=== PATIENT | female | born 1950 | race Caucasian/White ===

== ENCOUNTER → 2017-02-25 | Outpatient (CLI) | payer MEDICARE, OTHER ==
--- NOTE | 2017-02-28 20:22 | Diagnostic Imaging Report ---
EXAMINATION: Right breast screening mammogram with tomography evaluation. The current study was also evaluated with a Computer Aided Detection (CAD) system. INDICATION: Screening. No current symptoms. The patient has had left mastectomy. FINDINGS: The right breast is composed of scattered fibroglandular densities. There are punctate benign-appearing calcifications. Allowing for technique and positional differences, no suspicious change is seen. IMPRESSION: No significant change. ACR BI-RADS Category 2: Benign findings. Result letter will be mailed to the patient. Note: At least 10% of breast cancer is not imaged by mammography. Dictated by: Dictated on workstation # [id number]
== END ==
LOC: RAD 14:28
PROVIDERS: ATTEND Internal Medicine
DX: Z12.31 Encounter for screening mammogram for malignant neoplasm of breast (principal)

== ENCOUNTER → 2018-03-17 | Outpatient (CLI) | payer MEDICARE, OTHER ==
--- NOTE | 2018-03-20 21:14 | Diagnostic Imaging Report ---
EXAM: Right screening mammogram with 3-D tomosynthesis and CAD. COMPARISON: This study was compared to the prior exams of 02/25/2017, 02/11/2016 and 01/22/2015. At this time, there are no complaints. FINDINGS: There are scattered fibroglandular densities in the right breast which could obscure a lesion. Overall, there does not appear to have been any significant change. There is no primary or secondary sign of malignancy noted. IMPRESSION: There is no evidence of malignancy. ACR BI-RADS Category 1: Negative. Result letter will be mailed to the patient. Note: At least 10% of breast cancer is not imaged by mammography. Dictated by: Dictated on workstation # [id number]
== END ==
LOC: RAD 15:03
PROVIDERS: ATTEND Internal Medicine
DX: Z12.31 Encounter for screening mammogram for malignant neoplasm of breast (principal)

== ENCOUNTER → 2019-03-30 | Outpatient (CLI) | payer MEDICARE, OTHER ==
--- NOTE | 2019-04-02 09:38 | Diagnostic Imaging Report ---
INDICATION: Routine screening. Comparison is made with prior mammogram 03/17/2018 and 02/25/2017. 2-D and 3-D unilateral right screening mammography was performed with CAD. Scattered fibroglandular densities are identified bilaterally. The parenchymal pattern is stable. No mass or malignant-appearing microcalcifications are seen. Right axilla is unremarkable. IMPRESSION: BI-RADS Category 1. No mammographic features suspicious for malignancy are identified. Dictated by: Dictated on workstation # [id number]
== END ==
LOC: RAD 14:35
PROVIDERS: ATTEND Internal Medicine
DX: Z12.31 Encounter for screening mammogram for malignant neoplasm of breast (principal)

== ENCOUNTER → 2019-07-05 | Outpatient (CLI) | payer MEDICARE, OTHER ==
--- NOTE | 2019-07-05 10:59 | Diagnostic Imaging Report ---
PROCEDURE: CT abdomen and pelvis without contrast. TECHNIQUE: Multiple contiguous axial images were obtained through the abdomen and pelvis without the use of intravenous contrast. Auto Exposure Controls were utilized during the CT exam to meet ALARA standards for radiation dose reduction. 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 No comparison study. The solitary left kidney is normal in size, cortical thickness and volume. Its parenchymal density unremarkable and there is no identifiable intrarenal left-sided stone. There is pelvic phlebolith os present but no appreciable radiodense stone along the identifiable course of the nondistended left ureter. No perinephric or left periureteric edema. The bilateral adrenals are present and appeared unremarkable. The liver, gallbladder, spleen and pancreas unremarkable. The aorta is nonaneurysmal. There is no bowel, biliary or urinary tract obstruction. No ascites, abscess, hematoma or fluid collection. The unopacified urinary bladder showed no obvious wall thickening or appreciable intraluminal debris. No abdominal wall defect or hernia. No focal inflammatory process. IMPRESSION: Solitary unobstructed left kidney without visualized stone or pathological finding. Aside from a right nephrectomy, the study is otherwise normal. Dictated by: Dictated on workstation # [id number]
== END ==
LOC: RAD 09:51
PROVIDERS: ATTEND Urology
DX: Z87.440 Personal history of urinary (tract) infections (principal); Z87.442 Personal history of urinary calculi; Z90.5 Acquired absence of kidney
CPT/HCPCS: 74176

== ENCOUNTER → 2020-04-02 | Outpatient (CLI) | payer MEDICARE, OTHER ==
--- NOTE | 2020-04-02 13:54 | Diagnostic Imaging Report ---
INDICATION: Routine screening. COMPARISON: 03/30/2019 and 03/17/2018. TECHNIQUE: 2D and 3D unilateral right screening mammography was performed with CAD. FINDINGS: Scattered fibroglandular densities in the right breast are noted. The parenchymal pattern is stable. No mass or malignant appearing microcalcifications are seen. The axilla is unremarkable. IMPRESSION: No mammographic features suspicious for malignancy are identified. ACR BI-RADS Category 1: Negative. Result letter will be mailed to the patient. Note: At least 10% of breast cancer is not imaged by mammography. Dictated by: Dictated on workstation # [id number]
== END ==
LOC: RAD 09:47
PROVIDERS: ATTEND Internal Medicine
DX: Z12.31 Encounter for screening mammogram for malignant neoplasm of breast (principal)
CPT/HCPCS: 77063

== ENCOUNTER → 2020-05-15 | Outpatient (CLI) | payer MEDICARE, OTHER ==
--- NOTE | 2020-05-15 08:43 | Diagnostic Imaging Report ---
INDICATION: Abdominal pain Abdominal sonography performed in the routine fashion. The liver showed echogenicity with no focal lesions. Portal vein is patent with hepatopetal flow. Gallbladder is unremarkable with no stones or wall thickening. Common duct measured 4.6 mm. The pancreas is not well seen due to overlying gas. Spleen was not enlarged and no focal lesions. Visualized portions of the aorta and IVC are normal. Patient has had prior right nephrectomy. The left kidney was normal measured 12.1 x 4.9 x 6.1 cm. There is no ascites. IMPRESSION: Unremarkable abdominal sonography. Gallbladder appears normal. Patient has had previous right nephrectomy. There is no acute finding. Dictated by: Dictated on workstation # [id number]
== END ==
LOC: RAD 07:00
PROVIDERS: ATTEND Internal Medicine
DX: K82.9 Disease of gallbladder, unspecified (principal); R10.9 Unspecified abdominal pain; Z90.5 Acquired absence of kidney
CPT/HCPCS: 76700

== ENCOUNTER → 2020-06-02 | Outpatient (CLI) | payer MEDICARE, OTHER ==
[~2020-06-02] MED LIST: CATHETER FLUSH 10 ML SYR IV PRN
--- NOTE | 2020-06-02 13:18 | Diagnostic Imaging Report ---
INDICATION: Gallbladder disease. TECHNIQUE: The patient was administered 5.5 mCi of technetium 99m Choletec intravenously and imaging over the abdomen was performed. At 45 minutes, the patient ingested 8 ounces of Ensure and a gallbladder ejection fraction was calculated. FINDINGS: There is homogeneous uptake of activity by the liver with prompt excretion of activity into the common duct and gallbladder. Normal passage of activity into the small bowel is noted. There also is a moderate amount of gastric uptake, consistent with bile reflux into the stomach. The gallbladder ejection fraction is normal at 37%. IMPRESSION: 1. Patent cystic duct and common bile duct. 2. Gastric bile reflux. 3. Normal gallbladder ejection fraction. Dictated by: Dictated on workstation # [id number]
== END ==
LOC: CARD 09:26
PROVIDERS: ATTEND Internal Medicine
DX: K82.9 Disease of gallbladder, unspecified (principal); K21.9 Gastro-esophageal reflux disease without esophagitis
CPT/HCPCS: 78227; A9537

== ENCOUNTER → 2021-04-06 | Outpatient (CLI) | payer MEDICARE, OTHER ==
--- NOTE | 2021-04-06 12:23 | Diagnostic Imaging Report ---
INDICATION: Routine screening. COMPARISON: 04/02/2020 and 03/30/2019. TECHNIQUE: Unilateral right 2D and 3D screening mammography was performed with CAD. FINDINGS: Scattered fibroglandular densities are identified bilaterally. The parenchymal pattern is stable. No dominant mass or malignant-appearing microcalcifications are seen. The right axilla is unremarkable. IMPRESSION: No mammographic features suspicious for malignancy are identified. ACR BI-RADS Category 1: Negative. Result letter will be mailed to the patient. Note: At least 10% of breast cancer is not imaged by mammography. Dictated by: Dictated on workstation # [id number]
== END ==
LOC: RAD 09:30
PROVIDERS: ATTEND Internal Medicine
DX: Z12.31 Encounter for screening mammogram for malignant neoplasm of breast (principal)
CPT/HCPCS: 77063

== ENCOUNTER 2021-11-04 07:01 | Outpatient (CLI) | payer MEDICARE, OTHER ==
[~2021-11-04] VITALS: Ht 157.5 cm; Wt 68.8 kg
[2021-11-04] MEDS ORDERED: CRAN500T4 PO (08:59)
[2021-11-04] MEDS ORDERED: NAPR220T66 PO (08:59)
[2021-11-04] MEDS ORDERED: AMIT100T2 PO (08:59)
[2021-11-04] MEDS ORDERED: CHOL500049 PO (08:59)
[2021-11-04] MEDS ORDERED: ASCO-129 PO (08:59)
[2021-11-04] MEDS ORDERED: OXYB10TA29 PO (08:59)
[2021-11-04] MEDS ORDERED: PANT40TA52 PO (08:59)
[2021-11-04] MEDS ORDERED: MULT-974 PO (08:59)
[2021-11-04] MEDS ORDERED: DILT240C87 PO (08:59)
[2021-11-04] MEDS ORDERED: CALC-823 PO (08:59)
[2021-11-04] MEDS ORDERED: FERR-84 PO (08:59)
[2021-11-04] MEDS ORDERED: SUCR1TAB PO (08:59)
[2021-11-04] MEDS ORDERED: MELA1TAB20 PO (08:59)
[2021-11-04] MEDS ORDERED: HYDR25TA4 PO (08:59)
[2021-11-04] MEDS ORDERED: TURM500T PO (08:59)
[2021-11-04] MEDS ORDERED: LEVO75TA6 PO (08:59)
[2021-11-04] MEDS ORDERED: SIMV20TA26 PO (08:59)
[2021-11-04] MEDS ORDERED: MAGN400T39 PO (08:59)
== END 2021-11-04 09:01 ==
LOC: PREOP 07:01
PROVIDERS: ATTEND Surgery
DX: Z01.818 Encounter for other preprocedural examination (principal)

== ENCOUNTER 2021-11-11 09:11 | Day surgery (SDC) | payer MEDICARE, OTHER ==
[~2021-11-11] VITALS: Ht 157 cm; Wt 69.0 kg
[~2021-11-11 09:11] MED LIST changes: +AMIT100T2 PO; +ASCO-129 PO; +CALC-823 PO; -CATHETER FLUSH 10 ML SYR IV PRN; +CHOL500049 PO; +CRAN500T4 PO; +DILT240C87 PO; +FERR-84 PO; +HYDR25TA4 PO; +LEVO75TA6 PO; +MAGN400T39 PO; +MELA1TAB20 PO; +MULT-974 PO; +NAPR220T66 PO; +OXYB10TA29 PO; +PANT40TA52 PO; +SIMV20TA26 PO; +SUCR1TAB PO; +TURM500T PO
[2021-11-11] MEDS ORDERED: LACTATED RINGERS 1,000 ML IV STA (09:16)
[2021-11-11] MEDS ORDERED: LACTATED RINGERS 1,000 ML IV ONE (09:21)
[2021-11-11] MEDS ORDERED: LIDOCAINE JELLY 2% 6 ML SYRINGE MM PRN (09:30)
[2021-11-11 09:35] VITALS: BP 148/88
[2021-11-11] MEDS ORDERED: PROPOFOL INJECTION 50 ML IV ONE (10:26)
--- NOTE | 2021-11-11 10:37 | Progress Note-Pre Operative ---
Pre-Operative Progress Note Date of Available H&P: Nov 11, 2021 Date H&P Reviewed: Nov 11, 2021 Time H&P Reviewed: 10:00 History & Physical: No changes noted Pre-Operative Diagnosis: screening o JEFFERSON ESPINOSA MD Nov 11, 2021 10:37
--- NOTE | 2021-11-11 10:39 | Discharge Inst-Surgical ---
D/C Lap Instructions-JESÚS Follow Up Activity as tolerated High Fiber Diet 25g or more per day Avoid Alcohol, Caffeine, Spicy [place] and Acid foods. Drink 64 fluid oz or more of fluids per day. Symptoms to Report: Fever over 101 degree F, Nausea/Vomiting If any problems/questions: Contact your physician or go to Emergency Room JEFFERSON ESPINOSA MD Nov 11, 2021 10:39
[2021-11-11] MEDS ORDERED: ONDANSETRON 4 MG (ZOFRAN) ORAL DISSOLVE TAB PO PRN (10:45)
[2021-11-11] MEDS ORDERED: ONDANSETRON 4 MG/2 ML (SDV) Z0FRAN IVP PRN (10:45)
[2021-11-11 11:25] VITALS: BP 92/52
--- NOTE | 2021-11-11 11:25 | Anesthesia-General Post-Op ---
MAC Patient Condition Mental Status/LOC: Same as Preop Cardiovascular: Satisfactory Nausea/Vomiting: Absent Respiratory: Satisfactory Pain: Controlled Complications: Absent Post Op Complications Complications None Follow Up Care/Instructions Patient Instructions None needed. Anesthesiology Discharge Order Discharge Order Patient is doing well, no complaints, stable vital signs, no apparent adverse anesthesia problems. No complications reported per nursing. ANA HOU CRNA Nov 11, 2021 11:25
[2021-11-11 11:30] VITALS: BP 96/54
--- NOTE | 2021-11-11 11:30 | Progress Note-Post Operative ---
Post-Operative Progess Note Surgeon (s)/Medical Records Coder (s) Surgeon JEFFERSON ESPINOSA MD Medical Records Coder: none Pre-Operative Diagnosis screening colo Post-Operative Diagnosis mild chronic stage 1 ext and int hemorrhoids. Procedure & Operative Findings Date of Procedure 11/11/21 Procedure Performed/Findings colonoscopy Anesthesia Type mac Estimated Blood Loss Estimated blood loss (mL): minimal Specimens/Packing Specimens Removed none JEFFERSON ESPINOSA MD Nov 11, 2021 11:30
[2021-11-11 11:50] VITALS: BP 113/53
--- NOTE | 2021-11-11 18:43 | OPERATIVE REPORT ---
DATE OF SERVICE: 11/11/2021 ATTENDING PRIMARY CARE PHYSICIAN: Dr. Kennedy. PREOPERATIVE DIAGNOSIS: Screening colonoscopy. POSTOPERATIVE DIAGNOSIS: Mild chronic stage I external and internal hemorrhoids. PROCEDURE: Colonoscopy. SURGEON: Jefferson Hdz MD. ANESTHESIA: Monitored anesthesia care. ESTIMATED BLOOD LOSS: Minimal. FINDINGS: Mild chronic stage I external and internal hemorrhoids. DISPOSITION: The patient tolerated the procedure well. INDICATIONS: The patient is a 71-year-old female referred over to us for screening colonoscopy. She does not report any issues with diarrhea nor constipation as well as no red blood per rectum nor any dark tarry stools. She also does not report any family history of colon cancer. DESCRIPTION OF PROCEDURE: The patient was brought to the endoscopy suite, laid in the left lateral decubitus position. After adequate IV pain and sedative medications and monitored anesthesia care, a digital rectal examination was performed. Mild chronic stage I external and internal hemorrhoids were identified, which were not actively edematous nor inflamed and no bleeding. Normal sphincter tone was felt and there were no palpable masses. The endoscope was then intubated into the anus and rectum gently insufflated. The endoscope was then advanced through the valves of [place] of the rectum with no polyps or any neoplasms identified. We then proceeded through the sigmoid colon where no diverticulosis identified. The endoscope was then advanced through the descending, transverse and ascending colon to the cecum, which were normal. There were no polyps or any neoplasms identified throughout the colon or rectum. The endoscope was then slowly withdrawn while taking a second look and suctioning of residual air with no additional findings. The patient tolerated the procedure well. We will recommend continued conservative medical management with a high fiber diet with fiber supplementation, which should equal or exceed 25 grams daily to promote soft consistency stools on a daily basis. If this is the case and she is asymptomatic, she does not need another colonoscopy for another 10 years. Job ID: [id number] DocumentID: [id number] Dictated Date: 11/11/2021 11:26:54 Heat Pump Installer Date: 11/11/2021 18:42:32 Dictated By: JEFFERSON HDZ MD [facility]
== END 2021-11-11 11:59 | disposition home or self-care (01) ==
LOC: ENDO 09:11
PROVIDERS: ATTEND Surgery
DX: Z12.11 Encounter for screening for malignant neoplasm of colon (principal); K64.0 First degree hemorrhoids; Z87.891 Personal history of nicotine dependence

== ENCOUNTER → 2022-04-06 | Outpatient (CLI) | payer MEDICARE, OTHER ==
--- NOTE | 2022-04-06 09:06 | Diagnostic Imaging Report ---
INDICATION: Postmenopausal state COMPARISON: None available FINDINGS: AP Spine L1-L4: [BMD (g/cm2): 1.101] [T-Score: -0.8] [Z-Score: 1.0] [BMD Previous: na] [BMD % Change: na] LT Hip Neck: [BMD (g/cm2): 0.805] [T-Score: -1.7] [Z-Score: 0.2] LT Hip Total: [BMD (g/cm2):0.896] [T-Score:-0.9] [Z-Score: 0.8] [BMD Previous: na] [BMD % Change: na] RT Hip Neck: [BMD (g/cm2):0.839] [T-Score:-1.4] [Z-Score:0.5] RT Hip Total: [BMD (g/cm2):0.839] [T-score:-0.9] [Z-Score:0.8] [BMD Previous:na] [BMD % Change:na] *Indicates significant change from prior examination based on 95% confidence level. World Health Organization criteria for BMD interpretation classify patients as Normal (T-score at or above -1.0), Osteopenic (T-score between -1.0 and -2.5) or Osteoporotic (T-score at or below -2.5). LIMITATIONS AND MODIFICATION: None. FRACTURE RISK (FRAX SCORE): The ten year probability of (%): Major Osteoporotic Fracture: [18.2] Hip Fracture: [4.2] IMPRESSION: 1. Osteopenia (Low bone mass). 2. Baseline examination. 3. See below National Osteoporosis Foundation guidelines on when to potentially initiate pharmacologic therapy. Based on the National Osteoporosis Foundation Guidelines, pharmacologic treatment should be initiated in any of the following, unless clinical conditions suggest otherwise: * Any patient with prior fragility fracture of the hip or vertebrae. A spine fracture indicates 5X risk for subsequent spine fracture and 2X risk for subsequent hip fracture. * Osteoporosis (T-score <-2.5). * Postmenopausal women and men age 50 and older with low bone mass/osteopenia (T-score between -1.0 and -2.5) by DXA and 10-year major osteoporotic fracture greater than 20% or a 10-year probability of hip fracture greater than 3%. These fracture risks are supplied above in the FRAX score, if applicable. * Clinician judgement and/or patient preferences may indicate treatment for people with 10-year fracture probabilities above or below these levels. Dictated by: Dictated on workstation # [id number]
--- NOTE | 2022-04-06 14:27 | Diagnostic Imaging Report ---
Indication: Routine screening. Comparison is made with prior mammogram 04/06/2021 and 04/02/2020. 2-D and 3-D unilateral right screening mammography was performed with CAD. CAD is utilized. The current study was also evaluated with a Computer Aided Detection (CAD) system. Scattered fibroglandular densities in the right breast are noted. The parenchymal pattern is stable. No mass or malignant-appearing microcalcifications are seen. Right axilla is unremarkable. IMPRESSION: BI-RADS Category 1 No mammographic features suspicious for malignancy are identified. ACR BI-RADS Category 1: Negative. Result letter will be mailed to the patient. Note: At least 10% of breast cancer is not imaged by mammography. Dictated by: Dictated on workstation # [id number]
== END ==
LOC: RAD 08:30
PROVIDERS: ATTEND Internal Medicine
DX: Z12.31 Encounter for screening mammogram for malignant neoplasm of breast (principal); M85.89 Other specified disorders of bone density and structure, multiple sites
CPT/HCPCS: 77063; 77080

== ENCOUNTER 2022-06-07 08:11 | Inpatient (IN) | payer MEDICARE, OTHER ==
[~2022-06-07] VITALS: Ht 157.5 cm; Wt 78.9 kg
[2022-06-07] VITALS (21 sets, daily range): BP systolic 84–113; BP diastolic 46–93
--- NOTE | 2022-06-07 09:20 | ED Respiratory ---
General Chief Complaint: Cough/Cold/Flu Symptoms Stated Complaint: COUGH | CHEST CONGESTION | FEVER Nursing Triage Note: PT AMB TO RM 5 PT CO OF COLD COUGH AND BODY ACHES SINCE LAST WEEK, TESTED SELF FOR COVID AND WAS NEG AT HOME. HAS OCC HAS LOW GRADE TEMP. Source: patient Exam Limitations: no limitations History of Present Illness Date Seen by Provider: Jun 07, 2022 Time Seen by Provider: 09:08 Initial Comments Patient is a 71-year-old female who presents to the emergency department today with a chief complaint of congestion, cough, body aches onset last week on Tuesday 1 week ago. Patient states her symptoms have waxed and waned over the last week to the point last night she was having difficulty taking a deep breath due to the pain in her right upper abdomen/right chest. She does endorse fever over the last 2 to 3 days. Cough is nonproductive. She has had a mild sore throat. Decreased appetite, decreased overall drinking. She has a former smoking history, quit 20 years ago. She is a breast cancer survivor greater than 10 years. She has had previous nephrectomy for kidney stones. She is on medications for hypertension and thyroid. She states her normal blood pressure is in the 130s. Notably she is 95 over 60s here in the emergency department with a heart rate of 111. She does not require the use of inhalers ever. She has had COVID in February 2022. Vaccinated with 1 booster. 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 She did get a flu shot this year. Couple of days of diarrhea, no dysuria urgency or frequency. No swelling in her legs, no recent travel or prolonged immobility. All other review of systems reviewed and negative except as stated. Timing/Duration: week, getting worse Severity: moderate Prior Episodes/Possible Cause: occasional episodes Associated Symptoms: chest pain/soreness, cough, fever/chills, nasal congestion, shortness of breath Allergies and Home Medications Allergies Coded Allergies: No Known Drug Allergies (Unverified , 06/07/22) Patient Home Medication List Home Medication List Reviewed: Yes Amitriptyline HCl (Amitriptyline HCl) 100 Mg Tablet, 100 MG PO HS, (Reported) Entered as Reported by: JM ELIZONDO on 11/04/21 0859 Last Action: Reviewed Calcium Carbonate (Calcium) 500 Mg Calcium (1250 Mg) Tablet, 1,000 MG PO DAILY, (Reported) Entered as Reported by: JM ELIZONDO on 11/04/21858 Last Action: Reviewed Cranberry Extract (Cranberry) 500 Mg Tablet, 1,000 MG PO HS, (Reported) Entered as Reported by: JM ELIZONDO on 11/04/21858 Last Action: Reviewed Cranberry Fruit (Cranberry) 500 Mg Tab.chew, 500 MG PO DAILY, (Reported) Entered as Reported by: LU VOGT on 06/08/221258 Last Action: Reviewed Diltiazem HCl (Diltiazem 24Hr ER) 240 Mg Cap.er.24h, 240 MG PO DAILY, (Reported) Entered as Reported by: LU VOGT on 06/08/221258 Last Action: Reviewed Ferrous Sulfate (Iron) 325 Mg (65 Mg Iron) Tablet, 325 MG PO DAILY, (Reported) Entered as Reported by: JM ELIZONDO on 11/04/21858 Last Action: Reviewed Fish Oil/Dha/Epa (Fish Oil 1,200 mg Fish Oil) 1,200 Mg-144 Mg-216 Mg Capsule, 1 EACH PO HS, (Reported) Entered as Reported by: LU VOGT on 06/08/22 130 Last Action: Reviewed Hydrochlorothiazide (Hydrochlorothiazide) 25 Mg Tablet, 25 MG PO DAILY, (Reporte d) Entered as Reported by: JM ELIZONDO on 11/04/21858 Last Action: Reviewed Levothyroxine Sodium (Levothyroxine Sodium) 75 Mcg Tablet, 75 MCG PO DAILY, (Reported) Entered as Reported by: JM ELIZONDO on 11/04/21858 Last Action: Reviewed Loratadine (Loratadine) 10 Mg Tablet, 10 MG PO DAILY, (Reported) Entered as Reported by: LU VOGT on 06/08/221258 Last Action: Reviewed Magnesium Oxide (Magnesium Oxide) 250 Mg Tablet, 500 MG PO BID, (Reported) Entered as Reported by: LU VOGT on 06/08/221258 Last Action: Reviewed Melatonin (Melatonin) 10 Mg Tablet, 10 MG PO HS PRN for SLEEP, (Reported) Entered as Reported by: LU VOGT on 06/08/221258 Last Action: Reviewed Multivitamin (Multi-Vitamin Daily) 1 Each Tablet, 1 EACH PO DAILY, (Reported) Entered as Reported by: JM ELIZONDO on 11/04/21858 Last Action: Reviewed Naproxen Sodium (Aleve) 220 Mg Tablet, 440 MG PO DAILY, (Reported) Entered as Reported by: JM ELIZONDO on 11/04/21858 Last Action: Reviewed Oxybutynin Chloride (Oxybutynin Chloride ER) 10 Mg Tab.er.24, 10 MG PO DAILY, (Reported) Entered as Reported by: JM ELIZONDO on 11/04/21858 Last Action: Reviewed Pantoprazole Sodium (Pantoprazole Sodium) 40 Mg Tablet.dr, 40 MG PO DAILY, (Reported) Entered as Reported by: JM ELIZONDO on 11/04/21858 Last Action: Reviewed Simvastatin (Simvastatin) 20 Mg Tablet, 20 MG PO HS, (Reported) Entered as Reported by: JM ELIZONDO on 11/04/21858 Last Action: Reviewed Turmeric Root Extract (Turmeric) 500 Mg Tablet, 500 MG PO DAILY, (Reported) Entered as Reported by: JM ELIZONDO on 11/04/21858 Last Action: Reviewed Ubidecarenone (Coq-10) 100 Mg Capsule, 100 MG PO DAILY, (Reported) Entered as Reported by: LU VOGT on 06/08/22 125 Last Action: Reviewed Discontinued Medications Ascorbic Acid (Vitamin C) 500 Mg Tablet.er, 1,000 MG PO DAILY, (Reported) Discontinued Reason: No Longer Taking Entered as Reported by: JM ELIZONDO on 11/04/21858 Last Action: Discontinued Cholecalciferol (Vitamin D3) (Vitamin D3) 1,250 Mcg (51697 Unit) Capsule, 1,250 MCG PO DAILY, (Reported) Discontinued Reason: No Longer Taking Entered as Reported by: JM ELIZONDO on 11/04/21858 Last Action: Discontinued Diltiazem HCl (Diltiazem ER) 240 Mg Capsule.er, 240 MG PO DAILY, (Reported) Discontinued Reason: Duplicate Order Entered as Reported by: JM ELIZONDO on 11/04/21858 Last Action: Discontinued Magnesium Oxide (Magnesium) 400 Mg Magnesium Tablet, 400 MG PO DAILY, (Reported) Discontinued Reason: Prescription changed Entered as Reported by: JM ELIZONDO on 11/04/21858 Melatonin/Pyridoxine HCl (B6) (Melatonin 10 mg Tablet) 10 Mg-10 Mg Tab.mphase, 1 EACH PO HS, (Reported) Discontinued Reason: No Longer Taking Entered as Reported by: JM ELIZONDO on 11/04/21858 Last Action: Discontinued Sucralfate (Sucralfate) 1 Gram Tablet, 1 GM PO QID, (Reported) Discontinued Reason: No Longer Taking Entered as Reported by: JM ELIZONDO on 11/04/21858 Last Action: Discontinued Review of Systems Review of Systems Constitutional: see HPI, fever, malaise EENTM: nose congestion Respiratory: cough, phlegm, other (pleuritic pain) Cardiovascular: no symptoms reported Genitourinary: no symptoms reported Musculoskeletal: no symptoms reported Skin: no symptoms reported All Other Systems Reviewed Negative Unless Noted: Yes Past Rgamutc-Ibzkaj-Sbnuta Hx Patient Social History Tobacco Use?: No Substance use?: No Alcohol Use?: No Pt feels they are or have been: No Immunizations Up To Date Influenza Vaccine Up-to-Date: Yes; Up-to-Date First/Initial COVID19 Vaccinat: 2020 Second COVID19 Vaccination Brandon: 2020 Third COVID19 Vaccination Date: 2020 Seasonal Allergies Seasonal Allergies: No Past Medical History Surgery/Hospitalization HX: HTN,HYST, R KIDNEY REMOVED FOR STONES. FOOT SURG, BREAST CA L MASTECTOMY, EYE SURG Surgeries: Yes (CATARACT BILAT, NEUROMA, R MASTECTOMY) Nephrectomy Respiratory: No Cardiac: Yes High Cholesterol, Hypertension Neurological: No Genitourinary: No Gastrointestinal: No Musculoskeletal: No Endocrine: Yes Hypothyroidsim HEENT: No Cancer: Yes Breast Did You Recieve Any Treatments: Yes Psychosocial: No Integumentary: No Blood Disorders: No Physical Exam Vital Signs - First Documented Capillary Refill : Less Than 3 Seconds Height: '" Weight: lbs. oz. kg; 27.00 BMI Method: General Appearance: no apparent distress, thin Eyes: Bilateral Eye Normal Inspection, Bilateral Eye PERRL, Bilateral Eye EOMI HEENT: PERRL/EOMI, other (very dry oral mucosa) Neck: full range of motion, supple Respiratory: chest non-tender, no respiratory distress, no accessory muscle use, decreased breath sounds (right base), crackles (throughout) Cardiovascular: regular rate, rhythm, tachycardia (111) Gastrointestinal: normal bowel sounds, non tender, soft Extremities: normal range of motion, non-tender, normal inspection, no pedal edema, no calf tenderness, normal capillary refill Neurologic/Psychiatric: no motor/sensory deficits, alert, normal mood/affect, oriented x 3 Skin: normal color, warm/dry Focused Exam Lactate Level 06/07/22 09:20: Lactic Acid Level 2.17*H Time of Focused Exam: 10:00 Respiratory: No Accessory Muscle Use, No Respiratory Distress, Crackles, Decreased Breath Sounds Cardiovascular: Regular Rate, Rhythm, Normal Peripheral Pulses, Tachycardia (110) Capillary Refill: Less Than 3 Seconds Peripheral Pulses: 2+ Radial Pulses (R), 2+ Radial Pulses (L) Skin: normal color, warm/dry Lactic Acid Level Laboratory Tests Test 06/07/22 09:20 Lactic Acid Level 2.17 MMOL/L (0.50-2.00) *H Within 3hrs of presentation: Admin fluids, Admin ABX, Blood cultures prior to ABX's, Focus exam, Lactate level Progress/Results/Core Measures Suspected Sepsis Recent Fever Within 48 Hours: Yes Infection Criteria Present: Suspected New Infection New/Unexplained Altered Menta: No Within 3hrs of presentation: Admin fluids, Admin ABX, Blood cultures prior to ABX's, Focus exam, Lactate level SIRS Temperature: Pulse: 111 Respiratory Rate: 18 Blood Pressure / Mean: 06/07/22 09:20: Lactic Acid Level 2.17*H Laboratory Tests 06/07/22 08:40: INR Comment 1.0 Results/Orders Lab Results Laboratory Tests Test 06/07/22 08:40 06/07/22 08:55 06/07/22 09:20 Range/Units White Blood Count 4.9 4.3-11.0 10^3/uL Red Blood Count 4.29 3.80-5.11 10^6/uL Hemoglobin 13.1 11.5-16.0 g/dL Hematocrit 39 35-52 % Mean Corpuscular Volume 92 80-99 fL Mean Corpuscular Hemoglobin 31 25-34 pg Mean Corpuscular Hemoglobin Concent 33 32-36 g/dL Red Cell Distribution Width 13.4 10.0-14.5 % Platelet Count 209 130-400 10^3/uL Mean Platelet Volume 10.3 9.0-12.2 fL Immature Granulocyte % (Auto) 0 % Neutrophils (%) (Auto) 84 H 42-75 % Lymphocytes (%) (Auto) 12 12-44 % Monocytes (%) (Auto) 3 0-12 % Eosinophils (%) (Auto) 1 0-10 % Basophils (%) (Auto) 1 0-10 % Neutrophils # (Auto) 4.1 1.8-7.8 10^3/uL Lymphocytes # (Auto) 0.6 L 1.0-4.0 10^3/uL Monocytes # (Auto) 0.2 0.0-1.0 10^3/uL Eosinophils # (Auto) 0.0 0.0-0.3 10^3/uL Basophils # (Auto) 0.0 0.0-0.1 10^3/uL Immature Granulocyte # (Auto) 0.0 0.0-0.1 10^3/uL Neutrophils % (Manual) 29 % Lymphocytes % (Manual) 7 % Monocytes % (Manual) 2 % Metamyelocytes % 5 % Myelocytes % 3 % Band Neutrophils 54 % Prothrombin Time 13.9 12.2-14.7 SEC INR Comment 1.0 0.8-1.4 Activated Partial Thromboplast Time 36 H 24-35 SEC Sodium Level 137 135-145 MMOL/L Potassium Level 3.7 3.6-5.0 MMOL/L Chloride Level 103 98-107 MMOL/L Carbon Dioxide Level 20 L 21-32 MMOL/L Anion Gap 14 5-14 MMOL/L Blood Urea Nitrogen 35 H 7-18 MG/DL Creatinine 1.89 H 0.60-1.30 MG/DL Estimat Glomerular Filtration Rate 28 BUN/Creatinine Ratio 19 Glucose Level 92 70-105 MG/DL Calcium Level 8.8 8.5-10.1 MG/DL Corrected Calcium 9.4 8.5-10.1 MG/DL Total Bilirubin 0.4 0.1-1.0 MG/DL Aspartate Amino Transf (AST/SGOT) 45 H 5-34 U/L Alanine Aminotransferase (ALT/SGPT) 38 0-55 U/L Alkaline Phosphatase 102 40-136 U/L Total Protein 5.9 L 6.4-8.2 GM/DL Albumin 3.2 3.2-4.5 GM/DL Smear Scan YES Influenza Type A (RT-PCR) Not Detected Not Detecte Influenza Type B (RT-PCR) Not Detected Not Detecte SARS-CoV-2 RNA (RT-PCR) Not Detected Not Detecte Lactic Acid Level 2.17 *H 0.50-2.00 MMOL/L Micro Results Microbiology 06/07/22 Blood Culture - Final, Complete Streptococcus pyogenes Grp A 06/07/22 Blood Culture - Preliminary, Resulted No growth My Orders Orders - STU MOORE MD Cbc With Automated Diff (06/07/22 09:17) Comprehensive Metabolic Panel (06/07/22 09:17) Blood Culture (06/07/22 09:17) Sputum Culture (06/07/22 09:17) Urinalysis (06/07/22 09:17) Urine Culture (06/07/22 09:17) Protime With Inr (06/07/22 09:17) Partial Thromboplastin Time (06/07/22 09:17) Chest 1 View, Ap/Pa Only (06/07/22 09:17) Ed Iv/Invasive Line Start (06/07/22 09:17) Ed Iv/Invasive Line Start (06/07/22 09:17) Vital Signs Adult Sepsis Patie Q15M (06/07/22 09:17) O2 (06/07/22 09:17) Lactic Acid Analyzer (06/07/22 09:17) Ns Iv 1000 Ml (Sodium Chloride 0.9%) (06/07/22 09:30) Cefepime Injection (Maxipime Injection) (06/07/22 09:30) Covid 19 Inhouse Test (06/07/22 09:20) Influenza A And B By Pcr (06/07/22 09:20) Isolation Central Supply Req (06/07/22 09:20) Manual Differential (06/07/22 08:40) Ed Admission (Communication) (06/07/22 10:07) Medications Given in ED Vital Signs/I&O 06/07/22 06/07/22 08:22 08:22 Temp 36.6 Pulse 111 Resp 18 B/P (MAP) Pulse Ox 91 91 O2 Delivery Nasal Cannula Nasal Cannula O2 Flow Rate 2.00 2.00 Capillary Refill : Less Than 3 Seconds Progress Note : Time: 10:01 Progress Note Patient seen and evaluated by me, 71-year-old with right-sided pleuritic chest pain, fever cough. Evaluation today includes physical exam, sepsis protocol which include CBC, Chem-12, lactic acid, blood cultures, coag profile, urinalysis, single view chest x-ray. COVID/flu swab was also obtained. Physical exam pertinent for tachycardia with a heart rate of 111, "soft" blood pressure with systolic of 95. Room air sats 91%. She clinically has very dry mucous membranes. She has diminished breath sounds in the right base with crackles throughout both lungs. Abdomen is soft, nontender, nondistended. No lower extremity edema, calf tenderness. Skin turgor is good, cap refill is brisk at 2 seconds. Differential diagnosis based on history and physical exam, pneumonia, sepsis, pneumothorax. Labs reviewed, patient has a normal white blood cell count with slight left shift. Chemistry shows mildly elevated BUN and creatinine. Lactic acid is 2.17. Single view chest x-ray shows consolidation in the right base. COVID and flu are negative. Patient is treated in the emergency department with IV fluids, normal saline and cefepime 1 g. She clinically meets sepsis criteria with right lower lobe pneumonia as source. Discussed with Dr. Cotter, the patient's primary care physician who accepts the patient for inpatient admission. We will put her on cardiac stepdown unit. Diagnostic Imaging Diagonstic Imaging: Xray Plain Films/CT/US/NM/MRI: chest Comments [facility]. [place], [place] NAME: REJI CHOW [facility] REC#: [id number] PT STATUS: REG ER : 1950 PHYSICIAN: STU MOORE MD ADMIT DATE: 06/07/22/ER Draft Date of Exam:06/07/22 CHEST 1 VIEW, AP/PA ONLY INDICATION: Cough and fever. Portable chest 9:20 AM There is consolidation at the right lung base. Left lung is clear. There may be small right pleural effusion. IMPRESSION: Right basilar consolidation with possible effusion. Findings are suspicious for pneumonia. Dictated on workstation # [id number] Dict: 06/07/2232 Trans: 06/07/2234 [id number] Interpreted by: NEGRITO FERNANDEZ MD Electronically signed by: Departure Communication (Admissions) Time/Spoke to Admitting Phy: :[address] Cotter ([facility]); IP to cardiac step down unit Impression Primary Impression: Sepsis Qualified Codes: A41.9 - Sepsis, unspecified organism Additional Impression: Pneumonia Qualified Codes: J18.9 - Pneumonia, unspecified organism Disposition: 09 ADMITTED INPATIENT Condition: Stable Admissions Decision to Admit Reason: Admit from ER (General) Decision to Admit/Date: Jun 07, 2022 Time/Decision to Admit Time: 09:45 Departure-Patient Inst. Referrals: RIAZ COTTER DO (PCP/Family) Primary Care Physician STU MOORE MD Jun 07, 2022 09:20
[2022-06-07 09:29] LABS: BASOPHILS % (AUTO) 1 % (0-10); EOSINOPHILS % (AUTO) 1 % (0-10); HEMATOCRIT 39 % (35-52); HEMOGLOBIN 13.1 g/dL (11.5-16.0); LYMPHOCYTES # (AUTO) 0.6 10^3/uL (1.0-4.0); LYMPHOCYTES % (AUTO) 12 % (12-44); MEAN CORPUSCULAR HEMOGLOBIN 31 pg (25-34); MEAN CORPUSCULAR HGB CONC 33 g/dL (32-36); MEAN CORPUSCULAR VOLUME 92 fL (80-99); MEAN PLATELET VOLUME 10.3 fL (9.0-12.2); MONOCYTES # (AUTO) 0.2 10^3/uL (0.0-1.0); MONOCYTES % (AUTO) 3 % (0-12); NEUTROPHILS # (AUTO) 4.1 10^3/uL (1.8-7.8); NEUTROPHILS % (AUTO) 84 % (42-75); PLATELET COUNT 209 10^3/uL (130-400); WHITE BLOOD COUNT 4.9 10^3/uL (4.3-11.0)
[2022-06-07] MEDS ORDERED: CEFEPIME INJECTION 1,000 MG in NS (IVPB) 50 ML IV ONE (09:30)
[2022-06-07] MEDS ORDERED: NS IV 1000 ML 1,000 ML IV SCH ×4 (09:30→18:45)
[2022-06-07 09:32] LABS: ALBUMIN 3.2 GM/DL (3.2-4.5); POTASSIUM 3.7 MMOL/L (3.6-5.0); SMEAR SCAN COMMENT YES
[2022-06-07 09:33] LABS: CALCIUM 8.8 MG/DL (8.5-10.1)
[2022-06-07 09:34] LABS: TOTAL PROTEIN 5.9 GM/DL (6.4-8.2)
--- NOTE | 2022-06-07 09:34 | Diagnostic Imaging Report ---
INDICATION: Cough and fever. Portable chest 9:20 AM There is consolidation at the right lung base. Left lung is clear. There may be small right pleural effusion. IMPRESSION: Right basilar consolidation with possible effusion. Findings are suspicious for pneumonia. Dictated by: Dictated on workstation # [id number]
[2022-06-07 09:36] LABS: BILIRUBIN,TOTAL 0.4 MG/DL (0.1-1.0)
[2022-06-07 09:38] LABS: CREATININE SERUM 1.89 MG/DL (0.60-1.30)
[2022-06-07 09:50] LABS: PROTHROMBIN TIME PATIENT 13.9 SEC (12.2-14.7)
[2022-06-07 10:16] LABS: BAND NEUTROPHILS 54 %; LYMPHOCYTES % (MANUAL) 7 %; METAMYELOCYTES % 5 %; MONOCYTES % (MANUAL) 2 %; MYELOCYTES % 3 %; NEUTROPHILS % (MANUAL) 29 %
[2022-06-07] MEDS ORDERED: LACTULOSE SYRUP 10GM/15ML (ENULOSE) 30ML UDC PO PRN (10:45)
[2022-06-07] MEDS ORDERED: BISACODYL 10 MG SUPP (DULCOLAX) PR PRN (10:45)
[2022-06-07] MEDS ORDERED: diphenhydrAMINE 25 MG TAB (BENADRYL) PO PRN (10:45)
[2022-06-07] MEDS ORDERED: ONDANSETRON 4 MG/2 ML (SDV) Z0FRAN IV PRN (10:45)
[2022-06-07] MEDS ORDERED: ANTACID SUSP 30 ML UDC (MYLANTA) PO PRN (10:45)
[2022-06-07] MEDS ORDERED: MELATONIN 3 MG TABLET PO PRN (10:45)
[2022-06-07] MEDS ORDERED: ONDANSETRON 4 MG (ZOFRAN) ORAL DISSOLVE TAB PO PRN (10:45)
[2022-06-07] MEDS ORDERED: polyethylene glycoL POWDER 17 GM (MIRALAX) PACK PO PRN (10:45)
[2022-06-07] MEDS ORDERED: ACETAMINOPHEN 325 MG TABLET PO PRN (10:45)
[2022-06-07] MEDS ORDERED: CALCIUM CARBONATE 500 MG (TUMS) TAB.CHEW PO PRN (10:45)
[2022-06-07] MEDS ORDERED: HYDROmorphone 2 MG/ML VIAL (DILAUDID) IV PRN (10:45)
[2022-06-07] MEDS ORDERED: diphenhydrAMINE 50 MG/ML INJ (BENADRYL) IVP PRN (10:45)
[2022-06-07] MEDS ORDERED: MILK OF MAGNESIA 400 MG/5 ML 30 ML UDC PO PRN (10:45)
[2022-06-07] MEDS ORDERED: NS IV 500 ML 500 ML IV PRN (11:00)
[2022-06-07] MEDS ORDERED: NS (IVPB) 250 ML IV PRN (11:00)
--- NOTE | 2022-06-07 11:06 | History & Physical ---
BROOKLYN BROWN 06/07/22 1105: History of Present Illness History of Present Illness Reason for visit/HPI Belen Patricio is a 71F with past medical hx of HTN, hypothyroidism, GERD, breast cancer, and recurrent kidney stones requiring R nephrectomy. She presented to the ER on 06/07 with cough, right sided chest pain, and shortness of breath. In the ER she was found to have an elevated lactic acid, tachycardia, low sats and consolidation in the RLL on CXR concerning for pneumonia. She was seen at bedside and reports 10/10 pain on the right side of her anterior chest that is worse with inspiration. She feels short of breath, but improved after O2 by nasal cannula. She reports symptoms began on 06/01 with a cough. She felt like she was improving until over the weekend when she began experiencing worsening chest pain and shortness of breath with her cough. This pain is unrelenting and does not radiate. Pt describes pain as sharp. O2 sats in the low 90s as I talk to her and she remains tachycardic. Date of Admission Jun 07, 2022 at 10:08 Date Seen by a Provider: Jun 07, 2022 Time Seen by a Provider: 11:06 I consulted on this patient on 06/07/22 10:58 Attending Physician Chapis Cotter DO Admitting Physician Admitting Physician: Chapis Cotter DO Attending Physician: Chapis Cotter DO Consult Allergies and Home Medications Allergies Coded Allergies: No Known Drug Allergies (Unverified , 06/07/22) Patient Home Medication List Home Medication List Reviewed: Yes Amitriptyline HCl (Amitriptyline HCl) 100 Mg Tablet, 100 MG PO DAILY, (Reported) Entered as Reported by: JM ELIZONDO on 11/04/21 0859 Ascorbic Acid (Vitamin C) 500 Mg Tablet.er, 1,000 MG PO DAILY, (Reported) Entered as Reported by: JM ELIZONDO on 11/04/21 0859 Calcium Carbonate (Calcium) 500 Mg Calcium (1250 Mg) Tablet, 500 MG PO DAILY, (Reported) Entered as Reported by: JM ELIZONDO on 11/04/21858 Cholecalciferol (Vitamin D3) (Vitamin D3) 1,250 Mcg (96183 Unit) Capsule, 1,250 MCG PO DAILY, (Reported) Entered as Reported by: JM ELIZONDO on 11/04/21858 Cranberry Extract (Cranberry) 500 Mg Tablet, 500 MG PO DAILY, (Reported) Entered as Reported by: JM ELIZONDO on 11/04/21858 Diltiazem HCl (Diltiazem ER) 240 Mg Capsule.er, 240 MG PO DAILY, (Reported) Entered as Reported by: JM ELIZONDO on 11/04/21858 Ferrous Sulfate (Iron) 325 Mg (65 Mg Iron) Tablet, 325 MG PO DAILY, (Reported) Entered as Reported by: JM ELIZONDO on 11/04/21858 Hydrochlorothiazide (Hydrochlorothiazide) 25 Mg Tablet, 25 MG PO DAILY, (Reported) Entered as Reported by: JM ELIZONDO on 11/04/21858 Levothyroxine Sodium (Levothyroxine Sodium) 75 Mcg Tablet, 75 MCG PO DAILY, (Reported) Entered as Reported by: JM ELIZONDO on 11/04/21858 Magnesium Oxide (Magnesium) 400 Mg Magnesium Tablet, 400 MG PO DAILY, (Reported) Entered as Reported by: JM ELIZONDO on 11/04/21858 Melatonin/Pyridoxine HCl (B6) (Melatonin 10 mg Tablet) 10 Mg-10 Mg Tab.mphase, 1 EACH PO HS, (Reported) Entered as Reported by: JM ELIZONDO on 11/04/21858 Multivitamin (Multi-Vitamin Daily) 1 Each Tablet, 1 EACH PO DAILY, (Reported) Entered as Reported by: JM ELIZONDO on 11/04/21858 Naproxen Sodium (Aleve) 220 Mg Tablet, 220 MG PO PRN, (Reported) Entered as Reported by: JM ELIZONDO on 11/04/21858 Oxybutynin Chloride (Oxybutynin Chloride ER) 10 Mg Tab.er.24, 10 MG PO DAILY, (Reported) Entered as Reported by: JM ELIZONDO on 11/04/21858 Pantoprazole Sodium (Pantoprazole Sodium) 40 Mg Tablet.dr, 40 MG PO DAILY, (Reported) Entered as Reported by: JM ELIZONDO on 11/04/21858 Simvastatin (Simvastatin) 20 Mg Tablet, 20 MG PO DAILY, (Reported) Entered as Reported by: JM ELIZONDO 11/04/21858 Sucralfate (Sucralfate) 1 Gram Tablet, 1 GM PO QID, (Reported) Entered as Reported by: JM ELIZONDO on 11/04/21858 Turmeric Root Extract (Turmeric) 500 Mg Tablet, 500 MG PO DAILY, (Reported) Entered as Reported by: JM ELIZONDO on 11/04/21 0859 Past Baerbdb-Wtmbaa-Hxubsi Hx Patient Social History Tobacco Use?: No Smoking Status: Former Smoker (smoked on and off for 30 years. Quit in 1999) Substance use?: No Alcohol Use?: Yes (reports occasional alcohol use every few months) Alcohol Frequency: Once in a while Pt feels they are or have been: No Immunizations Up To Date First/Initial COVID19 Vaccinat: 2020 Second COVID19 Vaccination Brandon: 2020 Seasonal Allergies Seasonal Allergies: No Current Status Advance Directives: No Communicates: Verbally Primary Language: British Preferred Spoken Language: British Is interpretation needed?: No Implanted or Applied Medical D: Other Past Medical History Surgeries: Hysterectomy, Nephrectomy, Orthopedic High Cholesterol, Hypertension Gastroesophageal Reflux Hypothyroidsim Breast Did You Recieve Any Treatments: Yes Blood Disorders: No Family Medical History Cancer (cervical cancer in mother) Review of Systems Constitutional: No chills, No fever; weakness EENTM: No hearing loss, No vision loss, No nose congestion Respiratory: cough, short of breath Cardiovascular: chest pain; No palpitations, No syncope Gastrointestinal: No abdominal pain, No nausea, No vomiting Genitourinary: No dysuria, No hematuria Skin: change in color (cyanosis mild around lips, pale) Physical Exam Vital Signs Vital Signs - First Documented 06/07/22 06/07/22 10:15 11:00 B/P (MAP) 101/53 FiO2 28 Capillary Refill : Less Than 3 Seconds Height, Weight, BMI Height: '" Weight: lbs. oz. kg; 27.00 BMI Method: General Appearance: Mild Distress HEENT: PERRL/EOMI, Other (dry oral mucosa) Neck: Supple Respiratory: No Accessory Muscle Use, Crackles (RLL) Cardiovascular: No Murmur, Normal Peripheral Pulses, Tachycardia Gastrointestinal: No Distended, No Tenderness Rectal: Deferred Extremity: Non Tender, No Pedal Edema Neurologic/Psychiatric: Alert, Oriented x3, Normal Mood/Affect Skin: Cyanosis (perioral), Pallor Assessment/Plan Assessment and Plan Severe Sepsis RLL Pneumonia CXR w consolidation in RLL. SIRS criteria met with lactic acid, tachycardia, RR, and source of infection Cefepime and doxycycline ABG results 7.43 pH, 34CO2, 79 O2 MAT protocol Monitor vital signs and CBC CMP Repeat CXR tomorrow Lactic acidosis 2.17->3.55->1.56 Continue fluids and treating infection Elevated creatinine 1.89 Hx of R nephrectomy Continue IV fluids UTI UA positive for nitrites and leukocyte esterase cx pending fluids and abx HTN Hypothyroidism Home meds held Will restart when appropriate GI prophylaxis - PPI DVT prophylaxis - heparin Admission Diagnosis Pneumonia Sepsis Admission Status: Inpatient Order (span 2 midnights) Reason for Inpatient Admission: Sepsis Community aquired pneumonia CHAPIS COTTER DO 06/08/22 0444: Allergies and Home Medications Allergies Coded Allergies: No Known Drug Allergies (Unverified , 06/07/22) Patient Home Medication List Home Medication List Reviewed: Yes Amitriptyline HCl (Amitriptyline HCl) 100 Mg Tablet, 100 MG PO DAILY, (Reported) Entered as Reported by: JM ELIZONDO on 11/04/21 08 Ascorbic Acid (Vitamin C) 500 Mg Tablet.er, 1,000 MG PO DAILY, (Reported) Entered as Reported by: JM ELIZONDO on 11/04/21 08 Calcium Carbonate (Calcium) 500 Mg Calcium (1250 Mg) Tablet, 500 MG PO DAILY, (Reported) Entered as Reported by: MJ ELIZONDO on 11/04/21 08 Cholecalciferol (Vitamin D3) (Vitamin D3) 1,250 Mcg (94593 Unit) Capsule, 1,250 MCG PO DAILY, (Reported) Entered as Reported by: JM ELIZONDO on 11/04/21 08 Cranberry Extract (Cranberry) 500 Mg Tablet, 500 MG PO DAILY, (Reported) Entered as Reported by: JM ELIZONDO on 11/04/21 08 Diltiazem HCl (Diltiazem ER) 240 Mg Capsule.er, 240 MG PO DAILY, (Reported) Entered as Reported by: JM ELIZONDO on 11/04/21 0859 Ferrous Sulfate (Iron) 325 Mg (65 Mg Iron) Tablet, 325 MG PO DAILY, (Reported) Entered as Reported by: JM ELIZONDO on 7858 Hydrochlorothiazide (Hydrochlorothiazide) 25 Mg Tablet, 25 MG PO DAILY, (Reported) Entered as Reported by: JM ELIZONDO on 11/04/21858 Levothyroxine Sodium (Levothyroxine Sodium) 75 Mcg Tablet, 75 MCG PO DAILY, (Reported) Entered as Reported by: JM ELIZONDO on 11/04/21858 Magnesium Oxide (Magnesium) 400 Mg Magnesium Tablet, 400 MG PO DAILY, (Reported) Entered as Reported by: JM ELIZONDO on 11/04/21858 Melatonin/Pyridoxine HCl (B6) (Melatonin 10 mg Tablet) 10 Mg-10 Mg Tab.mphase, 1 EACH PO HS, (Reported) Entered as Reported by: JM ELIZONDO on 11/04/21858 Multivitamin (Multi-Vitamin Daily) 1 Each Tablet, 1 EACH PO DAILY, (Reported) Entered as Reported by: JM ELIZONDO on 11/04/21858 Naproxen Sodium (Aleve) 220 Mg Tablet, 220 MG PO PRN, (Reported) Entered as Reported by: JM ELIZONDO on 11/04/21858 Oxybutynin Chloride (Oxybutynin Chloride ER) 10 Mg Tab.er.24, 10 MG PO DAILY, (Reported) Entered as Reported by: JM ELIZONDO on 11/04/21858 Pantoprazole Sodium (Pantoprazole Sodium) 40 Mg Tablet.dr, 40 MG PO DAILY, (Reported) Entered as Reported by: JM ELIZONDO on 11/04/21858 Simvastatin (Simvastatin) 20 Mg Tablet, 20 MG PO DAILY, (Reported) Entered as Reported by: JM ELIZONDO on 11/04/21858 Sucralfate (Sucralfate) 1 Gram Tablet, 1 GM PO QID, (Reported) Entered as Reported by: JM ELIZONDO 11/04/21858 Turmeric Root Extract (Turmeric) 500 Mg Tablet, 500 MG PO DAILY, (Reported) Entered as Reported by: JM ELIZONDO on 11/04/21858 Past Ntyjddo-Kodjma-Voblwn Hx Patient Social History Marrital Status: Employed/Student: employed Smoking Status: Former Smoker (smoked on and off for 30 years. Quit in 1999) Alcohol Use?: Yes (reports occasional alcohol use every few months) Alcohol Frequency: Once in a while Past Medical History Surgeries: Hysterectomy, Nephrectomy, Orthopedic Gastroesophageal Reflux Breast Did You Recieve Any Treatments: Yes What Type of Treatment Did You: Surgical Intervention Review of Systems Constitutional: see HPI, dizziness, fever, malaise, weakness Respiratory: cough Physical Exam General Appearance: Mild Distress, Other (guzman ashen) Respiratory: Accessory Muscle Use, Crackles (RLL), Rales, Wheezing Cardiovascular: Tachycardia Assessment/Plan Assessment and Plan Assessment: Severe sepsis s/p protocol IVF Acute hypoxic respiratory failure high risk for intubation FRAN Solo kidney Severe PNA Breast cancer hx Admission Diagnosis Admission Status: Inpatient Order (span 2 midnights) Reason for Inpatient Admission: sepsis Supervisory-Addendum Brief Verification & Attestation Participated in pt care: history, MDM, physical Personally performed: exam, history, MDM, supervision of care Care discussed with: Medical Student Procedures: n/a Results interpretation: Verified all documentation Verification and Attestation of Medical Student E/M Service A medical student performed and documented this service in my presence. I reviewed and verified all information documented by the medical student and made modifications to such information, when appropriate. I personally performed the physical exam and medical decision making. Chapis Cotter Jun 08, 2022,04:41 BROOK[place]N BROWN Jun 07, 2022 11:05 CHAPIS COTTER DO Jun 08, 2022 04:44
[2022-06-07] MEDS ORDERED: RT-ALBUTEROL SULF 2.5 MG/3 ML PRE-MIX VIAL INH PRN (11:15)
[2022-06-07] MEDS ORDERED: RT-IPRATROPIUM (ATROVENT) 0.5MG/2.5ML AMP IH PRN (11:15)
[2022-06-07] MEDS: DOXYCYCLINE INJECTION 100 MG in NS (IVPB) 100 ML IV SCH ×2 (11:36→22:54)
[2022-06-07 11:38] LABS: ABG OXYGEN SATURATION 94 % (94-100); ABG PCO2 34 MMHG (35-45); ABG PH 7.43 (7.37-7.43); ABG PO2 79 MMHG (79-93); ABG TCO2 22.7 MMOL/L (21.0-31.0); ALLENS TEST YES-POS; INSPIRED O2 RA; PATIENT TEMP 37.4; VENTILATOR NO
[2022-06-07 11:59] LABS: BILIRUBIN,URINE NEGATIVE (NEGATIVE); CLARITY,URINE SL CLOUDY; COLOR,URINE ORANGE; GLUCOSE, URINE (UA) NEGATIVE (NEGATIVE); KETONES,URINE NEGATIVE (NEGATIVE); LEUKOCYTE ESTERASE ,URINE TRACE (NEGATIVE); NITRITE,URINE POSITIVE (NEGATIVE); PROTEIN,URINE 2+ (NEGATIVE)
[2022-06-07 12:28] LABS: BACTERIA,URINE MODERATE /HPF
[2022-06-07 12:29] LABS: URINE OTHER FEW TRANS EPI CELLS /HPF
[2022-06-07] MEDS ORDERED: CATHETER FLUSH 10 ML SYR IVP PRN (13:30)
[2022-06-07] MEDS: NS IV 1000 ML 1,000 ML IV SCH ×2 (14:46→19:05)
[2022-06-07] MEDS: RT-ALBUTEROL SULF 2.5 MG/3 ML PRE-MIX VIAL INH SCH ×3 (15:16→21:31)
[2022-06-07] MEDS: RT-IPRATROPIUM (ATROVENT) 0.5MG/2.5ML AMP IH SCH ×3 (15:16→21:31)
--- NOTE | 2022-06-07 15:51 | Tele-ICU Consult ---
History of Present Illness History of Present Illness Date Seen by Provider: Jun 07, 2022 Time Seen by Provider: 15:48 Date of Admission 06/07/22 History of Present Illness (Tele-ICU Physician , consultation) Available chart/ vitals / labs / Images reviewed H&P is from ER notes Patient's information available about PMH, allergy reviewed in EMR. ROS as per chart and RN report Video assessment done using teleICU camera, rest of exam as per RN Discussed with RN. She is a 71-year-old female with past medical history of hypertension, hypothyroidism, breast cancer status post right nephrectomy due to recurrent renal calculi presented to the emergency room with a complaint of fall cough chest congestion right-sided chest pain and shortness of breath. Apparently she had a COVID pneumonia in February 2022. 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 She admits that she had fever in the last few days.. In the emergency room she is found to have a lactic acidosis increased work of breathing and a chest x-ray showed a right mid and lower lobe pneumonia. Her b lood pressure is also slightly low hence she required fluid boluses and admitted to the intensive care unit where I have evaluated with via video visit. Reviewed with BUSINESS CONTROL MANAGER. Impression 1. Right-sided pneumonia 2. Severe sepsis with septic shock 3. Chronic kidney disease 4. History of breast cancer 5. S/p right nephrectomy. Recommendations 1. Agree with fluid resuscitation 2. Oxygenation with nasal cannula 3. Broad-spectrum antibiotics per primary care to cover typical and atypical or ganisms 4. We will give Levophed if necessary 5. We will get blood cultures and sputum cultures 6. DVT prophylaxis. Coordination of care with primary care physician and bedside consultants Critical care time spent today on this patient approximately 33 minutes. Allergies and Home Medications Allergies Coded Allergies: No Known Drug Allergies (Unverified , 06/07/22) Home Medications Amitriptyline HCl 100 Mg Tablet, 100 MG PO DAILY, (Reported) Ascorbic Acid 500 Mg Tablet.er, 1,000 MG PO DAILY, (Reported) Calcium Carbonate 500 Mg Calcium (1250 Mg) Tablet, 500 MG PO DAILY, (Reported) Cholecalciferol (Vitamin D3) 1,250 Mcg (58153 Unit) Capsule, 1,250 MCG PO DAILY, (Reported) Cranberry Extract 500 Mg Tablet, 500 MG PO DAILY, (Reported) Diltiazem HCl 240 Mg Capsule.er, 240 MG PO DAILY, (Reported) Ferrous Sulfate 325 Mg (65 Mg Iron) Tablet, 325 MG PO DAILY, (Reported) Hydrochlorothiazide 25 Mg Tablet, 25 MG PO DAILY, (Reported) Levothyroxine Sodium 75 Mcg Tablet, 75 MCG PO DAILY, (Reported) Magnesium Oxide 400 Mg Magnesium Tablet, 400 MG PO DAILY, (Reported) Melatonin/Pyridoxine HCl (B6) 10 Mg-10 Mg Tab.mphase, 1 EACH PO HS, (Reported) Multivitamin 1 Each Tablet, 1 EACH PO DAILY, (Reported) Naproxen Sodium 220 Mg Tablet, 220 MG PO PRN, (Reported) Oxybutynin Chloride 10 Mg Tab.er.24, 10 MG PO DAILY, (Reported) Pantoprazole Sodium 40 Mg Tablet.dr, 40 MG PO DAILY, (Reported) Simvastatin 20 Mg Tablet, 20 MG PO DAILY, (Reported) Sucralfate 1 Gram Tablet, 1 GM PO QID, (Reported) Turmeric Root Extract 500 Mg Tablet, 500 MG PO DAILY, (Reported) Past Medical/Social/Family Hx Patient Social History Tobacco Use?: No Smoking Status: Former Smoker (smoked on and off for 30 years. Quit in 1999) Smokeless Tobacco Frequency: Never a User Use of E-Cig and/or Vaping dev: No Substance use?: No Alcohol Use?: Yes (reports occasional alcohol use every few months) Alcohol Frequency: Once in a while Pt stated abuse/neglect: No Immunizations Up To Date Influenza Vaccine Up-to-Date: Yes; Up-to-Date First/Initial COVID19 Vaccinat: 2020 Second COVID19 Vaccination Brandon: 2020 Current Status status: No status: No Advance Directives: No Communicates: Verbally Primary Language: Jordanian Preferred Spoken Language: Jordanian Is interpretation needed?: No Implanted or Applied Medical D: None Review of Systems Constitutional: see HPI, fever Focused Exam Lactate Level 06/07/22 09:20: Lactic Acid Level 2.17*H 06/07/22 11:20: Lactic Acid Level 3.55*H 06/07/22 14:38: Lactic Acid Level 1.56 Height, Weight, BMI Height: '" Weight: lbs. oz. kg; 28.25 BMI Method: Time of Focused Exam: 10:00 Lactic Acid Level Laboratory Tests Test 2/27/23 14:38 Lactic Acid Level 1.56 MMOL/L (0.50-2.00) Exam Exam Patient acknowledged, consented, and participated in this virtual visit which was conducted using real time audio/video Vital Signs Date Time Temp Pulse Resp B/P (MAP) Pulse Ox O2 Delivery O2 Flow Rate FiO2 06/07/22 15:31 Nasal Cannula 6.00 06/07/22 15:18 90 Nasal Cannula 5.00 06/07/22 15:00 115 23 104/67 (79) 91 Nasal Cannula 2.00 06/07/22 14:40 Nasal Cannula 2.00 06/07/22 14:00 114 23 98/80 (86) 90 Nasal Cannula 2.00 06/07/22 13:00 113 28 87/62 (70) 92 Nasal Cannula 2.00 06/07/22 12:09 113 06/07/22 12:00 113 27 107/60 (76) 94 Nasal Cannula 2.00 06/07/22 11:45 113 26 103/58 (73) 93 Nasal Cannula 2.00 06/07/22 11:30 112 28 112/46 (68) 94 Nasal Cannula 2.00 06/07/22 11:15 112 30 106/50 (68) 91 Nasal Cannula 2.00 06/07/22 11:00 90 Nasal Cannula 2.00 06/07/22 11:00 37.4 112 93 28 06/07/22 11:00 112 30 97/48 (64) 91 Nasal Cannula 2.00 06/07/22 10:45 112 36 102/63 (76) 92 Nasal Cannula 2.00 06/07/22 10:37 111 06/07/22 10:31 37.4 112 28 104/59 (74) 93 Nasal Cannula 2.00 06/07/22 10:15 36.0 112 24 101/53 91 Nasal Cannula 2.00 06/07/22 08:22 91 Nasal Cannula 2.00 06/07/22 08:22 36.6 111 18 91 Nasal Cannula 2.00 Height & Weight Height: '" Weight: lbs. oz. kg; 28.25 BMI Method: General Appearance: Mild Distress HEENT: PERRL/EOMI, Other (dry oral mucosa) Neck: Supple Respiratory: No Accessory Muscle Use, Crackles (RLL) Cardiovascular: No Murmur, Normal Peripheral Pulses, Tachycardia Capillary Refill: Less Than 3 Seconds Peripheral Pulses: 2+ Radial Pulses (R), 2+ Radial Pulses (L) Gastrointestinal: normal bowel sounds, non tender, soft Extremity: Non Tender, No Pedal Edema Neurologic/Psychiatric: Alert, Oriented x3, Normal Mood/Affect Skin: Cyanosis (perioral), Pallor Other comments PE PER RN Results Lab Laboratory Tests 06/07/22 08:40 Assessment/Plan Assessment/Plan ABOVE Critical Care: Critically Ill Patient Time spent with patient (mins): 33 POPPY DISLA MD Jun 07, 2022 15:51
[2022-06-07] MEDS: BENZONATATE 100 MG (TESSALON) CAPSULE PO PRN (17:18)
[2022-06-07] MEDS: DOCUSATE SODIUM 100 MG (COLACE) CAP PO SCH (20:41)
[2022-06-07] MEDS: SENNOSIDES 8.6 MG (SENOKOT) TAB PO SCH (20:41)
[2022-06-07] MEDS: CEFEPIME INJECTION 1,000 MG in NS (IVPB) 50 ML IV SCH (20:49)
[2022-06-07] MEDS: AMITRIPTYLINE 25 MG (ELAVIL) TAB PO SCH (20:49)
[2022-06-08] VITALS (32 sets, daily range): BP systolic 95–139; BP diastolic 60–93
[2022-06-08] MEDS: BENZONATATE 100 MG (TESSALON) CAPSULE PO PRN
[2022-06-08] MEDS: NS IV 1000 ML 1,000 ML IV SCH (02:02)
[2022-06-08] MEDS: RT-IPRATROPIUM (ATROVENT) 0.5MG/2.5ML AMP IH SCH ×6 (02:29→21:22)
[2022-06-08] MEDS: RT-ALBUTEROL SULF 2.5 MG/3 ML PRE-MIX VIAL INH SCH ×6 (02:29→21:22)
[2022-06-08 03:54] LABS: BASOPHILS % (AUTO) 0 % (0-10); EOSINOPHILS % (AUTO) 0 % (0-10); HEMATOCRIT 35 % (35-52); HEMOGLOBIN 11.3 g/dL (11.5-16.0); LYMPHOCYTES # (AUTO) 0.3 10^3/uL (1.0-4.0); LYMPHOCYTES % (AUTO) 3 % (12-44); MEAN CORPUSCULAR HEMOGLOBIN 30 pg (25-34); MEAN CORPUSCULAR HGB CONC 33 g/dL (32-36); MEAN CORPUSCULAR VOLUME 93 fL (80-99); MEAN PLATELET VOLUME 9.8 fL (9.0-12.2); MONOCYTES # (AUTO) 0.1 10^3/uL (0.0-1.0); MONOCYTES % (AUTO) 2 % (0-12); NEUTROPHILS % (AUTO) 94 % (42-75); PLATELET COUNT 199 10^3/uL (130-400); WHITE BLOOD COUNT 9.6 10^3/uL (4.3-11.0)
[2022-06-08 04:16] LABS: ALBUMIN 2.5 GM/DL (3.2-4.5); BILIRUBIN,TOTAL 0.4 MG/DL (0.1-1.0); CALCIUM 7.5 MG/DL (8.5-10.1); CREATININE SERUM 1.52 MG/DL (0.60-1.30); POTASSIUM 3.4 MMOL/L (3.6-5.0); TOTAL PROTEIN 4.9 GM/DL (6.4-8.2)
[2022-06-08] MEDS: POTASSIUM CL 10MEQ/50ML IVPB 50 ML IV SCH (04:31)
[2022-06-08] MEDS: KCL 20 MEQ TAB (K-DUR) PO SCH (04:35)
[2022-06-08] MEDS: MAGNESIUM 1 GM/100 ML IVPB 100 ML IV SCH ×2 (05:01→06:08)
--- NOTE | 2022-06-08 06:47 | Diagnostic Imaging Report ---
Indication: Respiratory failure Portable chest 4:07 AM Right upper extremity PICC line tip projects over the SVC. There is consolidation at the right lung base with a subpulmonic effusion. There is some left medial basilar atelectasis. IMPRESSION: Right basilar consolidation with an effusion appears unchanged from previous day. There is some developing left medial basilar atelectasis and/or infiltrate. Dictated by: Dictated on workstation # [id number]
[2022-06-08 07:54] LABS: ABG BASE EXCESS -9.7 MMOL/L (-2.5-2.5); ABG OXYGEN SATURATION 91 % (94-100); ABG PCO2 34 MMHG (35-45); ABG PO2 72 MMHG (79-93); ABG TCO2 16.5 MMOL/L (21.0-31.0)
[2022-06-08] MEDS: CEFEPIME INJECTION 1,000 MG in NS (IVPB) 50 ML IV SCH ×2 (07:55→16:10)
[2022-06-08 07:56] LABS: INSPIRED O2 100; PATIENT TEMP 37.8; VENTILATOR NO
[2022-06-08 07:58] LABS: ABG PH 7.29 (7.37-7.43)
[2022-06-08] MEDS ORDERED: FUROSEMIDE 40 MG/4 ML INJ (LASIX) IVP NR (08:00)
[2022-06-08] MEDS: SENNOSIDES 8.6 MG (SENOKOT) TAB PO SCH ×2 (08:37→21:00)
[2022-06-08] MEDS: DOCUSATE SODIUM 100 MG (COLACE) CAP PO SCH ×2 (08:37→21:00)
--- NOTE | 2022-06-08 10:25 | Progress Note ---
BROOKLYN BROWN 06/08/22 1025: Subjective Date Seen by a Provider: Jun 08, 2022 Time Seen by a Provider: 09:00 Subjective/Events-last exam Mrs hCow is seen at bedside this morning. Bipap recently placed and patient is tolerating this well. She reports improvement in her right sided chest pain. She looks pale on exam similar to yesterday. Minimal pedal edema and edema of the hands noted bilaterally. She was placed on vapotherm last night and transitioned to bipap this morning at 0800. No new concerns other than her breathing issues. On rounds with Dr Cotter patient's is present and updated with his questions answered. Review of Systems General: No Chills, No Night Sweats HEENT: No Head Aches, No Visual Changes Pulmonary: Dyspnea, Cough Cardiovascular: Chest Pain (improved r sided chest pain); No: Palpitations, Lt Headedness Gastrointestinal: No: Nausea, Vomiting, Abdominal Pain Genitourinary: No Dysuria, No Hematuria Neurological: Weakness; No: Confusion Focused Exam Lactate Level 06/07/22 09:20: Lactic Acid Level 2.17*H 06/07/22 11:20: Lactic Acid Level 3.55*H 06/07/22 14:38: Lactic Acid Level 1.56 Time of Focused Exam: 10:00 Objective Exam Last Set of Vital Signs Vital Signs Date Time Temp Pulse Resp B/P (MAP) Pulse Ox O2 Delivery O2 Flow Rate FiO2 06/08/22 10:00 108 16 100/63 (75) 97 NIV Bilevel 80.00 06/08/22 07:44 37.8 06/08/22 07:30 100 Capillary Refill : Less Than 3 Seconds I&O Intake and Output 06/08/22 00:00 Intake Total 4900 ml Output Total 250 ml Balance 4650 ml Intake Oral 750 ml IV Total 4150 ml Output Urine Total 250 ml Daily Weight Change No General: Alert, Oriented X3, Cooperative, Mild Distress HEENT: Atraumatic, EOMI Neck: Supple Lungs: Other (crackles bilaterally, similar to yesterday's exam. Potentially slightly worse on R side) Heart: Normal S1, Normal S2, Other (tachycardia) Abdomen: Soft, No Tenderness Extremities: Other (edema of hands and feet bilaterally) Skin: Other (pallor) Neuro: Normal Speech Psych/Mental Status: Mental Status NL, Mood NL Results Lab Laboratory Tests 06/07/22 11:20: Lactic Acid Level 3.55*H 06/07/22 11:30: Blood Gas Puncture Site RR, Blood Gas Patient Temperature 37.4, Arterial Blood pH 7.43, Arterial Blood Partial Pressure CO2 34L, Arterial Blood Partial Pressure O2 79, Arterial Blood HCO3 22L, Arterial Blood Total CO2 22.7, Arterial Blood Oxygen Saturation 94, Arterial Blood Base Excess -2.0, Jose L Test YES-POS, Blood Gas Ventilator Setting NO, Blood Gas Inspired Oxygen RA 06/07/22 11:50: Urine Color ORANGE, Urine Clarity SL CLOUDY, Urine pH 6.0, Urine Specific Tuckerman 1.020, Urine Protein 2+H, Urine Glucose (UA) NEGATIVE, Urine Ketones NEGATIVE, Urine Nitrite POSITIVEH, Urine Bilirubin NEGATIVE, Urine Urobilinogen 2.0, Urine Leukocyte Esterase TRACEH, Urine RBC (Auto) NEGATIVE, Urine RBC NONE, Urine WBC 5-10H, Urine Crystals NONE, Urine Bacteria MODERATEH, Urine Casts PRESENT, Urine Granular Casts 5-10H, Urine White Blood Cell Casts 2-5H, Urine Mucus NEGATIVE, Urine Other FEW TRANS EPI CELLS, Urine Culture Indicated CULTURE PENDING 06/07/22 14:38: Lactic Acid Level 1.56 06/08/22 03:45: White Blood Count 9.6, Red Blood Count 3.75L, Hemoglobin 11.3L, Hematocrit 35, Mean Corpuscular Volume 93, Mean Corpuscular Hemoglobin 30, Mean Corpuscular Hemoglobin Concent 33, Red Cell Distribution Width 13.8, Platelet Count 199, Mean Platelet Volume 9.8, Immature Granulocyte % (Auto) 1, Neutrophils (%) (Auto) 94H, Lymphocytes (%) (Auto) 3L, Monocytes (%) (Auto) 2, Eosinophils (%) (Auto) 0, Basophils (%) (Auto) 0, Neutrophils # (Auto) 9.0H, Lymphocytes # (Auto) 0.3L, Monocytes # (Auto) 0.1, Eosinophils # (Auto) 0.0, Basophils # (Auto) 0.0, Immature Granulocyte # (Auto) 0.1, Sodium Level 133L, Potassium Level 3.4L, Chloride Level 106, Carbon Dioxide Level 15L, Anion Gap 12, Blood Urea Nitrogen 37H, Creatinine 1.52H, Estimat Glomerular Filtration Rate 36, BUN/Creatinine Ratio 24, Glucose Level 103, Calcium Level 7.5L, Corrected Calcium 8.7, Magnesium Level 1.8, Total Bilirubin 0.4, Aspartate Amino Transf (AST/SGOT) 31, Alanine Aminotransferase (ALT/SGPT) 30, Alkaline Phosphatase 82, Total Protein 4.9L, Albumin 2.5L 06/08/22 07:45: Blood Gas Puncture Site L RADIAL, Blood Gas Patient Temperature 37.8, Arterial Blood pH 7.29*L, Arterial Blood Partial Pressure CO2 34L, Arterial Blood Partial Pressure O2 72L, Arterial Blood HCO3 16*L, Arterial Blood Total CO2 16.5L, Arter ial Blood Oxygen Saturation 91L, Arterial Blood Base Excess -9.7L, Jose L Test NA, Blood Gas Ventilator Setting NO, Blood Gas Inspired Oxygen 100 Microbiology 06/07/22 Blood Culture - Preliminary, Resulted Strep, Beta Hemolytic Group A Radiology [facility] [place], [place] NAME: REJI CHOW [facility] REC#: [id number] PT STATUS: ADM IN : 1950 PHYSICIAN: CHAPIS COTTER DO ADMIT DATE: 06/07/22/ICU Signed Date of Exam:06/08/22 CHEST 1 VIEW, AP/PA ONLY Indication: Respiratory failure Portable chest 4:07 AM Right upper extremity PICC line tip projects over the SVC. There is consolidation at the right lung base with a subpulmonic effusion. There is some left medial basilar atelectasis. IMPRESSION: Right basilar consolidation with an effusion appears unchanged from previous day. There is some developing left medial basilar atelectasis and/or infiltrate. Dictated by: Dictated on workstation # [id number] Dict: 06/08/22 0645 Trans: 06/08/22 0656 [facility] [id number] Interpreted by: NEGRITO FERNANDEZ MD Electronically signed by: NEGRITO FERNANDEZ MD 06/08/22 0656 Assessment/Plan Assessment/Plan Assess & Plan/Chief Complaint Severe Sepsis RLL Pneumonia CXR w consolidation in RLL. Slightly worsened CXR today with evidence of infiltrate in L hilar area SIRS criteria met with lactic acid, tachycardia, RR, and source of infection Continue cefepime and doxycycline Blood cx grew beta hemolytic strep ABG results 7.43 pH, 34CO2, 79 O2 on 06/07-> repeat ABG 06/08 showed pH 7.29, CO2 34, O2 74 MAT protocol Monitor vital signs and CBC CMP Bipap dependent, progressing respiratory distress secondary to PNA and sepsis Continue nebulized treatments 40 of Lasix IV given to help w edema Lactic acidosis 2.17->3.55->1.56 Continue fluids and treating infection Elevated creatinine 1.89 improved to 1.52 Hx of R nephrectomy Continue IV fluids UTI UA positive for nitrites and leukocyte esterase cx pending fluids and abx HTN Hypothyroidism Home meds held Will restart when appropriate GI prophylaxis - PPI DVT prophylaxis - heparin Clinical Quality Measures Admission Status Admission Dx Severe Sepsis RLL Pneumonia CXR w consolidation in RLL. SIRS criteria met with lactic acid, tachycardia, RR, and source of infection Cefepime and doxycycline ABG results 7.43 pH, 34CO2, 79 O2 MAT protocol Monitor vital signs and CBC CMP Repeat CXR tomorrow Lactic acidosis 2.17->3.55->1.56 Continue fluids and treating infection Elevated creatinine 1.89 Hx of R nephrectomy Continue IV fluids UTI UA positive for nitrites and leukocyte esterase cx pending fluids and abx HTN Hypothyroidism Home meds held Will restart when appropriate GI prophylaxis - PPI DVT prophylaxis - heparin CHAPIS COTTER DO 06/09/22 0435: Assessment/Plan Assessment/Plan Assess & Plan/Chief Complaint Remains critical BiPAP High risk for intubation Supervisory-Addendum Brief Verification & Attestation Participated in pt care: history, MDM, physical Personally performed: exam, history, MDM, supervision of care Care discussed with: Medical Student Procedures: n/a Results interpretation: Verified all documentation Verification and Attestation of Medical Student E/M Service A medical student performed and documented this service in my presence. I reviewed and verified all information documented by the medical student and made modifications to such information, when appropriate. I personally performed the physical exam and medical decision making. Chapis Cotter Jun 09, 2022,04:34 [place] BROWN Jun 08, 2022 10:25 CHAPIS COTTER DO Jun 09, 2022 04:35
[2022-06-08] MEDS: DOXYCYCLINE INJECTION 100 MG in NS (IVPB) 100 ML IV SCH ×2 (11:02→22:55)
[2022-06-08] MEDS: PANTOPRAZOLE 40 MG (PROTONIX) TAB PO SCH (11:02)
--- NOTE | 2022-06-08 12:23 | Tele-ICU Consult ---
History of Present Illness History of Present Illness Date Seen by Provider: Jun 08, 2022 Time Seen by Provider: 12:23 Date of Admission (Tele-ICU Physician , consultation as per request of PCP Service provided via interactive audio and video telecommunications E-CARE system to a patient admitted to ICU bed in [facility]. Available chart/ vitals / labs / Images reviewed H&P is from ER notes Patient's information available about PMH, Shx, Fhx allergy reviewed inEMR. ROS as per chart and RN report Now in ICU, hemodynamically stable Video assessment done using teleICU camera, rest of exam as per RN Discussed with RN. Hospital course: (06/07) 71yF admitted from the ED for RLL PNA 06/08- BIPAP 12/8 80% , (ftom VT 25 l 100% - stop IVF , lasix 40x1 A/P Acute resp failure with hypoxia - PNA , effuiosn , possible VO - placed on BIP{AP 12/8 80% r `17 tv 500 MV 8 ( VT 25 l 100% - stop IVF , lasix 40x1 PNA - RLL - doxy , cefepime STREP, BETA HEMOLYTIC GROUP A on blood cx 06/06 FRAN/ ? CKD - received hydration , will stop IVF now Right effussion - monitor Anemia - delutional ? Lines : PICC 06/07 right , (Central Line Necessity Reviewed) Dominguez: + OG: Nutrition: npo today - on bipap Analgesia: Anxiety/ delirium VTE Prophylaxis: hep sq Stress Ulcer Prophylaxis: Plans in collaboration with bedside consultants and IM MDs. Discussed with RN to reach out if any questions or concerns A total of 35 minutes of critical care time was devoted to this patient today, required to treat and/or prevent further deterioration of critical care c ondition ( as above ) . I am remotely monitoring this patient from another state. I am unable to do the bedside exam, and history/physical and pertinent information is taken from other notes in the computer and bedside staff. . Allergies and Home Medications Allergies Coded Allergies: No Known Drug Allergies (Unverified , 06/07/22) Home Medications Amitriptyline HCl 100 Mg Tablet, 100 MG PO DAILY, (Reported) Ascorbic Acid 500 Mg Tablet.er, 1,000 MG PO DAILY, (Reported) Calcium Carbonate 500 Mg Calcium (1250 Mg) Tablet, 500 MG PO DAILY, (Reported) Cholecalciferol (Vitamin D3) 1,250 Mcg (38149 Unit) Capsule, 1,250 MCG PO DAILY, (Reported) Cranberry Extract 500 Mg Tablet, 500 MG PO DAILY, (Reported) Diltiazem HCl 240 Mg Capsule.er, 240 MG PO DAILY, (Reported) Ferrous Sulfate 325 Mg (65 Mg Iron) Tablet, 325 MG PO DAILY, (Reported) Hydrochlorothiazide 25 Mg Tablet, 25 MG PO DAILY, (Reported) Levothyroxine Sodium 75 Mcg Tablet, 75 MCG PO DAILY, (Reported) Magnesium Oxide 400 Mg Magnesium Tablet, 400 MG PO DAILY, (Reported) Melatonin/Pyridoxine HCl (B6) 10 Mg-10 Mg Tab.mphase, 1 EACH PO HS, (Reported) Multivitamin 1 Each Tablet, 1 EACH PO DAILY, (Reported) Naproxen Sodium 220 Mg Tablet, 220 MG PO PRN, (Reported) Oxybutynin Chloride 10 Mg Tab.er.24, 10 MG PO DAILY, (Reported) Pantoprazole Sodium 40 Mg Tablet.dr, 40 MG PO DAILY, (Reported) Simvastatin 20 Mg Tablet, 20 MG PO DAILY, (Reported) Sucralfate 1 Gram Tablet, 1 GM PO QID, (Reported) Turmeric Root Extract 500 Mg Tablet, 500 MG PO DAILY, (Reported) Past Medical/Social/Family Hx Patient Social History Marrital Status: Employed/Student: employed Tobacco Use?: No Smoking Status: Former Smoker (smoked on and off for 30 years. Quit in 1999) Smokeless Tobacco Frequency: Never a User Use of E-Cig and/or Vaping dev: No Substance use?: No Alcohol Use?: Yes (reports occasional alcohol use every few months) Alcohol Frequency: Once in a while Pt stated abuse/neglect: No Immunizations Up To Date Influenza Vaccine Up-to-Date: Yes; Up-to-Date First/Initial COVID19 Vaccinat: 2020 Second COVID19 Vaccination Brandon: 2020 Current Status status: No status: No Advance Directives: No Communicates: Verbally Primary Language: Djiboutian Preferred Spoken Language: Djiboutian Is interpretation needed?: No Implanted or Applied Medical D: None Review of Systems Constitutional: see HPI Focused Exam Lactate Level 06/07/22 09:20: Lactic Acid Level 2.17*H 06/07/22 11:20: Lactic Acid Level 3.55*H 06/07/22 14:38: Lactic Acid Level 1.56 Height, Weight, BMI Height: '" Weight: lbs. oz. kg; 28.25 BMI Method: Time of Focused Exam: 10:00 Exam Exam Patient acknowledged, consented, and participated in this virtual visit which was conducted using real time audio/video Vital Signs Date Time Temp Pulse Resp B/P (MAP) Pulse Ox O2 Delivery O2 Flow Rate FiO2 06/08/22 11:00 112 103/66 (78) 96 NIV Bilevel 80.00 06/08/22 10:42 111 24 95 80.00 06/08/22 10:00 108 16 100/63 (75) 97 NIV Bilevel 80.00 06/08/22 09:00 114 16 114/65 (81) 93 NIV Bilevel 80.00 06/08/22 08:14 NIV Bilevel 80.00 06/08/22 08:13 116 22 93 06/08/22 08:00 120 36 127/76 (93) 94 Vapotherm 25.00 100.00 06/08/22 07:44 37.8 06/08/22 07:30 93 Vapotherm 25.00 100 06/08/22 07:17 116 06/08/22 07:00 112 44 125/80 (95) 92 Vapotherm 25.00 100.00 06/08/22 06:54 94 Vapotherm 25.00 100 06/08/22 06:00 112 23 103/63 (75) 95 Vapotherm 25.00 100.00 06/08/22 05:00 115 31 110/69 (80) 97 Vapotherm 25.00 100.00 06/08/22 04:00 92 Vapotherm 20.00 100 06/08/22 04:00 112 17 102/60 (72) 95 Vapotherm 25.00 100.00 06/08/22 03:30 37.2 06/08/22 03:00 114 21 111/62 (80) 95 Vapotherm 25.00 100.00 06/08/22 02:30 93 Vapotherm 25.00 100 06/08/22 02:00 112 120/69 (79) 93 Vapotherm 25.00 100.00 06/08/22 01:32 116 06/08/22 01:00 112 105/66 (80) 93 Vapotherm 25.00 100.00 06/08/22 00:00 116 29 110/74 (84) 92 Vapotherm 25.00 100.00 06/08/22 00:00 37.2 06/07/22 23:59 92 Vapotherm 20.00 100 06/07/22 23:00 115 22 109/68 (82) 90 Vapotherm 25.00 100.00 06/07/22 22:00 118 26 110/72 (84) 90 Vapotherm 25.00 100.00 06/07/22 21:31 89 Vapotherm 20.00 100 06/07/22 21:00 116 24 111/81 (88) 92 Vapotherm 25.00 100.00 06/07/22 20:00 92 Vapotherm 20.00 100 06/07/22 20:00 114 24 102/68 (79) 91 Vapotherm 25.00 100.00 06/07/22 19:45 113 25 102/67 (82) 93 Vapotherm 25.00 100.00 06/07/22 19:30 114 25 100/69 (80) 93 Vapotherm 25.00 100.00 06/07/22 19:13 114 20 106/71 (90) 91 Vapotherm 25.00 100.00 06/07/22 19:12 36.5 06/07/22 19:00 117 06/07/22 19:00 117 35 84/72 (75) 93 Vapotherm 25.00 100.00 06/07/22 18:36 93 Vapotherm 20.00 100 06/07/22 18:00 112 24 113/93 (100) 92 Vapotherm 20.00 100.00 06/07/22 17:19 93 Vapotherm 20.00 100.00 06/07/22 17:05 Vapotherm 30.00 100.00 06/07/22 17:00 112 15 103/55 (71) 87 High Flow N/C 10.00 06/07/22 16:47 High Flow N/C 10.00 06/07/22 16:15 94 Nasal Cannula 10.00 06/07/22 16:00 112 109/67 (81) 90 Nasal Cannula 6.00 06/07/22 15:31 Nasal Cannula 6.00 06/07/22 15:18 90 Nasal Cannula 5.00 06/07/22 15:00 115 23 104/67 (79) 91 Nasal Cannula 2.00 06/07/22 14:40 Nasal Cannula 2.00 06/07/22 14:00 114 23 98/80 (86) 90 Nasal Cannula 2.00 06/07/22 13:00 113 28 87/62 (70) 92 Nasal Cannula 2.00 I & O 06/08/22 07:00 Intake Total 6400 ml Output Total 500 ml Balance 5900 ml Height & Weight Height: '" Weight: lbs. oz. kg; 28.25 BMI Method: General Appearance: Mild Distress, Other (guzman ashen) HEENT: PERRL/EOMI, Other (dry oral mucosa) Neck: Supple Respiratory: Accessory Muscle Use, Crackles (RLL), Rales, Wheezing Cardiovascular: Tachycardia Capillary Refill: Less Than 3 Seconds Peripheral Pulses: 2+ Radial Pulses (R), 2+ Radial Pulses (L) Gastrointestinal: normal bowel sounds, non tender, soft Extremity: Non Tender, No Pedal Edema Neurologic/Psychiatric: Alert, Oriented x3, Normal Mood/Affect Skin: Cyanosis (perioral), Pallor Results Lab Laboratory Tests 06/07/22 08:40 06/08/22 03:45 Assessment/Plan Assessment/Plan 1 RAMESH PALMER MD Jun 08, 2022 12:23
[2022-06-08] MEDS ORDERED: UBID100C17 PO (12:59)
[2022-06-08] MEDS ORDERED: CRAN500T PO (12:59)
[2022-06-08] MEDS ORDERED: MAGN250T35 PO (12:59)
[2022-06-08] MEDS ORDERED: DILT240C91 PO (12:59)
[2022-06-08] MEDS ORDERED: MELA10TA2 PO (12:59)
[2022-06-08] MEDS ORDERED: LORA10TA7 PO (12:59)
[2022-06-08] MEDS ORDERED: FISH1CAP15 PO (13:02)
[2022-06-08] MEDS: AMITRIPTYLINE 25 MG (ELAVIL) TAB PO SCH (21:10)
[2022-06-09] VITALS (33 sets, daily range): BP systolic 114–152; BP diastolic 63–93
[2022-06-09] MEDS: CEFEPIME INJECTION 1,000 MG in NS (IVPB) 50 ML IV SCH ×4 (00:30→23:44)
[2022-06-09] MEDS: RT-IPRATROPIUM (ATROVENT) 0.5MG/2.5ML AMP IH SCH ×6 (02:39→21:59)
[2022-06-09] MEDS: RT-ALBUTEROL SULF 2.5 MG/3 ML PRE-MIX VIAL INH SCH ×6 (02:39→21:59)
[2022-06-09 04:24] LABS: BASOPHILS % (AUTO) 0 % (0-10); EOSINOPHILS # (AUTO) 0.2 10^3/uL (0.0-0.3); EOSINOPHILS % (AUTO) 1 % (0-10); HEMATOCRIT 33 % (35-52); HEMOGLOBIN 10.9 g/dL (11.5-16.0); LYMPHOCYTES # (AUTO) 0.5 10^3/uL (1.0-4.0); LYMPHOCYTES % (AUTO) 4 % (12-44); MEAN CORPUSCULAR HEMOGLOBIN 30 pg (25-34); MEAN CORPUSCULAR HGB CONC 33 g/dL (32-36); MEAN CORPUSCULAR VOLUME 90 fL (80-99); MONOCYTES # (AUTO) 0.3 10^3/uL (0.0-1.0); MONOCYTES % (AUTO) 2 % (0-12); NEUTROPHILS % (AUTO) 89 % (42-75); PLATELET COUNT 179 10^3/uL (130-400); WHITE BLOOD COUNT 14.6 10^3/uL (4.3-11.0)
[2022-06-09 04:52] LABS: ALBUMIN 2.4 GM/DL (3.2-4.5); BILIRUBIN,TOTAL 0.5 MG/DL (0.1-1.0); CALCIUM 8.4 MG/DL (8.5-10.1); CREATININE SERUM 1.56 MG/DL (0.60-1.30); POTASSIUM 3.9 MMOL/L (3.6-5.0)
[2022-06-09 05:10] LABS: BAND NEUTROPHILS 28 %; LYMPHOCYTES % (MANUAL) 1 %; METAMYELOCYTES % 1 %; MONOCYTES % (MANUAL) 2 %; NEUTROPHILS % (MANUAL) 68 %; RBC MORPH NORMAL; TOXIC GRANULATION/VACUOLAZATIO 2+
[2022-06-09] MEDS: POTASSIUM CL 10MEQ/50ML IVPB 50 ML IV SCH (06:00)
[2022-06-09] MEDS: KCL 20 MEQ TAB (K-DUR) PO SCH (06:00)
[2022-06-09 06:16] LABS: ABG OXYGEN SATURATION 96 % (94-100); ABG PCO2 35 MMHG (35-45); ABG PH 7.35 (7.37-7.43); ABG PO2 95 MMHG (79-93); ABG TCO2 19.8 MMOL/L (21.0-31.0)
[2022-06-09 06:19] LABS: INSPIRED O2 80%; PATIENT TEMP 36.6; VENTILATOR NO
[2022-06-09] MEDS ORDERED: KCL 20 MEQ TAB (K-DUR) PO ONE (06:30)
--- NOTE | 2022-06-09 08:22 | Diagnostic Imaging Report ---
EXAMINATION: Chest 1 view HISTORY: Pneumonia COMPARISON: 06/08/2022 FINDINGS: Right upper extremity peripherally inserted central venous catheter tip terminates in the superior vena cava. There is moderate right base airspace opacity which is slightly improved from prior exam with a moderate effusion. No pneumothorax. Left lung is clear. Heart size is normal. IMPRESSION: 1. Slightly improved moderate right base airspace opacity and effusion. Dictated by: Dictated on workstation # [id number]
[2022-06-09] MEDS: PANTOPRAZOLE 40 MG (PROTONIX) TAB PO SCH (08:48)
[2022-06-09] MEDS: DOCUSATE SODIUM 100 MG (COLACE) CAP PO SCH ×2 (08:49→21:00)
[2022-06-09] MEDS: SENNOSIDES 8.6 MG (SENOKOT) TAB PO SCH ×2 (08:50→21:00)
--- NOTE | 2022-06-09 11:07 | Diagnostic Imaging Report ---
EXAMINATION: CT chest without contrast. TECHNIQUE: Multiple contiguous axial images were obtained through the chest without the use of intravenous contrast. All CT scans use one or more of the following dose optimizing techniques: automated exposure control, MA and/or KvP adjustment based on patient size and exam type or iterative reconstruction. HISTORY: Sepsis and pneumonia. COMPARISON: None available. FINDINGS: There is right middle, right lower and left lower lobe consolidation. There are areas of mucus plugging in the right lower lobe. There is a [id number] right pleural effusion. There is fluid loculated within the fissures on the right. No pneumothorax. There is no axillary or supraclavicular lymphadenopathy. There is no mediastinal lymphadenopathy. 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 Heart size is normal. There are no coronary artery calcifications. No pericardial effusion. Aorta is normal in caliber. Limited views of the upper abdomen are unremarkable. There are no suspicious osseous lesions. IMPRESSION: 1. Right middle, right lower and left lower lobe consolidation with areas of mucus plugging in keeping with pneumonia. 2. Fqvqmzka-[id number] right pleural effusions with pleural fluid loculated in the fissures. Dictated by: Dictated on workstation # [id number]
--- NOTE | 2022-06-09 11:12 | Tele-ICU Progress Note ---
Subjective Date Seen by a Provider: Jun 09, 2022 Time Seen by a Provider: 11:11 Subjective/Events-last exam (Tele-ICU Physician , Progress Note ) Service provided via interactive audio and video telecommunications E-CARE system to a patient admitted to ICU bed in [facility]. Patient is seen today due to persistent need of ICU care Available chart/ vitals / labs / Images reviewed Video assessment done using teleICU camera, rest of exam as per RN Discussed with RN Events overnight : Afebrile hemodynamically stable Respiratory - bipap I/O = Drips: Pressors- no Hospital course: (06/07) 71yF admitted from the ED for RLL PNA 06/08-VT 25 l 100% --> BIPAP 03/18 80% , (ftom VT 25 l 100% - stop IVF , lasix 40x1 06/09- BIPAP 03/18 rr 18 TV 500 , 70 % A/P Acute resp failure with hypoxia - PNA , effuiosn , possible VO - on BIPAP 03/18 rr 18 TV 500 , 70 % - OFF IVF , lasix 40x1 - i/o neg 600 ml- sligtly better cxr and Fio2 PNA - RLL ( with effusion ) - doxy , cefepime STREP, BETA HEMOLYTIC GROUP A on blood cx 06/06 FRAN/ ? CKD - received hydration , - stable with Ctr 1.56 Right effussion - will try CT vs decubs or US - ? need thora to imprive resp datus and r/o em pyema Anemia - delutional ? Sinus tachycardia - resume home cardizem 1/2 dose on 06/09 Lines : PICC 06/07 right , (Central Line Necessity Reviewed) Dominguez: + OG: Nutrition: minimal today - on bipap Analgesia: Anxiety/ delirium VTE Prophylaxis: hep sq Stress Ulcer Prophylaxis: ppi Plans in collaboration with bedside consultants and IM MDs. Discussed with RN to reach out if any questions or concerns A total of 31 minutes of critical care time was devoted to this patient today, required to treat and/or prevent further deterioration of critical care condition ( as above ) . I am remotely monitoring this patient from another state. I am unable to do the bedside exam, and history/physical and pertinent information is taken from other notes in the computer and bedside staff. . Sepsis Event Evaluation Height, Weight, BMI Height: '" Weight: lbs. oz. kg; 30.35 BMI Method: Focused Exam Lactate Level 06/07/22 09:20: Lactic Acid Level 2.17*H 06/07/22 11:20: Lactic Acid Level 3.55*H 06/07/22 14:38: Lactic Acid Level 1.56 Time of Focused Exam: 10:00 Exam Exam Patient acknowledged, consented, and participated in this virtual visit which w as conducted using real time audio/video Vital Signs Date Time Temp Pulse Resp B/P (MAP) Pulse Ox O2 Delivery O2 Flow Rate FiO2 06/09/22 10:17 111 15 98 70.00 06/09/22 09:00 111 25 128/84 (99) 95 NIV Bilevel 70.00 06/09/22 08:51 96 NIV Bilevel 70.00 06/09/22 08:00 96 NIV Bilevel 70 06/09/22 08:00 110 32 120/71 (87) 97 NIV Bilevel 80.00 06/09/22 07:41 36.7 06/09/22 07:04 111 06/09/22 07:00 111 21 124/66 (85) 95 NIV Bilevel 80.00 06/09/22 06:42 115 25 95 70.00 06/09/22 06:00 112 19 124/79 (89) 94 NIV Bilevel 80.00 06/09/22 05:00 124 34 123/71 (91) 96 NIV Bilevel 80.00 06/09/22 04:00 115 28 123/73 (90) NIV Bilevel 80.00 06/09/22 04:00 98 NIV Bilevel 80 06/09/22 03:30 112 29 118/64 (83) 97 NIV Bilevel 80.00 06/09/22 03:00 114 27 125/65 (83) 97 NIV Bilevel 80.00 06/09/22 02:39 112 20 97 70.00 06/09/22 02:30 114 27 131/79 (96) 97 NIV Bilevel 80.00 06/09/22 02:00 112 17 123/67 (83) 97 NIV Bilevel 80.00 06/09/22 01:30 113 116/70 (89) 97 NIV Bilevel 80.00 06/09/22 01:18 114 06/09/22 01:00 129 118/66 (85) 97 NIV Bilevel 80.00 06/09/22 00:30 113 142/70 (94) 90 NIV Bilevel 80.00 06/09/22 00:00 112 21 114/64 (81) 98 NIV Bilevel 80.00 06/08/22 23:59 99 NIV Bilevel 80 06/08/22 23:30 168 14 112/65 (83) 100 NIV Bilevel 80.00 06/08/22 23:00 135 16 116/68 (84) 100 NIV Bilevel 80.00 06/08/22 22:30 121 139/83 (116) 97 NIV Bilevel 80.00 06/08/22 22:00 121 18 119/75 (92) 97 NIV Bilevel 80.00 06/08/22 21:30 120 27 120/93 (104) 98 Vapotherm 25.00 100.00 06/08/22 21:22 120 25 97 80.00 06/08/22 21:00 156 131/76 (91) 92 Vapotherm 25.00 100.00 06/08/22 20:30 76 123/75 (97) 91 Vapotherm 25.00 100.00 06/08/22 20:00 121 125/77 (93) 93 Vapotherm 25.00 100.00 06/08/22 20:00 93 Vapotherm 25.00 100 06/08/22 19:30 121 131/78 (94) 90 Vapotherm 25.00 100.00 06/08/22 19:00 120 132/78 (91) 95 Vapotherm 25.00 100.00 06/08/22 19:00 120 06/08/22 18:28 95 Vapotherm 25.00 100 06/08/22 18:00 120 121/81 (94) 92 Vapotherm 25.00 100.00 06/08/22 17:40 92 Vapotherm 25.00 100.00 06/08/22 17:00 115 26 114/81 (92) 90 NIV Bilevel 80.00 06/08/22 16:11 36.3 06/08/22 16:00 117 32 122/82 (95) 90 NIV Bilevel 80.00 06/08/22 16:00 96 NIV Bilevel 80 06/08/22 15:00 113 104/75 (85) 97 NIV Bilevel 80.00 06/08/22 14:46 112 16 97 80.00 06/08/22 14:00 111 102/87 (92) 91 NIV Bilevel 80.00 06/08/22 13:00 112 95/65 (75) 96 NIV Bilevel 80.00 06/08/22 12:48 112 06/08/22 12:30 96 NIV Bilevel 80 06/08/22 12:00 113 108/70 (83) 96 NIV Bilevel 80.00 I & O 06/09/22 07:00 Intake Total 830 ml Output Total 1925 ml Balance -1095 ml Height & Weight Height: '" Weight: lbs. oz. kg; 30.35 BMI Method: General Appearance: Mild Distress, Other (guzman ashen) HEENT: PERRL/EOMI, Other (dry oral mucosa) Neck: Supple Respiratory: Accessory Muscle Use, Crackles (RLL), Rales, Wheezing Cardiovascular: Tachycardia Capillary Refill: Less Than 3 Seconds Peripheral Pulses: 2+ Radial Pulses (R), 2+ Radial Pulses (L) Gastrointestinal: normal bowel sounds, non tender, soft Extremity: Non Tender, No Pedal Edema Neurologic/Psychiatric: Alert, Oriented x3, Normal Mood/Affect Skin: Cyanosis (perioral), Pallor Results Lab Laboratory Tests 06/08/22 03:45 06/09/22 03:55 Assessment/Plan Assessment/Plan 1 RAMESH PALMER MD Jun 09, 2022 11:11
--- NOTE | 2022-06-09 11:13 | Progress Note ---
"AKILAH AMANDA 06/09/22 1113: Subjective Date Seen by a Provider: Jun 09, 2022 Time Seen by a Provider: 08:40 Subjective/Events-last exam Patient being seen in f/u for acute hypoxic respiratory failure, sepsis, PNA. Patient on BiPAP. States she feels fatigued, but overall better than yesterday. Patient is frustrated because it is hard to talk with the BiPAP on, but cannot breathe well without it on. No other complaints today. is in the room with her. Denies Chest pain, abdominal pain, hematuria, constipation, hematochezia, melena. Review of Systems General: No Chills, No Night Sweats; Fatigue HEENT: No Head Aches, No Visual Changes Pulmonary: No Pleuritic Chest Pain; Other (SOB w/o BiPAP) Cardiovascular: No: Chest Pain, Palpitations Gastrointestinal: No: Nausea, Vomiting, Abdominal Pain Genitourinary: No Dysuria, No Hematuria Neurological: Weakness; No: Numbness Focused Exam Lactate Level 06/07/22 09:20: Lactic Acid Level 2.17*H 06/07/22 11:20: Lactic Acid Level 3.55*H 06/07/22 14:38: Lactic Acid Level 1.56 Time of Focused Exam: 10:00 Objective Exam Last Set of Vital Signs Vital Signs Date Time Temp Pulse Resp B/P (MAP) Pulse Ox O2 Delivery O2 Flow Rate FiO2 06/09/22 10:17 111 15 98 70.00 06/09/22 09:00 128/84 (99) NIV Bilevel 06/09/22 08:00 70 06/09/22 07:41 36.7 Capillary Refill : Less Than 3 Seconds I&O Intake and Output 06/09/22 00:00 Intake Total 2150 ml Output Total 1575 ml Balance 575 ml Intake Oral 700 ml IV Total 1450 ml Output Urine Total 1575 ml General: Alert, Oriented X3, Cooperative HEENT: Atraumatic, EOMI Lungs: Other (BiPAP (12/, 12, 70%), diminished air sounds in lower lobes, worse in the R when compared to left. Inspiratory rhonchi. ) Heart: Other (Sinus Tachycardia. No murmurs, gallops, rubs ) Abdomen: Soft, No Tenderness Extremities: No Clubbing, No Cyanosis, No Edema Neuro: Normal Speech, Normal Tone Psych/Mental Status: Mental Status NL, Mood NL Results Lab Laboratory Tests 06/09/22 03:55: White Blood Count 14.6H, Red Blood Count 3.66L, Hemoglobin 10.9L, Hematocrit 33L , Mean Corpuscular Volume 90, Mean Corpuscular Hemoglobin 30, Mean Corpuscular Hemoglobin Concent 33, Red Cell Distribution Width 14.0, Platelet Count 179, Mean Platelet Volume 10.0, Immature Granulocyte % (Auto) 4, Neutrophils (%) (Auto) 89H, Lymphocytes (%) (Auto) 4L, Monocytes (%) (Auto) 2, Eosinophils (%) (Auto) 1, Basophils (%) (Auto) 0, Neutrophils # (Auto) 13.0H, Lymphocytes # (Auto) 0.5L, Monocytes # (Auto) 0.3, Eosinophils # (Auto) 0.2, Basophils # (Auto) 0.0, Immature Granulocyte # (Auto) 0.6H, Neutrophils % (Manual) 68, Lymphocytes % (Manual) 1, Monocytes % (Manual) 2, Metamyelocytes % 1, Band Neutrophils 28, Toxic Granulation 2+, Blood Morphology Comment NORMAL, Sodium Level 132L, Potassium Level 3.9, Chloride Level 106, Carbon Dioxide Level 16L, Anion Gap 10, Blood Urea Nitrogen 41H, Creatinine 1.56H, Estimat Glomerular Filtration Rate 35, BUN/Creatinine Ratio 26, Glucose Level 87, Calcium Level 8.4L, Corrected Calcium 9.7, Magnesium Level 2.3, Total Bilirubin 0.5, Aspartate Amino Transf (AST/SGOT) 24, Alanine Aminotransferase (ALT/SGPT) 25, Alkaline Phosphatase 109, Total Protein 5.0L, Albumin 2.4L 06/09/22 06:05: Blood Gas Puncture Site R RADIAL, Blood Gas Patient Temperature 36.6, Arterial Blood pH 7.35L, Arterial Blood Partial Pressure CO2 35, Arterial Blood Partial Pressure O2 95H, Arterial Blood HCO3 19L, Arterial Blood Total CO2 19.8L, Arterial Blood Oxygen Saturation 96, Arterial Blood Base Excess -6.0L, Jose L Test , Blood Gas Ventilator Setting NO, Blood Gas Inspired Oxygen 80% Microbiology 06/07/22 Urine Culture - Final, Complete NO GROWTH 06/07/22 Blood Culture - Preliminary, Resulted Streptococcus pyogenes Grp A Assessment/Plan Assessment/Plan Assess & Plan/Chief Complaint Acute Hypoxic Respiratory Failure Sepsis RLL Pneumonia Sinus Tachycardia - CXR w consolidation in RLL. Slight improvement today compared to yesterday. - Lactic acid 2.17 on admission. 3.55 at worse. 1.56 at last check. - New leukocytosis today at 14.6. (4.6 -> 9.6 -> 14.6) Continue to monitor. - ABG today shows mild improvement compared to yesterday (7.35|35|95|HCO3-19) - On BiPAP, settings 12/8, 12, 70%. Oxygen has come down slightly. Patient tolerated HFNC for ~90 minutes yesterday during dinner before requiring BiPAP again. - Continue Cefepime and Doxycycline while awaiting sensitivities - Continue to monitor fluid status PRN - monitor Cr level. - Patient given one dose of Lasix 40 yesterday. Elevated creatinine vs FRAN -Cr 1.89 on admission, likely due to hypoperfusion from sepsis status. Has since been stable in the 1.5x range for the past two days. -Avoid hypotension, avoid hypoperfusion, Avoid nephrotoxic agents. - Continue to monitor. UTI -UA positive for nitrites and leukocyte esterase -cx pending - Patient on Cefepime and Doxycycline currently HTN Hypothyroidism Home meds held Will restart when appropriate GI prophylaxis - PPI DVT prophylaxis - heparin CHAPIS COTTER DO 06/10/22 0438: Assessment/Plan Assessment/Plan Assess & Plan/Chief Complaint Pleural effusion management from Dr Stephens Supervisory-Addendum Brief Verification & Attestation Participated in pt care: history, MDM, physical Personally performed: exam, history, MDM, supervision of care Care discussed with: Medical Student Procedures: n/a Results interpretation: Verified all documentation Verification and Attestation of Medical Student E/M Service A medical student performed and documented this service in my presence. I reviewed and verified all information documented by the medical student and made modifications to such information, when appropriate. I personally performed the physical exam and medical decision making. Chapis Cotter Jun 10, 2022,04:37 AKILAH AMANDA Jun 09, 2022 11:13 CHAPIS COTTER DO Jun 10, 2022 04:38"
[2022-06-09] MEDS: DOXYCYCLINE INJECTION 100 MG in NS (IVPB) 100 ML IV SCH ×2 (12:24→23:44)
[2022-06-09] MEDS ORDERED: dilTIAZem120 MG (CARDIZEM CD) CAP PO NR (12:30)
--- NOTE | 2022-06-09 14:39 | Consultation - Surgery ---
BROOKLYN BROWN 06/09/22 1439: History of Present Illness History of Present Illness Patient Consulted On(danielle/time) 06/09/22 14:34 Date Seen by Provider: Jun 09, 2022 Time Seen by Provider: 14:30 History of Present Illness Reji Chow is a 71F with past medical hx of HTN, hypothyroidism, GERD, breast cancer, and recurrent kidney stones requiring R nephrectomy. She presented to the ER on 06/07 with cough, right sided chest pain, and shortness of breath. In the ER she was found to have an elevated lactic acid, tachycardia, low O2 sats, and consolidation in the RLL on CXR concerning for pneumonia. She has been treated for CAP with cefepime and doxycycline. She is on biPAP satting in the mid 90s. She appears to be very tired. She speaks very quietly and has moderately labored breathing present while interviewing. She reports 2/10 R sided chest pain that has improved during her admission. She denies any fever/chills. She reports her breathing has improved over her stay despite her labored appearance. Draining clear yellow urine via catheter. Today (06/09) chest and abdomen CT revealed R middle and lower lobe consolidation along with consolidation of the L lower lobe. Ct also revealed a thamucwd-ml-hiiox right pleural effusion with fluid loculated within the fissures on the right. We were consulted in order to determine if patient would benefit from draining of this fluid via thoracentesis. Allergies and Home Medications Allergies Coded Allergies: No Known Drug Allergies (Unverified , 06/07/22) Patient Home Medication List Home Medication List Reviewed: Yes Amitriptyline HCl (Amitriptyline HCl) 100 Mg Tablet, 100 MG PO HS, (Reported) Entered as Reported by: JM ELIZONDO on 11/04/21858 Last Action: Reviewed Calcium Carbonate (Calcium) 500 Mg Calcium (1250 Mg) Tablet, 1,000 MG PO DAILY, (Reported) Entered as Reported by: JM ELIZONDO on 11/04/21858 Last Action: Reviewed Cranberry Extract (Cranberry) 500 Mg Tablet, 1,000 MG PO HS, (Reported) Entered as Reported by: JM ELIZONDO on 11/04/21858 Last Action: Reviewed Cranberry Fruit (Cranberry) 500 Mg Tab.chew, 500 MG PO DAILY, (Reported) Entered as Reported by: LU VOGT on 06/08/221258 Last Action: Reviewed Diltiazem HCl (Diltiazem 24Hr ER) 240 Mg Cap.er.24h, 240 MG PO DAILY, (Reported) Entered as Reported by: LU VOGT on 06/08/221258 Last Action: Reviewed Ferrous Sulfate (Iron) 325 Mg (65 Mg Iron) Tablet, 325 MG PO DAILY, (Reported) Entered as Reported by: JM ELIZONDO on 11/04/21858 Last Action: Reviewed Fish Oil/Dha/Epa (Fish Oil 1,200 mg Fish Oil) 1,200 Mg-144 Mg-216 Mg Capsule, 1 EACH PO HS, (Reported) Entered as Reported by: LU VOGT on 06/08/221301 Last Action: Reviewed Hydrochlorothiazide (Hydrochlorothiazide) 25 Mg Tablet, 25 MG PO DAILY, (Reported) Entered as Reported by: JM ELIZONDO on 11/04/21858 Last Action: Reviewed Levothyroxine Sodium (Levothyroxine Sodium) 75 Mcg Tablet, 75 MCG PO DAILY, (Reported) Entered as Reported by: JM ELIZONDO on 11/04/21858 Last Action: Reviewed Loratadine (Loratadine) 10 Mg Tablet, 10 MG PO DAILY, (Reported) Entered as Reported by: LU VOGT on 06/08/221258 Last Action: Reviewed Magnesium Oxide (Magnesium Oxide) 250 Mg Tablet, 500 MG PO BID, (Reported) Entered as Reported by: LU VOGT on 06/08/221258 Last Action: Reviewed Melatonin (Melatonin) 10 Mg Tablet, 10 MG PO HS PRN for SLEEP, (Reported) Entered as Reported by: LU VOGT on 06/08/221258 Last Action: Reviewed Multivitamin (Multi-Vitamin Daily) 1 Each Tablet, 1 EACH PO DAILY, (Reported) Entered as Reported by: JM ELIZONDO on 11/04/21858 Last Action: Reviewed Naproxen Sodium (Aleve) 220 Mg Tablet, 440 MG PO DAILY, (Reported) Entered as Reported by: JM ELIZONDO on 11/04/21858 Last Action: Reviewed Oxybutynin Chloride (Oxybutynin Chloride ER) 10 Mg Tab.er.24, 10 MG PO DAILY, (Reported) Entered as Reported by: JM ELIZONDO on 11/04/21858 Last Action: Reviewed Pantoprazole Sodium (Pantoprazole Sodium) 40 Mg Tablet.dr, 40 MG PO DAILY, (Reported) Entered as Reported by: JM ELIZONDO on 11/04/21858 Last Action: Reviewed Simvastatin (Simvastatin) 20 Mg Tablet, 20 MG PO HS, (Reported) Entered as Reported by: JM ELIZONDO on 11/04/21858 Last Action: Reviewed Turmeric Root Extract (Turmeric) 500 Mg Tablet, 500 MG PO DAILY, (Reported) Entered as Reported by: JM ELIZONDO on 11/04/21858 Last Action: Reviewed Ubidecarenone (Coq-10) 100 Mg Capsule, 100 MG PO DAILY, (Reported) Entered as Reported by: LU VOGT on 06/08/221258 Last Action: Reviewed Discontinued Medications Ascorbic Acid (Vitamin C) 500 Mg Tablet.er, 1,000 MG PO DAILY, (Reported) Discontinued Reason: No Longer Taking Entered as Reported by: JM ELIZONDO on 11/04/21858 Last Action: Discontinued Cholecalciferol (Vitamin D3) (Vitamin D3) 1,250 Mcg (59503 Unit) Capsule, 1,250 MCG PO DAILY, (Reported) Discontinued Reason: No Longer Taking Entered as Reported by: JM ELIZONDO on 11/04/21858 Last Action: Discontinued Diltiazem HCl (Diltiazem ER) 240 Mg Capsule.er, 240 MG PO DAILY, (Reported) Discontinued Reason: Duplicate Order Entered as Reported by: JM ELIZONDO on 11/04/21858 Last Action: Discontinued Magnesium Oxide (Magnesium) 400 Mg Magnesium Tablet, 400 MG PO DAILY, (Reported) Discontinued Reason: Prescription changed Entered as Reported by: JM ELIZONDO on 11/04/21858 Melatonin/Pyridoxine HCl (B6) (Melatonin 10 mg Tablet) 10 Mg-10 Mg Tab.mphase, 1 EACH PO HS, (Reported) Discontinued Reason: No Longer Taking Entered as Reported by: JM ELIZONDO on 11/04/21858 Last Action: Discontinued Sucralfate (Sucralfate) 1 Gram Tablet, 1 GM PO QID, (Reported) Discontinued Reason: No Longer Taking Entered as Reported by: JM ELIZONDO on 11/04/21 0859 Last Action: Discontinued Past Mzxcuur-Jpsdbw-Rovqcx Hx Patient Social History Smoking Status: Former Smoker (smoked on and off for 30 years. Quit in 1999) 2nd Hand Smoke Exposure: No Recent Hopitalizations: No Alcohol Use?: Yes (reports occasional alcohol use every few months) Have you traveled recently?: No Immunizations Up To Date Date of Influenza Vaccine: Feb 04, 2022 Seasonal Allergies Seasonal Allergies: No Surgeries History of Surgeries: Yes (CATARACT BILAT, NEUROMA, R MASTECTOMY) Surgeries: Hysterectomy, Nephrectomy, Orthopedic Respiratory History of Respiratory Disorde: No Cardiovascular History of Cardiac Disorders: Yes Cardiac Disorders: High Cholesterol, Hypertension Neurological History of Neurological Disord: No Genitourinary History of Genitourinary Disor: No Gastrointestinal History of Gastrointestinal Di: No Gastrointestinal Disorders: Gastroesophageal Reflux Musculoskeletal History of Musculoskeletal Dis: No Endocrine History of Endocrine Disorders: Yes Endocrine Disorders: Hypothyroidsim HEENT History of HEENT Disorders: No Cancer History of Cancer: Yes Cancer: Breast Psychosocial History of Psychiatric Problem: No Integumentary History of Skin or Integumenta: No Blood Transfusions History of Blood Disorders: No Family Medical History Significant Family History: Cancer (cervical cancer in mother) Review of Systems-General Constitutional: No chills, No diaphoresis, No fever EENTM: throat pain (due to cough and dryness); No nose congestion Respiratory: cough, short of breath Cardiovascular: chest pain (R sided); No palpitations, No syncope Gastrointestinal: No abdominal pain, No nausea, No vomiting Genitourinary: No dysuria, No hematuria; other (catheter in place and functioning) Musculoskeletal: No back pain, No neck pain Skin: No dryness, No lesions; other (pallor) Psychiatric/Neurological: Denies Headache; Weakness Physical Exam-General Problems Physical Exam Vital Signs Vital Signs - First Documented 06/07/22 06/07/22 10:15 11:00 B/P (MAP) 101/53 FiO2 28 Capillary Refill : Less Than 3 Seconds General Appearance: WD/WN, mild distress (due to shortness of breath), other (biPAP in place) HEENT: PERRL/EOMI; No scleral icterus (R), No scleral icterus (L); pale conjunctivae (R), pale conjunctivae (L) Neck: non-tender, supple Respiratory: no accessory muscle use, crackles, wheezing Cardiovascular: no murmur, tachycardia Gastrointestinal: non tender, soft Rectal: deferred Extremities: no pedal edema, no calf tenderness Neurologic/Psychiatric: alert, oriented x 3 Skin: No diaphoresis, No jaundice; pallor Lymphatic: no adenopathy Data Review Labs Laboratory Tests 06/09/22 03:55: White Blood Count 14.6H, Red Blood Count 3.66L, Hemoglobin 10.9L, Hematocrit 33L , Mean Corpuscular Volume 90, Mean Corpuscular Hemoglobin 30, Mean Corpuscular Hemoglobin Concent 33, Red Cell Distribution Width 14.0, Platelet Count 179, Mean Platelet Volume 10.0, Immature Granulocyte % (Auto) 4, Neutrophils (%) (Auto) 89H, Lymphocytes (%) (Auto) 4L, Monocytes (%) (Auto) 2, Eosinophils (%) (Auto) 1, Basophils (%) (Auto) 0, Neutrophils # (Auto) 13.0H, Lymphocytes # (Auto) 0.5L, Monocytes # (Auto) 0.3, Eosinophils # (Auto) 0.2, Basophils # (Auto) 0.0, Immature Granulocyte # (Auto) 0.6H, Neutrophils % (Manual) 68, Lymphocytes % (Manual) 1, Monocytes % (Manual) 2, Metamyelocytes % 1, Band Neutrophils 28, Toxic Granulation 2+, Blood Morphology Comment NORMAL, Sodium Level 132L, Potassium Level 3.9, Chloride Level 106, Carbon Dioxide Level 16L, Anion Gap 10, Blood Urea Nitrogen 41H, Creatinine 1.56H, Estimat Glomerular Filtration Rate 35, BUN/Creatinine Ratio 26, Glucose Level 87, Calcium Level 8.4L, Corrected Calcium 9.7, Magnesium Level 2.3, Total Bilirubin 0.5, Aspartate Amino Transf (AST/SGOT) 24, Alanine Aminotransferase (ALT/SGPT) 25, Alkaline Phosphatase 109, Total Protein 5.0L, Albumin 2.4L 06/09/22 06:05: Blood Gas Puncture Site R RADIAL, Blood Gas Patient Temperature 36.6, Arterial Blood pH 7.35L, Arterial Blood Partial Pressure CO2 35, Arterial Blood Partial Pressure O2 95H, Arterial Blood HCO3 19L, Arterial Blood Total CO2 19.8L, Arterial Blood Oxygen Saturation 96, Arterial Blood Base Excess -6.0L, Jose L Test , Blood Gas Ventilator Setting NO, Blood Gas Inspired Oxygen 80% Microbiology 06/07/22 MRSA Screen - Final, Complete MRSA not isolated 06/07/22 Urine Culture - Final, Complete NO GROWTH 06/07/22 Blood Culture - Final, Complete Streptococcus pyogenes Grp A Radiology [facility] [place], [place] NAME: REJI CHOW [facility] REC#: [id number] PT STATUS: ADM IN : 1950 PHYSICIAN: RAMESH PALMER MD ADMIT DATE: 06/07/22/ICU Draft Date of Exam:06/09/22 CT CHEST WO EXAMINATION: CT chest without contrast. TECHNIQUE: Multiple contiguous axial images were obtained through the chest without the use of intravenous contrast. All CT scans use one or more of the following dose optimizing techniques: automated exposure control, MA and/or KvP adjustment based on patient size and exam type or iterative reconstruction. HISTORY: Sepsis and pneumonia. COMPARISON: None available. FINDINGS: There is right middle, right lower and left lower lobe consolidation. There are areas of mucus plugging in the right lower lobe. There is a jcajrybq-by-dgqgs right pleural effusion. There is fluid loculated within the fissures on the right. No pneumothorax. There is no axillary or supraclavicular lymphadenopathy. There is no mediastinal lymphadenopathy. 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 Heart size is normal. There are no coronary artery calcifications. No pericardial effusion. Aorta is normal in caliber. Limited views of the upper abdomen are unremarkable. There are no suspicious osseous lesions. IMPRESSION: 1. Right middle, right lower and left lower lobe consolidation with areas of mucus plugging in keeping with pneumonia. 2. Xplnaunh-jr-dkqoz right pleural effusions with pleural fluid loculated in the fissures. Dictated on workstation # [id number] Dict: 06/09/22 1055 Trans: 06/09/22 1106 [id number] Interpreted by: HARDY DUTTON MD Electronically signed by: Assessment/Plan Assessment/Plan Assessment/Plan AoC respiratory failure- bipap dependent Sepsis- strep pyogenes identified on blood cx Bilateral PNA R pleural effusion Imaging revealed R pleural effusion w loculations. Possible thoracentesis pending imaging review by Dr Garcia. Continue abx and nebulized treatments- managed by medical team Monitor vitals closely Last dose of heparin given around noon on 06/09 Clinical Quality Measures Admission Status Admission Dx Severe Sepsis RLL Pneumonia CXR w consolidation in RLL. SIRS criteria met with lactic acid, tachycardia, RR, and source of infection Cefepime and doxycycline ABG results 7.43 pH, 34CO2, 79 O2 MAT protocol Monitor vital signs and CBC CMP Repeat CXR tomorrow Lactic acidosis 2.17->3.55->1.56 Continue fluids and treating infection Elevated creatinine 1.89 Hx of R nephrectomy Continue IV fluids UTI UA positive for nitrites and leukocyte esterase cx pending fluids and abx HTN Hypothyroidism Home meds held Will restart when appropriate GI prophylaxis - PPI DVT prophylaxis - heparin OSITO GARCIA DO 06/09/222035: History of Present Illness History of Present Illness History of Present Illness Consult requested by Dr. Kennedy for pleural effusion. Patient is 71 year old femlae who had cough, shortness of breath and right sided chest pain. Patient breathing still difficult and on bipap. Being treated for CAP. Patient had ct chest wich revealed R middle and lower lobe consolidation along with consolidation of the L lower lobe. Ct also revealed a gxiveabz-qr-rypex right pleural effusion with fluid loculated within the fissu res on the right. Allergies and Home Medications Allergies Coded Allergies: No Known Drug Allergies (Unverified , 06/07/22) Patient Home Medication List Home Medication List Reviewed: Yes Amitriptyline HCl (Amitriptyline HCl) 100 Mg Tablet, 100 MG PO HS, (Reported) Entered as Reported by: JM ELIZONDO on 11/04/21858 Last Action: Reviewed Calcium Carbonate (Calcium) 500 Mg Calcium (1250 Mg) Tablet, 1,000 MG PO DAILY, (Reported) Entered as Reported by: JM ELIZONDO on 11/04/21858 Last Action: Reviewed Cranberry Extract (Cranberry) 500 Mg Tablet, 1,000 MG PO HS, (Reported) Entered as Reported by: JM ELIZONDO on 11/04/21858 Last Action: Reviewed Cranberry Fruit (Cranberry) 500 Mg Tab.chew, 500 MG PO DAILY, (Reported) Entered as Reported by: LU VOGT on 06/08/22 1259 Last Action: Reviewed Diltiazem HCl (Diltiazem 24Hr ER) 240 Mg Cap.er.24h, 240 MG PO DAILY, (Reported) Entered as Reported by: LU VOGT on 06/08/221258 Last Action: Reviewed Ferrous Sulfate (Iron) 325 Mg (65 Mg Iron) Tablet, 325 MG PO DAILY, (Reported) Entered as Reported by: JM ELIZONDO on 11/04/21858 Last Action: Reviewed Fish Oil/Dha/Epa (Fish Oil 1,200 mg Fish Oil) 1,200 Mg-144 Mg-216 Mg Capsule, 1 EACH PO HS, (Reported) Entered as Reported by: LU VOGT on 06/08/22 130 Last Action: Reviewed Hydrochlorothiazide (Hydrochlorothiazide) 25 Mg Tablet, 25 MG PO DAILY, (Reported) Entered as Reported by: JM ELIZONDO on 11/04/21858 Last Action: Reviewed Levothyroxine Sodium (Levothyroxine Sodium) 75 Mcg Tablet, 75 MCG PO DAILY, (Reported) Entered as Reported by: JM ELIZONDO on 11/04/21858 Last Action: Reviewed Loratadine (Loratadine) 10 Mg Tablet, 10 MG PO DAILY, (Reported) Entered as Reported by: LU VOGT on 06/08/221258 Last Action: Reviewed Magnesium Oxide (Magnesium Oxide) 250 Mg Tablet, 500 MG PO BID, (Reported) Entered as Reported by: LU VOGT on 06/08/221258 Last Action: Reviewed Melatonin (Melatonin) 10 Mg Tablet, 10 MG PO HS PRN for SLEEP, (Reported) Entered as Reported by: LU VOGT on 06/08/221258 Last Action: Reviewed Multivitamin (Multi-Vitamin Daily) 1 Each Tablet, 1 EACH PO DAILY, (Reported) Entered as Reported by: JM ELIZONDO on 11/04/21858 Last Action: Reviewed Naproxen Sodium (Aleve) 220 Mg Tablet, 440 MG PO DAILY, (Reported) Entered as Reported by: JM ELIZONDO on 11/04/21858 Last Action: Reviewed Oxybutynin Chloride (Oxybutynin Chloride ER) 10 Mg Tab.er.24, 10 MG PO DAILY, (Reported) Entered as Reported by: JM ELIZONDO on 11/04/21858 Last Action: Reviewed Pantoprazole Sodium (Pantoprazole Sodium) 40 Mg Tablet.dr, 40 MG PO DAILY, (Reported) Entered as Reported by: JM ELIZONDO on 11/04/21858 Last Action: Reviewed Simvastatin (Simvastatin) 20 Mg Tablet, 20 MG PO HS, (Reported) Entered as Reported by: JM ELIZONDO on 11/04/21858 Last Action: Reviewed Turmeric Root Extract (Turmeric) 500 Mg Tablet, 500 MG PO DAILY, (Reported) Entered as Reported by: JM ELIZONDO on 11/04/21858 Last Action: Reviewed Ubidecarenone (Coq-10) 100 Mg Capsule, 100 MG PO DAILY, (Reported) Entered as Reported by: LU VOGT on 06/08/221258 Last Action: Reviewed Discontinued Medications Ascorbic Acid (Vitamin C) 500 Mg Tablet.er, 1,000 MG PO DAILY, (Reported) Discontinued Reason: No Longer Taking Entered as Reported by: JM ELIZONDO on 11/04/21858 Last Action: Discontinued Cholecalciferol (Vitamin D3) (Vitamin D3) 1,250 Mcg (09742 Unit) Capsule, 1,250 MCG PO DAILY, (Reported) Discontinued Reason: No Longer Taking Entered as Reported by: JM ELIZONDO on 11/04/21858 Last Action: Discontinued Diltiazem HCl (Diltiazem ER) 240 Mg Capsule.er, 240 MG PO DAILY, (Reported) Discontinued Reason: Duplicate Order Entered as Reported by: JM ELIZONDO on 11/04/21858 Last Action: Discontinued Magnesium Oxide (Magnesium) 400 Mg Magnesium Tablet, 400 MG PO DAILY, (Reported) Discontinued Reason: Prescription changed Entered as Reported by: JM ELIZONDO on 11/04/21858 Melatonin/Pyridoxine HCl (B6) (Melatonin 10 mg Tablet) 10 Mg-10 Mg Tab.mphase, 1 EACH PO HS, (Reported) Discontinued Reason: No Longer Taking Entered as Reported by: JM ELIZONDO on 11/04/21858 Last Action: Discontinued Sucralfate (Sucralfate) 1 Gram Tablet, 1 GM PO QID, (Reported) Discontinued Reason: No Longer Taking Entered as Reported by: JM ELIZONDO on 11/04/21858 Last Action: Discontinued Past Fscoomq-Uvjweu-Gptmlf Hx Patient Social History Smoking Status: Former Smoker Reviewed Nursing Assessment Reviewed/Agree w Nursing PMH: Yes Family Medical History Significant Family History: No Pertinent Family Hx Review of Systems-General Constitutional: No chills, No diaphoresis EENTM: throat pain (due to cough and dryness); No nose congestion Respiratory: cough, short of breath Cardiovascular: chest pain (R sided); No palpitations Gastrointestinal: No abdominal pain, No nausea, No vomiting Genitourinary: No dysuria, No hematuria Musculoskeletal: No back pain, No neck pain Skin: No dryness, No lesions Psychiatric/Neurological: Denies Headache; Weakness All Other Systems Reviewed Negative Unless Noted: Yes (Negative excepted noted.) Physical Exam-General Problems Physical Exam General Appearance: mild distress (on bipap), other (biPAP in place) HEENT: PERRL/EOMI, normal ENT inspection Neck: non-tender, supple Respiratory: chest non-tender, crackles, wheezing Cardiovascular: no JVD, tachycardia Gastrointestinal: non tender, soft Rectal: deferred Back: normal inspection, no CVA tenderness Extremities: no pedal edema, no calf tenderness Neurologic/Psychiatric: alert, oriented x 3 Skin: normal color, warm/dry Lymphatic: no adenopathy Assessment/Plan Assessment/Plan Assessment/Plan Acute on chronic respiratory failure- bipap dependent Sepsis- strep pyogenes identified on blood cx Bilateral PNA R pleural effusion Imaging revealed R pleural effusion w loculations. Reviewed ct scan and discussed with family Discussed risks and beneifts of right thoracentesis and wish to proceed. chest x ray following procedure. Continue abx and nebulized treatments- managed by medical team Procedure: right u/s guided thoracentesis. Right chest u/s was used to find best access to fluid. This was marked and then prepped and draped in sterile fashion. 3 mL of 1% lidocaine was used to anesthetize the area.and chest wall. 11 blade scalpel was used to make skin incision. Safety-centesis needle and catheter was then used to advance through the chest wall until straw colored fluid was drawn out and the catheter was then advanced and needle removed. 600mL of straw colored fluid withdrawn.Catheter was removed and sterile bandage applied. Chest x ray pending. Supervisory-Addendum Brief Verification & Attestation Participated in pt care: history, MDM, physical Personally performed: exam, history, MDM, supervision of care Care discussed with: Medical Student Procedures: n/a Results interpretation: Verified all documentation Verification and Attestation of Medical Student E/M Service A medical student performed and documented this service in my presence. I reviewed and verified all information documented by the medical student and made modifications to such information, when appropriate. I personally performed the physical exam and medical decision making. Osito Garcia, Jun 09, 2022,20:43 BROOKLYN BROWN Jun 09, 2022 14:39 OSITO GARCIA DO Jun 09, 2022 20:36
[2022-06-09] MEDS: BENZONATATE 100 MG (TESSALON) CAPSULE PO PRN (15:03)
[2022-06-09] MEDS: guaiFENesin/DM (ROBITUSSIN DM) 10 ML UDC PO PRN (15:48)
[2022-06-09] MEDS: guaiFENesin/CODEINE (ROBITUSSIN AC) 10ML UDC PO PRN (15:48)
--- NOTE | 2022-06-09 18:13 | Diagnostic Imaging Report ---
EXAMINATION: Chest radiograph, portable AP view. DATE: 06/09/2022 6:05 PM INDICATION: 71-year-old female, status post thoracentesis. Shortness of breath. COMPARISON: June 09, 2022 at 0408 hours. FINDINGS: There is a right-sided PICC line with tip overlying the lower SVC. Heart size and mediastinal contours are unchanged. There are wires and leads overlying the patient which do limit the exam. There is no identified pneumothorax. There is right mid and lower lung zone consolidation. There is opacification projecting over the left midlung although this could be artifactual or relate to material external to the patient. 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 IMPRESSION: 1. Nonspecific right middle lower lung zone consolidation which may relate to infiltrate, atelectasis, and/or effusion. 2. No identified pneumothorax. 3. Stable positioning of the left-sided PICC line. 4. Opacification projecting over the left midlung. This could relate to interval alveolar consolidation; however, this also may be artifactual. Dictated by: Dictated on workstation # [id number]
[2022-06-09 18:35] LABS: BODY FLUID RBC COUNT 0.003 10^6/uL; BODY FLUID WBC TOTAL COUNT 8.441 10^3/uL
[2022-06-09 18:41] LABS: BODY FLUID APPEARENCE SLT CLDY; BODY FLUID COLOR YELLOW
[2022-06-09 18:43] LABS: BODY FLUID SOURCE PLEURAL
[2022-06-09 18:44] LABS: GLUCOSE,BODY FLUID 22 MG/DL
[2022-06-09 18:45] LABS: TOTAL PROTEIN,BODY FLUID 2.5 G/DL
[2022-06-09] MEDS: AMITRIPTYLINE 25 MG (ELAVIL) TAB PO SCH (20:01)
[2022-06-10] VITALS (27 sets, daily range): BP systolic 105–140; BP diastolic 55–86
[2022-06-10] MEDS: RT-ALBUTEROL SULF 2.5 MG/3 ML PRE-MIX VIAL INH SCH ×5 (02:23→21:32)
[2022-06-10] MEDS: RT-IPRATROPIUM (ATROVENT) 0.5MG/2.5ML AMP IH SCH ×5 (02:23→21:32)
[2022-06-10 04:45] LABS: ABG BASE EXCESS -5.7 MMOL/L (-2.5-2.5); ABG OXYGEN SATURATION 94 % (94-100); ABG PCO2 33 MMHG (35-45); ABG PH 7.37 (7.37-7.43); ABG PO2 71 MMHG (79-93); ABG TCO2 19.9 MMOL/L (21.0-31.0); ALLENS TEST YES-POS; INSPIRED O2 40%; VENTILATOR NO
[2022-06-10] MEDS: MAGNESIUM 1 GM/100 ML IVPB 100 ML IV SCH (06:08)
[2022-06-10] MEDS: POTASSIUM CL 10MEQ/50ML IVPB 50 ML IV SCH (06:08)
[2022-06-10] MEDS: KCL 20 MEQ TAB (K-DUR) PO SCH (06:09)
--- NOTE | 2022-06-10 06:42 | Diagnostic Imaging Report ---
INDICATION: 71-year-old female with pneumonia follow-up. Patient is the intensive care unit. COMPARISONS: 06/09/2022. FINDINGS: Single view chest once again shows a right lower lobe consolidation with a large right effusion. Right middle lobe infiltrates may also be present. Left lung appears reasonably well aerated. Right-sided PICC line tip is projected over the mid SVC. Soft tissues and bony thorax are unchanged. IMPRESSION: 1. Large right lower lobe consolidation and right middle lobe consolidation with underlying large right pleural effusion similar to the previous study. 2. Central venous congestion shows slight improvement. There is also slight improvement in aeration left lung however this may be due to differences in technique. 3. Stable right sided PICC line. Dictated by: Dictated on workstation # [id number]
--- NOTE | 2022-06-10 06:57 | Progress Note - Surgery ---
BROOKLYN BROWN 06/10/22 0657: Subjective Date Seen by a Provider: Jun 10, 2022 Time Seen by a Provider: 06:15 Subjective/Events-last exam Belen Patricio is seen at bedside this morning. She is resting comfortably with biPAP in place. RN reports she was confused at times early this morning with multiple attempts to take off her bipap mask. She asked me why she was here and did not think her knew she was here despite his daily visits. When I reoriented her to her situation she understood and seemed to answer my questions from then on appropriately. She reports improvement in her breathing. She feels able to take deeper breaths than she could yesterday evening prior to tho racentesis. She denies fevers or chills overnight. Reports no R sided chest pain today. Draining yellow clear urine via catheter. No BM overnight, last one reported to be 06/06. Review of Systems General: No Chills, No Night Sweats HEENT: No Head Aches; Sore Throat (from cough and dryness) Pulmonary: Dyspnea (improved), Cough Cardiovascular: No: Chest Pain, Lt Headedness Gastrointestinal: No: Nausea, Vomiting, Abdominal Pain Genitourinary: No Dysuria, No Hematuria Musculoskeletal: No: neck pain, back pain (no pain at site of thoracentesis) Neurological: Weakness, Confusion (improved on reorientation, uncertain etiology) Focused Exam Lactate Level 06/07/22 09:20: Lactic Acid Level 2.17*H 06/07/22 11:20: Lactic Acid Level 3.55*H 06/07/22 14:38: Lactic Acid Level 1.56 Time of Focused Exam: 10:00 Objective Exam Vital Signs Date Time Temp Pulse Resp B/P (MAP) Pulse Ox O2 Delivery O2 Flow Rate FiO2 06/10/22 06:40 98 24 99 40.00 06/10/22 06:00 96 29 138/67 (90) 99 NIV Bilevel 40.00 06/10/22 05:00 100 22 124/86 (99) 98 NIV Bilevel 40.00 06/10/22 04:00 97 NIV Bilevel 40 06/10/22 04:00 36.4 06/10/22 04:00 103 22 136/85 (102) 97 NIV Bilevel 40.00 06/10/22 03:00 105 22 131/66 (87) 100 NIV Bilevel 40.00 06/10/22 02:26 NIV Bilevel 40.00 06/10/22 02:21 103 30 99 40.00 06/10/22 02:00 105 22 137/82 (100) 100 NIV Bilevel 50.00 06/10/22 01:00 98 22 119/63 (81) 99 NIV Bilevel 50.00 06/10/22 01:00 100 06/10/22 00:00 101 22 120/63 (82) 99 NIV Bilevel 50.00 06/09/22 23:59 97 NIV Bilevel 50 06/09/22 23:00 100 23 119/63 (81) 100 NIV Bilevel 50.00 06/09/22 22:02 NIV Bilevel 50.00 06/09/22 22:00 101 19 121/70 (87) 100 NIV Bilevel 60.00 06/09/22 22:00 100 26 99 50.00 06/09/22 21:00 101 22 127/86 (100) 100 NIV Bilevel 60.00 06/09/22 20:00 36.6 06/09/22 20:00 97 NIV Bilevel 70 06/09/22 20:00 102 23 124/69 (87) 96 NIV Bilevel 60.00 06/09/22 19:00 103 06/09/22 19:00 102 23 124/72 (89) 99 NIV Bilevel 60.00 06/09/22 18:52 100 NIV Bilevel 60.00 06/09/22 18:29 105 20 60.00 06/09/22 18:00 112 30 152/83 (106) 100 NIV Bilevel 70.00 06/09/22 17:00 104 15 124/68 (86) 99 NIV Bilevel 70.00 06/09/22 16:15 98 NIV Bilevel 70 06/09/22 16:00 111 21 130/77 (94) 98 NIV Bilevel 70.00 06/09/22 15:46 36.9 06/09/22 15:00 116 18 120/93 (102) 96 NIV Bilevel 70.00 06/09/22 14:12 NIV Bilevel 70.00 06/09/22 14:06 112 28 99 70.00 06/09/22 14:00 113 35 135/86 (102) 98 Vapotherm 25.00 80.00 06/09/22 13:53 100 Vapotherm 25.00 80.00 06/09/22 13:22 100 Vapotherm 25.00 90.00 06/09/22 13:08 112 06/09/22 13:00 112 23 137/84 (101) 99 Vapotherm 25.00 100.00 06/09/22 12:38 Vapotherm 25.00 100.00 06/09/22 12:00 112 18 121/85 (97) 98 NIV Bilevel 70.00 06/09/22 12:00 36.9 06/09/22 12:00 98 NIV Bilevel 70 06/09/22 11:00 113 18 117/91 (100) 99 NIV Bilevel 70.00 06/09/22 10:17 111 15 98 70.00 06/09/22 10:00 110 18 132/76 (94) 99 NIV Bilevel 70.00 06/09/22 09:00 111 25 128/84 (99) 95 NIV Bilevel 70.00 06/09/22 08:51 96 NIV Bilevel 70.00 06/09/22 08:00 96 NIV Bilevel 70 06/09/22 08:00 110 32 120/71 (87) 97 NIV Bilevel 80.00 06/09/22 07:41 36.7 06/09/22 07:04 111 06/09/22 07:00 111 21 124/66 (85) 95 NIV Bilevel 80.00 I & O 06/10/22 07:00 Intake Total 1250 ml Output Total 2650 ml Balance -1400 ml Capillary Refill : Less Than 3 Seconds General Appearance: Mild Distress, Other (guzman) HEENT: PERRL/EOMI, Pale Conjunctivae (L), Pale Conjunctivae (R), Other (dry oral mucosa) Neck: Supple Respiratory: Accessory Muscle Use, Crackles (RLL, improved from auscultation 06/09), Wheezing Cardiovascular: Normal Peripheral Pulses, Tachycardia Peripheral Pulses: 2+ Radial Pulses (R), 2+ Radial Pulses (L) Gastrointestinal: non tender, soft Extremity: Non Tender, No Pedal Edema Neurologic/Psychiatric: Alert, Oriented x3, Normal Mood/Affect, Other (confusion at start of interview) Skin: Cyanosis (perioral), Pallor Lymphatic: No Adenopathy Results Lab Laboratory Tests 06/09/22 17:45: Body Fluid pH 7.08 06/09/22 18:15: Body Fluid Source PLEURAL, Body Fluid Color YELLOW, Body Fluid Appearance SLT CLDY, Body Fluid WBC 8.441, Body Fluid RBC 0.003, Body Fl Polynuclear WBCs (%)(Auto) 84.1, Body Fluid Mononuclear Cells % Auto 15.9, Body Fluid Slide Review Yes, Body Fluid Glucose 22, Body Fluid Total Protein 2.5 06/10/22 04:30: Blood Gas Puncture Site LR, Blood Gas Patient Temperature 36.0, Arterial Blood pH 7.37, Arterial Blood Partial Pressure CO2 33L, Arterial Blood Partial Pressure O2 71L, Arterial Blood HCO3 19L, Arterial Blood Total CO2 19.9L, Arterial Blood Oxygen Saturation 94, Arterial Blood Base Excess -5.7L, Jose L Test YES-POS, Blood Gas Ventilator Setting NO, Blood Gas Inspired Oxygen 40% Microbiology 06/07/22 MRSA Screen - Final, Complete MRSA not isolated 06/07/22 Urine Culture - Final, Complete NO GROWTH 06/07/22 Blood Culture - Final, Complete Streptococcus pyogenes Grp A Assessment/Plan Assessment/Plan Assessment/Plan AoC respiratory failure requiring biPAP Community acquired pneumonia Sepsis R Pleural effusion Sinus tachycardia Confusion Thoracentesis performed by Dr Garcia on 06/09 draining 650mL of fluid from R chest cavity Pleural fluid resulted in WBC 8.441, RBC 0.003, glucose 22, protein 2.5 Likely exudative process Pleural fluid cx pending Continue IV abx and nebulized treatments Remains biPAP dependent although has been able to wean down fiO2 to 40% after requiring 70% most of 06/09 Monitor vitals and WBC. Last elevated at 14.6. Continue serial imaging of the chest to monitor for improvement of effusion, Last CXR done 06/10 appears improved from imaging after thoracentesis. Awaiting read from radiology. Clinical Quality Measures Admission Status Admission Dx Severe Sepsis RLL Pneumonia CXR w consolidation in RLL. SIRS criteria met with lactic acid, tachycardia, RR, and source of infection Cefepime and doxycycline ABG results 7.43 pH, 34CO2, 79 O2 MAT protocol Monitor vital signs and CBC CMP Repeat CXR tomorrow Lactic acidosis 2.17->3.55->1.56 Continue fluids and treating infection Elevated creatinine 1.89 Hx of R nephrectomy Continue IV fluids UTI UA positive for nitrites and leukocyte esterase cx pending fluids and abx HTN Hypothyroidism Home meds held Will restart when appropriate GI prophylaxis - PPI DVT prophylaxis - heparin OSITO GARCIA DO 06/10/22 1616: Subjective Subjective/Events-last exam Breathing a little easier today. Still with shortness of breath. Still on bipap. No new complaints. Chest x ray still with right consolidation. Denies n/v fever sweats chills or chest pain. No family at bedside. Objective Exam General Appearance: Other (on bipap, laying in bed) HEENT: PERRL/EOMI, Other (dry oral mucosa) Neck: Non Tender, Supple Respiratory: Chest Non Tender, Crackles (RLL, improved from auscultation 06/09), Wheezing Cardiovascular: Regular Rate, Rhythm, No JVD Gastrointestinal: non tender, soft Extremity: Normal Inspection, Non Tender Neurologic/Psychiatric: Alert, Normal Mood/Affect Skin: Warm/Dry, Pallor Lymphatic: No Adenopathy Assessment/Plan Assessment/Plan Assessment/Plan Acute on chronic respiratory failure requiring biPAP Community acquired pneumonia Sepsis R Pleural effusion Sinus tachycardia Confusion Thoracentesis performed by Dr Garcia on 06/09 Pleural fluid resulted in WBC 8.441, RBC 0.003, glucose 22, protein 2.5 Likely exudative process Pleural fluid cx pending Continue IV abx and nebulized treatments Remains biPAP dependent although has been able to wean down fiO2 to 40% after requiring 70% most of 06/09 Monitor vitals and WBC. Last elevated at 14.6. Continue serial imaging of the chest to monitor for improvement of effusion, Last CXR done 06/10 appears improved from imaging after thoracentesis. Will order u/s chest to evaluate for pleural effusion tomorrow. Supervisory-Addendum Brief Verification & Attestation Participated in pt care: history, MDM, physical Personally performed: exam, history, MDM, supervision of care Care discussed with: Medical Student Procedures: n/a Results interpretation: Verified all documentation Verification and Attestation of Medical Student E/M Service A medical student performed and documented this service in my presence. I re viewed and verified all information documented by the medical student and made modifications to such information, when appropriate. I personally performed the physical exam and medical decision making. Osito Garcia, Jun 10, 2022,16:16 BROOKLYN BROWN Jun 10, 2022 06:57 OSITO GARCIA DO Jun 10, 2022 16:16
[2022-06-10 07:37] LABS: BASOPHILS # (AUTO) 0.1 10^3/uL (0.0-0.1); BASOPHILS % (AUTO) 1 % (0-10); EOSINOPHILS # (AUTO) 0.3 10^3/uL (0.0-0.3); EOSINOPHILS % (AUTO) 2 % (0-10); HEMATOCRIT 34 % (35-52); HEMOGLOBIN 11.2 g/dL (11.5-16.0); LYMPHOCYTES # (AUTO) 1.3 10^3/uL (1.0-4.0); LYMPHOCYTES % (AUTO) 8 % (12-44); MEAN CORPUSCULAR HEMOGLOBIN 30 pg (25-34); MEAN CORPUSCULAR HGB CONC 33 g/dL (32-36); MEAN CORPUSCULAR VOLUME 91 fL (80-99); MEAN PLATELET VOLUME 9.9 fL (9.0-12.2); MONOCYTES % (AUTO) 6 % (0-12); NEUTROPHILS # (AUTO) 13.4 10^3/uL (1.8-7.8); NEUTROPHILS % (AUTO) 79 % (42-75); PLATELET COUNT 135 10^3/uL (130-400); WHITE BLOOD COUNT 16.8 10^3/uL (4.3-11.0)
[2022-06-10 07:52] LABS: ALBUMIN 2.5 GM/DL (3.2-4.5)
[2022-06-10 07:53] LABS: POTASSIUM 4.1 MMOL/L (3.6-5.0)
[2022-06-10 07:54] LABS: CALCIUM 8.8 MG/DL (8.5-10.1)
[2022-06-10 07:55] LABS: TOTAL PROTEIN 5.1 GM/DL (6.4-8.2)
[2022-06-10 07:57] LABS: BILIRUBIN,TOTAL 0.5 MG/DL (0.1-1.0)
[2022-06-10 07:59] LABS: CREATININE SERUM 1.15 MG/DL (0.60-1.30)
[2022-06-10] MEDS: CEFEPIME INJECTION 1,000 MG in NS (IVPB) 50 ML IV SCH ×3 (08:05→23:00)
[2022-06-10] MEDS: dilTIAZem120 MG (CARDIZEM CD) CAP PO SCH (08:06)
[2022-06-10] MEDS: PANTOPRAZOLE 40 MG (PROTONIX) TAB PO SCH (08:06)
[2022-06-10] MEDS: DOCUSATE SODIUM 100 MG (COLACE) CAP PO SCH ×2 (09:00→20:43)
[2022-06-10] MEDS: SENNOSIDES 8.6 MG (SENOKOT) TAB PO SCH ×2 (09:00→20:43)
--- NOTE | 2022-06-10 11:14 | Tele-ICU Progress Note ---
Subjective Date Seen by a Provider: Jun 10, 2022 Time Seen by a Provider: 11:13 Subjective/Events-last exam (Tele-ICU Physician , Progress Note ) Service provided via interactive audio and video telecommunications E-CARE system to a patient admitted to ICU bed in [facility]. Patient is seen today due to persistent need of ICU care Available chart/ vitals / labs / Images reviewed Video assessment done using teleICU camera, rest of exam as per RN Discussed with RN Events overnight : Afebrile hemodynamically stable Respiratory - bipap I/O = Drips: Pressors- no Hospital course: (06/07) 71yF admitted from the ED for RLL PNA 06/08-VT 25 l 100% --> BIPAP 03/18 80% , (ftom VT 25 l 100% - stop IVF , lasix 40x1 06/09- BIPAP 03/18 rr 18 TV 500 , 70 % , THORA 600 ml RIGHT 06/10- bipap overnigh 30% , day VT 25L 75% , better in general A/P Acute resp failure with hypoxia - PNA , effuiosn , possible VO - VT 25L 75%, better respiratory after thora , and in general - IS , O2 to wean PNA - RLL ( with complicated parapneumonic effusion ) - doxy , cefepime STREP, [employer] A on blood cx 06/06 FRAN/ ? CKD - received hydration , - stable with Ctr 1.56 Complicated parapneumonic effusion, RIGHT -CTCh 06/09- effusion and very dence infiltrate on right - s/p Thora 06/09 on right - 650 ml - EXUDATE , ph 7/90 with Gl 22 - complicated parapneumonic effusion / developing empyema - NEED CLOSE F/UP WITH US AND REPEATED THORA/CHEST TUBE , IF PATIENT IS NOT IMROVING ( cxr with dence infitrate , can not follow effusion by postable cxr ) Anemia - delutional ? Sinus tachycardia - resume home cardizem 1/2 dose on 06/09 Lines : PICC 06/07 right , (Central Line Necessity Reviewed) Dominguez: + OG: Nutrition: minimal today - on bipap Analgesia: Anxiety/ delirium VTE Prophylaxis: hep sq Stress Ulcer Prophylaxis: ppi Plans in collaboration with bedside consultants and IM MDs. Discussed with RN to reach out if any questions or concerns A total of 31 minutes of critical care time was devoted to this patient today, required to treat and/or prevent further deterioration of critical care condition ( as above ) . I am remotely monitoring this patient from another state. I am unable to do the bedside exam, and history/physical and pertinent information is taken from other notes in the computer and bedside staff. . Sepsis Event Evaluation Height, Weight, BMI Height: '" Weight: lbs. oz. kg; 30.35 BMI Method: Focused Exam Lactate Level 06/07/22 11:20: Lactic Acid Level 3.55*H 06/07/22 14:38: Lactic Acid Level 1.56 Time of Focused Exam: 10:00 Exam Exam Patient acknowledged, consented, and participated in this virtual visit which was conducted using real time audio/video Vital Signs Date Time Temp Pulse Resp B/P (MAP) Pulse Ox O2 Delivery O2 Flow Rate FiO2 06/10/22 10:10 100 Vapotherm 25.00 75 06/10/22 10:00 101 25 118/60 (79) 100 NIV Bilevel 30.00 06/10/22 09:00 101 18 140/83 (102) 100 NIV Bilevel 30.00 06/10/22 08:00 97 NIV Bilevel 40 06/10/22 08:00 36.5 06/10/22 08:00 100 24 132/73 (92) 98 NIV Bilevel 30.00 06/10/22 07:00 101 30 140/79 (99) 95 NIV Bilevel 30.00 06/10/22 07:00 103 06/10/22 06:57 NIV Bilevel 30.00 06/10/22 06:40 98 24 99 40.00 06/10/22 06:00 96 29 138/67 (90) 99 NIV Bilevel 40.00 06/10/22 05:00 100 22 124/86 (99) 98 NIV Bilevel 40.00 06/10/22 04:00 97 NIV Bilevel 40 06/10/22 04:00 36.4 06/10/22 04:00 103 22 136/85 (102) 97 NIV Bilevel 40.00 06/10/22 03:00 105 22 131/66 (87) 100 NIV Bilevel 40.00 06/10/22 02:26 NIV Bilevel 40.00 06/10/22 02:21 103 30 99 40.00 06/10/22 02:00 105 22 137/82 (100) 100 NIV Bilevel 50.00 06/10/22 01:00 98 22 119/63 (81) 99 NIV Bilevel 50.00 06/10/22 01:00 100 06/10/22 00:00 101 22 120/63 (82) 99 NIV Bilevel 50.00 06/09/22 23:59 97 NIV Bilevel 50 06/09/22 23:00 100 23 119/63 (81) 100 NIV Bilevel 50.00 06/09/22 22:02 NIV Bilevel 50.00 06/09/22 22:00 101 19 121/70 (87) 100 NIV Bilevel 60.00 06/09/22 22:00 100 26 99 50.00 06/09/22 21:00 101 22 127/86 (100) 100 NIV Bilevel 60.00 06/09/22 20:00 36.6 06/09/22 20:00 97 NIV Bilevel 70 06/09/22 20:00 102 23 124/69 (87) 96 NIV Bilevel 60.00 06/09/22 19:00 103 06/09/22 19:00 102 23 124/72 (89) 99 NIV Bilevel 60.00 06/09/22 18:52 100 NIV Bilevel 60.00 06/09/22 18:29 105 20 60.00 06/09/22 18:00 112 30 152/83 (106) 100 NIV Bilevel 70.00 06/09/22 17:00 104 15 124/68 (86) 99 NIV Bilevel 70.00 06/09/22 16:15 98 NIV Bilevel 70 06/09/22 16:00 111 21 130/77 (94) 98 NIV Bilevel 70.00 06/09/22 15:46 36.9 06/09/22 15:00 116 18 120/93 (102) 96 NIV Bilevel 70.00 06/09/22 14:12 NIV Bilevel 70.00 06/09/22 14:06 112 28 99 70.00 06/09/22 14:00 113 35 135/86 (102) 98 Vapotherm 25.00 80.00 06/09/22 13:53 100 Vapotherm 25.00 80.00 06/09/22 13:22 100 Vapotherm 25.00 90.00 06/09/22 13:08 112 06/09/22 13:00 112 23 137/84 (101) 99 Vapotherm 25.00 100.00 06/09/22 12:38 Vapotherm 25.00 100.00 06/09/22 12:00 112 18 121/85 (97) 98 NIV Bilevel 70.00 06/09/22 12:00 36.9 06/09/22 12:00 98 NIV Bilevel 70 I & O0 06/10/22 07:00 Intake Total 1250 ml Output Total 2650 ml Balance -1400 ml Height & Weight Height: '" Weight: lbs. oz. kg; 30.35 BMI Method: General Appearance: Mild Distress, Other (guzman) HEENT: PERRL/EOMI, Pale Conjunctivae (L), Pale Conjunctivae (R), Other (dry oral mucosa) Neck: Supple Respiratory: Accessory Muscle Use, Crackles (RLL, improved from auscultation 06/09), Wheezing Cardiovascular: Normal Peripheral Pulses, Tachycardia Capillary Refill: Less Than 3 Seconds Peripheral Pulses: 2+ Radial Pulses (R), 2+ Radial Pulses (L) Gastrointestinal: non tender, soft Extremity: Non Tender, No Pedal Edema Neurologic/Psychiatric: Alert, Oriented x3, Normal Mood/Affect, Other (confusion at start of interview) Skin: Cyanosis (perioral), Pallor Lymphatic: No Adenopathy Results Lab Laboratory Tests 06/09/22 03:55 06/10/22 07:31 Assessment/Plan Assessment/Plan 1 RAMESH PALMER MD Jun 10, 2022 11:14
[2022-06-10] MEDS: guaiFENesin/DM (ROBITUSSIN DM) 10 ML UDC PO PRN ×2 (12:10→20:28)
[2022-06-10] MEDS: guaiFENesin/CODEINE (ROBITUSSIN AC) 10ML UDC PO PRN ×2 (12:10→20:29)
[2022-06-10] MEDS: DOXYCYCLINE INJECTION 100 MG in NS (IVPB) 100 ML IV SCH ×2 (12:11→22:59)
--- NOTE | 2022-06-10 15:20 | Progress Note - Hospitalist ---
"AKILAH AMANDA 06/10/22 1520: Subjective HPI/CC On Admission Date Seen by Provider: Jun 10, 2022 Time Seen by Provider: 08:30 Subjective/Events-last exam Patient sitting upright in bed, currently on vapotherm. Patient states she feels better today than yesterday. Is able to tolerate being off of the BiPAP better and is less fatigued. Patient is with and daughter. Discussed with family about patients improvements and the need to just take her recovery one day at a time. Family is happy with her progress and hope she continues to make progress. Review of Systems General: No Chills, No Fatigue HEENT: No Head Aches, No Visual Changes Pulmonary: Cough (Occasional cough, worse when eating ); No Pleuritic Chest Jessica n Cardiovascular: No: Chest Pain, Palpitations Gastrointestinal: No: Nausea, Vomiting, Abdominal Pain Genitourinary: No Dysuria, No Frequency, No Hematuria Musculoskeletal: shoulder pain (R, when coughing) Neurological: No: Weakness, Numbness Focused Exam Time of Focused Exam: 10:00 Objective Exam Vital Signs Vital Signs Date Time Temp Pulse Resp B/P (MAP) Pulse Ox O2 Delivery O2 Flow Rate FiO2 06/10/22 14:38 Vapotherm 20.00 50.00 06/10/22 14:33 97 50 06/10/22 14:00 99 16 105/71 (82) 06/10/22 12:00 36.5 Capillary Refill : Less Than 3 Seconds General Appearance: WD/WN, Mild Distress HEENT: PERRL/EOMI (EOMI), Moist Mucous Membranes Neck: Full Range of Motion, Non Tender Respiratory: No Respiratory Distress, Crackles (RLL on inspiration ), Decreased Breath Sounds (Bibasiar, and burciaga right side) Cardiovascular: No Murmur, Normal Peripheral Pulses, Tachycardia (Sinus Tachycardia) Gastrointestinal: Non Tender, Soft Rectal: Deferred Extremity: Non Tender, No Calf Tenderness, No Pedal Edema Neurologic/Psychiatric: Alert, Oriented x3, Normal Mood/Affect Skin: Normal Color, Warm/Dry Results/Procedures Lab Laboratory Tests 06/10/22 07:31 Patient resulted labs reviewed. Assessment/Plan Assessment and Plan Assess & Plan/Chief Complaint Acute Hypoxic Respiratory Failure Sepsis RLL Pneumonia - Yesterday patient had a CT scan that showed Right-Sided pleural effusion along with RML, RLL, and LLL consolidation with mucus plugging. - Patient underwent thoracentesis yesterday of 600cc. Sent for cytology. Repeat CXR showed initial improvement. However, repeat today showed accumulation of effusion again. Will talk with Surgery team about repeat thoracentesis vs chest tube placement. - Patient will need close follow-up on this to prevent development of large empyema - Subjectively patient appears to be improved today. Will continue to monitor improvement and wean oxygen as safely tolerated. - Lactic acid 2.17 on admission. 3.55 at worse. 1.56 at last check. - Leukocytosis 16.8 today. (14.6 yesterday) Continue to monitor. - ABG stable in comparison to yesterday (7.37|33|71|19 HCO3-) - BiPAP settings 12/8, 12, 30%. Improvement from yesterday. Intermittent Vapotherm at 25LPM, 80%. - Albuterol and Ipratropium for breathing treatments. - Continue Cefepime and Doxycycline Sinus Tachycardia - 1/2 home dose Diltiazem for rate control started on 06/10. Will assess response and make appropriate changes as needed. Elevated creatinine vs FRAN -Creatinine back to baseline at this time, continue to monitor. HTN - Patients pressures have been labile. Currently holding home meds. Hypothyroidism -Will resume home levothyroxine HLD -Will resume home simvastatin Depression - Home amitriptyline restarted. GI prophylaxis - PPI DVT prophylaxis - heparin RIAZ COTTER DO 06/10/222051: YOUNGER,AKILAH Jun 10, 2022 15:20 RIAZ COTTER DO Jun 10, 2022 20:52"
[2022-06-10] MEDS: AMITRIPTYLINE 25 MG (ELAVIL) TAB PO SCH (20:28)
--- NOTE | 2022-06-10 20:52 | Progress Note ---
"Subjective Date Seen by a Provider: Jun 10, 2022 Time Seen by a Provider: 11:00 Subjective/Events-last exam HPI/CC On Admission Date Seen by Provider: Jun 10, 2022 Time Seen by Provider: 08:30 Subjective/Events-last exam Patient sitting upright in bed, currently on vapotherm. Patient states she feels better today than yesterday. Is able to tolerate being off of the BiPAP better and is less fatigued. Patient is with and daughter. Discussed with chadwick french about patients improvements and the need to just take her recovery one day at a time. Family is happy with her progress and hope she continues to make progress. Review of Systems General: No Chills, No Fatigue HEENT: No Head Aches, No Visual Changes Pulmonary: Cough (Occasional cough, worse when eating ); No Pleuritic Chest Pain Cardiovascular: No: Chest Pain, Palpitations Gastrointestinal: No: Nausea, Vomiting, Abdominal Pain Genitourinary: No Dysuria, No Frequency, No Hematuria Musculoskeletal: shoulder pain (R, when coughing) Neurological: No: Weakness, Numbness Focused Exam Time of Focused Exam: 10:00 Objective Exam Vital Signs Vital Signs Date Time Temp Pulse Resp B/P (MAP) Pulse Ox O2 Delivery O2 Flow Rate FiO2 06/10/22 14:38 Vapotherm 20.00 50.00 06/10/22 14:33 97 50 06/10/22 14:00 99 16 105/71 (82) 06/10/22 12:00 36.5 Capillary Refill : Less Than 3 Seconds General Appearance: WD/WN, Mild Distress HEENT: PERRL/EOMI (EOMI), Moist Mucous Membranes Neck: Full Range of Motion, Non Tender Respiratory: No Respiratory Distress, Crackles (RLL on inspiration ), Decreased Breath Sounds (Bibasiar, and burciaga right side) Cardiovascular: No Murmur, Normal Peripheral Pulses, Tachycardia (Sinus Tachycardia) Gastrointestinal: Non Tender, Soft Rectal: Deferred Extremity: Non Tender, No Calf Tenderness, No Pedal Edema Neurologic/Psychiatric: Alert, Oriented x3, Normal Mood/Affect Skin: Normal Color, Warm/Dry Results/Procedures Lab Laboratory Tests 06/10/22 07:31 Patient resulted labs reviewed. Assessment/Plan Assessment and Plan Assess & Plan/Chief Complaint Acute Hypoxic Respiratory Failure Sepsis RLL Pneumonia - Yesterday patient had a CT scan that showed Right-Sided pleural effusion along with RML, RLL, and LLL consolidation with mucus plugging. - Patient underwent thoracentesis yesterday of 600cc. Sent for cytology. Repeat CXR showed initial improvement. However, repeat today showed accumulation of effusion again. Will talk with Surgery team about repeat thoracentesis vs chest tube placement. - Patient will need close follow-up on this to prevent development of large empyema - Subjectively patient appears to be improved today. Will continue to monitor improvement and wean oxygen as safely tolerated. - Lactic acid 2.17 on admission. 3.55 at worse. 1.56 at last check. - Leukocytosis 16.8 today. (14.6 yesterday) Continue to monitor. - ABG stable in comparison to yesterday (7.37|33|71|19 HCO3-) - BiPAP settings 12/8, 12, 30%. Improvement from yesterday. Intermittent Vapotherm at 25LPM, 80%. - Albuterol and Ipratropium for breathing treatments. - Continue Cefepime and Doxycycline Sinus Tachycardia - 1/2 home dose Diltiazem for rate control started on 06/10. Will assess response and make appropriate changes as needed. Elevated creatinine vs FRAN -Creatinine back to baseline at this time, continue to monitor. HTN - Patients pressures have been labile. Currently holding home meds. Hypothyroidism -Will resume home levothyroxine HLD -Will resume home simvastatin Depression - Home amitriptyline restarted. GI prophylaxis - PPI DVT prophylaxis - heparin AKILAH AMANDA Jun 10, 2022 15:20 <Created by AKILAH AMANDA > Review of Systems General: Fatigue, Malaise Pulmonary: Dyspnea, Cough Focused Exam Time of Focused Exam: 10:00 Objective Exam Last Set of Vital Signs Vital Signs Date Time Temp Pulse Resp B/P (MAP) Pulse Ox O2 Delivery O2 Flow Rate FiO2 06/10/22 20:35 Vapotherm 20.00 40.00 06/10/22 20:00 95 40 06/10/22 19:00 110 06/10/22 18:00 19 124/72 (89) 06/10/22 12:00 36.5 Capillary Refill : Less Than 3 Seconds I&O Intake and Output 06/10/22 00:00 Intake Total 1180 ml Output Total 2475 ml Balance -1295 ml Intake Oral 1180 ml Output Urine Total 1825 ml Other 650 ml General: Alert, Oriented X3, Cooperative Lungs: Other (diminished) Heart: Regular Rate Psych/Mental Status: Mental Status NL Results Lab Laboratory Tests 06/10/22 04:30: Blood Gas Puncture Site LR, Blood Gas Patient Temperature 36.0, Arterial Blood pH 7.37, Arterial Blood Partial Pressure CO2 33L, Arterial Blood Partial Pressure O2 71L, Arterial Blood HCO3 19L, Arterial Blood Total CO2 19.9L, Arterial Blood Oxygen Saturation 94, Arterial Blood Base Excess -5.7L, Jose L Test YES-POS, Blood Gas Ventilator Setting NO, Blood Gas Inspired Oxygen 40% 06/10/22 07:31: White Blood Count 16.8H, Red Blood Count 3.70L, Hemoglobin 11.2L, Hematocrit 34L , Mean Corpuscular Volume 91, Mean Corpuscular Hemoglobin 30, Mean Corpuscular Hemoglobin Concent 33, Red Cell Distribution Width 14.6H, Platelet Count 135, Mean Platelet Volume 9.9, Immature Granulocyte % (Auto) 4, Neutrophils (%) ( Auto) 79H, Lymphocytes (%) (Auto) 8L, Monocytes (%) (Auto) 6, Eosinophils (%) (Auto) 2, Basophils (%) (Auto) 1, Neutrophils # (Auto) 13.4H, Lymphocytes # (Auto) 1.3, Monocytes # (Auto) 1.0, Eosinophils # (Auto) 0.3, Basophils # (Auto) 0.1, Immature Granulocyte # (Auto) 0.7H, Sodium Level 136, Potassium Level 4.1, Chloride Level 109H, Carbon Dioxide Level 16L, Anion Gap 11, Blood Urea Nitrogen 28H, Creatinine 1.15, Estimat Glomerular Filtration Rate 50, BUN/Creatinine Ratio 24, Glucose Level 72, Calcium Level 8.8, Corrected Calcium 10.0, Total Bilirubin 0.5, Aspartate Amino Transf (AST/SGOT) 17, Alanine Aminotransferase (ALT/SGPT) 22, Alkaline Phosphatase 112, Total Protein 5.1L, Albumin 2.5L Microbiology 06/09/22 Gram Stain, Resulted Pending 06/09/22 Anaerobic Culture, Resulted Pending 06/09/22 Body Fluid Culture - Preliminary, Resulted No growth 06/07/22 MRSA Screen - Final, Complete MRSA not isolated 06/07/22 Urine Culture - Final, Complete NO GROWTH 06/07/22 Blood Culture - Final, Complete Streptococcus pyogenes Grp A Assessment/Plan Assessment/Plan Assess & Plan/Chief Complaint Acute Hypoxic Respiratory Failure Sepsis severe type RLL Pneumonia - Yesterday patient had a CT scan that showed Right-Sided pleural effusion along with RML, RLL, and LLL consolidation with mucus plugging. - Patient underwent thoracentesis yesterday of 600cc. Sent for cytology. R epeat CXR showed initial improvement. However, repeat today showed accumulation of effusion again. Will talk with Surgery team about repeat thoracentesis vs chest tube placement. - Patient will need close follow-up on this to prevent development of large empyema - Subjectively patient appears to be improved today. Will continue to monitor improvement and wean oxygen as safely tolerated. - Lactic acid 2.17 on admission. 3.55 at worse. 1.56 at last check. - Leukocytosis 16.8 today. (14.6 yesterday) Continue to monitor. - ABG stable in comparison to yesterday (7.37|33|71|19 HCO3-) - BiPAP settings 12/8, 12, 30%. Improvement from yesterday. Intermittent Vapotherm at 25LPM, 80%. - Albuterol and Ipratropium for breathing treatments. - Continue Cefepime and Doxycycline Sinus Tachycardia - 1/2 home dose Diltiazem for rate control started on 06/10. Will assess response and make appropriate changes as needed. Elevated creatinine vs FRAN -Creatinine back to baseline at this time, continue to monitor. HTN - Patients pressures have been labile. Currently holding home meds. Hypothyroidism -Will resume home levothyroxine HLD -Will resume home simvastatin Depression - Home amitriptyline restarted. GI prophylaxis - PPI DVT prophylaxis - heparin Clinical Quality Measures Admission Status Admission Dx Assessment: Severe sepsis s/p protocol IVF Acute hypoxic respiratory failure high risk for intubation FRAN Solo kidney Severe PNA Breast cancer hx RIAZ COTTER DO Jun 10, 2022 20:52"
[2022-06-11] VITALS (24 sets, daily range): BP systolic 97–117; BP diastolic 59–86
[2022-06-11] MEDS: RT-IPRATROPIUM (ATROVENT) 0.5MG/2.5ML AMP IH SCH ×4 (02:29→20:14)
[2022-06-11] MEDS: RT-ALBUTEROL SULF 2.5 MG/3 ML PRE-MIX VIAL INH SCH ×4 (02:29→20:14)
[2022-06-11 05:00] LABS: BASOPHILS # (AUTO) 0.1 10^3/uL (0.0-0.1); BASOPHILS % (AUTO) 1 % (0-10); EOSINOPHILS # (AUTO) 0.4 10^3/uL (0.0-0.3); EOSINOPHILS % (AUTO) 2 % (0-10); HEMATOCRIT 31 % (35-52); HEMOGLOBIN 10.5 g/dL (11.5-16.0); LYMPHOCYTES # (AUTO) 1.5 10^3/uL (1.0-4.0); LYMPHOCYTES % (AUTO) 8 % (12-44); MEAN CORPUSCULAR HEMOGLOBIN 30 pg (25-34); MEAN CORPUSCULAR HGB CONC 34 g/dL (32-36); MEAN CORPUSCULAR VOLUME 88 fL (80-99); MEAN PLATELET VOLUME 9.8 fL (9.0-12.2); MONOCYTES # (AUTO) 1.8 10^3/uL (0.0-1.0); MONOCYTES % (AUTO) 10 % (0-12); NEUTROPHILS # (AUTO) 13.2 10^3/uL (1.8-7.8); NEUTROPHILS % (AUTO) 73 % (42-75); PLATELET COUNT 157 10^3/uL (130-400); WHITE BLOOD COUNT 18.2 10^3/uL (4.3-11.0)
[2022-06-11 05:27] LABS: ALBUMIN 2.1 GM/DL (3.2-4.5); BILIRUBIN,TOTAL 0.5 MG/DL (0.1-1.0); CALCIUM 8.8 MG/DL (8.5-10.1); CREATININE SERUM 0.94 MG/DL (0.60-1.30); POTASSIUM 3.7 MMOL/L (3.6-5.0); TOTAL PROTEIN 4.8 GM/DL (6.4-8.2)
--- NOTE | 2022-06-11 06:20 | Diagnostic Imaging Report ---
INDICATION: Dyspnea. Comparison is made with prior examination 06/10/2022 FINDINGS: There is cardiomegaly and some venous congestion. There is right base consolidation and right pleural fusion. There is no pneumothorax. Mediastinum is unremarkable. The right upper extremity PICC line has its tip in superior vena cava. IMPRESSION: Right basilar consolidation suspect for pneumonia with right pleural effusion. Cardiomegaly and some central pulmonary venous congestion. Dictated by: Dictated on workstation # [id number]
[2022-06-11] MEDS: MAGNESIUM 1 GM/100 ML IVPB 100 ML IV SCH ×6 (06:22→11:44)
[2022-06-11] MEDS: POTASSIUM CL 10MEQ/50ML IVPB 50 ML IV SCH (06:22)
[2022-06-11] MEDS: KCL 20 MEQ TAB (K-DUR) PO SCH (06:23)
[2022-06-11] MEDS ORDERED: MAGNESIUM 1 GM/100 ML IVPB 600 ML IV ONE (06:28)
--- NOTE | 2022-06-11 06:42 | Progress Note - Surgery ---
BROOKLYN BROWN 06/11/22 0642: Subjective Date Seen by a Provider: Jun 11, 2022 Time Seen by a Provider: 06:37 Subjective/Events-last exam Mrs Patricio is seen at bedside this morning resting comfortably. She has been on vapotherm overnight and has not required biPAP since the morning of 06/10. She reports breathing easier this morning. No confusion present this morning on my interview. Denies fever/chills overnight. R sided chest pain she ranks at 6/10 but says this is much better than yesterday. Draining clear urine via catheter. Reports she has still not had a BM since 06/06. Review of Systems General: No Chills, No Night Sweats HEENT: No Head Aches; Sore Throat (due to dry cough) Pulmonary: Dyspnea (improved), Cough Cardiovascular: Chest Pain (improved r sided pain); No: Palpitations, Lt Headedness Gastrointestinal: No: Nausea, Vomiting, Abdominal Pain Genitourinary: No Dysuria, No Hematuria Musculoskeletal: No: neck pain, back pain Neurological: Weakness; No: Confusion Focused Exam Time of Focused Exam: 10:00 Objective Exam Vital Signs Date Time Temp Pulse Resp B/P (MAP) Pulse Ox O2 Delivery O2 Flow Rate FiO2 06/11/22 06:00 105 18 109/66 (80) 96 Vapotherm 20.00 40.00 06/11/22 05:00 105 19 109/66 (80) 94 Vapotherm 20.00 40.00 06/11/22 04:00 93 Vapotherm 20.00 40 06/11/22 04:00 103 15 99/64 (76) 94 Vapotherm 20.00 40.00 06/11/22 03:36 36.4 06/11/22 03:00 104 17 109/65 (80) 91 Vapotherm 20.00 40.00 06/11/22 02:30 92 Vapotherm 20.00 40 06/11/22 02:00 105 24 109/62 (78) 93 Vapotherm 20.00 40.00 06/11/22 01:00 105 06/11/22 01:00 105 20 106/62 (77) 94 Vapotherm 20.00 40.00 06/11/22 00:00 106 20 107/61 (76) 93 Vapotherm 20.00 40.00 06/10/22 23:59 93 Vapotherm 20.00 40 06/10/22 23:57 36.6 06/10/22 23:00 107 17 105/62 (76) 95 Vapotherm 20.00 40.00 06/10/22 22:00 107 20 111/64 (80) 94 Vapotherm 20.00 40.00 06/10/22 21:32 93 Vapotherm 20.00 40 06/10/22 21:00 110 25 115/67 (83) 91 Vapotherm 20.00 40.00 06/10/22 20:35 Vapotherm 20.00 40.00 06/10/22 20:00 110 28 116/55 (75) 92 Vapotherm 20.00 50.00 06/10/22 20:00 95 Vapotherm 20.00 40 06/10/22 19:00 110 27 115/67 (83) 94 Vapotherm 20.00 50.00 06/10/22 19:00 110 06/10/22 18:47 96 Vapotherm 20.00 40 06/10/22 18:00 109 19 124/72 (89) 98 Vapotherm 20.00 50.00 06/10/22 17:00 107 18 112/68 (83) 97 Vapotherm 20.00 50.00 06/10/22 16:00 105 18 106/63 (77) 98 Vapotherm 20.00 50.00 06/10/22 16:00 97 Vapotherm 20.00 50 06/10/22 15:00 103 20 105/71 (82) 96 Vapotherm 20.00 50.00 06/10/22 14:38 Vapotherm 20.00 50.00 06/10/22 14:33 97 Vapotherm 25.00 50 06/10/22 14:00 99 16 105/71 (82) 94 Vapotherm 25.00 60.00 06/10/22 13:00 101 06/10/22 13:00 101 22 111/62 (78) 94 Vapotherm 25.00 60.00 06/10/22 12:42 98 100 75 06/10/22 12:00 36.5 06/10/22 12:00 104 12 111/62 (78) 98 Vapotherm 25.00 60.00 06/10/22 12:00 97 Vapotherm 25.00 60 06/10/22 11:00 103 16 107/69 (82) 100 Vapotherm 25.00 60.00 06/10/22 10:10 100 Vapotherm 25.00 75 06/10/22 10:00 101 25 118/60 (79) 100 Vapotherm 25.00 60.00 06/10/22 09:00 101 18 140/83 (102) 100 Vapotherm 25.00 75.00 06/10/22 08:00 97 NIV Bilevel 40 06/10/22 08:00 36.5 06/10/22 08:00 100 24 132/73 (92) 98 Vapotherm 25.00 80.00 06/10/22 07:00 101 30 140/79 (99) 95 NIV Bilevel 30.00 06/10/22 07:00 103 06/10/22 06:57 NIV Bilevel 30.00 06/10/22 06:40 98 24 99 40.00 I & O 06/11/22 07:00 Intake Total 1200 ml Output Total 1875 ml Balance -675 ml Capillary Refill : Less Than 3 Seconds General Appearance: No Apparent Distress, Other (vapotherm in place) HEENT: PERRL/EOMI, Other (dry oral mucosa) Neck: Non Tender, Supple Respiratory: No Accessory Muscle Use, No Respiratory Distress, Crackles (mildly improved), Decreased Breath Sounds (R sided) Cardiovascular: Normal Peripheral Pulses, Tachycardia (105-110 on exam) Peripheral Pulses: 2+ Radial Pulses (R), 2+ Radial Pulses (L) Gastrointestinal: non tender, soft Extremity: Normal Inspection, Non Tender, No Pedal Edema Neurologic/Psychiatric: Alert, Oriented x3, Normal Mood/Affect Skin: Warm/Dry, Pallor Lymphatic: No Adenopathy Results Lab Laboratory Tests 06/10/22 07:31: White Blood Count 16.8H, Red Blood Count 3.70L, Hemoglobin 11.2L, Hematocrit 34L , Mean Corpuscular Volume 91, Mean Corpuscular Hemoglobin 30, Mean Corpuscular Hemoglobin Concent 33, Red Cell Distribution Width 14.6H, Platelet Count 135, Mean Platelet Volume 9.9, Immature Granulocyte % (Auto) 4, Neutrophils (%) (Auto) 79H, Lymphocytes (%) (Auto) 8L, Monocytes (%) (Auto) 6, Eosinophils (%) (Auto) 2, Basophils (%) (Auto) 1, Neutrophils # (Auto) 13.4H, Lymphocytes # (Auto) 1.3, Monocytes # (Auto) 1.0, Eosinophils # (Auto) 0.3, Basophils # (Auto) 0.1, Immature Granulocyte # (Auto) 0.7H, Sodium Level 136, Potassium Level 4.1, Chloride Level 109H, Carbon Dioxide Level 16L, Anion Gap 11, Blood Urea Nitrogen 28H, Creatinine 1.15, Estimat Glomerular Filtration Rate 50, BUN/Creatinine Ratio 24, Glucose Level 72, Calcium Level 8.8, Corrected Calcium 10.0, Total Bilirubin 0.5, Aspartate Amino Transf (AST/SGOT) 17, Alanine Aminotransferase (ALT/SGPT) 22, Alkaline Phosphatase 112, Total Protein 5.1L, Albumin 2.5L 06/11/22 04:55: White Blood Count 18.2H, Red Blood Count 3.46L, Hemoglobin 10.5L, Hematocrit 31L , Mean Corpuscular Volume 88, Mean Corpuscular Hemoglobin 30, Mean Corpuscular Hemoglobin Concent 34, Red Cell Distribution Width 14.8H, Platelet Count 157, Mean Platelet Volume 9.8, Immature Granulocyte % (Auto) 7, Neutrophils (%) (Auto) 73, Lymphocytes (%) (Auto) 8L, Monocytes (%) (Auto) 10, Eosinophils (%) (Auto) 2, Basophils (%) (Auto) 1, Neutrophils # (Auto) 13.2H, Lymphocytes # (Auto) 1.5, Monocytes # (Auto) 1.8H, Eosinophils # (Auto) 0.4H, Basophils # (Auto) 0.1, Immature Granulocyte # (Auto) 1.2H, Sodium Level 137, Potassium Level 3.7, Chloride Level 109H, Carbon Dioxide Level 19L, Anion Gap 9, Blood Urea Nitrogen 18, Creatinine 0.94, Estimat Glomerular Filtration Rate 64, BUN/ Creatinine Ratio 19, Glucose Level 95, Calcium Level 8.8, Corrected Calcium 10.3H, Total Bilirubin 0.5, Aspartate Amino Transf (AST/SGOT) 19, Alanine Aminotransferase (ALT/SGPT) 20, Alkaline Phosphatase 118, Total Protein 4.8L, Albumin 2.1L, Magnesium Level 1.4L Microbiology 06/09/22 Gram Stain, Resulted Pending 06/09/22 Anaerobic Culture, Resulted Pending 06/09/22 Body Fluid Culture - Preliminary, Resulted No growth 06/07/22 MRSA Screen - Final, Complete MRSA not isolated 06/07/22 Urine Culture - Final, Complete NO GROWTH 06/07/22 Blood Culture - Final, Complete Streptococcus pyogenes Grp A Assessment/Plan Assessment/Plan Assessment/Plan AoC respiratory failure requiring biPAP Community acquired pneumonia Sepsis R Pleural effusion Sinus tachycardia Confusion- resolved Thoracentesis performed by Dr Stephens on 06/09 draining 600mL of fluid from R chest cavity Remains on Heparin 5000 units SQ Q8hr Pleural fluid resulted in WBC 8.441, RBC 0.003, glucose 22, protein 2.5 Likely exudative process, consider parapneumonic effusion, may represent empyema Pleural fluid cx resulted no growth Anaerobic cx and Gram stain pending Continue IV abx and nebulized treatments Confusion resolved, AxO x3 this morning Off biPAP now on vapotherm 20 L/min 40%FiO2, satting well in the upper 90s Monitor vitals and WBC. Last elevated at 18.2 Continue serial imaging of the chest, Last CXR done 03006/11. Pleural effusion remains in RLL and middle lobe. U/S of the chest this morning revealed right sided small to moderate pleural effusion. She is clinically improving. Repeat US if she becomes more symptomatic Clinical Quality Measures Admission Status Admission Dx Severe Sepsis RLL Pneumonia CXR w consolidation in RLL. SIRS criteria met with lactic acid, tachycardia, RR, and source of infection Cefepime and doxycycline ABG results 7.43 pH, 34CO2, 79 O2 MAT protocol Monitor vital signs and CBC CMP Repeat CXR tomorrow Lactic acidosis 2.17->3.55->1.56 Continue fluids and treating infection Elevated creatinine 1.89 Hx of R nephrectomy Continue IV fluids UTI UA positive for nitrites and leukocyte esterase cx pending fluids and abx HTN Hypothyroidism Home meds held Will restart when appropriate GI prophylaxis - PPI DVT prophylaxis - heparin OSITO STEPHENS DO 06/11/22 1621: Subjective Subjective/Events-last exam Slowly improving. Fatigued after therapies. Breathing easier today. On Vapotherm. WBC increased antibiotics changed. Chest U/s demonstrating small/moderated right pleural effusion, small left pleural effusion. Does not appear to be enough to drain at this time also considering overall improvement of symptoms. Objective Exam General Appearance: No Apparent Distress, Other (vapotherm in place) HEENT: PERRL/EOMI, Other (dry oral mucosa) Neck: Non Tender, Supple Respiratory: Chest Non Tender, No Accessory Muscle Use, No Respiratory Distress Cardiovascular: No JVD, Tachycardia Gastrointestinal: non tender, soft Extremity: Normal Inspection, Non Tender Neurologic/Psychiatric: Alert, Normal Mood/Affect Skin: Warm/Dry, Pallor Lymphatic: No Adenopathy Assessment/Plan Assessment/Plan Assessment/Plan Acute on Chronic respiratory failure now on Vapotherm Community acquired pneumonia Sepsis R Pleural effusion Sinus tachycardia Confusion- resolved Thoracentesis performed by Dr Stephens on 06/09 draining 600mL of fluid from R chest cavity Remains on Heparin 5000 units SQ Q8hr Pleural fluid resulted in WBC 8.441, RBC 0.003, glucose 22, protein 2.5 Likely exudative process, consider parapneumonic effusion, may represent empyema Pleural fluid cx resulted no growth Anaerobic cx and Gram stain pending Continue IV abx and nebulized treatments Confusion resolved, AxO x3 this morning Off biPAP now on vapotherm 20 L/min 40%FiO2, satting well in the upper 90s Monitor vitals and WBC. Last elevated at 18.2 Continue serial imaging of the chest, Last CXR done 0300 06/11. Pleural effusion remains in RLL and middle lobe. U/S of the chest this morning revealed right sided small to moderate pleural effusion. She is clinically improving. Repeat US if she becomes more symptomatic Supervisory-Addendum Brief Verification & Attestation Participated in pt care: history, MDM, physical Personally performed: exam, history, MDM, supervision of care Care discussed with: Medical Student Procedures: n/a Results interpretation: Verified all documentation Verification and Attestation of Medical Student E/M Service A medical student performed and documented this service in my presence. I r eviewed and verified all information documented by the medical student and made modifications to such information, when appropriate. I personally performed the physical exam and medical decision making. Osito Stephens, Jun 11, 2022,16:28 BROOKLYN BROWN Jun 11, 2022 06:42 OSITO STEPHENS DO Jun 11, 2022 16:21
[2022-06-11] MEDS: CEFEPIME INJECTION 1,000 MG in NS (IVPB) 50 ML IV SCH (08:21)
--- NOTE | 2022-06-11 08:24 | Diagnostic Imaging Report ---
INDICATION: Right-sided pleural effusion. Sonographic interrogation of the right and left posterior thorax was performed. There appears to be a small to moderate right-sided pleural effusion. A very small left-sided pleural effusion is noted. IMPRESSION: Bilateral pleural effusions, right greater. Dictated by: Dictated on workstation # [id number]
[2022-06-11] MEDS: PANTOPRAZOLE 40 MG (PROTONIX) TAB PO SCH (08:26)
[2022-06-11] MEDS: DOCUSATE SODIUM 100 MG (COLACE) CAP PO SCH ×2 (08:26→21:05)
[2022-06-11] MEDS: dilTIAZem120 MG (CARDIZEM CD) CAP PO SCH (08:26)
[2022-06-11] MEDS: SENNOSIDES 8.6 MG (SENOKOT) TAB PO SCH ×2 (08:26→21:05)
[2022-06-11] MEDS ORDERED: KCL 20 MEQ TAB (K-DUR) PO ONE (09:00)
--- NOTE | 2022-06-11 09:56 | Physical Therapy Evaluation ---
PT Evaluation-General Medical Diagnosis Admission Date Jun 07, 2022 at 10:08 Medical Diagnosis: Cough, right sided chest pain, shortness of breath Onset Date: Jun 07, 2022 Therapy Diagnosis Therapy Diagnosis: Gait deficit, strength deficit Precautions Precautions/Isolations: Fall Prevention, Standard Precautions Weight Bear Status Right Lower Extremity: Right Full Weight Bearing Left Lower Extremity: Left Full Weight Bearing Referral Physician: Dr. Chavarria Reason for Referral: Evaluation/Treatment Medical History Reviewed History: Yes Social History Home: Single Level Current Living Status: Spouse Entry Into Home: Stairs With Railing PT Steps Into Home: 3 Prior Prior Level of Function SCALE: Activities may be completed with or without assistive devices. 4-Dymqjziphx-lvwixao completes the activity by him/herself with no assistance from a helper. 5-Set-up or Clean-up Assistance-helper sets up or cleans up; patient completes activity. [place] assists only prior to or following the activity. 4-Supervision or Touching Assistance-helper provides verbal cues and/or touch ing/steadying and/or contact guard assistance as patient completes activity. Assistance may be provided throughout the activity or intermittently. 3-Partial/Moderate Assistance-helper does LESS THAN HALF the effort. [place] lifts, holds or supports trunk or limbs, but provides less than half the effort. 2-Substantial/Maximal Assistance-helper does MORE THAN HALF the effort. [place] lifts or holds trunk or limbs and provides more than half the effort. 8-Cowdkiwhh-squsva does ALL the effort. Patient does none of the effort to complete the activity. Or, the assistance of 2 or more helpers is required for the patient to complete the activity. If activity was not attempted, code reason: 7-Patient Refused. 9-Not Applicable-not attempted and the patient did not perform the activity before the current illness, exacerbation or injury. 10-Not Attempted due to Environmental Limitations-(lack of equipment, weather restraints, etc.). 88-Not Attempted due to Medical Conditions or Safety Concerns. Bed Mobility: 6 Transfers (B,C,W/C): 6 Gait: 6 Stairs: 6 Indoor Mobility (Ambulation): Independent Stairs: Independent Prior Devices Use: None PT Evaluation-Current Subjective Patient lying supine in bed, in the room upon PT arrival, both agreeable to treatment. Patient rates pain currently at 0/10. Objective Patient Orientation: Person, Place, Time, Situation Attachments: Oxygen, [place] Catheter, IV ROM/Strength ROM Lower Extremities ROM WFLs bilaterally all planes Strength Lower Extremities 3+/5 bilaterally all planes Sensory Vision: Functional Hearing: Functional Sensation Right Lower Extremit: Intact Sensation Left Lower Extremity: Intact Transfers Roll Left to Right (QC): 3 Sit to Lying (QC): 3 Lying to Sitting/Side of Bed(Q: 3 Sit to Stand (QC): 3 Chair/Obl-jg-Wnvxs Xfer(QC): 3 Gait Does the Patient Walk?: No and Walking Goal IS indicated Mode of Locomotion: Walk Anticipated Mode of Locomotion: Walk Distance: 3 Feet Gait Assistive Device: FWW Balance Sitting Static: Fair Sitting Dynamic: Fair Standing Static: Poor Standing Dynamic: Poor Assessment/Needs Patient requires min a for all observed bed mobility and transfers. Patient performs sit to stand and stand pivot transfers with mod A and verbal cues for safety, progression and balance. Patient in chair post treatment with all needs met, nursing notified, call light in hand, in the room. Patient will benefit from skilled PT intervention to improve the above listed deficits. Rehab Potential: Good PT [facility] Goals [facility] Goals PT [facility] Goals Time Frame: Jun 26, 2022 Roll Left & Right (QC): 6 Sit to Lying (QC): 6 Lying-Sitting on Side/Bed(QC): 6 Sit to Stand (QC): 6 Chair/Gyn-ce-Nzycv Xfer(QC): 6 Toilet Transfer (QC): 6 Does the Patient Walk: Yes Walk 10 feet (QC): 6 Walk 50ft with 2 Turns (QC): 6 Walk 150 ft (QC): 6 Walking 10ft on Uneven Surface: 6 1 Step (curb) (QC): 4 4 Steps (QC): 4 Does the Pt use WC or Scooter?: Yes PT Plan Problem List Problem List: Activity Tolerance, Functional Strength, Safety, Balance, Gait, Transfer, Bed Mobility, ROM Treatment/Plan Treatment Plan: Continue Plan of Care Treatment Plan: Bed Mobility, Education, Functional Activity Jail[place], Functional Strength, Group Therapy, Gait, Safety, Therapeutic Exercise, Transfers Treatment Duration: Jul 09, 2022 Frequency: 6 times per week Estimated Hrs Per Day: .25 hour per day Patient and/or Family Agrees t: Yes Safety Risks/Education Patient Education: Transfer Techniques Teaching Recipient: Patient, Family Teaching Methods: Demonstration, Discussion Response to Teaching: Reinforcement Needed Time Time In: 914 Time Out: 938 DATE: Jun 11, 2022 Total Billed Treatment Time: 24 Total Billed Treatment Visit, JARETH ANNA JOHN A PT Jun 11, 2022 09:56
--- NOTE | 2022-06-11 10:17 | Progress Note ---
AINL COX 06/11/22 1017: Subjective Date Seen by a Provider: Jun 11, 2022 Time Seen by a Provider: 08:50 Subjective/Events-last exam Pt seen at bedside. Sitting up eating breakfast. is present with her. She reports feeling better. She was having right sided chest pain at thoracentesis site earlier reported upto 6/10 pain but says now it is a 1/10. She feels like she is breathing better. Has remained on vapotherm with good oxygenation. She has not had a BM since 06/06. Making good urine. She is very hopeful to be able to leave the ICU soon. Focused Exam Time of Focused Exam: 10:00 Objective Exam Last Set of Vital Signs Vital Signs Date Time Temp Pulse Resp B/P (MAP) Pulse Ox O2 Delivery O2 Flow Rate FiO2 06/11/22 09:00 106 28 109/70 (83) 92 Vapotherm 20.00 40.00 06/11/22 08:00 40 06/11/22 08:00 36.5 Capillary Refill : Less Than 3 Seconds I&O Intake and Output 06/11/22 00:00 Intake Total 1250 ml Output Total 2275 ml Balance -1025 ml Intake Oral 1100 ml IV Total 150 ml Output Urine Total 2275 ml General: Alert, Oriented X3 HEENT: Atraumatic, PERRLA Lungs: Clear to Auscultation, Other (Diminished breath sounds on R but overall improved exam.) Heart: Regular Rate, Normal S1, Normal S2 Abdomen: Normal Bowel Sounds, Soft, No Tenderness Extremities: No Edema Neuro: Normal Speech Psych/Mental Status: Mental Status NL, Mood NL Results Lab Laboratory Tests 06/11/22 04:55: White Blood Count 18.2H, Red Blood Count 3.46L, Hemoglobin 10.5L, Hematocrit 31L , Mean Corpuscular Volume 88, Mean Corpuscular Hemoglobin 30, Mean Corpuscular Hemoglobin Concent 34, Red Cell Distribution Width 14.8H, Platelet Count 157, Mean Platelet Volume 9.8, Immature Granulocyte % (Auto) 7, Neutrophils (%) (Auto) 73, Lymphocytes (%) (Auto) 8L, Monocytes (%) (Auto) 10, Eosinophils (%) (Auto) 2, Basophils (%) (Auto) 1, Neutrophils # (Auto) 13.2H, Lymphocytes # (Auto) 1.5, Monocytes # (Auto) 1.8H, Eosinophils # (Auto) 0.4H, Basophils # (Auto) 0.1, Immature Granulocyte # (Auto) 1.2H, Sodium Level 137, Potassium Level 3.7, Chloride Level 109H, Carbon Dioxide Level 19L, Anion Gap 9, Blood Urea Nitrogen 18, Creatinine 0.94, Estimat Glomerular Filtration Rate 64, BUN/Creatinine Ratio 19, Glucose Level 95, Calcium Level 8.8, Corrected Calcium 10.3H, Magnesium Level 1.4L, Total Bilirubin 0.5, Aspartate Amino Transf (AST/SGOT) 19, Alanine Aminotransferase (ALT/SGPT) 20, Alkaline Phosphatase 118, Total Protein 4.8L, Albumin 2.1L Microbiology 06/09/22 Gram Stain - Final, Resulted 06/09/22 Anaerobic Culture, Resulted Pending 06/09/22 Body Fluid Culture - Preliminary, Resulted No growth 06/07/22 MRSA Screen - Final, Complete MRSA not isolated 06/07/22 Urine Culture - Final, Complete NO GROWTH 06/07/22 Blood Culture - Final, Complete Streptococcus pyogenes Grp A Patient: REJI CHOW Birthdate: 1950 FEMALE Financial #: [id number] Loc: ICU 11-09 Service: ICU Admit Date: 06/07/22 Status: ADM IN Physician: CHAPIS COTTER DO SPEC #: [id number] FERNY: 06/07/22 STATUS: NICOLE RE #: [id number] RECD: 06/07/[address]: STU MOORE MD Order Location: ER SOURCE: PERIPHERAL DESCRIPTION: LT AC Procedure Result Verified BLOOD CULTURE Final Verified 06/09/22- 1121Final Source: PERIPHERAL / LT AC Order Location: Emergency Room [facility] Organism 1 Streptococcus pyogenes Grp A Abundant Growth MUCOID COLONY TYPE SEE DON SUSCEPTIBILTY IN COMMENTS SUSCEPTBILITY REPORTED 06/09 @1130 RAPID ID PERFORMED AT [facility] 06/08 @ 0937 ID CONFIRMED BY [facility] 06/08 @ 4619 STREPTOCOCCUS PYOGENES (GROUP A) KB INTERP: Clindamycin susceptible Erythromycin susceptible Penicillin susceptible Vancomycin susceptible BETA STREP RESULT VOALTED TO DR. COTTER ON 06/08 @ 2800. Direct gram stains from positive blood culture bottles are prepared and reported by [facility]. Preliminary rapid ID testing is performed at [facility] when possible. Confirmatory ID testing and susceptibility testing if applicable, are performed at [facility], [address] [place] [id number] (unless otherwise specified) Printed: 06/09/22 1123 END OF REPORT Patient: REJI CHOW Laboratory Inquriy Report Radiology NATY: REJI CHOW MED REC#: [id number] PT STATUS: ADM IN : 1950 PHYSICIAN: CHAPIS COTTER DO ADMIT DATE: 06/07/22/ICU Signed Date of Exam:06/11/22 CHEST 1 VIEW, AP/PA ONLY INDICATION: Dyspnea. Comparison is made with prior examination 06/10/2022 FINDINGS: There is cardiomegaly and some venous congestion. There is right base consolidation and right pleural fusion. There is no pneumothorax. Mediastinum is unremarkable. The right upper extremity PICC line has its tip in superior vena cava. IMPRESSION: Right basilar consolidation suspect for pneumonia with right pleural effusion. Cardiomegaly and some central pulmonary venous congestion. Dictated by: Dictated on workstation # [id number] Dict: 06/11/22609 Trans: 06/11/22818 SA [id number] Interpreted by: ANA MITCHELL MD Electronically signed by: ANA MITCHELL MD 06/11/22818 NAME: REJI CHOW MED REC#: [id number] PT STATUS: ADM IN : 1950 PHYSICIAN: OSITO GARCIA DO ADMIT DATE: 06/07/22/ICU Draft Date of Exam:06/11/22 US CHEST [id number] INDICATION: Right-sided pleural effusion. Sonographic interrogation of the right and left posterior thorax was performed. There appears to be a small to moderate right-sided pleural effusion. A very small left-sided pleural effusion is noted. IMPRESSION: Bilateral pleural effusions, right greater. Dictated on workstation # [id number] Dict: 06/11/22811 Trans: 06/11/22822 CVB [id number] Interpreted by: LINNEA VALDES MD Electronically signed by: Assessment/Plan Assessment/Plan Assess & Plan/Chief Complaint Assessment: 71 y/o female on HD #4 for AHRF, severe sepsis 2/2 RLL pneumonia Acute Hypoxic Respiratory Failure Sepsis RLL Pneumonia Pleural effusion with loculations - Yesterday patient had a CT scan that showed Right-Sided pleural effusion along with RML, RLL, and LLL consolidation with mucus plugging. - Patient underwent thoracentesis 06/09 of 600cc. Sent for cytology --> negative gram stain and aerobic culture to date, anaerobic cx pending. -Repeat CXR showed initial improvement. However, repeats showing r eaccumulation. Surgery ordered U/S showing effusion; electing to continue monitoring and no chest tube or repeat drainage at this time. - Subjectively continues to improve. Oxygenation on ABG slightly decreased but sats ok. Lung exam overall improved. - Lactic acid 2.17 on admission. 3.55 at worse. 1.56 at last check (06/07). - Leukocytosis 16.8 --> 18.2 today - ABG stable overall 7.35/35/95/19 --> 7.37/33/71/19 (06/11) - Remains on vapotherm 20 LPM at 40% Fi02 down from 50% Fi02 yesterday - Albuterol and Ipratropium for breathing treatments. - GAS pansensitive, WBC increased overnight 16.8 --> 18.2 (06/11) will tailor antibiotic therapy to Ampicillin and Clindamycin for targeted GAS coverage. Sinus Tachycardia - 1/2 home dose Diltiazem for rate control started on 06/10. Will assess response and make appropriate changes as needed. Elevated creatinine vs FRAN -Creatinine back to baseline at this time, continue to monitor. -Urine output 1.25 ml/kg/hr HTN - Patients pressures have been labile. Currently holding home meds. Hypothyroidism -Will resume home levothyroxine HLD -Will resume home simvastatin Depression - Home amitriptyline restarted . GI prophylaxis - PPI DVT prophylaxis - SQ heparin now q12h. CHAPIS COTTER DO 06/12/22 0538: Supervisory-Addendum Brief Verification & Attestation Participated in pt care: history, MDM, physical Personally performed: exam, history, MDM, supervision of care Care discussed with: Medical Student Procedures: n/a Results interpretation: Verified all documentation Verification and Attestation of Medical Student E/M Service A medical student performed and documented this service in my presence. I reviewed and verified all information documented by the medical student and made modifications to such information, when appropriate. I personally performed the physical exam and medical decision making. Chapis Cotter, Jun 12, 2022,05:38 ANIL COX Jun 11, 2022 10:17 CHAPIS COTTER DO Jun 12, 2022 05:38
--- NOTE | 2022-06-11 10:47 | Tele-ICU Progress Note ---
Subjective Date Seen by a Provider: Jun 11, 2022 Time Seen by a Provider: 10:47 Subjective/Events-last exam (Tele-ICU Physician , Progress Note ) Service provided via interactive audio and video telecommunications E-CARE system to a patient admitted to ICU bed in [facility]. Patient is seen today due to persistent need of ICU care Available chart/ vitals / labs / Images reviewed Video assessment done using teleICU camera, rest of exam as per RN Discussed with RN Events overnight : Afebrile hemodynamically stable Respiratory - bipap I/O = neg Drips: Pressors- no Hospital course: (06/07) 71yF admitted from the ED for RLL PNA 06/08-VT 25 l 100% --> BIPAP 03/18 80% , (ftom VT 25 l 100% - stop IVF , lasix 40x1 06/09- BIPAP 03/18 rr 18 TV 500 , 70 % , THORA 600 ml RIGHT 06/10- bipap overnigh 30% , day VT 25L 75% , better in general 06/11- VT 20l 40 % , cxr is worse A/P Acute resp failure with hypoxia - PNA , effuiosn , possible VO - VT 20l 40 %, better respiratory after thora , and in general - IS , O2 to wean PNA - RLL ( with complicated parapneumonic effusion ) - doxy , cefepime , CXR worsening and incr WBC- change to UNASYN 06/11 - doxy STREP, BETA HEMOLYTIC GROUP A on blood cx 06/06 Complicated parapneumonic effusion, RIGHT -CTCh 06/09- effusion and very dence infiltrate on right - s/p Thora 06/09 on right - 650 ml - EXUDATE , ph 7/90 with Gl 22 - complicated parapneumonic effusion / developing empyema ( plural cx negative so fur - Cxr 06/11 worsening - US with effusions again - consider chest tube placement FRAN - received hydration , - resolved Anemia - delutional Sinus tachycardia - resume home cardizem 1/2 dose on 06/09 Lines : PICC 06/07 right , (Central Line Necessity Reviewed) Dominguez: + OG: Nutrition: ok Analgesia: Anxiety/ delirium VTE Prophylaxis: hep sq Stress Ulcer Prophylaxis: ppi Plans in collaboration with bedside consultants and IM MDs. Discussed with RN to reach out if any questions or concerns A total of 31 minutes of critical care time was devoted to this patient today, required to treat and/or prevent further deterioration of critical care condition ( as above ) . I am remotely monitoring this patient from another state. I am unable to do the bedside exam, and history/physical and pertinent information is taken from other notes in the computer and bedside staff. . Sepsis Event Evaluation Height, Weight, BMI Height: '" Weight: lbs. oz. kg; 30.35 BMI Method: Focused Exam Time of Focused Exam: 10:00 Exam Exam Patient acknowledged, consented, and participated in this virtual visit which was conducted using real time audio/video Vital Signs Date Time Temp Pulse Resp B/P (MAP) Pulse Ox O2 Delivery O2 Flow Rate FiO2 06/11/22 09:00 106 28 109/70 (83) 92 Vapotherm 20.00 40.00 06/11/22 08:00 105 25 117/75 (87) 95 Vapotherm 20.00 40.00 06/11/22 08:00 93 Vapotherm 20.00 40 06/11/22 08:00 36.5 06/11/22 07:19 94 Vapotherm 20.00 40 06/11/22 07:00 111 06/11/22 07:00 103 17 108/64 (80) 98 Vapotherm 20.00 40.00 06/11/22 06:00 105 18 109/66 (80) 96 Vapotherm 20.00 40.00 06/11/22 05:00 105 19 109/66 (80) 94 Vapotherm 20.00 40.00 06/11/22 04:00 93 Vapotherm 20.00 40 06/11/22 04:00 103 15 99/64 (76) 94 Vapotherm 20.00 40.00 06/11/22 03:36 36.4 06/11/22 03:00 104 17 109/65 (80) 91 Vapotherm 20.00 40.00 06/11/22 02:30 92 Vapotherm 20.00 40 06/11/22 02:00 105 24 109/62 (78) 93 Vapotherm 20.00 40.00 06/11/22 01:00 105 06/11/22 01:00 105 20 106/62 (77) 94 Vapotherm 20.00 40.00 06/11/22 00:00 106 20 107/61 (76) 93 Vapotherm 20.00 40.00 06/10/22 23:59 93 Vapotherm 20.00 40 06/10/22 23:57 36.6 06/10/22 23:00 107 17 105/62 (76) 95 Vapotherm 20.00 40.00 06/10/22 22:00 107 20 111/64 (80) 94 Vapotherm 20.00 40.00 06/10/22 21:32 93 Vapotherm 20.00 40 06/10/22 21:00 110 25 115/67 (83) 91 Vapotherm 20.00 40.00 06/10/22 20:35 Vapotherm 20.00 40.00 06/10/22 20:00 110 28 116/55 (75) 92 Vapotherm 20.00 50.00 06/10/22 20:00 95 Vapotherm 20.00 40 06/10/22 19:00 110 27 115/67 (83) 94 Vapotherm 20.00 50.00 06/10/22 19:00 110 06/10/22 18:47 96 Vapotherm 20.00 40 06/10/22 18:00 109 19 124/72 (89) 98 Vapotherm 20.00 50.00 06/10/22 17:00 107 18 112/68 (83) 97 Vapotherm 20.00 50.00 06/10/22 16:00 105 18 106/63 (77) 98 Vapotherm 20.00 50.00 06/10/22 16:00 97 Vapotherm 20.00 50 06/10/22 15:00 103 20 105/71 (82) 96 Vapotherm 20.00 50.00 06/10/22 14:38 Vapotherm 20.00 50.00 06/10/22 14:33 97 Vapotherm 25.00 50 06/10/22 14:00 99 16 105/71 (82) 94 Vapotherm 25.00 60.00 06/10/22 13:00 101 06/10/22 13:00 101 22 111/62 (78) 94 Vapotherm 25.00 60.00 06/10/22 12:42 98 100 75 06/10/22 12:00 36.5 06/10/22 12:00 104 12 111/62 (78) 98 Vapotherm 25.00 60.00 06/10/22 12:00 97 Vapotherm 25.00 60 06/10/22 11:00 103 16 107/69 (82) 100 Vapotherm 25.00 60.00 I & O 06/11/22 07:00 Intake Total 1200 ml Output Total 1875 ml Balance -675 ml Height & Weight Height: '" Weight: lbs. oz. kg; 30.35 BMI Method: General Appearance: No Apparent Distress, Other (vapotherm in place) HEENT: PERRL/EOMI, Other (dry oral mucosa) Neck: Non Tender, Supple Respiratory: No Accessory Muscle Use, No Respiratory Distress, Crackles (mildly improved), Decreased Breath Sounds (R sided) Cardiovascular: Normal Peripheral Pulses, Tachycardia (105-110 on exam) Capillary Refill: Less Than 3 Seconds Peripheral Pulses: 2+ Radial Pulses (R), 2+ Radial Pulses (L) Gastrointestinal: non tender, soft Extremity: Normal Inspection, Non Tender, No Pedal Edema Neurologic/Psychiatric: Alert, Oriented x3, Normal Mood/Affect Skin: Warm/Dry, Pallor Lymphatic: No Adenopathy Results Lab Laboratory Tests 06/10/22 07:31 06/11/22 04:55 Assessment/Plan Assessment/Plan 1 RAMESH PALMER MD Jun 11, 2022 10:47
[2022-06-11] MEDS ORDERED: AMPICILLIN/SULBACTAM INJECTION 1.5 GM in NS (IVPB) 100 ML IV SCH (11:00)
[2022-06-11] MEDS ORDERED: DOXYCYCLINE 100 MG (VIBRAMYCIN) TABLET PO SCH (11:00)
[2022-06-11] MEDS: LACTOBACILLUS ACIDOPHILUS (PROBIOTIC) CAPSULE PO SCH ×2 (13:14→18:28)
[2022-06-11] MEDS: SODIUM CHLORIDE IV SCH ×4 (13:14→18:28)
[2022-06-11] MEDS: ENOXAPARIN 40 MG/0.4 ML (LOVENOX) SYR SC SCH (13:14)
[2022-06-11] MEDS: AMPICILLIN IV SCH ×4 (13:14→18:28)
[2022-06-11] MEDS: CLINDAMYCIN 600 MG/50 ML IVPB 50 ML IV SCH ×2 (13:14→21:05)
--- NOTE | 2022-06-11 16:15 | Occupational Ther Daily Note ---
OT Current Status-Daily Note ADL-Treatment Therapy Code Descriptions/Definitions Functional [place] Measure: 0=Not Assessed/NA 4=Minimal Assistance 1=Total Assistance 5=Supervision or Setup 2=Maximal Assistance 6=Modified [place] 3=Moderate Assistance 7=Complete IndependenceSCALE: Activities may be completed with or without assistive devices. 8-Utdrnnencl-xjvxbbf completes the activity by him/herself with no assistance from a helper. 5-Set-up or Clean-up Assistance-helper sets up or cleans up; patient completes activity. [place] assists only prior to or following the activity. 4-Supervision or Touching Assistance-helper provides verbal cues and/or touching/steadying and/or contact guard assistance as patient completes activity. Assistance may be provided throughout the activity or intermittently. 3-Partial/Moderate Assistance-helper does LESS THAN HALF the effort. [place] lifts, holds or supports trunk or limbs, but provides less than half the effort. 2-Substantial/Maximal Assistance-helper does MORE THAN HALF the effort. [place] lifts or holds trunk or limbs and provides more than half the effort. 7-Qbzknkvrx-momkdw does ALL the effort. Patient does none of the effort to complete the activity. Or, the assistance of 2 or more helpers is required for the patient to complete the activity. If activity was not attempted, code reason: 7-Patient Refused. 9-Not Applicable-not attempted and the patient did not perform the activity before the current illness, exacerbation or injury. 10-Not Attempted due to Environmental Limitations-(lack of equipment, weather restraints, etc.). 88-Not Attempted due to Medical Conditions or Safety Concerns. OT Longterm Goals [employer] Goals 1=Demonstrate adherence to instructed precautions during ADL tasks. 2=Patient will verbalize/demonstrate understanding of assistive devices/modifications for ADL. 3=Patient will improve strength/tolerance for activity to enable patient to perform ADL's. OT Education/Plan Treatment Plan/Plan of Care Patient would benefit from OT for education, treatment and training to promote independence in ADL's, mobility, safety and/or upper extremity function for ADL's. Rehab Potential: FEDERICA Mullins OT Jun 11, 2022 16:15
--- NOTE | 2022-06-11 16:23 | Occupational Therapy Eval ---
OT Evaluation-General/PLF Medical Diagnosis Admission Date Jun 07, 2022 at 10:08 Medical Diagnosis: Cough, right sided chest pain, shortness of breath Onset Date: Jun 07, 2022 Therapy Diagnosis Therapy Diagnosis: weakness Precautions Precautions/Isolations: Fall Prevention, Standard Precautions Weight Bear Status Weight Bearing Restriction: Weight Bearing/Tolerated Referral Physician: Dr. Chavarria Referral Reason: Evaluation/Treatment Medical History Pertinent Medical History: DM, HTN Current History SOA Social History Home: Single Level Current Living Status: Spouse Entry Into Home: Stairs With Railing Steps Into Home: 3 ADL-Prior Level of Function SCALE: Activities may be completed with or without assistive devices. 9-Jxmrdehipw-zdzagys completes the activity by him/herself with no assistance from a helper. 5-Set-up or Clean-up Assistance-helper sets up or cleans up; patient completes activity. [place] assists only prior to or following the activity. 4-Supervision or Touching Assistance-helper provides verbal cues and/or touching/steadying and/or contact guard assistance as patient completes activity. Assistance may be provided throughout the activity or intermittently. 3-Partial/Moderate Assistance-helper does LESS THAN HALF the effort. [place] lifts, holds or supports trunk or limbs, but provides less than half the effort. 2-Substantial/Maximal Assistance-helper does MORE THAN HALF the effort. [place] lifts or holds trunk or limbs and provides more than half the effort. 4-Ryawanglt-kgesic does ALL the effort. Patient does none of the effort to complete the activity. Or, the assistance of 2 or more helpers is required for the patient to complete the activity. If activity was not attempted, code reason: 7-Patient Refused. 9-Not Applicable-not attempted and the patient did not perform the activity before the current illness, exacerbation or injury. 10-Not Attempted due to Environmental Limitations-(lack of equipment, weather restraints, etc.). 88-Not Attempted due to Medical Conditions or Safety Concerns. Self Care: Independent Functional Cognition: Independent Drive Self: Yes OT Current Status Subjective RECLINED IN BED W/ FAMILY PRESENT Mental Status/Objective Patient Orientation: Person, Place, Time, Situation Attachments: Domignuez Catheter, IV, Oxygen Current Glasses/Contacts: Yes Upper Extremity ROM BUE ROM WNL Upper Extremity Strength +3/5 grossly BUE ADL-Treatment Eating (QC): 5 Oral Hygiene (QC): 5 Shower/Bathe Self (QC): 7 Upper Body Dressing (QC): 4 Lower Body Dressing (QC): 3 On/Off Footwear (QC): 2 Toileting Hygiene (QC): 3 Other Treatments EOB SITTING W/ FUNCTIONAL DYNAMIC REACH Education OT Patient Education: Energy conservation, Modified ADL techniques, Progress toward Goal/Update tx plan, Purpose of tx/functional activities, Reviewed precau tions, Rehab process, Safety issues, Transfer techniques Teaching Recipient: Patient, Family Teaching Methods: Demonstration, Discussion Response to Teaching: Verbalize Understanding, Reinforcement Needed OT Skilled Nursing Goals Freight Brake Operator Goals Eating (QC): 6 Oral Hygiene (QC): 6 Toileting Hygiene (QC): 6 Shower/Bathe Self (QC): 6 Upper Body Dressing (QC): 6 Lower Body Dressing (QC): 6 On/Off Footwear (QC): 6 1=Demonstrate adherence to instructed precautions during ADL tasks. 2=Patient will verbalize/demonstrate understanding of assistive devices/modifications for ADL. 3=Patient will improve strength/tolerance for activity to enable patient to perform ADL's. OT Education/Plan Problem List/Assessment Assessment: Decreased Activ Tolerance, Decreased UE Strength, Impaired Coordination, Impaired Funct Balance, Impaired Self-Care Skills Discharge Recommendations Plan/Recommendations: Continue POC Therapy Discharge Recommendati: Post Acute OT Treatment Plan/Plan of Care Treatment,Training & Education: Yes Patient would benefit from OT for education, treatment and training to promote independence in ADL's, mobility, safety and/or upper extremity function for ADL's. Plan of Care: ADL Retraining, Functional Mobility, Group Exercise/Act as Ind, UE Funct Exercise/Act Treatment Duration: Jun 19, 2022 Frequency: 3 times per week (3-5 times per week) Estimated Hrs Per Day: .25 hour per day Rehab Potential: Good Returned to bed w/ spouse present, all needs met Time Start Time: 13:50 Stop Time: 14:20 DATE: Jun 11, 2022 Total Time Billed (hr/min): 30 Billed Treatment Time EVH 1, EX 1 30 MINUTES FEDERICA GREY OT Jun 11, 2022 16:23
[2022-06-11] MEDS: AMITRIPTYLINE 25 MG (ELAVIL) TAB PO SCH (21:05)
[2022-06-12] VITALS (16 sets, daily range): BP systolic 104–133; BP diastolic 60–89
[2022-06-12] MEDS: SODIUM CHLORIDE IV SCH ×8 (00:05→18:18)
[2022-06-12] MEDS: AMPICILLIN IV SCH ×8 (00:05→18:18)
[2022-06-12] MEDS: RT-ALBUTEROL SULF 2.5 MG/3 ML PRE-MIX VIAL INH SCH ×5 (02:07→21:36)
[2022-06-12] MEDS: RT-IPRATROPIUM (ATROVENT) 0.5MG/2.5ML AMP IH SCH ×4 (02:07→21:36)
[2022-06-12 03:00] LABS: BASOPHILS # (AUTO) 0.1 10^3/uL (0.0-0.1); BASOPHILS % (AUTO) 1 % (0-10); EOSINOPHILS # (AUTO) 0.2 10^3/uL (0.0-0.3); EOSINOPHILS % (AUTO) 1 % (0-10); HEMATOCRIT 30 % (35-52); HEMOGLOBIN 10.4 g/dL (11.5-16.0); LYMPHOCYTES # (AUTO) 1.7 10^3/uL (1.0-4.0); LYMPHOCYTES % (AUTO) 9 % (12-44); MEAN CORPUSCULAR HEMOGLOBIN 30 pg (25-34); MEAN CORPUSCULAR HGB CONC 34 g/dL (32-36); MEAN CORPUSCULAR VOLUME 87 fL (80-99); MEAN PLATELET VOLUME 9.6 fL (9.0-12.2); MONOCYTES % (AUTO) 11 % (0-12); NEUTROPHILS # (AUTO) 13.8 10^3/uL (1.8-7.8); NEUTROPHILS % (AUTO) 71 % (42-75); PLATELET COUNT 190 10^3/uL (130-400); WHITE BLOOD COUNT 19.4 10^3/uL (4.3-11.0)
[2022-06-12 03:12] LABS: ABG BASE EXCESS -1.2 MMOL/L (-2.5-2.5); ABG OXYGEN SATURATION 93 % (94-100); ABG PCO2 33 MMHG (35-45); ABG PH 7.45 (7.37-7.43); ABG PO2 65 MMHG (79-93); ABG TCO2 23.3 MMOL/L (21.0-31.0)
[2022-06-12 03:12] LABS: ALBUMIN 2.1 GM/DL (3.2-4.5); POTASSIUM 3.7 MMOL/L (3.6-5.0)
[2022-06-12 03:13] LABS: ALLENS TEST YES-POS; INSPIRED O2 40%; PATIENT TEMP 37.1; VENTILATOR NO
[2022-06-12 03:13] LABS: CALCIUM 8.3 MG/DL (8.5-10.1)
[2022-06-12 03:15] LABS: TOTAL PROTEIN 4.6 GM/DL (6.4-8.2)
[2022-06-12 03:17] LABS: BILIRUBIN,TOTAL 0.4 MG/DL (0.1-1.0)
[2022-06-12 03:18] LABS: CREATININE SERUM 0.78 MG/DL (0.60-1.30)
[2022-06-12 03:21] LABS: MAGNESIUM 1.7 MG/DL (1.6-2.4)
[2022-06-12] MEDS: POTASSIUM CL 10MEQ/50ML IVPB 50 ML IV SCH ×3 (03:24→04:27)
[2022-06-12] MEDS: MAGNESIUM 1 GM/100 ML IVPB 100 ML IV SCH ×5 (03:24→09:26)
[2022-06-12] MEDS: KCL 20 MEQ TAB (K-DUR) PO SCH (03:24)
[2022-06-12] MEDS: CLINDAMYCIN 600 MG/50 ML IVPB 50 ML IV SCH ×3 (06:09→22:09)
--- NOTE | 2022-06-12 07:27 | Diagnostic Imaging Report ---
EXAMINATION: Chest 1 view HISTORY: Short of breath COMPARISON: 06/11/2022 FINDINGS: Right upper extremity peripherally inserted central venous catheter tip terminates in the superior vena cava. There is a moderate right pleural effusion, similar to prior exam. Patchy airspace opacities are present in both lungs, right greater than left. IMPRESSION: 1. Moderate right pleural effusion and patchy airspace opacities favored to represent pneumonia. Dictated by: Dictated on workstation # [id number]
--- NOTE | 2022-06-12 07:37 | Progress Note ---
"Subjective Date Seen by a Provider: Jun 12, 2022 Time Seen by a Provider: 11:00 Focused Exam Time of Focused Exam: 10:00 Objective Exam Last Set of Vital Signs Vital Signs Date Time Temp Pulse Resp B/P (MAP) Pulse Ox O2 Delivery O2 Flow Rate FiO2 06/12/22 06:54 98 Vapotherm 20.00 40 06/12/22 06:00 102 22 114/74 (87) 06/12/22 03:03 37.1 Capillary Refill : Less Than 3 Seconds I&O Intake and Output 06/12/22 00:00 Intake Total 1406 ml Output Total 1425 ml Balance -19 ml Intake Oral 1356 ml IV Total 50 ml Output Urine Total 1425 ml Results Lab Laboratory Tests 06/11/22 11:50: Bedside Blood Gas pH (LAB) 7.399, Bedside Blood Gas pCO2 (LAB) 32.4L, Bedside Blood Gas pO2 (LAB) 66L, Bedside Blood Gas HCO3 (LAB) 20.0L, POC Blood Gas Total CO2 Calc 21L, Bedside Bl Gas O2 Saturation (Calc) 93L, Bedside Arterial Blood Base Excess -5L 06/12/22 02:53: White Blood Count 19.4H, Red Blood Count 3.47L, Hemoglobin 10.4L, Hematocrit 30L , Mean Corpuscular Volume 87, Mean Corpuscular Hemoglobin 30, Mean Corpuscular Hemoglobin Concent 34, Red Cell Distribution Width 14.8H, Platelet Count 190, Mean Platelet Volume 9.6, Immature Granulocyte % (Auto) 8, Neutrophils (%) (Auto) 71, Lymphocytes (%) (Auto) 9L, Monocytes (%) (Auto) 11, Eosinophils (%) (Auto) 1, Basophils (%) (Auto) 1, Neutrophils # (Auto) 13.8H, Lymphocytes # (Auto) 1.7, Monocytes # (Auto) 2.0H, Eosinophils # (Auto) 0.2, Basophils # (Auto) 0.1, Immature Granulocyte # (Auto) 1.6H, Sodium Level 137, Potassium Level 3.7, Chloride Level 107, Carbon Dioxide Level 20L, Anion Gap 10, Blood Urea Nitrogen 14, Creatinine 0.78, Estimat Glomerular Filtration Rate 80, BUN/Creatinine Ratio 18, Glucose Level 109H, Calcium Level 8.3L, Corrected Calcium 9.8, Magnesium Level 1.7, Total Bilirubin 0.4, Aspartate Amino Transf (AST/SGOT) 18, Alanine Aminotransferase (ALT/SGPT) 20, Alkaline Phosphatase 114, Total Protein 4.6L, Albumin 2.1L 06/12/22 03:05: Blood Gas Puncture Site L RAD, Blood Gas Patient Temperature 37.1, Arterial Blood pH 7.45H, Arterial Blood Partial Pressure CO2 33L, Arterial Blood Partial Pressure O2 65L, Arterial Blood HCO3 22L, Arterial Blood Total CO2 23.3, Arterial Blood Oxygen Saturation 93L, Arterial Blood Base Excess -1.2, Jose L Test YES-POS, Blood Gas Ventilator Setting NO, Blood Gas Inspired Oxygen 40% Microbiology 06/09/22 Gram Stain - Final, Resulted 06/09/22 Anaerobic Culture - Preliminary, Resulted No anaerobes isolated 06/09/22 Body Fluid Culture - Preliminary, Resulted No growth 06/07/22 MRSA Screen - Final, Complete MRSA not isolated 06/07/22 Urine Culture - Final, Complete NO GROWTH 06/07/22 Blood Culture - Final, Complete Streptococcus pyogenes Grp A Assessment/Plan Assessment/Plan Assess & Plan/Chief Complaint Acute Hypoxic Respiratory Failure Sepsis severe type RLL Pneumonia - Yesterday patient had a CT scan that showed Right-Sided pleural effusion along with RML, RLL, and LLL consolidation with mucus plugging. - Patient underwent thoracentesis yesterday of 600cc. Sent for cytology. Repeat CXR showed initial improvement. However, repeat today showed accumulation of effusion again. Will talk with Surgery team about repeat thoracentesis vs chest tube placement. - Patient will need close follow-up on this to prevent development of large empyema - Subjectively patient appears to be improved today. Will continue to monitor improvement and wean oxygen as safely tolerated. - Lactic acid 2.17 on admission. 3.55 at worse. 1.56 at last check. - Leukocytosis 16.8 today. (14.6 yesterday) Continue to monitor. - ABG stable in comparison to yesterday (7.37|33|71|19 HCO3-) - BiPAP settings 12/8, 12, 30%. Improvement from yesterday. Intermittent Vapotherm at 25LPM, 80%. - Albuterol and Ipratropium for breathing treatments. - Continue Cefepime and Doxycycline Sinus Tachycardia - 1/2 home dose Diltiazem for rate control started on 06/10. Will assess response and make appropriate changes as needed. Elevated creatinine vs FRAN -Creatinine back to baseline at this time, continue to monitor. HTN - Patients pressures have been labile. Currently holding home meds. Hypothyroidism -Will resume home levothyroxine HLD -Will resume home simvastatin Depression - Home amitriptyline restarted. GI prophylaxis - PPI DVT prophylaxis - heparin Clinical Quality Measures Admission Status Admission Dx Assessment: Severe sepsis s/p protocol IVF Acute hypoxic respiratory failure high risk for intubation FRAN Solo kidney Severe PNA Breast cancer hx RIAZ COTTER DO Jun 12, 2022 07:37"
--- NOTE | 2022-06-12 08:43 | Physical Therapy Evaluation ---
PT Evaluation-General Medical Diagnosis Admission Date Jun 07, 2022 at 10:08 Medical Diagnosis: Cough, right sided chest pain, shortness of breath Onset Date: Jun 07, 2022 Therapy Diagnosis Therapy Diagnosis: impaired mobility Precautions Precautions/Isolations: Standard Precautions Weight Bear Status Right Lower Extremity: Right Full Weight Bearing Left Lower Extremity: Left Full Weight Bearing Referral Physician: Dr. Chavarria Reason for Referral: Evaluation/Treatment Medical History Pertinent Medical History: GERD, HTN, Hypothroidism Additional Medical History breast cancer, (R) nephrectomy Current History Admit via ED 06/07 for dyspnea. Elevated lactic acid, tachycardia, low oxygen saturation. Reviewed History: Yes Social History Home: Single Level Current Living Status: Spouse Entry Into Home: Stairs With Railing PT Steps Into Home: 3 Prior Prior Level of Function SCALE: Activities may be completed with or without assistive devices. 7-Gixsilajlp-sxytavv completes the activity by him/herself with no assistance from a helper. 5-Set-up or Clean-up Assistance-helper sets up or cleans up; patient completes activity. [place] assists only prior to or following the activity. 4-Supervision or Touching Assistance-helper provides verbal cues and/or touching/steadying and/or contact guard assistance as patient completes activity. Assistance may be provided throughout the activity or intermittently. 3-Partial/Moderate Assistance-helper does LESS THAN HALF the effort. [place] lifts, holds or supports trunk or limbs, but provides less than half the effort. 2-Substantial/Maximal Assistance-helper does MORE THAN HALF the effort. [place] lifts or holds trunk or limbs and provides more than half the effort. 6-Twncgxhxq-wazuhn does ALL the effort. Patient does none of the effort to complete the activity. Or, the assistance of 2 or more helpers is required for the patient to complete the activity. If activity was not attempted, code reason: 7-Patient Refused. 9-Not Applicable-not attempted and the patient did not perform the activity before the current illness, exacerbation or injury. 10-Not Attempted due to Environmental Limitations-(lack of equipment, weather restraints, etc.). 88-Not Attempted due to Medical Conditions or Safety Concerns. Bed Mobility: 6 Transfers (B,C,W/C): 6 Gait: 6 Stairs: 6 Indoor Mobility (Ambulation): Independent Stairs: Independent Prior Devices Use: None PT Evaluation-Current Subjective Pt is agreeable to treatment and eager to get up to the chair. Initial oxygen saturation at 93% on forced air via NC. Pain Numeric Pain Scale: 0-No Pain Location: No Pain Reported Pt/Family Goals Return home Objective Patient Orientation: Person, Place, Time, Situation Attachments: Oxygen, Dominguez Catheter, IV ROM/Strength ROM Upper Extremities Impaired (B) box loader ROM and shoulder ROM. ROM Lower Extremities WFL Strength Upper Extremities Limited (B) box loader strength and UE strength is grossly 3/5. Strength Lower Extremities WFL Integumentary/Posture Bowel Incontinence: No Bladder Incontinence: Dominguez Cath Neuromuscular (Tone, Coordination, Reflexes) Intact Sensory Vision: Functional Hearing: Functional Sensation Right Upper Extremit: Intact Sensation Left Upper Extremity: Intact Sensation Up. Extremities Pt has limited ROM of (B) hands, but reports intact sensation. Pt does note occasional N/T. Sensation Right Lower Extremit: Intact Sensation Left Lower Extremity: Intact Transfers Roll Left to Right (QC): 6 Sit to Lying (QC): 6 Lying to Sitting/Side of Bed(Q: 3 Sit to Stand (QC): 3 Chair/Smo-cv-Awiss Xfer(QC): 3 Pt was able to scoot and roll to side lying without assist. Needed contact assist for supine to sit, and HOOP RIVETING MACHINE OPERATOR for sit to stand. Able to stand and transfer to the chair with CGA. Gait Does the Patient Walk?: Yes Mode of Locomotion: Walk Anticipated Mode of Locomotion: Walk Walk 10 feet (QC): 88 Gait Assistive Device: Handheld Assist Comments/Gait Description Safe and stable throughout turns and while ambulating. Wheelchair Training Does the Pt Use a Wheelchair?: No Balance Sitting Static: Normal Sitting Dynamic: Normal Standing Static: Good Standing Dynamic: Good Assessment/Needs Pt is primarily limited by attachments and dependence on oxygen. She desaturated to 79% during supine to sit. It returned to 93% in 30 seconds. Oxygen dropped to 81% during sit to stand and transfer, with a return to 94% in under 30 seconds. 94% while seated. Rehab Potential: Good PT Child Life Therapist Goals Jail Goals PT Jail Goals Time Frame: Jun 26, 2022 Roll Left & Right (QC): 6 Sit to Lying (QC): 6 Lying-Sitting on Side/Bed(QC): 6 Sit to Stand (QC): 6 Chair/Lul-yo-Lasxj Xfer(QC): 6 Toilet Transfer (QC): 6 Does the Patient Walk: Yes Walk 10 feet (QC): 6 Walk 50ft with 2 Turns (QC): 6 Walk 150 ft (QC): 6 Walking 10ft on Uneven Surface: 6 1 Step (curb) (QC): 4 4 Steps (QC): 4 Does the Pt use WC or Scooter?: Yes PT Plan Problem List Problem List: Activity Tolerance, Functional Strength, Balance, Gait, Transfer Treatment/Plan Treatment Plan: Continue Plan of Care Treatment Plan: Bed Mobility, Education, Functional Activity Jailyn, Functional Strength, Group Therapy, Gait, Safety, Therapeutic Exercise, Transfers Treatment Duration: Jul 09, 2022 Frequency: 6 times per week Estimated Hrs Per Day: .25 hour per day Patient and/or Family Agrees t: Yes Time Time In: 819 Time Out: 834 DATE: Jun 12, 2022 Total Billed Treatment Time: 15 Total Billed Treatment 1, evlowc 15 MANUELA KRISHNA PT Jun 12, 2022 08:43
--- NOTE | 2022-06-12 08:50 | Progress Note - Surgery ---
BROOK[place]N BROWN 06/12/22 0850: Subjective Date Seen by a Provider: Jun 12, 2022 Time Seen by a Provider: 08:44 Subjective/Events-last exam Mrs Patricio is seen at bedside resting comfortably. She reports easier breathing and no fever or chills overnight. She worked with therapy yesterday which made her tired but she rested well overnight. Still on vapotherm at same settings as yesterday morning. R sided chest pain is not present today according to patient. Still no BM. No new concerns. Review of Systems General: No Chills, No Night Sweats; Fatigue HEENT: No Head Aches; Sore Throat Pulmonary: Dyspnea (improving); No Cough Cardiovascular: No: Chest Pain, Palpitations Gastrointestinal: No: Nausea, Vomiting, Abdominal Pain Genitourinary: No Dysuria, No Hematuria Musculoskeletal: neck pain, arm pain (reports some soreness at elbows due to position of sleeping) Neurological: No: Change in speech, Confusion Focused Exam Time of Focused Exam: 10:00 Objective Exam Vital Signs Date Time Temp Pulse Resp B/P (MAP) Pulse Ox O2 Delivery O2 Flow Rate FiO2 06/12/22 08:13 96 Vapotherm 20.00 40 06/12/22 08:00 96 16 109/76 (83) 94 Vapotherm 20.00 40.00 06/12/22 08:00 92 Vapotherm 20.00 40 06/12/22 07:53 37.6 06/12/22 07:52 37.6 06/12/22 07:00 98 06/12/22 07:00 99 18 110/71 (84) 96 Vapotherm 20.00 40.00 06/12/22 06:54 98 Vapotherm 20.00 40 06/12/22 06:51 96 Vapotherm 25.00 40 06/12/22 06:00 102 22 114/74 (87) 93 Vapotherm 25.00 40.00 06/12/22 05:00 105 20 116/67 (83) 97 Vapotherm 25.00 40.00 06/12/22 04:00 109 24 110/60 (77) 94 Vapotherm 25.00 40.00 06/12/22 03:10 93 Vapotherm 25.00 40 06/12/22 03:03 37.1 Vapotherm 25.00 40.00 06/12/22 03:00 112 30 104/63 (77) 93 Vapotherm 25.00 40.00 06/12/22 02:08 90 Vapotherm 20.00 40 06/12/22 02:08 92 Vapotherm 25.00 40.00 06/12/22 02:00 109 21 109/68 (82) 94 Vapotherm 20.00 40.00 06/12/22 01:00 108 06/12/22 01:00 108 24 111/66 (81) 93 Vapotherm 20.00 40.00 06/12/22 00:00 93 Vapotherm 20.00 40 06/12/22 00:00 37.6 108 22 109/70 (83) 93 Vapotherm 20.00 40.00 06/11/22 23:00 106 21 105/65 (78) 92 Vapotherm 20.00 40.00 06/11/22 22:00 105 21 97/64 (75) 95 Vapotherm 20.00 40.00 06/11/22 21:00 105 20 98/60 (73) 93 Vapotherm 20.00 40.00 06/11/22 20:14 94 Vapotherm 20.00 40 06/11/22 20:00 107 27 107/59 (75) 93 Vapotherm 20.00 40.00 06/11/22 19:55 95 Vapotherm 20.00 40 06/11/22 19:00 107 06/11/22 19:00 36.7 107 33 111/72 (85) 95 Vapotherm 20.00 40.00 06/11/22 18:00 108 28 111/73 (83) 92 Vapotherm 20.00 40.00 06/11/22 17:00 106 23 106/78 (96) 93 Vapotherm 20.00 40.00 06/11/22 16:00 104 19 106/59 (72) 94 Vapotherm 20.00 40.00 06/11/22 16:00 93 Vapotherm 20.00 40 06/11/22 15:56 36.8 06/11/22 15:00 101 22 104/65 (74) 92 Vapotherm 20.00 40.00 06/11/22 14:41 92 Vapotherm 20.00 40 06/11/22 14:00 101 22 108/62 (75) 92 Vapotherm 20.00 40.00 06/11/22 13:00 101 22 103/61 (70) 93 Vapotherm 20.00 40.00 06/11/22 12:47 101 06/11/22 12:00 93 Vapotherm 20.00 40 06/11/22 12:00 101 20 107/64 (78) 97 Vapotherm 20.00 40.00 06/11/22 11:37 94 Vapotherm 20.00 40 06/11/22 11:00 101 24 102/86 (88) 93 Vapotherm 20.00 40.00 06/11/22 10:00 105 30 102/67 (90) 99 Vapotherm 20.00 40.00 06/11/22 09:00 106 28 109/70 (83) 92 Vapotherm 20.00 40.00 I & O 06/12/22 07:00 Intake Total 2035.6 ml Output Total 1650 ml Balance 385.6 ml Capillary Refill : Less Than 3 Seconds General Appearance: No Apparent Distress, Other (vapotherm in place) HEENT: PERRL/EOMI, Other (dry oral mucosa) Neck: Non Tender (soreness from sleeping), Supple Respiratory: Chest Non Tender, No Accessory Muscle Use, No Respiratory Distress, Other (coarse sounds on R side improved) Cardiovascular: No JVD, Normal Peripheral Pulses, Tachycardia Peripheral Pulses: 2+ Radial Pulses (R), 2+ Radial Pulses (L) Gastrointestinal: non tender, soft Extremity: Normal Inspection, Non Tender Neurologic/Psychiatric: Alert, Oriented x3, Normal Mood/Affect Skin: Warm/Dry, Pallor (color appears improved) Lymphatic: No Adenopathy Results Lab Laboratory Tests 06/11/22 11:50: Bedside Blood Gas pH (LAB) 7.399, Bedside Blood Gas pCO2 (LAB) 32.4L, Bedside Blood Gas pO2 (LAB) 66L, Bedside Blood Gas HCO3 (LAB) 20.0L, POC Blood Gas Total CO2 Calc 21L, Bedside Bl Gas O2 Saturation (Calc) 93L, Bedside Arterial Blood Base Excess -5L 06/12/22 02:53: White Blood Count 19.4H, Red Blood Count 3.47L, Hemoglobin 10.4L, Hematocrit 30L , Mean Corpuscular Volume 87, Mean Corpuscular Hemoglobin 30, Mean Corpuscular Hemoglobin Concent 34, Red Cell Distribution Width 14.8H, Platelet Count 190, Me an Platelet Volume 9.6, Immature Granulocyte % (Auto) 8, Neutrophils (%) (Auto) 71, Lymphocytes (%) (Auto) 9L, Monocytes (%) (Auto) 11, Eosinophils (%) (Auto) 1, Basophils (%) (Auto) 1, Neutrophils # (Auto) 13.8H, Lymphocytes # (Auto) 1.7, Monocytes # (Auto) 2.0H, Eosinophils # (Auto) 0.2, Basophils # (Auto) 0.1, Immature Granulocyte # (Auto) 1.6H, Sodium Level 137, Potassium Level 3.7, Chloride Level 107, Carbon Dioxide Level 20L, Anion Gap 10, Blood Urea Nitrogen 14, Creatinine 0.78, Estimat Glomerular Filtration Rate 80, BUN/Creatinine Ratio 18, Glucose Level 109H, Calcium Level 8.3L, Corrected Calcium 9.8, Magnesium Level 1.7, Total Bilirubin 0.4, Aspartate Amino Transf (AST/SGOT) 18, Alanine Aminotransferase (ALT/SGPT) 20, Alkaline Phosphatase 114, Total Protein 4.6L, Albumin 2.1L 06/12/22 03:05: Blood Gas Puncture Site L RAD, Blood Gas Patient Temperature 37.1, Arterial Blood pH 7.45H, Arterial Blood Partial Pressure CO2 33L, Arterial Blood Partial Pressure O2 65L, Arterial Blood HCO3 22L, Arterial Blood Total CO2 23.3, Arterial Blood Oxygen Saturation 93L, Arterial Blood Base Excess -1.2, Jose L Test YES-POS, Blood Gas Ventilator Setting NO, Blood Gas Inspired Oxygen 40% Microbiology 06/09/22 Gram Stain - Final, Resulted 06/09/22 Anaerobic Culture - Preliminary, Resulted No anaerobes isolated 06/09/22 Body Fluid Culture - Preliminary, Resulted No growth 06/07/22 MRSA Screen - Final, Complete MRSA not isolated 06/07/22 Urine Culture - Final, Complete NO GROWTH 06/07/22 Blood Culture - Final, Complete Streptococcus pyogenes Grp A Assessment/Plan Assessment/Plan Assessment/Plan Acute on Chronic respiratory failure on Vapotherm Community acquired pneumonia Sepsis R Pleural effusion Sinus tachycardia Confusion- resolved Thoracentesis performed by Dr Stephens on 06/09 draining 600mL of fluid from R chest cavity Switched to lovenox for DVT prophylaxis from heparin Pleural fluid resulted in WBC 8.441, RBC 0.003, glucose 22, protein 2.5 Likely exudative process, consider parapneumonic effusion, may represent empyema Pleural fluid cx resulted no growth Anaerobic cx and Gram stain no growth Continue IV abx and nebulized treatments, medicine team adjusted abx yesterday Confusion resolved, AxO x3 this morning Off biPAP now on vapotherm 20 L/min 40%FiO2, satting well in the upper 90s Monitor vitals and WBC. Last elevated at 19.4 Continue serial imaging of the chest, Last CXR done 06/12. Pleural effusion remains in RLL and middle lobe. U/S of the chest 06/11 revealed right sided small to moderate pleural effusion. She is clinically improving. Repeat US if she becomes more symptomatic. No repeat thoracentesis or chest tube at this time. Clinical Quality Measures Admission Status Admission Dx Severe Sepsis RLL Pneumonia CXR w consolidation in RLL. SIRS criteria met with lactic acid, tachycardia, RR, and source of infection Cefepime and doxycycline ABG results 7.43 pH, 34CO2, 79 O2 MAT protocol Monitor vital signs and CBC CMP Repeat CXR tomorrow Lactic acidosis 2.17->3.55->1.56 Continue fluids and treating infection Elevated creatinine 1.89 Hx of R nephrectomy Continue IV fluids UTI UA positive for nitrites and leukocyte esterase cx pending fluids and abx HTN Hypothyroidism Home meds held Will restart when appropriate GI prophylaxis - PPI DVT prophylaxis - heparin OSITO STEPHENS DO 06/12/22 1059: Subjective Subjective/Events-last exam Sitting in chair. Breathing easier. On vapotherm. No chest pain. Denies new complaints. Objective Exam General Appearance: No Apparent Distress HEENT: PERRL/EOMI, Normal ENT Inspection Neck: Non Tender, Supple Respiratory: Chest Non Tender, No Accessory Muscle Use, No Respiratory Distress, Other (coarse sounds on R side improved on vapotherm) Cardiovascular: No JVD, Tachycardia Gastrointestinal: non tender, soft Extremity: Normal Inspection, Non Tender Neurologic/Psychiatric: Alert, Oriented x3, Normal Mood/Affect Skin: Warm/Dry, Pallor (color appears improved) Lymphatic: No Adenopathy Assessment/Plan Assessment/Plan Assessment/Plan Acute on Chronic respiratory failure on Vapotherm Community acquired pneumonia Sepsis R Pleural effusion Sinus tachycardia Confusion- resolved Thoracentesis performed by Dr Stephens on 06/09 draining 600mL of fluid from R chest cavity Switched to lovenox for DVT prophylaxis from heparin Pleural fluid resulted in WBC 8.441, RBC 0.003, glucose 22, protein 2.5 Likely exudative process, consider parapneumonic effusion, may represent empyema Pleural fluid cx resulted no growth Anaerobic cx and Gram stain no growth Continue IV abx and nebulized treatments, medicine team adjusted abx yesterday Confusion resolved, AxO x3 this morning Off biPAP now on vapotherm 20 L/min 40%FiO2, satting well in the upper 90s Monitor vitals and WBC. Last elevated at 19.4 Continue serial imaging of the chest, Last CXR done 06/12. Pleural effusion remains in RLL and middle lobe. U/S of the chest 06/11 revealed right sided small to moderate pleural effusion. She is clinically improving. Repeat US if she becomes more symptomatic. No repeat thoracentesis or chest tube at this time. Supervisory-Addendum Brief Verification & Attestation Participated in pt care: history, MDM, physical Personally performed: exam, history, MDM, supervision of care Care discussed with: Medical Student Procedures: n/a Results interpretation: Verified all documentation Verification and Attestation of Medical Student E/M Service A medical student performed and documented this service in my presence. I reviewed and verified all information documented by the medical student and made modifications to such information, when appropriate. I personally performed the physical exam and medical decision making. Osito Stephens, Jun 12, 2022,10:59 [place] BROWN Jun 12, 2022 08:50 OSITO STEPHENS DO Jun 12, 2022 10:59
[2022-06-12] MEDS: DOCUSATE SODIUM 100 MG (COLACE) CAP PO SCH ×2 (09:26→20:35)
[2022-06-12] MEDS: dilTIAZem120 MG (CARDIZEM CD) CAP PO SCH (09:26)
[2022-06-12] MEDS: ENOXAPARIN 40 MG/0.4 ML (LOVENOX) SYR SC SCH (09:26)
[2022-06-12] MEDS: PANTOPRAZOLE 40 MG (PROTONIX) TAB PO SCH (09:26)
[2022-06-12] MEDS: SENNOSIDES 8.6 MG (SENOKOT) TAB PO SCH ×2 (09:26→20:35)
[2022-06-12] MEDS: LACTOBACILLUS ACIDOPHILUS (PROBIOTIC) CAPSULE PO SCH ×3 (09:26→18:18)
--- NOTE | 2022-06-12 10:49 | Tele-ICU Progress Note ---
Subjective Date Seen by a Provider: Jun 12, 2022 Subjective/Events-last exam This virtual visit was conducted using real time audio/video. Thank you for asking us to see this patient for respiratory insufficiency due to pna, pleural effusion and sepsis. Recent events: Improving, now out of bed. PE: VSS. O2 sat 96% on VT 20LPM/40%. HEENT: No obvious masses, adenopathy or JVD. Chest: clear to auscultation. Diminished R lower field CV: RRR S1 S2 No murmur or added sounds. Abd: Non-tender. Bowel sounds Y. : Unremarkable. Dominguez Y. MACHINE [employer]ER/psychiatric: Grossly intact. No obvious focal findings. Extremities: 1+ edema. Capillary refill < 3 seconds. Skin: unremarkable. Results: Elevated WCC 19.4, BG 109. Decreased Alb 2.1, Hb 10.4. AB.45/ 33/65 on 40%. CXR: B infilts., R > L. Chest US: B pl eff., R > L. Available chart/ vitals / labs / images reviewed. Video assessment done using teleICU camera, rest of exam as per RN. A/P: Respiratory insufficiency: Continue present management with VT, weaning as adriana. cont Duonebs. Monitor for increasing oxygenation needs and/or need for intubation. Critical Care: critically ill patient. Cont. abx, dilt., synth., statin, amitrip., Alexandr., PPI Discussed with RN . Asked RN to reach out to eICU if any questions or concerns later. Time spent with patient/coordination of care with other health professionals (mins): 20 Sepsis Event Evaluation Height, Weight, BMI Height: '" Weight: lbs. oz. kg; 31.64 BMI Method: Focused Exam Time of Focused Exam: 10:00 Exam Exam Patient acknowledged, consented, and participated in this virtual visit which was conducted using real time audio/video Vital Signs Date Time Temp Pulse Resp B/P (MAP) Pulse Ox O2 Delivery O2 Flow Rate FiO2 06/12/22 10:06 Vapotherm 20.00 30 06/12/22 10:05 96 Vapotherm 20.00 40 06/12/22 10:00 101 21 130/81 (101) 97 Vapotherm 20.00 40.00 06/12/22 09:00 102 29 133/89 (97) 99 Vapotherm 20.00 40.00 06/12/22 08:13 96 Vapotherm 20.00 40 06/12/22 08:00 96 16 109/76 (83) 94 Vapotherm 20.00 40.00 06/12/22 08:00 92 Vapotherm 20.00 40 06/12/22 07:53 37.6 06/12/22 07:52 37.6 06/12/22 07:00 98 06/12/22 07:00 99 18 110/71 (84) 96 Vapotherm 20.00 40.00 06/12/22 06:54 98 Vapotherm 20.00 40 06/12/22 06:51 96 Vapotherm 25.00 40 06/12/22 06:00 102 22 114/74 (87) 93 Vapotherm 25.00 40.00 06/12/22 05:00 105 20 116/67 (83) 97 Vapotherm 25.00 40.00 06/12/22 04:00 109 24 110/60 (77) 94 Vapotherm 25.00 40.00 06/12/22 03:10 93 Vapotherm 25.00 40 06/12/22 03:03 37.1 Vapotherm 25.00 40.00 06/12/22 03:00 112 30 104/63 (77) 93 Vapotherm 25.00 40.00 06/12/22 02:08 90 Vapotherm 20.00 40 06/12/22 02:08 92 Vapotherm 25.00 40.00 06/12/22 02:00 109 21 109/68 (82) 94 Vapotherm 20.00 40.00 06/12/22 01:00 108 06/12/22 01:00 108 24 111/66 (81) 93 Vapotherm 20.00 40.00 06/12/22 00:00 93 Vapotherm 20.00 40 06/12/22 00:00 37.6 108 22 109/70 (83) 93 Vapotherm 20.00 40.00 06/11/22 23:00 106 21 105/65 (78) 92 Vapotherm 20.00 40.00 06/11/22 22:00 105 21 97/64 (75) 95 Vapotherm 20.00 40.00 06/11/22 21:00 105 20 98/60 (73) 93 Vapotherm 20.00 40.00 06/11/22 20:14 94 Vapotherm 20.00 40 06/11/22 20:00 107 27 107/59 (75) 93 Vapotherm 20.00 40.00 06/11/22 19:55 95 Vapotherm 20.00 40 06/11/22 19:00 107 06/11/22 19:00 36.7 107 33 111/72 (85) 95 Vapotherm 20.00 40.00 06/11/22 18:00 108 28 111/73 (83) 92 Vapotherm 20.00 40.00 06/11/22 17:00 106 23 106/78 (96) 93 Vapotherm 20.00 40.00 06/11/22 16:00 104 19 106/59 (72) 94 Vapotherm 20.00 40.00 06/11/22 16:00 93 Vapotherm 20.00 40 06/11/22 15:56 36.8 06/11/22 15:00 101 22 104/65 (74) 92 Vapotherm 20.00 40.00 06/11/22 14:41 92 Vapotherm 20.00 40 06/11/22 14:00 101 22 108/62 (75) 92 Vapotherm 20.00 40.00 06/11/22 13:00 101 22 103/61 (70) 93 Vapotherm 20.00 40.00 06/11/22 12:47 101 06/11/22 12:00 93 Vapotherm 20.00 40 06/11/22 12:00 101 20 107/64 (78) 97 Vapotherm 20.00 40.00 06/11/22 11:37 94 Vapotherm 20.00 40 06/11/22 11:00 101 24 102/86 (88) 93 Vapotherm 20.00 40.00 I & O 06/12/22 07:00 Intake Total 2035.6 ml Output Total 1650 ml Balance 385.6 ml Height & Weight Height: '" Weight: lbs. oz. kg; 31.64 BMI Method: General Appearance: No Apparent Distress, Other (vapotherm in place) HEENT: PERRL/EOMI, Other (dry oral mucosa) Neck: Non Tender (soreness from sleeping), Supple Respiratory: Chest Non Tender, No Accessory Muscle Use, No Respiratory Distress, Other (coarse sounds on R side improved) Cardiovascular: No JVD, Normal Peripheral Pulses, Tachycardia Capillary Refill: Less Than 3 Seconds Peripheral Pulses: 2+ Radial Pulses (R), 2+ Radial Pulses (L) Gastrointestinal: non tender, soft Extremity: Normal Inspection, Non Tender Neurologic/Psychiatric: Alert, Oriented x3, Normal Mood/Affect Skin: Warm/Dry, Pallor (color appears improved) Lymphatic: No Adenopathy Results Lab Laboratory Tests 06/11/22 04:55 06/12/22 02:53 Assessment/Plan Assessment/Plan See free text. Critical Care: Critically Ill Patient MERLIN CLINE MD Jun 12, 2022 10:49
--- NOTE | 2022-06-12 11:40 | Discharge Summary ---
Diagnosis/Chief Complaint Date of Admission Jun 07, 2022 at 10:08 Date of Discharge Discharge Date: Jun 12, 2022 Reason Hospital Visit Discharge Summary Discharge Physical Examination Allergies: Coded Allergies: No Known Drug Allergies (Unverified , 06/07/22) Vitals & I&Os Vital Signs Date Time Temp Pulse Resp B/P (MAP) Pulse Ox O2 Delivery O2 Flow Rate FiO2 06/12/22 11:50 36.4 06/12/22 11:00 105 29 128/82 (94) 93 Vapotherm 20.00 40.00 06/12/22 10:06 30 Hospital Course Labs (last 24 hrs) Laboratory Tests 06/07/22 08:40: White Blood Count 4.9, Red Blood Count 4.29, Hemoglobin 13.1, Hematocrit 39, Mean Corpuscular Volume 92, Mean Corpuscular Hemoglobin 31, Mean Corpuscular Hemoglobin Concent 33, Red Cell Distribution Width 13.4, Platelet Count 209, Mean Platelet Volume 10.3, Immature Granulocyte % (Auto) 0, Neutrophils (%) (Auto) 84H, Lymphocytes (%) (Auto) 12, Monocytes (%) (Auto) 3, Eosinophils (%) (Auto) 1, Basophils (%) (Auto) 1, Neutrophils # (Auto) 4.1, Lymphocytes # (Auto) 0.6L, Monocytes # (Auto) 0.2, Eosinophils # (Auto) 0.0, Basophils # (Auto) 0.0, Immature Granulocyte # (Auto) 0.0, Neutrophils % (Manual) 29, Lymphocytes % (Manual) 7, Monocytes % (Manual) 2, Metamyelocytes % 5, Myelocytes % 3, Band Neutrophils 54, Prothrombin Time 13.9, INR Comment 1.0, Activated Partial Thromboplast Time 36H, Sodium Level 137, Potassium Level 3.7, Chloride Level 103, Carbon Dioxide Level 20L, Anion Gap 14, Blood Urea Nitrogen 35H, Creatinine 1.89H, Estimat Glomerular Filtration Rate 28, BUN/Creatinine Ratio 19, Glucose Level 92, Calcium Level 8.8, Corrected Calcium 9.4, Total Bilirubin 0.4, Aspartate Amino Transf (AST/SGOT) 45H, Alanine Aminotransferase (ALT/SGPT) 38, Alkaline Phosphatase 102, Total Protein 5.9L, Albumin 3.2, Smear Scan YES 06/07/22 08:55: Influenza Type A (RT-PCR) Not Detected, Influenza Type B (RT-PCR) Not Detected, SARS-CoV-2 RNA (RT-PCR) Not Detected 06/07/22 09:20: Lactic Acid Level 2.17*H 06/07/22 10:08: Lab Scanned Report Referred Lab Report 06/07/22 11:20: Lactic Acid Level 3.55*H 06/07/22 11:30: Blood Gas Puncture Site RR, Blood Gas Patient Temperature 37.4, Arterial Blood pH 7.43, Arterial Blood Partial Pressure CO2 34L, Arterial Blood Partial Pressure O2 79, Arterial Blood HCO3 22L, Arterial Blood Total CO2 22.7, Arterial Blood Oxygen Saturation 94, Arterial Blood Base Excess -2.0, Jose L Test YES-POS, Blood Gas Ventilator Setting NO, Blood Gas Inspired Oxygen RA 06/07/22 11:50: Urine Color ORANGE, Urine Clarity SL CLOUDY, Urine pH 6.0, Urine Specific [place] 1.020, Urine Protein 2+H, Urine Glucose (UA) NEGATIVE, Urine Ketones NEGATIVE, Urine Nitrite POSITIVEH, Urine Bilirubin NEGATIVE, Urine Urobilinogen 2.0, Urine Leukocyte Esterase TRACEH, Urine RBC (Auto) NEGATIVE, Urine RBC NONE, Urine WBC 5-10H, Urine Crystals NONE, Urine Bacteria MODERATEH, Urine Casts PRESENT, Urine Granular Casts 5-10H, Urine White Blood Cell Casts 2-5H, Urine Mucus NEGATIVE, Urine Other FEW TRANS EPI CELLS, Urine Culture Indicated CULTURE PENDING 06/07/22 14:38: Lactic Acid Level 1.56 06/08/22 03:45: White Blood Count 9.6, Red Blood Count 3.75L, Hemoglobin 11.3L, Hematocrit 35, Mean Corpuscular Volume 93, Mean Corpuscular Hemoglobin 30, Mean Corpuscular Hemoglobin Concent 33, Red Cell Distribution Width 13.8, Platelet Count 199, Mean Platelet Volume 9.8, Immature Granulocyte % (Auto) 1, Neutrophils (%) (Auto) 94H, Lymphocytes (%) (Auto) 3L, Monocytes (%) (Auto) 2, Eosinophils (%) (Auto) 0, Basophils (%) (Auto) 0, Neutrophils # (Auto) 9.0H, Lymphocytes # (Aut o) 0.3L, Monocytes # (Auto) 0.1, Eosinophils # (Auto) 0.0, Basophils # (Auto) 0.0, Immature Granulocyte # (Auto) 0.1, Sodium Level 133L, Potassium Level 3.4L, Chloride Level 106, Carbon Dioxide Level 15L, Anion Gap 12, Blood Urea Nitrogen 37H, Creatinine 1.52H, Estimat Glomerular Filtration Rate 36, BUN/Creatinine Ratio 24, Glucose Level 103, Calcium Level 7.5L, Corrected Calcium 8.7, Magnesium Level 1.8, Total Bilirubin 0.4, Aspartate Amino Transf (AST/SGOT) 31, Alanine Aminotransferase (ALT/SGPT) 30, Alkaline Phosphatase 82, Total Protein 4.9L, Albumin 2.5L 06/08/22 07:45: Blood Gas Puncture Site L RADIAL, Blood Gas Patient Temperature 37.8, Arterial Blood pH 7.29*L, Arterial Blood Partial Pressure CO2 34L, Arterial Blood Partial Pressure O2 72L, Arterial Blood HCO3 16*L, Arterial Blood Total CO2 16.5L, Arterial Blood Oxygen Saturation 91L, Arterial Blood Base Excess -9.7L, Jose L Test NA, Blood Gas Ventilator Setting NO, Blood Gas Inspired Oxygen 100 06/09/22 03:55: White Blood Count 14.6H, Red Blood Count 3.66L, Hemoglobin 10.9L, Hematocrit 33L , Mean Corpuscular Volume 90, Mean Corpuscular Hemoglobin 30, Mean Corpuscular Hemoglobin Concent 33, Red Cell Distribution Width 14.0, Platelet Count 179, Mean Platelet Volume 10.0, Immature Granulocyte % (Auto) 4, Neutrophils (%) (Auto) 89H, Lymphocytes (%) (Auto) 4L, Monocytes (%) (Auto) 2, Eosinophils (%) (Auto) 1, Basophils (%) (Auto) 0, Neutrophils # (Auto) 13.0H, Lymphocytes # (Auto) 0.5L, Monocytes # (Auto) 0.3, Eosinophils # (Auto) 0.2, Basophils # (Auto) 0.0, Immature Granulocyte # (Auto) 0.6H, Sodium Level 132L, Potassium Level 3.9, Chloride Level 106, Carbon Dioxide Level 16L, Anion Gap 10, Blood Urea Nitrogen 41H, Creatinine 1.56H, Estimat Glomerular Filtration Rate 35, BUN/Creatinine Ratio 26, Glucose Level 87, Calcium Level 8.4L, Corrected Calcium 9.7, Magnesium Level 2.3, Total Bilirubin 0.5, Aspartate Amino Transf (AST/SGOT) 24, Alanine Aminotransferase (ALT/SGPT) 25, Alkaline Phosphatase 109, Total Protein 5.0L, Albumin 2.4L, Neutrophils % (Manual) 68, Lymphocytes % (Manual) 1, Monocytes % (Manual) 2, Metamyelocytes % 1, Band Neutrophils 28, Toxic Granulation 2+, Blood Morphology Comment NORMAL 06/09/22 06:05: Blood Gas Puncture Site R RADIAL, Blood Gas Patient Temperature 36.6, Arterial Blood pH 7.35L, Arterial Blood Partial Pressure CO2 35, Arterial Blood Partial Pressure O2 95H, Arterial Blood HCO3 19L, Arterial Blood Total CO2 19.8L, Arterial Blood Oxygen Saturation 96, Arterial Blood Base Excess -6.0L, Jose L Test , Blood Gas Ventilator Setting NO, Blood Gas Inspired Oxygen 80% 06/09/22 17:45: Body Fluid pH 7.08 06/09/22 18:15: Body Fluid Source PLEURAL, Body Fluid Color YELLOW, Body Fluid Appearance SLT CLDY, Body Fluid WBC 8.441, Body Fluid RBC 0.003, Body Fl Polynuclear WBCs (%)(Auto) 84.1, Body Fluid Mononuclear Cells % Auto 15.9, Body Fluid Slide Review Yes, Body Fluid Glucose 22, Body Fluid Total Protein 2.5 06/10/22 04:30: Blood Gas Puncture Site LR, Blood Gas Patient Temperature 36.0, Arterial Blood pH 7.37, Arterial Blood Partial Pressure CO2 33L, Arterial Blood Partial Pressure O2 71L, Arterial Blood HCO3 19L, Arterial Blood Total CO2 19.9L, Arterial Blood Oxygen Saturation 94, Arterial Blood Base Excess -5.7L, Jose L Test YES-POS, Blood Gas Ventilator Setting NO, Blood Gas Inspired Oxygen 40% 06/10/22 07:31: White Blood Count 16.8H, Red Blood Count 3.70L, Hemoglobin 11.2L, Hematocrit 34L , Mean Corpuscular Volume 91, Mean Corpuscular Hemoglobin 30, Mean Corpuscular Hemoglobin Concent 33, Red Cell Distribution Width 14.6H, Platelet Count 135, Mean Platelet Volume 9.9, Immature Granulocyte % (Auto) 4, Neutrophils (%) (Auto) 79H, Lymphocytes (%) (Auto) 8L, Monocytes (%) (Auto) 6, Eosinophils (%) (Auto) 2, Basophils (%) (Auto) 1, Neutrophils # (Auto) 13.4H, Lymphocytes # (Auto) 1.3, Monocytes # (Auto) 1.0, Eosinophils # (Auto) 0.3, Basophils # (Auto) 0.1, Immature Granulocyte # (Auto) 0.7H, Sodium Level 136, Potassium Level 4.1, Chloride Level 109H, Carbon Dioxide Level 16L, Anion Gap 11, Blood Urea Nitrogen 28H, Creatinine 1.15, Estimat Glomerular Filtration Rate 50, BUN/Creatinine Ratio 24, Glucose Level 72, Calcium Level 8.8, Corrected Calcium 10.0, Total Bilirubin 0.5, Aspartate Amino Transf (AST/SGOT) 17, Alanine Aminotransferase (ALT/SGPT) 22, Alkaline Phosphatase 112, Total Protein 5.1L, Albumin 2.5L 06/11/22 04:55: White Blood Count 18.2H, Red Blood Count 3.46L, Hemoglobin 10.5L, Hematocrit 31L , Mean Corpuscular Volume 88, Mean Corpuscular Hemoglobin 30, Mean Corpuscular Hemoglobin Concent 34, Red Cell Distribution Width 14.8H, Platelet Count 157, Mean Platelet Volume 9.8, Immature Granulocyte % (Auto) 7, Neutrophils (%) (Auto) 73, Lymphocytes (%) (Auto) 8L, Monocytes (%) (Auto) 10, Eosinophils (%) (Auto) 2, Basophils (%) (Auto) 1, Neutrophils # (Auto) 13.2H, Lymphocytes # (Auto) 1.5, Monocytes # (Auto) 1.8H, Eosinophils # (Auto) 0.4H, Basophils # (Auto) 0.1, Immature Granulocyte # (Auto) 1.2H, Sodium Level 137, Potassium Level 3.7, Chloride Level 109H, Carbon Dioxide Level 19L, Anion Gap 9, Blood Urea Nitrogen 18, Creatinine 0.94, Estimat Glomerular Filtration Rate 64, BUN/Creatinine Ratio 19, Glucose Level 95, Calcium Level 8.8, Corrected Calcium 10.3H, Magnesium Level 1.4L, Total Bilirubin 0.5, Aspartate Amino Transf (AST/SGOT) 19, Alanine Aminotransferase (ALT/SGPT) 20, Alkaline Phosphatase 118, Total Protein 4.8L, Albumin 2.1L 06/11/22 11:50: Bedside Blood Gas pH (LAB) 7.399, Bedside Blood Gas pCO2 (LAB) 32.4L, Bedside Blood Gas pO2 (LAB) 66L, Bedside Blood Gas HCO3 (LAB) 20.0L, POC Blood Gas Total CO2 Calc 21L, Bedside Bl Gas O2 Saturation (Calc) 93L, Bedside Arterial Blood Base Excess -5L 06/12/22 02:53: White Blood Count 19.4H, Red Blood Count 3.47L, Hemoglobin 10.4L, Hematocrit 30L , Mean Corpuscular Volume 87, Mean Corpuscular Hemoglobin 30, Mean Corpuscular Hemoglobin Concent 34, Red Cell Distribution Width 14.8H, Platelet Count 190, Mean Platelet Volume 9.6, Immature Granulocyte % (Auto) 8, Neutrophils (%) (Auto) 71, Lymphocytes (%) (Auto) 9L, Monocytes (%) (Auto) 11, Eosinophils (%) (Auto) 1, Basophils (%) (Auto) 1, Neutrophils # (Auto) 13.8H, Lymphocytes # (Auto) 1.7, Monocytes # (Auto) 2.0H, Eosinophils # (Auto) 0.2, Basophils # (Auto) 0.1, Immature Granulocyte # (Auto) 1.6H, Sodium Level 137, Potassium Level 3.7, Chloride Level 107, Carbon Dioxide Level 20L, Anion Gap 10, Blood Urea Nitrogen 14, Creatinine 0.78, Estimat Glomerular Filtration Rate 80, BUN/Creatinine Ratio 18, Glucose Level 109H, Calcium Level 8.3L, Corrected Calcium 9.8, Magnesium Level 1.7, Total Bilirubin 0.4, Aspartate Amino Transf (AST/SGOT) 18, Alanine Aminotransferase (ALT/SGPT) 20, Alkaline Phosphatase 114, Total Protein 4.6L, Albumin 2.1L 06/12/22 03:05: Blood Gas Puncture Site L RAD, Blood Gas Patient Temperature 37.1, Arterial Blood pH 7.45H, Arterial Blood Partial Pressure CO2 33L, Arterial Blood Partial Pressure O2 65L, Arterial Blood HCO3 22L, Arterial Blood Total CO2 23.3, Arterial Blood Oxygen Saturation 93L, Arterial Blood Base Excess -1.2, Jose L Test YES-POS, Blood Gas Ventilator Setting NO, Blood Gas Inspired Oxygen 40% Microbiology 06/09/22 Gram Stain - Final, Resulted 06/09/22 Anaerobic Culture - Preliminary, Resulted No anaerobes isolated 06/09/22 Body Fluid Culture - Preliminary, Resulted No growth 06/07/22 MRSA Screen - Final, Complete MRSA not isolated 06/07/22 Urine Culture - Final, Complete NO GROWTH 06/07/22 Blood Culture - Final, Complete Streptococcus pyogenes Grp A Pending Labs Microbiology Date/Time Source Procedure Growth Status 06/09/22 18:15 Pleural Fluid Gram Stain - Final Resulted 06/09/22 18:15 Pleural Fluid Anaerobic Culture - Preliminary No anaerobes isolated Resulted 06/09/22 18:15 Pleural Fluid Body Fluid Culture - Preliminary No growth Resulted 06/07/22 13:25 Nasal MRSA Screen - Final MRSA not isolated Complete 06/07/22 11:50 Urine Dominguez Cath Urine Culture - Final NO GROWTH Complete 06/07/22 09:20 Peripheral Lt Ac Blood Culture - Final Streptococcus pyogenes Grp A Complete 06/07/22 08:40 Peripheral Lt Hand Blood Culture - Preliminary No growth Resulted Laboratory Tests 06/07/22 08:40: White Blood Count 4.9, Red Blood Count 4.29, Hemoglobin 13.1, Hematocrit 39, Mean Corpuscular Volume 92, Mean Corpuscular Hemoglobin 31, Mean Corpuscular Hemoglobin Concent 33, Red Cell Distribution Width 13.4, Platelet Count 209, Mean Platelet Volume 10.3, Immature Granulocyte % (Auto) 0, Neutrophils (%) (Auto) 84, Lymphocytes (%) (Auto) 12, Monocytes (%) (Auto) 3, Eosinophils (%) (Auto) 1, Basophils (%) (Auto) 1, Neutrophils # (Auto) 4.1, Lymphocytes # (Auto) 0.6, Monocytes # (Auto) 0.2, Eosinophils # (Auto) 0.0, Basophils # (Auto) 0.0, Immature Granulocyte # (Auto) 0.0, Neutrophils % (Manual) 29, Lymphocytes % (Manual) 7, Monocytes % (Manual) 2, Metamyelocytes % 5, Myelocytes % 3, Band Neutrophils 54, Prothrombin Time 13.9, INR Comment 1.0, Activated Partial Thromboplast Time 36, Sodium Level 137, Potassium Level 3.7, Chloride Level 103, Carbon Dioxide Level 20, Anion Gap 14, Blood Urea Nitrogen 35, Creatinine 1.89, Estimat Glomerular Filtration Rate 28, BUN/Creatinine Ratio 19, Glucose Level 92, Calcium Level 8.8, Corrected Calcium 9.4, Total Bilirubin 0.4, Aspartate Amino Transf (AST/SGOT) 45, Alanine Aminotransferase (ALT/SGPT) 38, Alkaline Phosphatase 102, Total Protein 5.9, Albumin 3.2, Smear Scan YES 06/07/22 08:55: Influenza Type A (RT-PCR) Not Detected, Influenza Type B (RT-PCR) Not Detected, SARS-CoV-2 RNA (RT-PCR) Not Detected 06/07/22 09:20: Lactic Acid Level 2.17 06/07/22 10:08: Lab Scanned Report Referred Lab Report 06/07/22 11:20: Lactic Acid Level 3.55 06/07/22 11:30: Blood Gas Puncture Site RR, Blood Gas Patient Temperature 37.4, Arterial Blood pH 7.43, Arterial Blood Partial Pressure CO2 34, Arterial Blood Partial Pressure O2 79, Arterial Blood HCO3 22, Arterial Blood Total CO2 22.7, Arterial Blood Oxygen Saturation 94, Arterial Blood Base Excess -2.0, Jose L Test YES-POS, Blood Gas Ventilator Setting NO, Blood Gas Inspired Oxygen RA 06/07/22 11:50: Urine Color ORANGE, Urine Clarity SL CLOUDY, Urine pH 6.0, Urine Specific [place] 1.020, Urine Protein 2+, Urine Glucose (UA) NEGATIVE, Urine Ketones NEGATIVE, Urine Nitrite POSITIVE, Urine Bilirubin NEGATIVE, Urine Urobilinogen 2.0, Urine Leukocyte Esterase TRACE, Urine RBC (Auto) NEGATIVE, Urine RBC NONE, Urine WBC 5-10, Urine Crystals NONE, Urine Bacteria MODERATE, Urine Casts PRESENT, Urine Granular Casts 5-10, Urine White Blood Cell Casts 2-5, Urine Mucus NEGATIVE, Urine Other FEW TRANS EPI CELLS, Urine Culture Indicated CULTURE PENDING 06/07/22 14:38: Lactic Acid Level 1.56 06/08/22 03:45: White Blood Count 9.6, Red Blood Count 3.75, Hemoglobin 11.3, Hematocrit 35, Mean Corpuscular Volume 93, Mean Corpuscular Hemoglobin 30, Mean Corpuscular Hemoglobin Concent 33, Red Cell Distribution Width 13.8, Platelet Count 199, Mean Platelet Volume 9.8, Immature Granulocyte % (Auto) 1, Neutrophils (%) (Auto) 94, Lymphocytes (%) (Auto) 3, Monocytes (%) (Auto) 2, Eosinophils (%) (Auto) 0, Basophils (%) (Auto) 0, Neutrophils # (Auto) 9.0, Lymphocytes # (Auto) 0.3, Monocytes # (Auto) 0.1, Eosinophils # (Auto) 0.0, Basophils # (Auto) 0.0, Immature Granulocyte # (Auto) 0.1, Sodium Level 133, Potassium Level 3.4, Chloride Level 106, Carbon Dioxide Level 15, Anion Gap 12, Blood Urea Nitrogen 37, Creatinine 1.52, Estimat Glomerular Filtration Rate 36, BUN/Creatinine Ratio 24, Glucose Level 103, Calcium Level 7.5, Corrected Calcium 8.7, Magnesium Level 1.8, Total Bilirubin 0.4, Aspartate Amino Transf (AST/SGOT) 31, Alanine Aminotra nsferase (ALT/SGPT) 30, Alkaline Phosphatase 82, Total Protein 4.9, Albumin 2.5 06/08/22 07:45: Blood Gas Puncture Site L RADIAL, Blood Gas Patient Temperature 37.8, Arterial Blood pH 7.29, Arterial Blood Partial Pressure CO2 34, Arterial Blood Partial Pressure O2 72, Arterial Blood HCO3 16, Arterial Blood Total CO2 16.5, Arterial Blood Oxygen Saturation 91, Arterial Blood Base Excess -9.7, Jose L Test NA, Blood Gas Ventilator Setting NO, Blood Gas Inspired Oxygen 100 06/09/22 03:55: White Blood Count 14.6, Red Blood Count 3.66, Hemoglobin 10.9, Hematocrit 33, Mean Corpuscular Volume 90, Mean Corpuscular Hemoglobin 30, Mean Corpuscular Hemoglobin Concent 33, Red Cell Distribution Width 14.0, Platelet Count 179, Mean Platelet Volume 10.0, Immature Granulocyte % (Auto) 4, Neutrophils (%) (Auto) 89, Lymphocytes (%) (Auto) 4, Monocytes (%) (Auto) 2, Eosinophils (%) (Auto) 1, Basophils (%) (Auto) 0, Neutrophils # (Auto) 13.0, Lymphocytes # (Auto) 0.5, Monocytes # (Auto) 0.3, Eosinophils # (Auto) 0.2, Basophils # (Auto) 0.0, Immature Granulocyte # (Auto) 0.6, Sodium Level 132, Potassium Level 3.9, Chloride Level 106, Carbon Dioxide Level 16, Anion Gap 10, Blood Urea Nitrogen 41, Creatinine 1.56, Estimat Glomerular Filtration Rate 35, BUN/Creatinine Ratio 26, Glucose Level 87, Calcium Level 8.4, Corrected Calcium 9.7, Magnesium Level 2.3, Total Bilirubin 0.5, Aspartate Amino Transf (AST/SGOT) 24, Alanine Aminotransferase (ALT/SGPT) 25, Alkaline Phosphatase 109, Total Protein 5.0, Albumin 2.4, Neutrophils % (Manual) 68, Lymphocytes % (Manual) 1, Monocytes % (Manual) 2, Metamyelocytes % 1, Band Neutrophils 28, Toxic Granulation 2+, Blood Morphology Comment NORMAL 06/09/22 06:05: Blood Gas Puncture Site R RADIAL, Blood Gas Patient Temperature 36.6, Arterial Blood pH 7.35, Arterial Blood Partial Pressure CO2 35, Arterial Blood Partial Pressure O2 95, Arterial Blood HCO3 19, Arterial Blood Total CO2 19.8, Arterial Blood Oxygen Saturation 96, Arterial Blood Base Excess -6.0, Jose L Test , Blood Gas Ventilator Setting NO, Blood Gas Inspired Oxygen 80% 06/09/22 17:45: Body Fluid pH 7.08 06/09/22 18:15: Body Fluid Source PLEURAL, Body Fluid Color YELLOW, Body Fluid Appearance SLT CLDY, Body Fluid WBC 8.441, Body Fluid RBC 0.003, Body Fl Polynuclear WBCs (%)(Auto) 84.1, Body Fluid Mononuclear Cells % Auto 15.9, Body Fluid Slide Review Yes, Body Fluid Glucose 22, Body Fluid Total Protein 2.5 06/10/22 04:30: Blood Gas Puncture Site LR, Blood Gas Patient Temperature 36.0, Arterial Blood pH 7.37, Arterial Blood Partial Pressure CO2 33, Arterial Blood Partial Pressure O2 71, Arterial Blood HCO3 19, Arterial Blood Total CO2 19.9, Arterial Blood Oxygen Saturation 94, Arterial Blood Base Excess -5.7, Jose L Test YES-POS, Blood Gas Ventilator Setting NO, Blood Gas Inspired Oxygen 40% 06/10/22 07:31: White Blood Count 16.8, Red Blood Count 3.70, Hemoglobin 11.2, Hematocrit 34, Mean Corpuscular Volume 91, Mean Corpuscular Hemoglobin 30, Mean Corpuscular Hemoglobin Concent 33, Red Cell Distribution Width 14.6, Platelet Count 135, Mean Platelet Volume 9.9, Immature Granulocyte % (Auto) 4, Neutrophils (%) (Auto) 79, Lymphocytes (%) (Auto) 8, Monocytes (%) (Auto) 6, Eosinophils (%) (Auto) 2, Basophils (%) (Auto) 1, Neutrophils # (Auto) 13.4, Lymphocytes # (Auto) 1.3, Monocytes # (Auto) 1.0, Eosinophils # (Auto) 0.3, Basophils # (Auto) 0.1, Immature Granulocyte # (Auto) 0.7, Sodium Level 136, Potassium Level 4.1, Chloride Level 109, Carbon Dioxide Level 16, Anion Gap 11, Blood Urea Nitrogen 28, Creatinine 1.15, Estimat Glomerular Filtration Rate 50, BUN/Creatinine Ratio 24, Glucose Level 72, Calcium Level 8.8, Corrected Calcium 10.0, Total Bilirubin 0.5, Aspartate Amino Transf (AST/SGOT) 17, Alanine Aminotransferase (ALT/SGPT) 22, Alkaline Phosphatase 112, Total Protein 5.1, Albumin 2.5 06/11/22 04:55: White Blood Count 18.2, Red Blood Count 3.46, Hemoglobin 10.5, Hematocrit 31, Mean Corpuscular Volume 88, Mean Corpuscular Hemoglobin 30, Mean Corpuscular Hemoglobin Concent 34, Red Cell Distribution Width 14.8, Platelet Count 157, Mean Platelet Volume 9.8, Immature Granulocyte % (Auto) 7, Neutrophils (%) (Auto) 73, Lymphocytes (%) (Auto) 8, Monocytes (%) (Auto) 10, Eosinophils (%) (Auto) 2, Basophils (%) (Auto) 1, Neutrophils # (Auto) 13.2, Lymphocytes # (Auto) 1.5, Monocytes # (Auto) 1.8, Eosinophils # (Auto) 0.4, Basophils # (Auto) 0.1, Immature Granulocyte # (Auto) 1.2, Sodium Level 137, Potassium Level 3.7, Chloride Level 109, Carbon Dioxide Level 19, Anion Gap 9, Blood Urea Nitrogen 18, Creatinine 0.94, Estimat Glomerular Filtration Rate 64, BUN/Creatinine Ratio 19, Glucose Level 95, Calcium Level 8.8, Corrected Calcium 10.3, Magnesium Level 1.4, Total Bilirubin 0.5, Aspartate Amino Transf (AST/SGOT) 19, Alanine Aminotransferase (ALT/SGPT) 20, Alkaline Phosphatase 118, Total Protein 4.8, Albumin 2.1 06/11/22 11:50: Bedside Blood Gas pH (LAB) 7.399, Bedside Blood Gas pCO2 (LAB) 32.4, Bedside Blood Gas pO2 (LAB) 66, Bedside Blood Gas HCO3 (LAB) 20.0, POC Blood Gas Total CO2 Calc 21, Bedside Bl Gas O2 Saturation (Calc) 93, Bedside Arterial Blood Base Excess -5 06/12/22 02:53: White Blood Count 19.4, Red Blood Count 3.47, Hemoglobin 10.4, Hematocrit 30, Mean Corpuscular Volume 87, Mean Corpuscular Hemoglobin 30, Mean Corpuscular Hemoglobin Concent 34, Red Cell Distribution Width 14.8, Platelet Count 190, Mean Platelet Volume 9.6, Immature Granulocyte % (Auto) 8, Neutrophils (%) (Auto) 71, Lymphocytes (%) (Auto) 9, Monocytes (%) (Auto) 11, Eosinophils (%) (Auto) 1, Basophils (%) (Auto) 1, Neutrophils # (Auto) 13.8, Lymphocytes # (Auto) 1.7, Monocytes # (Auto) 2.0, Eosinophils # (Auto) 0.2, Basophils # (Auto) 0.1, Immature Granulocyte # (Auto) 1.6, Sodium Level 137, Potassium Level 3.7, Chloride Level 107, Carbon Dioxide Level 20, Anion Gap 10, Blood Urea Nitrogen 14, Creatinine 0.78, Estimat Glomerular Filtration Rate 80, BUN/Creatinine Ratio 18, Glucose Level 109, Calcium Level 8.3, Corrected Calcium 9.8, Magnesium Level 1.7, Total Bilirubin 0.4, Aspartate Amino Transf (AST/SGOT) 18, Alanine A minotransferase (ALT/SGPT) 20, Alkaline Phosphatase 114, Total Protein 4.6, Albumin 2.1 06/12/22 03:05: Blood Gas Puncture Site L RAD, Blood Gas Patient Temperature 37.1, Arterial Blood pH 7.45, Arterial Blood Partial Pressure CO2 33, Arterial Blood Partial Pressure O2 65, Arterial Blood HCO3 22, Arterial Blood Total CO2 23.3, Arterial Blood Oxygen Saturation 93, Arterial Blood Base Excess -1.2, Jose L Test YES-POS, Blood Gas Ventilator Setting NO, Blood Gas Inspired Oxygen 40% Discharge Home Medications: Active Scripts Active Reported Fish Oil 1,200 mg Fish Oil (Fish Oil/Dha/Epa) 1,200 Mg-144 Mg-216 Mg Capsule 1 Each PO HS Melatonin 10 Mg Tablet 10 Mg PO HS PRN Cranberry (Cranberry Fruit) 500 Mg Tab.chew 500 Mg PO DAILY Coq-10 (Ubidecarenone) 100 Mg Capsule 100 Mg PO DAILY Loratadine 10 Mg Tablet 10 Mg PO DAILY Diltiazem 24Hr ER (Diltiazem HCl) 240 Mg Cap.er.24h 240 Mg PO DAILY Magnesium Oxide 250 Mg Tablet 500 Mg PO BID TAKES 2 (250MG) TABS Levothyroxine Sodium 75 Mcg Tablet 75 Mcg PO DAILY Hydrochlorothiazide 25 Mg Tablet 25 Mg PO DAILY Amitriptyline HCl 100 Mg Tablet 100 Mg PO HS Simvastatin 20 Mg Tablet 20 Mg PO HS Oxybutynin Chloride ER (Oxybutynin Chloride) 10 Mg Tab.er.24 10 Mg PO DAILY Turmeric (Turmeric Root Extract) 500 Mg Tablet 500 Mg PO DAILY Iron (Ferrous Sulfate) 325 Mg (65 Mg Iron) Tablet 325 Mg PO DAILY Aleve (Naproxen Sodium) 220 Mg Tablet 440 Mg PO DAILY TAKES 2 (220MG) TABS Pantoprazole Sodium 40 Mg Tablet.dr 40 Mg PO DAILY Multi-Vitamin Daily (Multivitamin) 1 Each Tablet 1 Each PO DAILY Cranberry (Cranberry Extract) 500 Mg Tablet 1,000 Mg PO HS TAKES 2 (500MG) TABS Calcium (Calcium Carbonate) 500 Mg Calcium (1250 Mg) Tablet 1,000 Mg PO DAILY TAKES 2 (500MG) TABS Instructions to patient/family Please see electronic discharge instructions given to patient. RIAZ COTTER DO Jun 12, 2022 11:40
--- NOTE | 2022-06-12 11:56 | Progress Note ---
"Subjective Date Seen by a Provider: Jun 12, 2022 Time Seen by a Provider: 11:00 Subjective/Events-last exam Much improved status Moving to [facility] Vapotherm at 20/ Labs reviewed No pain reported Abx maintained ARU tomorrow Review of Systems General: Fatigue, Malaise Pulmonary: Dyspnea, Cough Focused Exam Time of Focused Exam: 10:00 Objective Exam Last Set of Vital Signs Vital Signs Date Time Temp Pulse Resp B/P (MAP) Pulse Ox O2 Delivery O2 Flow Rate FiO2 06/12/22 11:50 36.4 06/12/22 11:00 105 29 128/82 (94) 93 Vapotherm 20.00 40.00 06/12/22 10:06 30 Capillary Refill : Less Than 3 Seconds I&O Intake and Output 06/12/22 00:00 Intake Total 1406 ml Output Total 1425 ml Balance -19 ml Intake Oral 1356 ml IV Total 50 ml Output Urine Total 1425 ml General: Alert, Oriented X3, Cooperative, No Acute Distress, Other (improved) Lungs: Clear to Auscultation, Other (diminished right sided) Neuro: Normal Gait, Normal Speech, Strength at 5/5 X4 Ext Psych/Mental Status: Mental Status NL Results Lab Laboratory Tests 06/12/22 02:53: White Blood Count 19.4H, Red Blood Count 3.47L, Hemoglobin 10.4L, Hematocrit 30L , Mean Corpuscular Volume 87, Mean Corpuscular Hemoglobin 30, Mean Corpuscular Hemoglobin Concent 34, Red Cell Distribution Width 14.8H, Platelet Count 190, Mean Platelet Volume 9.6, Immature Granulocyte % (Auto) 8, Neutrophils (%) (Auto) 71, Lymphocytes (%) (Auto) 9L, Monocytes (%) (Auto) 11, Eosinophils (%) (Auto) 1, Basophils (%) (Auto) 1, Neutrophils # (Auto) 13.8H, Lymphocytes # (Auto) 1.7, Monocytes # (Auto) 2.0H, Eosinophils # (Auto) 0.2, Basophils # (Auto) 0.1, Immature Granulocyte # (Auto) 1.6H, Sodium Level 137, Potassium Level 3.7, Chloride Level 107, Carbon Dioxide Level 20L, Anion Gap 10, Blood Urea Nitrogen 14, Creatinine 0.78, Estimat Glomerular Filtration Rate 80, BUN/Creatinine Ratio 18, Glucose Level 109H, Calcium Level 8.3L, Corrected Calcium 9.8, Magnesium Level 1.7, Total Bilirubin 0.4, Aspartate Amino Transf (AST/SGOT) 18, Alanine Aminotransferase (ALT/SGPT) 20, Alkaline Phosphatase 114, Total Protein 4.6L, Albumin 2.1L 06/12/22 03:05: Blood Gas Puncture Site L RAD, Blood Gas Patient Temperature 37.1, Arterial Blood pH 7.45H, Arterial Blood Partial Pressure CO2 33L, Arterial Blood Partial Pressure O2 65L, Arterial Blood HCO3 22L, Arterial Blood Total CO2 23.3, Arterial Blood Oxygen Saturation 93L, Arterial Blood Base Excess -1.2, Jose L Test YES-POS, Blood Gas Ventilator Setting NO, Blood Gas Inspired Oxygen 40% Microbiology 06/09/22 Gram Stain - Final, Resulted 06/09/22 Anaerobic Culture - Preliminary, Resulted No anaerobes isolated 06/09/22 Body Fluid Culture - Preliminary, Resulted No growth 06/07/22 MRSA Screen - Final, Complete MRSA not isolated 06/07/22 Urine Culture - Final, Complete NO GROWTH 06/07/22 Blood Culture - Final, Complete Streptococcus pyogenes Grp A Assessment/Plan Assessment/Plan Assess & Plan/Chief Complaint Acute Hypoxic Respiratory Failure Sepsis severe type RLL Pneumonia - Yesterday patient had a CT scan that showed Right-Sided pleural effusion along with RML, RLL, and LLL consolidation with mucus plugging. - Patient underwent thoracentesis yesterday of 600cc. Sent for cytology. Repeat CXR showed initial improvement. However, repeat today showed accumulation of effusion again. Will talk with Surgery team about repeat thoracentesis vs chest tube placement. - Patient will need close follow-up on this to prevent development of large empyema - Subjectively patient appears to be improved today. Will continue to monitor improvement and wean oxygen as safely tolerated. - Lactic acid 2.17 on admission. 3.55 at worse. 1.56 at last check. - Leukocytosis 16.8 today. (14.6 yesterday) Continue to monitor. - ABG stable in comparison to yesterday (7.37|33|71|19 HCO3-) - BiPAP settings 12/8, 12, 30%. Improvement from yesterday. Intermittent Vapotherm at 25LPM, 80%. - Albuterol and Ipratropium for breathing treatments. - Continue Cefepime and Doxycycline Sinus Tachycardia - 1/2 home dose Diltiazem for rate control started on 06/10. Will assess response and make appropriate changes as needed. Elevated creatinine vs FRAN -Creatinine back to baseline at this time, continue to monitor. HTN - Patients pressures have been labile. Currently holding home meds. Hypothyroidism -Will resume home levothyroxine HLD -Will resume home simvastatin Depression - Home amitriptyline restarted. GI prophylaxis - PPI DVT prophylaxis - heparin Clinical Quality Measures Admission Status Admission Dx Assessment: Severe sepsis s/p protocol IVF Acute hypoxic respiratory failure high risk for intubation FRAN Solo kidney Severe PNA Breast cancer hx RIAZ COTTER DO Jun 12, 2022 11:56"
[2022-06-12] MEDS: AMITRIPTYLINE 25 MG (ELAVIL) TAB PO SCH (20:40)
[2022-06-13] VITALS (8 sets, daily range): BP systolic 106–131; BP diastolic 59–84
[2022-06-13] MEDS: AMPICILLIN IV SCH ×10 (00:46→23:22)
[2022-06-13] MEDS: SODIUM CHLORIDE IV SCH ×10 (00:46→23:22)
[2022-06-13] MEDS: RT-ALBUTEROL SULF 2.5 MG/3 ML PRE-MIX VIAL INH SCH ×4 (02:15→21:12)
[2022-06-13] MEDS: RT-IPRATROPIUM (ATROVENT) 0.5MG/2.5ML AMP IH SCH ×4 (02:15→21:12)
[2022-06-13] MEDS: CLINDAMYCIN 600 MG/50 ML IVPB 50 ML IV SCH ×3 (05:31→21:17)
[2022-06-13 05:44] LABS: BASOPHILS # (AUTO) 0.1 10^3/uL (0.0-0.1); BASOPHILS % (AUTO) 0 % (0-10); EOSINOPHILS # (AUTO) 0.1 10^3/uL (0.0-0.3); EOSINOPHILS % (AUTO) 1 % (0-10); HEMATOCRIT 27 % (35-52); HEMOGLOBIN 9.4 g/dL (11.5-16.0); LYMPHOCYTES # (AUTO) 1.8 10^3/uL (1.0-4.0); LYMPHOCYTES % (AUTO) 8 % (12-44); MEAN CORPUSCULAR HEMOGLOBIN 30 pg (25-34); MEAN CORPUSCULAR HGB CONC 34 g/dL (32-36); MEAN CORPUSCULAR VOLUME 88 fL (80-99); MEAN PLATELET VOLUME 9.6 fL (9.0-12.2); MONOCYTES # (AUTO) 1.6 10^3/uL (0.0-1.0); MONOCYTES % (AUTO) 7 % (0-12); NEUTROPHILS # (AUTO) 17.3 10^3/uL (1.8-7.8); NEUTROPHILS % (AUTO) 78 % (42-75); PLATELET COUNT 211 10^3/uL (130-400); WHITE BLOOD COUNT 22.3 10^3/uL (4.3-11.0)
[2022-06-13 05:54] LABS: POTASSIUM 3.6 MMOL/L (3.6-5.0)
[2022-06-13 05:55] LABS: CALCIUM 8.6 MG/DL (8.5-10.1)
[2022-06-13 05:56] LABS: TOTAL PROTEIN 4.8 GM/DL (6.4-8.2)
[2022-06-13 05:58] LABS: BILIRUBIN,TOTAL 0.4 MG/DL (0.1-1.0)
[2022-06-13 06:00] LABS: CREATININE SERUM 0.75 MG/DL (0.60-1.30)
[2022-06-13 06:03] LABS: MAGNESIUM 1.6 MG/DL (1.6-2.4)
[2022-06-13] MEDS: POTASSIUM CL 10MEQ/50ML IVPB 50 ML IV SCH (06:13)
[2022-06-13] MEDS: KCL 20 MEQ TAB (K-DUR) PO SCH (06:13)
[2022-06-13] MEDS: MAGNESIUM 1 GM/100 ML IVPB 100 ML IV SCH ×5 (06:14→11:26)
--- NOTE | 2022-06-13 07:46 | Progress Note - Surgery ---
BROOKLYN BROWN 06/13/22 0746: Subjective Date Seen by a Provider: Jun 13, 2022 Time Seen by a Provider: 07:39 Subjective/Events-last exam Mrs Patricio is seen at bedside this morning resting comfortably. She is still on vapotherm but reports breathing easier today. She reports her R sided chest pain is resolved. Her chest does hurt intermittently when she coughs. Her cough is dry with no mucus production. No fever or chills overnight. She is tolerating her diet with no N/V. Has began to work with physical therapy. Reports that Dr Kennedy is planning to move her to inpatient rehab to complete her recovery. Possibly moving today. Review of Systems General: No Chills, No Night Sweats HEENT: No Head Aches; Sore Throat Pulmonary: Dyspnea (improving), Cough Cardiovascular: Edema (bilateral hands); No: Chest Pain, Palpitations Gastrointestinal: No: Nausea, Vomiting, Abdominal Pain Genitourinary: No Dysuria, No Hematuria Musculoskeletal: No: back pain, hand pain Neurological: Weakness; No: Change in speech, Confusion Focused Exam Time of Focused Exam: 10:00 Objective Exam Vital Signs Date Time Temp Pulse Resp B/P (MAP) Pulse Ox O2 Delivery O2 Flow Rate FiO2 06/13/22 07:25 92 Vapotherm 25.00 40 06/13/22 07:00 100 06/13/22 03:38 37.2 106 18 113/67 (82) 91 Vapotherm 40.00 25.00 06/13/22 02:15 92 Vapotherm 25.00 30 06/13/22 01:18 119 06/13/22 00:15 37.4 107 18 106/59 (75) 90 Vapotherm 40.00 25.00 06/12/22 21:36 90 Vapotherm 25.00 30 06/12/22 20:58 Vapotherm 25.00 40 06/12/22 20:25 37.7 117 20 112/63 (79) 92 Vapotherm 30.00 25.00 06/12/22 19:38 Vapotherm 25.00 40 06/12/22 19:24 117 06/12/22 16:01 92 Vapotherm 25.00 40 06/12/22 15:41 90 Vapotherm 25.00 40 06/12/22 15:37 85 Vapotherm 25.00 30 06/12/22 15:26 37.2 107 108/61 (77) Vapotherm 25.00 30.00 06/12/22 14:45 36.7 90 20 106/63 (77) 87 Vapotherm 25.00 30.00 06/12/22 13:20 92 Vapotherm 25.00 30 06/12/22 13:00 101 06/12/22 12:00 92 Vapotherm 20.00 40 06/12/22 12:00 102 34 121/76 (93) 87 Vapotherm 20.00 40.00 06/12/22 11:50 36.4 06/12/22 11:00 105 29 128/82 (94) 93 Vapotherm 20.00 40.00 06/12/22 10:06 Vapotherm 20.00 30 06/12/22 10:05 96 Vapotherm 20.00 40 06/12/22 10:00 101 21 130/81 (101) 97 Vapotherm 20.00 40.00 06/12/22 09:00 102 29 133/89 (97) 99 Vapotherm 20.00 40.00 06/12/22 08:13 96 Vapotherm 20.00 40 06/12/22 08:00 96 16 109/76 (83) 94 Vapotherm 20.00 40.00 06/12/22 08:00 92 Vapotherm 20.00 40 06/12/22 07:53 37.6 06/12/22 07:52 37.6 I & O 06/13/22 07:00 Intake Total 1415 ml Output Total 1525 ml Balance -110 ml Capillary Refill : Less Than 3 Seconds General Appearance: No Apparent Distress HEENT: PERRL/EOMI; No Scleral Icterus (L), No Scleral Icterus (R) Neck: Non Tender, Supple Respiratory: Chest Non Tender, No Accessory Muscle Use, No Respiratory Distress, Other (coarse sounds on R side improved on vapotherm, worse at base) Cardiovascular: No JVD, Tachycardia Peripheral Pulses: 2+ Radial Pulses (R), 2+ Radial Pulses (L) Gastrointestinal: non tender, soft Extremity: Normal Inspection, Non Tender, Other (edema at both hands up to wrist) Neurologic/Psychiatric: Alert, Oriented x3, Normal Mood/Affect Skin: Warm/Dry, Pallor (color appears improved) Lymphatic: No Adenopathy Results Lab Laboratory Tests 06/13/22 05:37: White Blood Count 22.3H, Red Blood Count 3.10L, Hemoglobin 9.4L, Hematocrit 27L, Mean Corpuscular Volume 88, Mean Corpuscular Hemoglobin 30, Mean Corpuscular Hemoglobin Concent 34, Red Cell Distribution Width 14.8H, Platelet Count 211, Mean Platelet Volume 9.6, Immature Granulocyte % (Auto) 6, Neutrophils (%) (Auto) 78H, Lymphocytes (%) (Auto) 8L, Monocytes (%) (Auto) 7, Eosinophils (%) (Auto) 1, Basophils (%) (Auto) 0, Neutrophils # (Auto) 17.3H, Lymphocytes # (A uto) 1.8, Monocytes # (Auto) 1.6H, Eosinophils # (Auto) 0.1, Basophils # (Auto) 0.1, Immature Granulocyte # (Auto) 1.4H, Sodium Level 136, Potassium Level 3.6, Chloride Level 103, Carbon Dioxide Level 23, Anion Gap 10, Blood Urea Nitrogen 14, Creatinine 0.75, Estimat Glomerular Filtration Rate 84, BUN/Creatinine Ratio 19, Glucose Level 112H, Calcium Level 8.6, Corrected Calcium 10.2H, Magnesium Level 1.6, Total Bilirubin 0.4, Aspartate Amino Transf (AST/SGOT) 25, Alanine Aminotransferase (ALT/SGPT) 17, Alkaline Phosphatase 90, Total Protein 4.8L, Albumin 2.0L Microbiology 06/09/22 Gram Stain - Final, Resulted 06/09/22 Anaerobic Culture - Preliminary, Resulted No anaerobes isolated 06/09/22 Body Fluid Culture - Final, Resulted No growth 06/07/22 MRSA Screen - Final, Complete MRSA not isolated 06/07/22 Urine Culture - Final, Complete NO GROWTH 06/07/22 Blood Culture - Final, Complete Streptococcus pyogenes Grp A Assessment/Plan Assessment/Plan Assessment/Plan Acute on Chronic respiratory failure on Vapotherm Community acquired pneumonia Sepsis R Pleural effusion Sinus tachycardia Confusion- resolved Thoracentesis performed by Dr Garcia on 06/09 draining 600mL of fluid from R chest cavity Switched to lovenox for DVT prophylaxis from heparin Pleural fluid resulted in WBC 8.441, RBC 0.003, glucose 22, protein 2.5 Likely exudative process, consider parapneumonic effusion Pleural fluid cx resulted no growth Anaerobic cx and Gram stain no growth Continue IV abx and nebulized treatments, medicine team adjusted abx yesterday Confusion resolved Off biPAP now on vapotherm 25 L/min 40%FiO2, satting well in the upper 90s, desats with minimal activity Monitor vitals and WBC. Last elevated at 22.3 Continue serial imaging of the chest, Last CXR done 06/13. Pleural effusion remains in RLL and middle lobe. U/S of the chest 06/11 revealed right sided small to moderate pleural effusion. She is clinically improving. Repeat US if she becomes more symptomatic. No repeat thoracentesis or chest tube at this time. Clinical Quality Measures Admission Status Admission Dx Severe Sepsis RLL Pneumonia CXR w consolidation in RLL. SIRS criteria met with lactic acid, tachycardia, RR, and source of infection Cefepime and doxycycline ABG results 7.43 pH, 34CO2, 79 O2 MAT protocol Monitor vital signs and CBC CMP Repeat CXR tomorrow Lactic acidosis 2.17->3.55->1.56 Continue fluids and treating infection Elevated creatinine 1.89 Hx of R nephrectomy Continue IV fluids UTI UA positive for nitrites and leukocyte esterase cx pending fluids and abx HTN Hypothyroidism Home meds held Will restart when appropriate GI prophylaxis - PPI DVT prophylaxis - OSITO Crandall DO 06/13/22 1214: Subjective Subjective/Events-last exam Patient on vapotherm. Breathing better. Using IS some. No chest pain. WBC increasing. Denies n/v fever sweats chills or chest pain. Objective Exam General Appearance: No Apparent Distress HEENT: PERRL/EOMI; No Scleral Icterus (L), No Scleral Icterus (R) Neck: Non Tender, Supple Respiratory: Chest Non Tender, No Accessory Muscle Use, No Respiratory Distress, Other (coarse sounds on R side improved on vapotherm, worse at base) Cardiovascular: No JVD, Tachycardia Gastrointestinal: non tender, soft Extremity: Normal Inspection, Non Tender Neurologic/Psychiatric: Alert, Oriented x3, Normal Mood/Affect Skin: Warm/Dry Lymphatic: No Adenopathy Assessment/Plan Assessment/Plan Assessment/Plan Acute on Chronic respiratory failure on Vapotherm Community acquired pneumonia Sepsis R Pleural effusion Sinus tachycardia Confusion- resolved Thoracentesis performed by Dr Garcia on 06/09 draining 600mL of fluid from R chest cavity Switched to lovenox for DVT prophylaxis from heparin Pleural fluid resulted in WBC 8.441, RBC 0.003, glucose 22, protein 2.5 Likely exudative process, consider parapneumonic effusion Pleural fluid cx resulted no growth Anaerobic cx and Gram stain no growth Continue IV abx and nebulized treatments, medicine team adjusted abx yesterday Confusion resolved Off biPAP now on vapotherm 25 L/min 40%FiO2, satting well in the upper 90s, desats with minimal activity Monitor vitals and WBC. Last elevated at 22.3 Continue serial imaging of the chest, Last CXR done 06/13. Pleural effusion remains in RLL and middle lobe. U/S of the chest 06/11 revealed right sided small to moderate pleural effusion. She is clinically improving. Repeat US tomorrow, may need repeat thoracentesis Supervisory-Addendum Brief Verification & Attestation Participated in pt care: history, MDM, physical Personally performed: exam, history, MDM, supervision of care Care discussed with: Medical Student Procedures: n/a Results interpretation: Verified all documentation Verification and Attestation of Medical Student E/M Service A medical student performed and documented this service in my presence. I reviewed and verified all information documented by the medical student and made modifications to such information, when appropriate. I personally performed the physical exam and medical decision making. Osito Garcia, Jun 13, 2022,12:14 [place]N BROWN Jun 13, 2022 07:46 OSITO GARCIA DO Jun 13, 2022 12:14
[2022-06-13] MEDS: SENNOSIDES 8.6 MG (SENOKOT) TAB PO SCH ×2 (08:02→21:17)
[2022-06-13] MEDS: DOCUSATE SODIUM 100 MG (COLACE) CAP PO SCH ×2 (08:02→21:17)
[2022-06-13] MEDS: LACTOBACILLUS ACIDOPHILUS (PROBIOTIC) CAPSULE PO SCH ×3 (08:02→17:39)
[2022-06-13] MEDS: PANTOPRAZOLE 40 MG (PROTONIX) TAB PO SCH (08:02)
[2022-06-13] MEDS: dilTIAZem120 MG (CARDIZEM CD) CAP PO SCH (08:02)
--- NOTE | 2022-06-13 08:37 | Diagnostic Imaging Report ---
EXAMINATION: Chest radiograph, portable AP view. DATE: 06/13/2022 7:55 AM. INDICATION: 71-year-old female, dyspnea. COMPARISON: June 12, 2022. FINDINGS: There is near complete opacification of the right hemithorax which is unchanged. There is a right-sided PICC line overlying the mid SVC. Heart size and mediastinal contours appear unchanged. There is no identified pneumothorax. There are linear opacities in the left medial lung base. 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 IMPRESSION: 1. Unchanged near complete opacification of the right hemithorax which may reflect pleural effusion, infiltrate, and/or atelectasis. 2. Streaky opacities in the left medial lung base which may relate to atelectasis and/or infiltrate. 3. Stable positioning of the right-sided PICC line. Dictated by: Dictated on workstation # [id number]
[2022-06-13] MEDS ORDERED: KCL 20 MEQ TAB (K-DUR) PO ONE (09:00)
[2022-06-13 09:08] LABS: ABG BASE EXCESS 1.8 MMOL/L (-2.5-2.5); ABG OXYGEN SATURATION 90 % (94-100); ABG PCO2 36 MMHG (35-45); ABG PH 7.47 (7.37-7.43); ABG PO2 58 MMHG (79-93); ABG TCO2 26.4 MMOL/L (21.0-31.0)
[2022-06-13 09:09] LABS: ALLENS TEST YES-POS; INSPIRED O2 40%; PATIENT TEMP 36.8; VENTILATOR NO
[2022-06-13] MEDS: ENOXAPARIN 40 MG/0.4 ML (LOVENOX) SYR SC SCH (10:26)
--- NOTE | 2022-06-13 11:28 | Progress Note ---
"Subjective Date Seen by a Provider: Jun 13, 2022 Time Seen by a Provider: 11:00 Subjective/Events-last exam Stable Vapotherm Right sided USG will be done tomorrow to likely remove fluid again No pain reported Await ARU until tomorrow Review of Systems General: Fatigue, Malaise Pulmonary: Dyspnea Focused Exam Time of Focused Exam: 10:00 Objective Exam Last Set of Vital Signs Vital Signs Date Time Temp Pulse Resp B/P (MAP) Pulse Ox O2 Delivery O2 Flow Rate FiO2 06/13/22 08:43 Vapotherm 25.00 30 06/13/22 08:40 95 06/13/22 08:25 36.8 101 18 131/84 (100) Capillary Refill : Less Than 3 Seconds I&O Intake and Output 06/13/22 00:00 Intake Total 2144.6 ml Output Total 1825 ml Balance 319.6 ml Intake Oral 1565 ml IV Total 579.6 ml Output Urine Total 1825 ml General: Alert, Oriented X3, Cooperative, No Acute Distress, Other (ill) Lungs: Clear to Auscultation, Normal Air Movement, Other (except RLL diminished) Psych/Mental Status: Mental Status NL Results Lab Laboratory Tests 06/13/22 05:37: White Blood Count 22.3H, Red Blood Count 3.10L, Hemoglobin 9.4L, Hematocrit 27L, Mean Corpuscular Volume 88, Mean Corpuscular Hemoglobin 30, Mean Corpuscular Hemoglobin Concent 34, Red Cell Distribution Width 14.8H, Platelet Count 211, Mean Platelet Volume 9.6, Immature Granulocyte % (Auto) 6, Neutrophils (%) (Auto) 78H, Lymphocytes (%) (Auto) 8L, Monocytes (%) (Auto) 7, Eosinophils (%) (Auto) 1, Basophils (%) (Auto) 0, Neutrophils # (Auto) 17.3H, Lymphocytes # (Auto) 1.8, Monocytes # (Auto) 1.6H, Eosinophils # (Auto) 0.1, Basophils # (Auto) 0.1, Immature Granulocyte # (Auto) 1.4H, Sodium Level 136, Potassium Level 3.6, Chloride Level 103, Carbon Dioxide Level 23, Anion Gap 10, Blood Urea Nitrogen 14, Creatinine 0.75, Estimat Glomerular Filtration Rate 84, BUN/Creatinine Ratio 19, Glucose Level 112H, Calcium Level 8.6, Corrected Calcium 10.2H, Magnesium Level 1.6, Total Bilirubin 0.4, Aspartate Amino Transf (AST/SGOT) 25, Alanine Aminotransferase (ALT/SGPT) 17, Alkaline Phosphatase 90, Total Protein 4.8L, Albumin 2.0L 06/13/22 09:02: Blood Gas Puncture Site RIGHT RADIAL, Blood Gas Patient Temperature 36.8, Arterial Blood pH 7.47H, Arterial Blood Partial Pressure CO2 36, Arterial Blood Partial Pressure O2 58L, Arterial Blood HCO3 25, Arterial Blood Total CO2 26.4, Arterial Blood Oxygen Saturation 90L, Arterial Blood Base Excess 1.8, Jose L Test YES-POS, Blood Gas Ventilator Setting NO, Blood Gas Inspired Oxygen 40% Microbiology 06/09/22 Gram Stain - Final, Resulted 06/09/22 Anaerobic Culture - Preliminary, Resulted No anaerobes isolated 06/09/22 Body Fluid Culture - Final, Resulted No growth 06/07/22 MRSA Screen - Final, Complete MRSA not isolated 06/07/22 Urine Culture - Final, Complete NO GROWTH 06/07/22 Blood Culture - Final, Complete Streptococcus pyogenes Grp A Assessment/Plan Assessment/Plan Assess & Plan/Chief Complaint Acute Hypoxic Respiratory Failure Sepsis severe type RLL Pneumonia - Yesterday patient had a CT scan that showed Right-Sided pleural effusion along with RML, RLL, and LLL consolidation with mucus plugging. - Patient underwent thoracentesis yesterday of 600cc. Sent for cytology. Repeat CXR showed initial improvement. However, repeat today showed accumulation of effusion again. Will talk with Surgery team about repeat thoracentesis vs chest tube placement. - Patient will need close follow-up on this to prevent development of large empyema - Subjectively patient appears to be improved today. Will continue to monitor improvement and wean oxygen as safely tolerated. - Lactic acid 2.17 on admission. 3.55 at worse. 1.56 at last check. - Leukocytosis 16.8 today. (14.6 yesterday) Continue to monitor. - ABG stable in comparison to yesterday (7.37|33|71|19 HCO3-) - BiPAP settings 12/8, 12, 30%. Improvement from yesterday. Intermittent Vapotherm at 25LPM, 30%. - Albuterol and Ipratropium for breathing treatments. - Continue Cefepime and Doxycycline Sinus Tachycardia - 1/2 home dose Diltiazem for rate control started on 06/10. Will assess response and make appropriate changes as needed. Elevated creatinine vs FRAN -Creatinine back to baseline at this time, continue to monitor. HTN - Patients pressures have been labile. Currently holding home meds. Hypothyroidism -Will resume home levothyroxine HLD -Will resume home simvastatin Depression - Home amitriptyline restarted. GI prophylaxis - PPI DVT prophylaxis - heparin Clinical Quality Measures Admission Status Admission Dx Assessment: Severe sepsis s/p protocol IVF Acute hypoxic respiratory failure high risk for intubation FRAN Solo kidney Severe PNA Breast cancer hx RIAZ COTTER DO Jun 13, 2022 11:28"
[2022-06-13] MEDS: ALPRAZolam 0.25 MG (XANAX) TAB PO PRN (16:35)
[2022-06-13] MEDS: AMITRIPTYLINE 25 MG (ELAVIL) TAB PO SCH (21:17)
[2022-06-14] MEDS: ALPRAZolam 0.25 MG (XANAX) TAB PO PRN (01:39)
[2022-06-14] MEDS: RT-IPRATROPIUM (ATROVENT) 0.5MG/2.5ML AMP IH SCH ×2 (02:41→09:49)
[2022-06-14] MEDS: RT-ALBUTEROL SULF 2.5 MG/3 ML PRE-MIX VIAL INH SCH ×2 (02:42→09:49)
[2022-06-14 03:19] VITALS: BP 134/77
[2022-06-14] MEDS: CLINDAMYCIN 600 MG/50 ML IVPB 50 ML IV SCH (05:05)
[2022-06-14 05:25] LABS: BASOPHILS # (AUTO) 0.1 10^3/uL (0.0-0.1); BASOPHILS % (AUTO) 0 % (0-10); EOSINOPHILS # (AUTO) 0.1 10^3/uL (0.0-0.3); EOSINOPHILS % (AUTO) 0 % (0-10); HEMATOCRIT 29 % (35-52); HEMOGLOBIN 9.6 g/dL (11.5-16.0); LYMPHOCYTES # (AUTO) 1.7 10^3/uL (1.0-4.0); LYMPHOCYTES % (AUTO) 7 % (12-44); MEAN CORPUSCULAR HEMOGLOBIN 30 pg (25-34); MEAN CORPUSCULAR HGB CONC 34 g/dL (32-36); MEAN CORPUSCULAR VOLUME 89 fL (80-99); MEAN PLATELET VOLUME 9.4 fL (9.0-12.2); MONOCYTES # (AUTO) 1.3 10^3/uL (0.0-1.0); MONOCYTES % (AUTO) 5 % (0-12); NEUTROPHILS # (AUTO) 20.4 10^3/uL (1.8-7.8); NEUTROPHILS % (AUTO) 82 % (42-75); PLATELET COUNT 282 10^3/uL (130-400); WHITE BLOOD COUNT 24.9 10^3/uL (4.3-11.0)
[2022-06-14] MEDS: AMPICILLIN IV SCH ×2 (05:37)
[2022-06-14] MEDS: SODIUM CHLORIDE IV SCH ×2 (05:37)
[2022-06-14 05:42] LABS: BILIRUBIN,TOTAL 0.3 MG/DL (0.1-1.0); CALCIUM 8.8 MG/DL (8.5-10.1); CREATININE SERUM 0.7 MG/DL (0.60-1.30); MAGNESIUM 1.6 MG/DL (1.6-2.4)
[2022-06-14 05:52] LABS: LYMPHOCYTES % (MANUAL) 10 %; MONOCYTES % (MANUAL) 5 %; NEUTROPHILS % (MANUAL) 83 %
[2022-06-14 05:53] LABS: PROLYMPHOCYTE % 2 %; RBC MORPH NORMAL
[2022-06-14] MEDS: POTASSIUM CL 10MEQ/50ML IVPB 50 ML IV SCH (06:02)
[2022-06-14] MEDS: KCL 20 MEQ TAB (K-DUR) PO SCH (06:02)
[2022-06-14] MEDS: MAGNESIUM 1 GM/100 ML IVPB 100 ML IV SCH ×4 (06:03→08:31)
--- NOTE | 2022-06-14 06:44 | Progress Note - Surgery ---
BROOKLYN BROWN 06/14/22 0644: Subjective Date Seen by a Provider: Jun 14, 2022 Time Seen by a Provider: 06:39 Subjective/Events-last exam Belen Patricio was seen at bedside this morning resting comfortably. She reports her breathing feels about the same as yesterday. Now off vapotherm and on 8L by nasal cannula. No issues overnight. No R sided chest pain today. Bilateral hand edema appears improved from yesterday. BM last night. Still tolerating normal diet. Appropriate urine output via catheter. U/S scheduled for this morning. Review of Systems General: No Chills, No Night Sweats HEENT: No Head Aches; Sore Throat Pulmonary: Dyspnea (improving gradually), Cough (dry, improving) Cardiovascular: No: Chest Pain, Palpitations, Lt Headedness Gastrointestinal: No: Nausea, Vomiting, Abdominal Pain Genitourinary: No Dysuria, No Hematuria Musculoskeletal: No: back pain, hand pain (edema slightly improved) Neurological: No: Change in speech, Confusion Focused Exam Time of Focused Exam: 10:00 Objective Exam Vital Signs Date Time Temp Pulse Resp B/P (MAP) Pulse Ox O2 Delivery O2 Flow Rate FiO2 06/14/22 03:19 37.2 111 22 134/77 (96) 93 High Flow N/C 8.00 06/14/22 02:42 94 High Flow N/C 10.00 30 06/14/22 00:40 112 06/13/22 23:32 37.7 113 20 115/74 (88) 91 High Flow N/C 8.00 06/13/22 21:13 93 Vapotherm 10.00 06/13/22 20:00 High Flow N/C 8.00 06/13/22 19:36 37.1 112 18 115/73 (87) 94 High Flow N/C 8.00 06/13/22 19:02 112 06/13/22 15:25 36.7 108 20 123/79 (94) 94 High Flow N/C 8.00 06/13/22 14:53 90 High Flow N/C 5.00 06/13/22 14:40 91 Vapotherm 25.00 30 06/13/22 12:32 108 06/13/22 11:24 36.4 98 18 118/72 (87) 90 Vapotherm 30.00 25.00 06/13/22 08:43 Vapotherm 25.00 30 06/13/22 08:40 95 Vapotherm 25.00 40 06/13/22 08:25 36.8 101 18 131/84 (100) 95 Vapotherm 40.00 25.00 06/13/22 08:00 Vapotherm 25.00 40 06/13/22 07:47 37.2 96 92 40 06/13/22 07:25 92 Vapotherm 25.00 40 06/13/22 07:00 100 I & O 06/14/22 07:00 Intake Total 1130 ml Output Total 1550 ml Balance -420 ml Capillary Refill : Less Than 3 Seconds General Appearance: No Apparent Distress HEENT: PERRL/EOMI; No Scleral Icterus (L), No Scleral Icterus (R) Neck: Non Tender, Supple Respiratory: Chest Non Tender, No Accessory Muscle Use, No Respiratory Distress, Other (coarse sounds on inspiration worse on R) Cardiovascular: No JVD, Normal Peripheral Pulses, Tachycardia Peripheral Pulses: 2+ Radial Pulses (R), 2+ Radial Pulses (L) Gastrointestinal: non tender, soft Extremity: Normal Inspection, Non Tender Neurologic/Psychiatric: Alert, Oriented x3, Normal Mood/Affect Skin: Normal Color (pallor resolved), Warm/Dry Lymphatic: No Adenopathy Results Lab Laboratory Tests 06/13/22 09:02: Blood Gas Puncture Site RIGHT RADIAL, Blood Gas Patient Temperature 36.8, Arterial Blood pH 7.47H, Arterial Blood Partial Pressure CO2 36, Arterial Blood Partial Pressure O2 58L, Arterial Blood HCO3 25, Arterial Blood Total CO2 26.4, Arterial Blood Oxygen Saturation 90L, Arterial Blood Base Excess 1.8, Jose L Test YES-POS, Blood Gas Ventilator Setting NO, Blood Gas Inspired Oxygen 40% 06/14/22 05:16: White Blood Count 24.9H, Red Blood Count 3.22L, Hemoglobin 9.6L, Hematocrit 29L, Mean Corpuscular Volume 89, Mean Corpuscular Hemoglobin 30, Mean Corpuscular Hemoglobin Concent 34, Red Cell Distribution Width 14.8H, Platelet Count 282, Mean Platelet Volume 9.4, Immature Granulocyte % (Auto) 5, Neutrophils (%) (Auto) 82H, Lymphocytes (%) (Auto) 7L, Monocytes (%) (Auto) 5, Eosinophils (%) (Auto) 0, Basophils (%) (Auto) 0, Neutrophils # (Auto) 20.4H, Lymphocytes # (Auto) 1.7, Monocytes # (Auto) 1.3H, Eosinophils # (Auto) 0.1, Basophils # (Auto) 0.1, Immature Granulocyte # (Auto) 1.3H, Neutrophils % (Manual) 83, Lymphocytes % (Manual) 10, Prolymphocyte % 2, Monocytes % (Manual) 5, Blood Morphology Comment NORMAL, Sodium Level 137, Potassium Level 4.0, Chloride Level 104, Carbon Dioxide Level 22, Anion Gap 11, Blood Urea Nitrogen 12, Creatinine 0.70, Estimat Glomerular Filtration Rate 91, BUN/Creatinine Ratio 17, Glucose Level 98, Calcium Level 8.8, Corrected Calcium 10.4H, Magnesium Level 1.6, Total Bilirubin 0.3, Aspartate Amino Transf (AST/SGOT) 18, Alanine Aminotransferase (ALT/SGPT) 18, Alkaline Phosphatase 89, Total Protein 5.0L, Albumin 2.0L Microbiology 06/09/22 Gram Stain - Final, Resulted 06/09/22 Anaerobic Culture - Preliminary, Resulted No anaerobes isolated 06/09/22 Body Fluid Culture - Final, Resulted No growth 06/07/22 MRSA Screen - Final, Complete MRSA not isolated 06/07/22 Urine Culture - Final, Complete NO GROWTH 06/07/22 Blood Culture - Final, Complete Streptococcus pyogenes Grp A Assessment/Plan Assessment/Plan Assessment/Plan Acute on Chronic respiratory failure- now weaned to nasal cannula 8L/min Community acquired pneumonia Sepsis R Pleural effusion Sinus tachycardia Confusion- resolved Thoracentesis performed by Dr Garcia on 06/09 draining 600mL of fluid from R chest cavity Switched to lovenox for DVT prophylaxis from heparin Pleural fluid resulted in WBC 8.441, RBC 0.003, glucose 22, protein 2.5 Likely exudative process, consider parapneumonic effusion Pleural fluid cx resulted no growth Anaerobic cx and Gram stain no growth Continue IV abx and nebulized treatments, medicine team adjusted abx to clindamycin and ampicillin Confusion resolved Now requiring 8L by nasal cannula Monitor vitals and WBC. Last elevated at 24.9 Continue serial imaging of the chest, Last CXR done 06/14. Worsening opacity of R sided chest. U/S of the chest 06/11 revealed right sided small to moderate pleural effusion. She is clinically improving. Repeat U/S scheduled for this morning, will perform thoracentesis if indicated Dr Kennedy is planning inpatient rehab once appropriate Clinical Quality Measures Admission Status Admission Dx Severe Sepsis RLL Pneumonia CXR w consolidation in RLL. SIRS criteria met with lactic acid, tachycardia, RR, and source of infection Cefepime and doxycycline ABG results 7.43 pH, 34CO2, 79 O2 MAT protocol Monitor vital signs and CBC CMP Repeat CXR tomorrow Lactic acidosis 2.17->3.55->1.56 Continue fluids and treating infection Elevated creatinine 1.89 Hx of R nephrectomy Continue IV fluids UTI UA positive for nitrites and leukocyte esterase cx pending fluids and abx HTN Hypothyroidism Home meds held Will restart when appropriate GI prophylaxis - PPI DVT prophylaxis - OSITO Crandall DO 06/14/22 1508: Subjective Subjective/Events-last exam Patient feeling about the same as yesterday. Breathing maybe a little easier. No new complaints. Using IS some. Denies n/v fever sweats chills or chest pain. Objective Exam General Appearance: No Apparent Distress, WD/WN HEENT: PERRL/EOMI, Normal ENT Inspection Neck: Normal Inspection, Non Tender Respiratory: Chest Non Tender, No Accessory Muscle Use, No Respiratory Distress, Other (coarse sounds on inspiration worse on R) Cardiovascular: No JVD, Tachycardia Gastrointestinal: non tender, soft Extremity: Normal Inspection, Non Tender Neurologic/Psychiatric: Alert, Oriented x3, Normal Mood/Affect Skin: Normal Color (pallor resolved), Warm/Dry Lymphatic: No Adenopathy Assessment/Plan Assessment/Plan Assessment/Plan Acute on Chronic respiratory failure- now weaned to nasal cannula 8L/min Community acquired pneumonia Sepsis R Pleural effusion Sinus tachycardia Confusion- resolved Thoracentesis performed by Dr Garcia on 06/09 draining 600mL of fluid from R chest cavity Switched to lovenox for DVT prophylaxis from heparin Pleural fluid resulted in WBC 8.441, RBC 0.003, glucose 22, protein 2.5 Likely exudative process, consider parapneumonic effusion Pleural fluid cx resulted no growth Anaerobic cx and Gram stain no growth Continue IV abx and nebulized treatments, medicine team adjusted abx to clindamycin and ampicillin Confusion resolved Now requiring 8L by nasal cannula Monitor vitals and WBC. Last elevated at 24.9 Continue serial imaging of the chest, Last CXR done 06/14. Worsening opacity of R sided chest. U/S of the chest 06/11 revealed right sided small to moderate pleural effusion. She is clinically improving. Repeat U/S scheduled for this morning, demonstrates a packet of fluid suitable for draining. She and understand risks and benefits of u/s guided right thoracentesis and wishes to proceed. Chest x ray following procedure. Dr Kennedy is planning inpatient rehab once appropriate Supervisory-Addendum Brief Verification & Attestation Participated in pt care: history, MDM, physical Personally performed: exam, history, MDM, supervision of care Care discussed with: Medical Student Procedures: n/a Results interpretation: Verified all documentation Verification and Attestation of Medical Student E/M Service A medical student performed and documented this service in my presence. I reviewed and verified all information documented by the medical student and made modifications to such information, when appropriate. I personally performed the physical exam and medical decision making. Osito Garcia, Jun 14, 2022,15:08 BOROKLYN BROWN Jun 14, 2022 06:44 OSITO GARCIA DO Jun 14, 2022 15:08
[2022-06-14 07:21] VITALS: BP 119/72
--- NOTE | 2022-06-14 07:25 | Diagnostic Imaging Report ---
INDICATION: Dyspnea AP view of the chest is obtained with comparison made to study of one day earlier. Extensive right hemithoracic opacification is again noted. Again this is likely related to airspace disease and associated pleural fluid. Central edema and/or pneumonitis is again noted on the left. There is no evidence of pneumothorax. Right upper extremity PICC reaches the lower superior vena cava. IMPRESSION: Extensive opacification of right lung with associated probable pleural fluid. There is also increasing edema and/or pneumonitis in the left perihilar region and clinical correlation would be useful. Dictated by: Dictated on workstation # [id number]
[2022-06-14] MEDS: dilTIAZem120 MG (CARDIZEM CD) CAP PO SCH (08:30)
[2022-06-14] MEDS: LACTOBACILLUS ACIDOPHILUS (PROBIOTIC) CAPSULE PO SCH (08:30)
[2022-06-14] MEDS: PANTOPRAZOLE 40 MG (PROTONIX) TAB PO SCH (08:30)
[2022-06-14] MEDS: SENNOSIDES 8.6 MG (SENOKOT) TAB PO SCH (08:31)
[2022-06-14] MEDS: DOCUSATE SODIUM 100 MG (COLACE) CAP PO SCH (08:31)
--- NOTE | 2022-06-14 09:22 | Diagnostic Imaging Report ---
CHEST 1 VIEW, AP/PA ONLY Indication: Immediate imaging following right-sided thoracentesis. Comparison: 06/14/2022 at 4:30 AM Findings: Improved aeration throughout the right lung. Decreased size of right pleural effusion. Bibasilar pulmonary consolidations persist. Stable right PICC. No pneumothorax. Normal heart size. Impression: 1. No pneumothorax. 2. Decreased size right pleural effusion postthoracentesis. Dictated by: Dictated on workstation # [id number]
--- NOTE | 2022-06-14 09:36 | Discharge Summary ---
"Diagnosis/Chief Complaint Date of Admission Jun 07, 2022 at 10:08 Date of Discharge Discharge Date: Jun 14, 2022 Discharge Diagnosis Acute Hypoxic Respiratory Failure Sepsis severe type RLL Pneumonia - Yesterday patient had a CT scan that showed Right-Sided pleural effusion along with RML, RLL, and LLL consolidation with mucus plugging. - Patient underwent thoracentesis yesterday of 600cc. Sent for cytology. Repeat CXR showed initial improvement. However, repeat today showed accumulation of effusion again. Will talk with Surgery team about repeat thoracentesis vs chest tube placement. - Patient will need close follow-up on this to prevent development of large empyema - Subjectively patient appears to be improved today. Will continue to monitor improvement and wean oxygen as safely tolerated. - Lactic acid 2.17 on admission. 3.55 at worse. 1.56 at last check. - Leukocytosis 16.8 today. (14.6 yesterday) Continue to monitor. - ABG stable in comparison to yesterday (7.37|33|71|19 HCO3-) - BiPAP settings 12/8, 12, 30%. Improvement from yesterday. Intermittent Vapotherm at 25LPM, 30%. - Albuterol and Ipratropium for breathing treatments. - Continue Cefepime and Doxycycline Sinus Tachycardia - 1/2 home dose Diltiazem for rate control started on 06/10. Will assess response and make appropriate changes as needed. Elevated creatinine vs FRAN -Creatinine back to baseline at this time, continue to monitor. HTN - Patients pressures have been labile. Currently holding home meds. Hypothyroidism -Will resume home levothyroxine HLD -Will resume home simvastatin Depression - Home amitriptyline restarted. GI prophylaxis - PPI DVT prophylaxis - heparin Reason Hospital Visit Discharge Summary Discharge Physical Examination Allergies: Coded Allergies: No Known Drug Allergies (Unverified , 06/07/22) Vitals & I&Os Vital Signs Date Time Temp Pulse Resp B/P (MAP) Pulse Ox O2 Delivery O2 Flow Rate FiO2 06/14/22 09:49 95 High Flow N/C 10.00 06/14/22 07:37 106 06/14/22 07:21 36.4 18 119/72 (88) 06/14/22 02:42 30 General Appearance: Alert, Oriented X3, Cooperative Respiratory: Clear to Auscultation Psych/Mental Status: Mental Status NL Hospital Course Was the Problem List Reviewed?: Yes 71 year old female who presented to [facility] ER on 06/07 with a chief complaint of cough, right chest pain and SOB. Patient was found to have lactic acidosis (2.17, repeat 3.55), tachycardia, and a CXR showing RLL pneumonia. Patient was admitted with AHRF, RLL PNA, and Sepsis. Patient was also noted to have a UTI and a creatinine of 1.89. Patient was started on cefepime and doxycycline, breathing treatments, and BiPAP (12/8, 12, 80%). On 06/08 patient's BC grew out Group A Strep. On 06/[address] chest that showed 1. Right middle, right lower and left lower lobe consolidation with areas of mucus plugging in keeping with pneumonia. 2. [id number] right pleural effusions with pleural fluid loculated in the fissures. General surgery was consulted and performed a thoracentesis, draining 600cc of straw colored fluid. Repeat CXR did show improvement. On 06/10 CXR showed, 1. Large right lower lobe consolidation and right middle lobe consolidation with underlying large right pleural effusion similar to the previous study. 2. Central venous congestion shows slight improvement. There is also slight improvement in aeration left lung however this may be due to differences in technique. 3. Stable right sided PICC line. Patient's Cr had returned to <1. Patient was able to tolerate Vapotherm 25, 80% alternating with BiPAP. On 06/11, patient's cytology from thoracentesis was negative. Patient's vapotherm was decreased to 25, 40%. Patient's previously downward trending WBC jumped to 18.2 from 16.8. Patient had finished a cefepime and doxycyline regimen. Decision was made to start patient on Clindamycin and Ampicillin, which was shown to be sensitive on initial blood cultures. Patient underwent CXR and Chest US which showed stable vs increasing in sized pleural effusions. General Surgery was consulted, but because patient's respiratory status was improving, decision was made to wait on repeat thoracentesis or chest tube placement. On 06/12 and 06/13 patient's oxygen requirements continued to imp rove. Patient was down to 25, 30% by Tuesday Night. On 06/14 patient's CXR showed Extensive opacification of right lung with associated probable pleural fluid. There is also increasing edema and/or pneumonitis in the left perihilar region and clinical correlation would be useful. Decision was made to repeat thoracentesis with 300cc of straw colored fluid being drawn off. Repeat CXR showed: 1. No pneumothorax. 2. Decreased size right pleural effusion postthoracentesis. Patient had continued to improve and the decision was made to transfer the patient to inpatient rehab facility at [facility] in [place]. Patient will finish scheduled Abx and treatment there and begin the rehabilitation process. AKILAH AMANDA Labs (last 24 hrs) Laboratory Tests 06/07/22 08:40: White Blood Count 4.9, Red Blood Count 4.29, Hemoglobin 13.1, Hematocrit 39, Mean Corpuscular Volume 92, Mean Corpuscular Hemoglobin 31, Mean Corpuscular Hemoglobin Concent 33, Red Cell Distribution Width 13.4, Platelet Count 209, Mean Platelet Volume 10.3, Immature Granulocyte % (Auto) 0, Neutrophils (%) (Auto) 84H, Lymphocytes (%) (Auto) 12, Monocytes (%) (Auto) 3, Eosinophils (%) (Auto) 1, Basophils (%) (Auto) 1, Neutrophils # (Auto) 4.1, Lymphocytes # (Auto) 0.6L, Monocytes # (Auto) 0.2, Eosinophils # (Auto) 0.0, Basophils # (Auto) 0.0, Immature Granulocyte # (Auto) 0.0, Neutrophils % (Manual) 29, Lymphocytes % (Manual) 7, Monocytes % (Manual) 2, Metamyelocytes % 5, Myelocytes % 3, Band Neutrophils 54, Prothrombin Time 13.9, INR Comment 1.0, Activated Partial Thromboplast Time 36H, Sodium Level 137, Potassium Level 3.7, Chloride Level 103, Carbon Dioxide Level 20L, Anion Gap 14, Blood Urea Nitrogen 35H, Creatinine 1.89H, Estimat Glomerular Filtration Rate 28, BUN/Creatinine Ratio 19, Glucose Level 92, Calcium Level 8.8, Corrected Calcium 9.4, Total Bilirubin 0.4, Aspartate Amino Transf (AST/SGOT) 45H, Alanine Aminotransferase (ALT/SGPT) 38, Alkaline Phosphatase 102, Total Protein 5.9L, Albumin 3.2, Smear Scan YES 06/07/22 08:55: Influenza Type A (RT-PCR) Not Detected, Influenza Type B (RT-PCR) Not Detected, SARS-CoV-2 RNA (RT-PCR) Not Detected 06/07/22 09:20: Lactic Acid Level 2.17*H 06/07/22 10:08: Lab Scanned Report Referred Lab Report 06/07/22 11:20: Lactic Acid Level 3.55*H 06/07/22 11:30: Blood Gas Puncture Site RR, Blood Gas Patient Temperature 37.4, Arterial Blood pH 7.43, Arterial Blood Partial Pressure CO2 34L, Arterial Blood Partial Pressure O2 79, Arterial Blood HCO3 22L, Arterial Blood Total CO2 22.7, Arterial Blood Oxygen Saturation 94, Arterial Blood Base Excess -2.0, Jose L Test YES-POS, Blood Gas Ventilator Setting NO, Blood Gas Inspired Oxygen RA 06/07/22 11:50: Urine Color ORANGE, Urine Clarity SL CLOUDY, Urine pH 6.0, Urine Specific [place] 1.020, Urine Protein 2+H, Urine Glucose (UA) NEGATIVE, Urine Ketones NEGATIVE, Urine Nitrite POSITIVEH, Urine Bilirubin NEGATIVE, Urine Urobilinogen 2.0, Urine Leukocyte Esterase TRACEH, Urine RBC (Auto) NEGATIVE, Urine RBC NONE, Urine WBC 5-10H, Urine Crystals NONE, Urine Bacteria MODERATEH, Urine Casts PRESENT, Urine Granular Casts 5-10H, Urine White Blood Cell Casts 2-5H, Urine Mucus NEGATIVE, Urine Other FEW TRANS EPI CELLS, Urine Culture Indicated CULTURE PENDING 06/07/22 14:38: Lactic Acid Level 1.56 06/08/22 03:45: White Blood Count 9.6, Red Blood Count 3.75L, Hemoglobin 11.3L, Hematocrit 35, Mean Corpuscular Volume 93, Mean Corpuscular Hemoglobin 30, Mean Corpuscular Hemoglobin Concent 33, Red Cell Distribution Width 13.8, Platelet Count 199, Mean Platelet Volume 9.8, Immature Granulocyte % (Auto) 1, Neutrophils (%) (Auto) 94H, Lymphocytes (%) (Auto) 3L, Monocytes (%) (Auto) 2, Eosinophils (%) (Auto) 0, Basophils (%) (Auto) 0, Neutrophils # (Auto) 9.0H, Lymphocytes # (Auto) 0.3L, Monocytes # (Auto) 0.1, Eosinophils # (Auto) 0.0, Basophils # (Auto) 0.0, Immature Granulocyte # (Auto) 0.1, Sodium Level 133L, Potassium Level 3.4L, Chloride Level 106, Carbon Dioxide Level 15L, Anion Gap 12, Blood Urea Nitrogen 37H, Creatinine 1.52H, Estimat Glomerular Filtration Rate 36, BUN/Creatinine Ratio 24, Glucose Level 103, Calcium Level 7.5L, Corrected Calcium 8.7, Magnesium Level 1.8, Total Bilirubin 0.4, Aspartate Amino Transf (AST/SGOT) 31, Alanine Aminotransferase (ALT/SGPT) 30, Alkaline Phosphatase 82, Total Protein 4.9L, Albumin 2.5L 06/08/22 07:45: Blood Gas Puncture Site L RADIAL, Blood Gas Patient Temperature 37.8, Arterial Blood pH 7.29*L, Arterial Blood Partial Pressure CO2 34L, Arterial Blood Partial Pressure O2 72L, Arterial Blood HCO3 16*L, Arterial Blood Total CO2 16.5L, Arterial Blood Oxygen Saturation 91L, Arterial Blood Base Excess -9.7L, Jose L Test NA, Blood Gas Ventilator Setting NO, Blood Gas Inspired Oxygen 100 06/09/22 03:55: White Blood Count 14.6H, Red Blood Count 3.66L, Hemoglobin 10.9L, Hematocrit 33L , Mean Corpuscular Volume 90, Mean Corpuscular Hemoglobin 30, Mean Corpuscular Hemoglobin Concent 33, Red Cell Distribution Width 14.0, Platelet Count 179, Mean Platelet Volume 10.0, Immature Granulocyte % (Auto) 4, Neutrophils (%) (Auto) 89H, Lymphocytes (%) (Auto) 4L, Monocytes (%) (Auto) 2, Eosinophils (%) (Auto) 1, Basophils (%) (Auto) 0, Neutrophils # (Auto) 13.0H, Lymphocytes # (Auto) 0.5L, Monocytes # (Auto) 0.3, Eosinophils # (Auto) 0.2, Basophils # (Auto) 0.0, Immature Granulocyte # (Auto) 0.6H, Sodium Level 132L, Potassium Level 3.9, Chloride Level 106, Carbon Dioxide Level 16L, Anion Gap 10, Blood Urea Nitrogen 41H, Creatinine 1.56H, Estimat Glomerular Filtration Rate 35, BUN/Creatinine Ratio 26, Glucose Level 87, Calcium Level 8.4L, Corrected Calcium 9.7, Magnesium Level 2.3, Total Bilirubin 0.5, Aspartate Amino Transf (AST/SGOT) 24, Alanine Aminotransferase (ALT/SGPT) 25, Alkaline Phosphatase 109, Total Protein 5.0L, Albumin 2.4L, Neutrophils % (Manual) 68, Lymphocytes % (Manual) 1, Monocytes % (Manual) 2, Metamyelocytes % 1, Band Neutrophils 28, Toxic Granulation 2+, Blood Morphology Comment NORMAL 06/09/22 06:05: Blood Gas Puncture Site R RADIAL, Blood Gas Patient Temperature 36.6, Arterial Blood pH 7.35L, Arterial Blood Partial Pressure CO2 35, Arterial Blood Partial Pressure O2 95H, Arterial Blood HCO3 19L, Arterial Blood Total CO2 19.8L, Arterial Blood Oxygen Saturation 96, Arterial Blood Base Excess -6.0L, Jose L Test , Blood Gas Ventilator Setting NO, Blood Gas Inspired Oxygen 80% 06/09/22 17:45: Body Fluid pH 7.08 06/09/22 18:15: Body Fluid Source PLEURAL, Body Fluid Color YELLOW, Body Fluid Appearance SLT CLDY, Body Fluid WBC 8.441, Body Fluid RBC 0.003, Body Fl Polynuclear WBCs (%)(Auto) 84.1, Body Fluid Mononuclear Cells % Auto 15.9, Body Fluid Slide Review Yes, Body Fluid Glucose 22, Body Fluid Total Protein 2.5 06/10/22 04:30: Blood Gas Puncture Site LR, Blood Gas Patient Temperature 36.0, Arterial Blood pH 7.37, Arterial Blood Partial Pressure CO2 33L, Arterial Blood Partial Pressure O2 71L, Arterial Blood HCO3 19L, Arterial Blood Total CO2 19.9L, Arterial Blood Oxygen Saturation 94, Arterial Blood Base Excess -5.7L, Jose L Test YES-POS, Blood Gas Ventilator Setting NO, Blood Gas Inspired Oxygen 40% 06/10/22 07:31: White Blood Count 16.8H, Red Blood Count 3.70L, Hemoglobin 11.2L, Hematocrit 34L , Mean Corpuscular Volume 91, Mean Corpuscular Hemoglobin 30, Mean Corpuscular Hemoglobin Concent 33, Red Cell Distribution Width 14.6H, Platelet Count 135, Mean Platelet Volume 9.9, Immature Granulocyte % (Auto) 4, Neutrophils (%) (Auto) 79H, Lymphocytes (%) (Auto) 8L, Monocytes (%) (Auto) 6, Eosinophils (%) (Auto) 2, Basophils (%) (Auto) 1, Neutrophils # (Auto) 13.4H, Lymphocytes # (Auto) 1.3, Monocytes # (Auto) 1.0, Eosinophils # (Auto) 0.3, Basophils # (Auto) 0.1, Immature Granulocyte # (Auto) 0.7H, Sodium Level 136, Potassium Level 4.1, Chloride Level 109H, Carbon Dioxide Level 16L, Anion Gap 11, Blood Urea Nitrogen 28H, Creatinine 1.15, Estimat Glomerular Filtration Rate 50, BUN/Creatinine Ratio 24, Glucose Level 72, Calcium Level 8.8, Corrected Calcium 10.0, Total Bilirubin 0.5, Aspartate Amino Transf (AST/SGOT) 17, Alanine Aminotransferase (ALT/SGPT) 22, Alkaline Phosphatase 112, Total Protein 5.1L, Albumin 2.5L 06/11/22 04:55: White Blood Count 18.2H, Red Blood Count 3.46L, Hemoglobin 10.5L, Hematocrit 31L , Mean Corpuscular Volume 88, Mean Corpuscular Hemoglobin 30, Mean Corpuscular Hemoglobin Concent 34, Red Cell Distribution Width 14.8H, Platelet Count 157, Mean Platelet Volume 9.8, Immature Granulocyte % (Auto) 7, Neutrophils (%) (Auto) 73, Lymphocytes (%) (Auto) 8L, Monocytes (%) (Auto) 10, Eosinophils (%) (Auto) 2, Basophils (%) (Auto) 1, Neutrophils # (Auto) 13.2H, Lymphocytes # (Aut o) 1.5, Monocytes # (Auto) 1.8H, Eosinophils # (Auto) 0.4H, Basophils # (Auto) 0.1, Immature Granulocyte # (Auto) 1.2H, Sodium Level 137, Potassium Level 3.7, Chloride Level 109H, Carbon Dioxide Level 19L, Anion Gap 9, Blood Urea Nitrogen 18, Creatinine 0.94, Estimat Glomerular Filtration Rate 64, BUN/Creatinine Ratio 19, Glucose Level 95, Calcium Level 8.8, Corrected Calcium 10.3H, Magnesium Level 1.4L, Total Bilirubin 0.5, Aspartate Amino Transf (AST/SGOT) 19, Alanine Aminotransferase (ALT/SGPT) 20, Alkaline Phosphatase 118, Total Protein 4.8L, Albumin 2.1L 06/11/22 11:50: Bedside Blood Gas pH (LAB) 7.399, Bedside Blood Gas pCO2 (LAB) 32.4L, Bedside Blood Gas pO2 (LAB) 66L, Bedside Blood Gas HCO3 (LAB) 20.0L, POC Blood Gas Total CO2 Calc 21L, Bedside Bl Gas O2 Saturation (Calc) 93L, Bedside Arterial Blood Base Excess -5L 06/12/22 02:53: White Blood Count 19.4H, Red Blood Count 3.47L, Hemoglobin 10.4L, Hematocrit 30L , Mean Corpuscular Volume 87, Mean Corpuscular Hemoglobin 30, Mean Corpuscular Hemoglobin Concent 34, Red Cell Distribution Width 14.8H, Platelet Count 190, Mean Platelet Volume 9.6, Immature Granulocyte % (Auto) 8, Neutrophils (%) (Auto) 71, Lymphocytes (%) (Auto) 9L, Monocytes (%) (Auto) 11, Eosinophils (%) (Auto) 1, Basophils (%) (Auto) 1, Neutrophils # (Auto) 13.8H, Lymphocytes # (Auto) 1.7, Monocytes # (Auto) 2.0H, Eosinophils # (Auto) 0.2, Basophils # (Auto) 0.1, Immature Granulocyte # (Auto) 1.6H, Sodium Level 137, Potassium Level 3.7, Chloride Level 107, Carbon Dioxide Level 20L, Anion Gap 10, Blood Urea Nitrogen 14, Creatinine 0.78, Estimat Glomerular Filtration Rate 80, BUN/Creatinine Ratio 18, Glucose Level 109H, Calcium Level 8.3L, Corrected Calcium 9.8, Magnesium Level 1.7, Total Bilirubin 0.4, Aspartate Amino Transf (AST/SGOT) 18, Alanine Aminotransferase (ALT/SGPT) 20, Alkaline Phosphatase 114, Total Protein 4.6L, Albumin 2.1L 06/12/22 03:05: Blood Gas Puncture Site L RAD, Blood Gas Patient Temperature 37.1, Arterial Blood pH 7.45H, Arterial Blood Partial Pressure CO2 33L, Arterial Blood Partial Pressure O2 65L, Arterial Blood HCO3 22L, Arterial Blood Total CO2 23.3, Melissa rial Blood Oxygen Saturation 93L, Arterial Blood Base Excess -1.2, Jose L Test YES-POS, Blood Gas Ventilator Setting NO, Blood Gas Inspired Oxygen 40% 06/13/22 05:37: White Blood Count 22.3H, Red Blood Count 3.10L, Hemoglobin 9.4L, Hematocrit 27L, Mean Corpuscular Volume 88, Mean Corpuscular Hemoglobin 30, Mean Corpuscular Hemoglobin Concent 34, Red Cell Distribution Width 14.8H, Platelet Count 211, Mean Platelet Volume 9.6, Immature Granulocyte % (Auto) 6, Neutrophils (%) (Auto) 78H, Lymphocytes (%) (Auto) 8L, Monocytes (%) (Auto) 7, Eosinophils (%) (Auto) 1, Basophils (%) (Auto) 0, Neutrophils # (Auto) 17.3H, Lymphocytes # (Auto) 1.8, Monocytes # (Auto) 1.6H, Eosinophils # (Auto) 0.1, Basophils # (Auto) 0.1, Immature Granulocyte # (Auto) 1.4H, Sodium Level 136, Potassium Level 3.6, Chloride Level 103, Carbon Dioxide Level 23, Anion Gap 10, Blood Urea Nitrogen 14, Creatinine 0.75, Estimat Glomerular Filtration Rate 84, BUN/Creatinine Ratio 19, Glucose Level 112H, Calcium Level 8.6, Corrected Calcium 10.2H, Magnesium Level 1.6, Total Bilirubin 0.4, Aspartate Amino Transf (AST/SGOT) 25, Alanine Aminotransferase (ALT/SGPT) 17, Alkaline Phosphatase 90, Total Protein 4.8L, Albumin 2.0L 06/13/22 09:02: Blood Gas Puncture Site RIGHT RADIAL, Blood Gas Patient Temperature 36.8, Arterial Blood pH 7.47H, Arterial Blood Partial Pressure CO2 36, Arterial Blood Partial Pressure O2 58L, Arterial Blood HCO3 25, Arterial Blood Total CO2 26.4, Arterial Blood Oxygen Saturation 90L, Arterial Blood Base Excess 1.8, Jose L Test YES-POS, Blood Gas Ventilator Setting NO, Blood Gas Inspired Oxygen 40% 06/14/22 05:16: White Blood Count 24.9H, Red Blood Count 3.22L, Hemoglobin 9.6L, Hematocrit 29L, Mean Corpuscular Volume 89, Mean Corpuscular Hemoglobin 30, Mean Corpuscular Hemoglobin Concent 34, Red Cell Distribution Width 14.8H, Platelet Count 282, Mean Platelet Volume 9.4, Immature Granulocyte % (Auto) 5, Neutrophils (%) (Auto) 82H, Lymphocytes (%) (Auto) 7L, Monocytes (%) (Auto) 5, Eosinophils (%) (Auto) 0, Basophils (%) (Auto) 0, Neutrophils # (Auto) 20.4H, Lymphocytes # (Auto) 1.7, Monocytes # (Auto) 1.3H, Eosinophils # (Auto) 0.1, Basophils # (Auto) 0.1, Immature Granulocyte # (Auto) 1.3H, Sodium Level 137, Potassium Level 4.0, Chloride Level 104, Carbon Dioxide Level 22, Anion Gap 11, Blood Urea Nitrogen 12, Creatinine 0.70, Estimat Glomerular Filtration Rate 91, BUN/Creatinine Ratio 17, Glucose Level 98, Calcium Level 8.8, Corrected Calcium 10.4H, Magnesium Level 1.6, Total Bilirubin 0.3, Aspartate Amino Transf (AST/SGOT) 18, Alanine Aminotransferase (ALT/SGPT) 18, Alkaline Phosphatase 89, Total Protein 5.0L, Albumin 2.0L, Neutrophils % (Manual) 83, Lymphocytes % (Manual) 10, Prolymphocyte % 2, Monocytes % (Manual) 5, Blood Morphology Comment NORMAL Microbiology 06/09/22 Gram Stain - Final, Complete 06/09/22 Anaerobic Culture - Final, Complete No anaerobes isolated 06/09/22 Body Fluid Culture - Final, Complete No growth 06/07/22 MRSA Screen - Final, Complete MRSA not isolated 06/07/22 Urine Culture - Final, Complete NO GROWTH 06/07/22 Blood Culture - Final, Complete Streptococcus pyogenes Grp A Pending Labs Microbiology Date/Time Source Procedure Growth Status 06/09/22 18:15 Pleural Fluid Gram Stain - Final Complete 06/09/22 18:15 Pleural Fluid Anaerobic Culture - Final No anaerobes isolated Complete 06/09/22 18:15 Pleural Fluid Body Fluid Culture - Final No growth Complete 06/07/22 13:25 Nasal MRSA Screen - Final MRSA not isolated Complete 06/07/22 11:50 Urine Dominguez Cath Urine Culture - Final NO GROWTH Complete 06/07/22 09:20 Peripheral Lt Ac Blood Culture - Final Streptococcus pyogenes Grp A Complete 06/07/22 08:40 Peripheral Lt Hand Blood Culture - Final No growth Complete Laboratory Tests 06/07/22 08:40: White Blood Count 4.9, Red Blood Count 4.29, Hemoglobin 13.1, Hematocrit 39, Mean Corpuscular Volume 92, Mean Corpuscular Hemoglobin 31, Mean Corpuscular Hemoglobin Concent 33, Red Cell Distribution Width 13.4, Platelet Count 209, Mean Platelet Volume 10.3, Immature Granulocyte % (Auto) 0, Neutrophils (%) (Auto) 84, Lymphocytes (%) (Auto) 12, Monocytes (%) (Auto) 3, Eosinophils (%) (Auto) 1, Basophils (%) (Auto) 1, Neutrophils # (Auto) 4.1, Lymphocytes # (Auto) 0.6, Monocytes # (Auto) 0.2, Eosinophils # (Auto) 0.0, Basophils # (Auto) 0.0, Immature Granulocyte # (Auto) 0.0, Neutrophils % (Manual) 29, Lymphocytes % (Manual) 7, Monocytes % (Manual) 2, Metamyelocytes % 5, Myelocytes % 3, Band [place] trophils 54, Prothrombin Time 13.9, INR Comment 1.0, Activated Partial Thromboplast Time 36, Sodium Level 137, Potassium Level 3.7, Chloride Level 103, Carbon Dioxide Level 20, Anion Gap 14, Blood Urea Nitrogen 35, Creatinine 1.89, Estimat Glomerular Filtration Rate 28, BUN/Creatinine Ratio 19, Glucose Level 92, Calcium Level 8.8, Corrected Calcium 9.4, Total Bilirubin 0.4, Aspartate Amino Transf (AST/SGOT) 45, Alanine Aminotransferase (ALT/SGPT) 38, Alkaline Phosphatase 102, Total Protein 5.9, Albumin 3.2, Smear Scan YES 06/07/22 08:55: Influenza Type A (RT-PCR) Not Detected, Influenza Type B (RT-PCR) Not Detected, SARS-CoV-2 RNA (RT-PCR) Not Detected 06/07/22 09:20: Lactic Acid Level 2.17 06/07/22 10:08: Lab Scanned Report Referred Lab Report 06/07/22 11:20: Lactic Acid Level 3.55 06/07/22 11:30: Blood Gas Puncture Site RR, Blood Gas Patient Temperature 37.4, Arterial Blood pH 7.43, Arterial Blood Partial Pressure CO2 34, Arterial Blood Partial Pressure O2 79, Arterial Blood HCO3 22, Arterial Blood Total CO2 22.7, Arterial Blood Oxy gen Saturation 94, Arterial Blood Base Excess -2.0, Jose L Test YES-POS, Blood Gas Ventilator Setting NO, Blood Gas Inspired Oxygen RA 06/07/22 11:50: Urine Color ORANGE, Urine Clarity SL CLOUDY, Urine pH 6.0, Urine Specific [place] 1.020, Urine Protein 2+, Urine Glucose (UA) NEGATIVE, Urine Ketones NEGATIVE, Urine Nitrite POSITIVE, Urine Bilirubin NEGATIVE, Urine Urobilinogen 2.0, Urine Leukocyte Esterase TRACE, Urine RBC (Auto) NEGATIVE, Urine RBC NONE, Urine WBC 5-10, Urine Crystals NONE, Urine Bacteria MODERATE, Urine Casts PRESENT, Urine Granular Casts 5-10, Urine White Blood Cell Casts 2-5, Urine Mucus NEGATIVE, Urine Other FEW TRANS EPI CELLS, Urine Culture Indicated CULTURE PENDING 06/07/22 14:38: Lactic Acid Level 1.56 06/08/22 03:45: White Blood Count 9.6, Red Blood Count 3.75, Hemoglobin 11.3, Hematocrit 35, Mean Corpuscular Volume 93, Mean Corpuscular Hemoglobin 30, Mean Corpuscular Hemoglobin Concent 33, Red Cell Distribution Width 13.8, Platelet Count 199, Mean Platelet Volume 9.8, Immature Granulocyte % (Auto) 1, Neutrophils (%) (Auto) 94, Lymphocytes (%) (Auto) 3, Monocytes (%) (Auto) 2, Eosinophils (%) (Auto) 0, Basophils (%) (Auto) 0, Neutrophils # (Auto) 9.0, Lymphocytes # (Auto) 0.3, Monocytes # (Auto) 0.1, Eosinophils # (Auto) 0.0, Basophils # (Auto) 0.0, Immature Granulocyte # (Auto) 0.1, Sodium Level 133, Potassium Level 3.4, Chloride Level 106, Carbon Dioxide Level 15, Anion Gap 12, Blood Urea Nitrogen 37, Creatinine 1.52, Estimat Glomerular Filtration Rate 36, BUN/Creatinine Ratio 24, Glucose Level 103, Calcium Level 7.5, Corrected Calcium 8.7, Magnesium Level 1.8, Total Bilirubin 0.4, Aspartate Amino Transf (AST/SGOT) 31, Alanine Aminotransferase (ALT/SGPT) 30, Alkaline Phosphatase 82, Total Protein 4.9, Albumin 2.5 06/08/22 07:45: Blood Gas Puncture Site L RADIAL, Blood Gas Patient Temperature 37.8, Arterial Blood pH 7.29, Arterial Blood Partial Pressure CO2 34, Arterial Blood Partial Pressure O2 72, Arterial Blood HCO3 16, Arterial Blood Total CO2 16.5, Arterial Blood Oxygen Saturation 91, Arterial Blood Base Excess -9.7, Jose L Test NA, Blood Gas Ventilator Setting NO, Blood Gas Inspired Oxygen 100 06/09/22 03:55: White Blood Count 14.6, Red Blood Count 3.66, Hemoglobin 10.9, Hematocrit 33, Mean Corpuscular Volume 90, Mean Corpuscular Hemoglobin 30, Mean Corpuscular Hemoglobin Concent 33, Red Cell Distribution Width 14.0, Platelet Count 179, Mean Platelet Volume 10.0, Immature Granulocyte % (Auto) 4, Neutrophils (%) (Auto) 89, Lymphocytes (%) (Auto) 4, Monocytes (%) (Auto) 2, Eosinophils (%) (Auto) 1, Basophils (%) (Auto) 0, Neutrophils # (Auto) 13.0, Lymphocytes # (Auto) 0.5, Monocytes # (Auto) 0.3, Eosinophils # (Auto) 0.2, Basophils # (Auto) 0.0, Immature Granulocyte # (Auto) 0.6, Sodium Level 132, Potassium Level 3.9, Chloride Level 106, Carbon Dioxide Level 16, Anion Gap 10, Blood Urea Nitrogen 41, Creatinine 1.56, Estimat Glomerular Filtration Rate 35, BUN/Creatinine Ratio 26, Glucose Level 87, Calcium Level 8.4, Corrected Calcium 9.7, Magnesium Level 2.3, Total Bilirubin 0.5, Aspartate Amino Transf (AST/SGOT) 24, Alanine Aminotransferase (ALT/SGPT) 25, Alkaline Phosphatase 109, Total Protein 5.0, Albumin 2.4, Neutrophils % (Manual) 68, Lymphocytes % (Manual) 1, Monocytes % (Manual) 2, Metamyelocytes % 1, Band Neutrophils 28, Toxic Granulation 2+, Blood Morphology Comment NORMAL 06/09/22 06:05: Blood Gas Puncture Site R RADIAL, Blood Gas Patient Temperature 36.6, Arterial Blood pH 7.35, Arterial Blood Partial Pressure CO2 35, Arterial Blood Partial Pressure O2 95, Arterial Blood HCO3 19, Arterial Blood Total CO2 19.8, Arterial Blood Oxygen Saturation 96, Arterial Blood Base Excess -6.0, Jose L Test , Blood Gas Ventilator Setting NO, Blood Gas Inspired Oxygen 80% 06/09/22 17:45: Body Fluid pH 7.08 06/09/22 18:15: Body Fluid Source PLEURAL, Body Fluid Color YELLOW, Body Fluid Appearance SLT CLDY, Body Fluid WBC 8.441, Body Fluid RBC 0.003, Body Fl Polynuclear WBCs (%)(Auto) 84.1, Body Fluid Mononuclear Cells % Auto 15.9, Body Fluid Slide Review Yes, Body Fluid Glucose 22, Body Fluid Total Protein 2.5 06/10/22 04:30: Blood Gas Puncture Site LR, Blood Gas Patient Temperature 36.0, Arterial Blood pH 7.37, Arterial Blood Partial Pressure CO2 33, Arterial Blood Partial Pressure O2 71, Arterial Blood HCO3 19, Arterial Blood Total CO2 19.9, Arterial Blood Oxygen Saturation 94, Arterial Blood Base Excess -5.7, Jose L Test YES-POS, Blood Gas Ventilator Setting NO, Blood Gas Inspired Oxygen 40% 06/10/22 07:31: White Blood Count 16.8, Red Blood Count 3.70, Hemoglobin 11.2, Hematocrit 34, Mean Corpuscular Volume 91, Mean Corpuscular Hemoglobin 30, Mean Corpuscular Hemoglobin Concent 33, Red Cell Distribution Width 14.6, Platelet Count 135, Mean Platelet Volume 9.9, Immature Granulocyte % (Auto) 4, Neutrophils (%) (Auto) 79, Lymphocytes (%) (Auto) 8, Monocytes (%) (Auto) 6, Eosinophils (%) (Auto) 2, Basophils (%) (Auto) 1, Neutrophils # (Auto) 13.4, Lymphocytes # (Auto) 1.3, Monocytes # (Auto) 1.0, Eosinophils # (Auto) 0.3, Basophils # (Auto) 0.1, Immature Granulocyte # (Auto) 0.7, Sodium Level 136, Potassium Level 4.1, Chloride Level 109, Carbon Dioxide Level 16, Anion Gap 11, Blood Urea Nitrogen 28, Creatinine 1.15, Estimat Glomerular Filtration Rate 50, BUN/Creatinine Ratio 24, Glucose Level 72, Calcium Level 8.8, Corrected Calcium 10.0, Total Bilirubin 0.5, Aspartate Amino Transf (AST/SGOT) 17, Alanine Aminotransferase (ALT/SGPT) 22, Alkaline Phosphatase 112, Total Protein 5.1, Albumin 2.5 06/11/22 04:55: White Blood Count 18.2, Red Blood Count 3.46, Hemoglobin 10.5, Hematocrit 31, Mean Corpuscular Volume 88, Mean Corpuscular Hemoglobin 30, Mean Corpuscular Hemoglobin Concent 34, Red Cell Distribution Width 14.8, Platelet Count 157, Mean Platelet Volume 9.8, Immature Granulocyte % (Auto) 7, Neutrophils (%) (Auto) 73, Lymphocytes (%) (Auto) 8, Monocytes (%) (Auto) 10, Eosinophils (%) (Auto) 2, Basophils (%) (Auto) 1, Neutrophils # (Auto) 13.2, Lymphocytes # (Auto) 1.5, Monocytes # (Auto) 1.8, Eosinophils # (Auto) 0.4, Basophils # (Auto) 0.1, Immature Granulocyte # (Auto) 1.2, Sodium Level 137, Potassium Level 3.7, Chloride Level 109, Carbon Dioxide Level 19, Anion Gap 9, Blood Urea Nitrogen 18, Creatinine 0.94, Estimat Glomerular Filtration Rate 64, BUN/Creatinine Ratio 19, Glucose Level 95, Calcium Level 8.8, Corrected Calcium 10.3, Magnesium Level 1.4, Total Bilirubin 0.5, Aspartate Amino Transf (AST/SGOT) 19, Alanine Aminotransferase (ALT/SGPT) 20, Alkaline Phosphatase 118, Total Protein 4.8, Albumin 2.1 06/11/22 11:50: Bedside Blood Gas pH (LAB) 7.399, Bedside Blood Gas pCO2 (LAB) 32.4, Bedside Blood Gas pO2 (LAB) 66, Bedside Blood Gas HCO3 (LAB) 20.0, POC Blood Gas Total CO2 Calc 21, Bedside Bl Gas O2 Saturation (Calc) 93, Bedside Arterial Blood Base Excess -5 06/12/22 02:53: White Blood Count 19.4, Red Blood Count 3.47, Hemoglobin 10.4, Hematocrit 30, Mean Corpuscular Volume 87, Mean Corpuscular Hemoglobin 30, Mean Corpuscular Hemoglobin Concent 34, Red Cell Distribution Width 14.8, Platelet Count 190, Mean Platelet Volume 9.6, Immature Granulocyte % (Auto) 8, Neutrophils (%) (Auto) 71, Lymphocytes (%) (Auto) 9, Monocytes (%) (Auto) 11, Eosinophils (%) (Auto) 1, Basophils (%) (Auto) 1, Neutrophils # (Auto) 13.8, Lymphocytes # ( Auto) 1.7, Monocytes # (Auto) 2.0, Eosinophils # (Auto) 0.2, Basophils # (Auto) 0.1, Immature Granulocyte # (Auto) 1.6, Sodium Level 137, Potassium Level 3.7, Chloride Level 107, Carbon Dioxide Level 20, Anion Gap 10, Blood Urea Nitrogen 14, Creatinine 0.78, Estimat Glomerular Filtration Rate 80, BUN/Creatinine Ratio 18, Glucose Level 109, Calcium Level 8.3, Corrected Calcium 9.8, Magnesium Level 1.7, Total Bilirubin 0.4, Aspartate Amino Transf (AST/SGOT) 18, Alanine Aminotransferase (ALT/SGPT) 20, Alkaline Phosphatase 114, Total Protein 4.6, Albumin 2.1 06/12/22 03:05: Blood Gas Puncture Site L RAD, Blood Gas Patient Temperature 37.1, Arterial Blood pH 7.45, Arterial Blood Partial Pressure CO2 33, Arterial Blood Partial Pressure O2 65, Arterial Blood HCO3 22, Arterial Blood Total CO2 23.3, Arterial Blood Oxygen Saturation 93, Arterial Blood Base Excess -1.2, Jose L Test YES-POS, Blood Gas Ventilator Setting NO, Blood Gas Inspired Oxygen 40% 06/13/22 05:37: White Blood Count 22.3, Red Blood Count 3.10, Hemoglobin 9.4, Hematocrit 27, Mean Corpuscular Volume 88, Mean Corpuscular Hemoglobin 30, Mean Corpuscular Hemoglobin Concent 34, Red Cell Distribution Width 14.8, Platelet Count 211, Mean Platelet Volume 9.6, Immature Granulocyte % (Auto) 6, Neutrophils (%) (Auto) 78, Lymphocytes (%) (Auto) 8, Monocytes (%) (Auto) 7, Eosinophils (%) (Auto) 1, Basophils (%) (Auto) 0, Neutrophils # (Auto) 17.3, Lymphocytes # (Auto) 1.8, Monocytes # (Auto) 1.6, Eosinophils # (Auto) 0.1, Basophils # (Auto) 0.1, Immature Granulocyte # (Auto) 1.4, Sodium Level 136, Potassium Level 3.6, Chloride Level 103, Carbon Dioxide Level 23, Anion Gap 10, Blood Urea Nitrogen 14, Creatinine 0.75, Estimat Glomerular Filtration Rate 84, BUN/Creatinine Ratio 19, Glucose Level 112, Calcium Level 8.6, Corrected Calcium 10.2, Magnesium Level 1.6, Total Bilirubin 0.4, Aspartate Amino Transf (AST/SGOT) 25, Alanine Aminotransferase (ALT/SGPT) 17, Alkaline Phosphatase 90, Total Protein 4.8, Albumin 2.0 06/13/22 09:02: Blood Gas Puncture Site RIGHT RADIAL, Blood Gas Patient Temperature 36.8, Arterial Blood pH 7.47, Arterial Blood Partial Pressure CO2 36, Arterial Blood Partial Pressure O2 58, Arterial Blood HCO3 25, Arterial Blood Total CO2 26.4, Arterial Blood Oxygen Saturation 90, Arterial Blood Base Excess 1.8, Jose L Test YES-POS, Blood Gas Ventilator Setting NO, Blood Gas Inspired Oxygen 40% 06/14/22 05:16: White Blood Count 24.9, Red Blood Count 3.22, Hemoglobin 9.6, Hematocrit 29, Mean Corpuscular Volume 89, Mean Corpuscular Hemoglobin 30, Mean Corpuscular Hemoglobin Concent 34, Red Cell Distribution Width 14.8, Platelet Count 282, Mean Platelet Volume 9.4, Immature Granulocyte % (Auto) 5, Neutrophils (%) (Auto) 82, Lymphocytes (%) (Auto) 7, Monocytes (%) (Auto) 5, Eosinophils (%) (Auto) 0, Basophils (%) (Auto) 0, Neutrophils # (Auto) 20.4, Lymphocytes # (Auto) 1.7, Monocytes # (Auto) 1.3, Eosinophils # (Auto) 0.1, Basophils # (Auto) 0.1, Immature Granulocyte # (Auto) 1.3, Sodium Level 137, Potassium Level 4.0, Chloride Level 104, Carbon Dioxide Level 22, Anion Gap 11, Blood Urea Nitrogen 12, Creatinine 0.70, Estimat Glomerular Filtration Rate 91, BUN/Creatinine Ratio 17, Glucose Level 98, Calcium Level 8.8, Corrected Calcium 10.4, Magnesium Level 1.6, Total Bilirubin 0.3, Aspartate Amino Transf (AST/SGOT) 18, Alanine Aminotransferase (ALT/SGPT) 18, Alkaline Phosphatase 89, Total Protein 5.0, Albumin 2.0, Neutrophils % (Manual) 83, Lymphocytes % (Manual) 10, Prolymphocyte % 2, Monocytes % (Manual) 5, Blood Morphology Comment NORMAL Discharge Home Medications: Active Scripts Active Reported Fish Oil 1,200 mg Fish Oil (Fish Oil/Dha/Epa) 1,200 Mg-144 Mg-216 Mg Capsule 1 Each PO HS Melatonin 10 Mg Tablet 10 Mg PO HS PRN Cranberry (Cranberry Fruit) 500 Mg Tab.chew 500 Mg PO DAILY Coq-10 (Ubidecarenone) 100 Mg Capsule 100 Mg PO DAILY Loratadine 10 Mg Tablet 10 Mg PO DAILY Diltiazem 24Hr ER (Diltiazem HCl) 240 Mg Cap.er.24h 240 Mg PO DAILY Magnesium Oxide 250 Mg Tablet 500 Mg PO BID TAKES 2 (250MG) TABS Levothyroxine Sodium 75 Mcg Tablet 75 Mcg PO DAILY Hydrochlorothiazide 25 Mg Tablet 25 Mg PO DAILY Amitriptyline HCl 100 Mg Tablet 100 Mg PO HS Simvastatin 20 Mg Tablet 20 Mg PO HS Oxybutynin Chloride ER (Oxybutynin Chloride) 10 Mg Tab.er.24 10 Mg PO DAILY Turmeric (Turmeric Root Extract) 500 Mg Tablet 500 Mg PO DAILY Iron (Ferrous Sulfate) 325 Mg (65 Mg Iron) Tablet 325 Mg PO DAILY Aleve (Naproxen Sodium) 220 Mg Tablet 440 Mg PO DAILY TAKES 2 (220MG) TABS Pantoprazole Sodium 40 Mg Tablet.dr 40 Mg PO DAILY Multi-Vitamin Daily (Multivitamin) 1 Each Tablet 1 Each PO DAILY Cranberry (Cranberry Extract) 500 Mg Tablet 1,000 Mg PO HS TAKES 2 (500MG) TABS Calcium (Calcium Carbonate) 500 Mg Calcium (1250 Mg) Tablet 1,000 Mg PO DAILY TAKES 2 (500MG) TABS Instructions to patient/family Please see electronic discharge instructions given to patient. RIAZ COTTER DO Jun 14, 2022 09:36"
[2022-06-14] MEDS ORDERED: MELATONIN 10 MG TABLET PO PRN (09:45)
[2022-06-14] MEDS ORDERED: AMOXICILLIN 500 MG (POLYMOX) CAP PO SCH (13:00)
--- NOTE | 2022-06-14 13:18 | Progress Note ---
AKILAH AMANDA 06/14/22 1318: Progress Note 71 year old female who presented to [facility] ER on 06/07 with a chief complaint of cough, right chest pain and SOB. Patient was found to have lactic acidosis (2.17, repeat 3.55), tachycardia, and a CXR showing RLL pneumonia. Patient was admitted with AHRF, RLL PNA, and Sepsis. Patient was also noted to have a UTI and a creatinine of 1.89. Patient was started on cefepime and doxycycline, breathing treatments, and BiPAP (12/8, 12, 80%). On 06/08 patient's BC grew out Group A Strep. On 06/[address] chest that showed 1. Right middle, right lower and left lower lobe consolidation with areas of mucus plugging in keeping with pneumonia. 2. Aozmoqnh-mf-szysy right pleural effusions with pleural fluid loculated in the fissures. General surgery was consulted and performed a thoracentesis, draining 600cc of straw colored fluid. Repeat CXR did show improvement. On 06/10 CXR showed, 1. Large right lower lobe consolidation and right middle lobe consolidation with underlying large right pleural effusion similar to the previous study. 2. Central venous congestion shows slight improvement. There is also slight improvement in aeration left lung however this may be due to differences in technique. 3. Stable right sided PICC line. Patient's Cr had returned to <1. Patient was able to tolerate Vapotherm 25, 80% alternating with BiPAP. On 06/11, patient's cytology from thoracentesis was negative. Patient's vapotherm was decreased to 25, 40%. Patient's previously downward trending WBC jumped to 18.2 from 16.8. Patient had finished a cefepime and doxycyline regimen. Decision was made to start patient on Clindamycin and Ampicillin, which was shown to be sensitive on initial blood cultures. Patient underwent CXR and Chest US which showed stable vs increasing in sized pleural effusions. General Surgery was consulted, but because patient's respiratory status was improving, decision was made to wait on repeat thoracentesis or chest tube placement. On 06/12 and 06/13 patient's oxygen requirements continued to improve. Patient was down to 25, 30% by Tuesday Night. On 06/14 patient's CXR showed Extensive opacification of right lung with associated probable pleural fluid. There is also increasing edema and/or pneumonitis in the left perihilar region and clinical correlation would be useful. Decision was made to repeat thoracentesis with 300cc of straw colored fluid being drawn off. Repeat CXR showed: 1. No pneumothorax. 2. Decreased size right pleural effusion postthoracentesis. Patient had continued to improve and the decision was made to transfer the patient to inpatient rehab facility at [facility] in [place]. Patient will finish scheduled Abx and treatment there and begin the rehabilitation process. CHAPIS COTTER DO 06/15/22 0447: Supervisory-Addendum Brief Verification & Attestation Participated in pt care: history, MDM, physical Personally performed: exam, history, MDM, supervision of care Care discussed with: Medical Student Procedures: n/a Results interpretation: Verified all documentation Verification and Attestation of Medical Student E/M Service A medical student performed and documented this service in my presence. I revi ewed and verified all information documented by the medical student and made modifications to such information, when appropriate. I personally performed the physical exam and medical decision making. Chapis Cotter Jun 15, 2022,04:47 AKILAH AMANDA Jun 14, 2022 13:18 CHAPIS COTTER DO Jun 15, 2022 04:47
--- NOTE | 2022-06-14 14:53 | OPERATIVE REPORT ---
DATE OF SERVICE: 06/14/2022 PREOPERATIVE DIAGNOSIS: Right pleural effusion. POSTOPERATIVE DIAGNOSIS: Right pleural effusion. PROCEDURE: Ultrasound-guided right thoracentesis. SURGEON: Osito Stephens DO ANESTHESIA: 1% lidocaine, 4 mL COMPLICATIONS: None. INDICATIONS: The patient is a 71-year-old female with pneumonia. She also has right pleural effusion. She understands risks and benefits of procedure and wishes to proceed. Consent was signed in chart. DESCRIPTION OF PROCEDURE: The patient was in sitting position. Ultrasound was used to isolate the largest pocket on the right chest for drainage. The area was then prepped and draped in sterile fashion. Timeout was performed. Local anesthetic was infiltrated into the subcutaneous tissue and through the chest wall. An 11 blade scalpel was used to make a small skin incision. The Ibnu-L-Mkorlhad needle and catheter were advanced through the chest wall on the posterior side until straw-colored fluid was withdrawn. The catheter was then advanced and the needle was removed. A total of 300 mL of fluid was withdrawn. The catheter was removed and sterile bandage was applied. The patient tolerated the procedure well without complications. Chest x-ray pending. Job ID: [id number] DocumentID: [id number] Dictated Date: 06/14/2022 09:45:17 Mat Packer Date: 06/14/2022 14:46:00 Dictated By: OSITO STEPHENS DO
[2022-06-14] MEDS ORDERED: NON-FORMULARY MEDICATION 1 EA EA (Cranberry Extract (Cranberry) 1,000 MG) PO SCH (21:00)
[2022-06-14] MEDS ORDERED: NON-FORMULARY MEDICATION 1 EA EA (Simvastatin 20 MG) PO SCH (21:00)
[2022-06-14] MEDS ORDERED: NON-FORMULARY MEDICATION 1 EA EA (Magnesium Oxide 500 MG) PO SCH (21:00)
[2022-06-14] MEDS ORDERED: NON-FORMULARY MEDICATION 1 EA EA (Fish Oil/Dha/Epa (Fish Oil 1,200 mg Fish Oil) 1 EACH) PO SCH (21:00)
[2022-06-14] MEDS ORDERED: OXYBUTYNIN (DITROPAN) 5 MG TAB PO SCH (21:00)
[2022-06-15] MEDS ORDERED: CRANBERRY FRUIT 500 MG PO SCH (09:00)
[2022-06-15] MEDS ORDERED: LEVOTHYROXINE 75 MCG (LEVOTHROID) TABLET PO SCH (09:00)
[2022-06-15] MEDS ORDERED: NON-FORMULARY MEDICATION 1 EA EA (Ubidecarenone (Coq-10) 100 MG) PO SCH (09:00)
[2022-06-15] MEDS ORDERED: NON-FORMULARY MEDICATION 1 EA EA (Calcium Carbonate (Calcium) 1,000 MG) PO SCH (09:00)
[2022-06-15] MEDS ORDERED: TURMERIC ROOT EXTRACT 500 MG PO SCH (09:00)
[2022-06-15] MEDS ORDERED: FERROUS SULF 325 MG (IRON) TAB PO SCH (09:00)
[2022-06-15] MEDS ORDERED: PANTOPRAZOLE 40 MG (PROTONIX) TAB PO SCH (09:00)
[2022-06-15] MEDS ORDERED: NON-FORMULARY MEDICATION 1 EA EA (Naproxen Sodium (Aleve) 440 MG) PO SCH (09:00)
[2022-06-15] MEDS ORDERED: MULTIVIT W/MINERALS TAB (THERAGRAN M) PO SCH (09:00)
[2022-06-15] MEDS ORDERED: LORATADINE (CLARITIN) 10 MG TAB PO SCH (09:00)
== END 2022-06-14 10:28 | DRG 871 ==
LOC: EDUNIT# 08:11 → ER 08:14 → CSD 10:08 → ICU 13:14 → 4TH 06-12 14:39
PROVIDERS: ADMIT Internal Medicine; ATTEND Internal Medicine
PROC: 5A09457 Assistance with Respiratory Ventilation, 24-96 Consecutive Hours, Continuous Positive Airway Pressure (ICD-10-PCS; 2022-06-08)
PROC: 0W993ZZ Drainage of Right Pleural Cavity, Percutaneous Approach (ICD-10-PCS; principal; 2022-06-14)
PROC: 5A0935A Assistance with Respiratory Ventilation, Less than 24 Consecutive Hours, High Flow/Velocity Cannula (ICD-10-PCS; 2022-06-14)
DX: A41.9 Sepsis, unspecified organism (principal); J18.9 Pneumonia, unspecified organism; J96.01 Acute respiratory failure with hypoxia; N17.9 Acute kidney failure, unspecified; J90 Pleural effusion, not elsewhere classified; N39.0 Urinary tract infection, site not specified; Q60.0 Renal agenesis, unilateral; E87.21 Acute metabolic acidosis; E03.9 Hypothyroidism, unspecified; F32.A Depression, unspecified; R65.20 Severe sepsis without septic shock; Z85.3 Personal history of malignant neoplasm of breast; Z87.891 Personal history of nicotine dependence; E78.00 Pure hypercholesterolemia, unspecified; K21.9 Gastro-esophageal reflux disease without esophagitis; Z90.5 Acquired absence of kidney; N18.9 Chronic kidney disease, unspecified; I12.9 Hypertensive chronic kidney disease with stage 1 through stage 4 chronic kidney disease, or unspecified chronic kidney disease; Z79.899 Other long term (current) drug therapy; R41.0 Disorientation, unspecified; Z20.822 Contact with and (suspected) exposure to COVID-19
CPT/HCPCS: 36415; 36569; 36600; 71045; 71250; 76604; 76937; 80053; 81000; 82805; 82945; 83605; 83735; 83986; 84157; 85007; 85025; 85027; 85610; 85730; 87040; 87070; 87075; 87077; 87081; 87088; 87205; 87636; 88112; 88305; 89051; 94640; 94660; 94760; 96361; 96365

== ENCOUNTER 2022-06-13 13:35 | Inpatient (IN) | payer MEDICARE, OTHER ==
[~2022-06-13] VITALS: Ht 157.5 cm; Wt 65.3 kg
[~2022-06-13 13:35] MED LIST changes: +CRAN500T PO; +DILT240C91 PO; +FISH1CAP15 PO; +LORA10TA7 PO; +MAGN250T35 PO; +MELA10TA2 PO; -MELA1TAB20 PO; +MELA1TAB72 PO; +UBID100C17 PO
[2022-06-14] MEDS ORDERED: ONDANSETRON 4 MG (ZOFRAN) ORAL DISSOLVE TAB PO PRN ×2 (09:45→11:30)
[2022-06-14] MEDS ORDERED: diphenhydrAMINE 25 MG TAB (BENADRYL) PO PRN ×2 (09:45→11:30)
[2022-06-14] MEDS ORDERED: MELATONIN 3 MG TABLET PO PRN (09:45)
[2022-06-14] MEDS ORDERED: ACETAMINOPHEN 325 MG TABLET PO PRN (09:45)
[2022-06-14] MEDS ORDERED: DOCUSATE SODIUM 100 MG (COLACE) CAP PO PRN (09:45)
[2022-06-14] MEDS ORDERED: guaiFENesin/CODEINE (ROBITUSSIN AC) 10ML UDC PO PRN (09:45)
[2022-06-14] MEDS ORDERED: BISACODYL 10 MG SUPP (DULCOLAX) PR PRN ×2 (09:45→11:30)
[2022-06-14] MEDS ORDERED: LOPERAMIDE 2 MG (IMODIUM) TABLET PO PRN (09:45)
[2022-06-14] MEDS ORDERED: LACTULOSE SYRUP 10GM/15ML (ENULOSE) 30ML UDC PO PRN ×2 (09:45→11:30)
[2022-06-14] MEDS ORDERED: FLEET ENEMA ADULT 1 EA BTL PR PRN (09:45)
[2022-06-14] MEDS ORDERED: CALCIUM CARBONATE 500 MG (TUMS) TAB.CHEW PO PRN ×2 (09:45→11:30)
[2022-06-14] MEDS ORDERED: ALPRAZolam 0.25 MG (XANAX) TAB PO PRN ×2 (09:45→11:30)
--- NOTE | 2022-06-14 10:15 | Occupational Therapy Eval ---
OT Evaluation-General/PLF Medical Diagnosis Admission Date Medical Diagnosis: [facility]ility; [facility]: Jun 14, 2022 Therapy Diagnosis Therapy Diagnosis: decreased ADL status Precautions Precautions/Isolations: Standard Precautions Referral Physician: Brent Referral Reason: Evaluation/Treatment Medical History Pertinent Medical History: GERD, HTN, Hypothroidism Additional Medical History Surgeries: Hysterectomy, Nephrectomy, Orthopedic Cardiac: High Cholesterol, Hypertension Gastrointestinal: Gastroesophageal Reflux Endocrine: Hypothyroidsim Cancer: Breast Did You Recieve Any Treatments: Yes What Type of Treatment Did You: Surgical Intervention History of Blood Disorders: No Current History ED 06/07/22 with cough, right side chest pain, and SOB. Found to have elevated lactic acid, tachycardia, low sats and consolidation in RLL on CXR. Transferred to ARU 06/14/22. Social History Home: Single Level Current Living Status: Spouse Entry Into Home: Stairs Without Railing Steps Into Home: 2 ADL-Prior Level of Function SCALE: Activities may be completed with or without assistive devices. 4-Duhsgdnctx-ifclupa completes the activity by him/herself with no assistance from a helper. 5-Set-up or Clean-up Assistance-helper sets up or cleans up; patient completes activity. [place] assists only prior to or following the activity. 4-Supervision or Touching Assistance-helper provides verbal cues and/or touching/steadying and/or contact guard assistance as patient completes activity. Assistance may be provided throughout the activity or intermittently. 3-Partial/Moderate Assistance-helper does LESS THAN HALF the effort. [place] lifts, holds or supports trunk or limbs, but provides less than half the effort. 2-Substantial/Maximal Assistance-helper does MORE THAN HALF the effort. [place] lifts or holds trunk or limbs and provides more than half the effort. 1-Bcpesznqw-qhvgbv does ALL the effort. Patient does none of the effort to complete the activity. Or, the assistance of 2 or more helpers is required for the patient to complete the activity. If activity was not attempted, code reason: 7-Patient Refused. 9-Not Applicable-not attempted and the patient did not perform the activity before the current illness, exacerbation or injury. 10-Not Attempted due to Environmental Limitations-(lack of equipment, weather restraints, etc.). 88-Not Attempted due to Medical Conditions or Safety Concerns. ADL PLOF Comments Pt reports IND with ADLs and functional mobility without AD. She has a walk in shower and bathtub, no SC. Self Care: Independent Functional Cognition: Independent DME/Equipment: Shower, Tub/Shower OT Current Status Subjective Pt in bed, agreeable to OT evaluation. MART present after evaluation to continue with tx. Mental Status/Objective Patient Orientation: Person, Place, Time, Situation Current Hand Dominance: Right Upper Extremity ROM WFL, BUE shoulder flexion to approx 150 degrees Upper Extremity Coordination WFL Upper Extremity Sensation WFL Upper Extremity Strength grossly 3+/5 ADL-Treatment Eating (QC): 5 Oral Hygiene (QC): 6 (seated) Shower/Bathe Self (QC): 3 (Min A with feet) Upper Body Dressing (QC): 5 Lower Body Dressing (QC): 3 (Mod A with threading BLEs.) On/Off Footwear (QC): 2 Toileting Hygiene (QC): 4 (SBA) Other Treatments Pt in bed, agreeable to OT evaluation. Pt provided information about PLOF and home set up, then participated in UE screen. Post tx, MART present to continue with OT tx, all needs met. Education OT Patient Education: Correct positioning, Energy conservation, Modified ADL techniques, Progress toward Goal/Update tx plan, Purpose of tx/functional activities, Rehab process Teaching Recipient: Patient Teaching Methods: Discussion Response to Teaching: Verbalize Understanding BIMS CAM BIMS Expression of Ideas and Wants: Without Difficulty Understanding Verbal Content: Understands IRF BART BIMS: IRF BART BIMS Response (Comments) Value Repitition of Three Words Three 3 Recalls Socks Yes, No Cue Required 2 Recalls Blue Yes, No Cue Required 2 Recalls Bed No, Could Not Recall 0 Year Correct 3 Month Accurate Within 5 Days 2 Day Correct 1 Total 13 [address] Ass[address] Mental [address] No CAM Mental Status Change/Baseline: 0 Inattention: 0 Disorganized thinkin Altered level of consciousness: 0 OT Short Term Goals Short Term Goals Time Frame: Jun 30, 2022 Upper body dressin Lower body dressin Putting on/taking off footwear: 5 OT [place] Tower Loader Goals Mcc Goals Time Frame: Jul 09, 2022 Eating (QC): 6 Oral Hygiene (QC): 6 Toileting Hygiene (QC): 6 Shower/Bathe Self (QC): 6 Upper Body Dressing (QC): 6 Lower Body Dressing (QC): 6 On/Off Footwear (QC): 6 Additional Goals: 1-Demonstrate ADL Tasks, 2-Verbalize Understanding, 3- ImproveStrength/Jailyn 1=Demonstrate adherence to instructed precautions during ADL tasks. 2=Patient will verbalize/demonstrate understanding of assistive devices/modifications for ADL. 3=Patient will improve strength/tolerance for activity to enable patient to perform ADL's. OT Education/Plan Problem List/Assessment Assessment: Decreased Activ Tolerance, Decreased UE Strength, Impaired Funct Balance, Impaired I ADL's, Impaired Self-Care Skills Discharge Recommendations Plan/Recommendations: Continue POC Treatment Plan/Plan of Care Patient would benefit from OT for education, treatment and training to promote independence in ADL's, mobility, safety and/or upper extremity function for ADL's. Plan of Care: ADL Retraining, Functional Mobility, Group Exercise/Act as Ind, UE Funct Exercise/Act Treatment Duration: Jul 09, 2022 Frequency: Modified Program (IRF) (23/10) Estimated Hrs Per Day: 1.5 hours per day Agreement: Yes Time Start Time: 10:05 Stop Time: 10:15 DATE: Jun 14, 2022 Total Time Billed (hr/min): 10 Billed Treatment Time 1, REED LE OT Jun 14, 2022 10:15
--- OUTSIDE RECORDS SUMMARY | 2022-06-14 10:58 | XMS REPORT | Clinical Summary ---
Author Author [facility] Organization [facility] Address Unknown Phone Unavailable Care Team Providers Care Shoe Sticks Repairer Name Role Phone Michele Fermin MD PCP Source Comments Some departments are not documenting in the electronic medical record. If you d o not see the information that you expected, contact Release of Information in [facility] [place] Information Management department at [phone] for further assistan ce in locating additional records.[facility] Allergies No known active allergies Medications End Date Status Medication Sig Dispensed Refills Start Date Active hydroCHLOROthiazide Take 25 mg by 0 (HYDRODIURIL) 25 mg mouth every tablet morning. Active amitriptyline (ELAVIL) 50 Take 50 mg by 0 mg tablet mouth at bedtime as needed. Active SIMVASTATIN PO Take by 0 mouth. Active coenzyme Q10(+) 100 mg Take 100 mg 0 cap by mouth. Active CALCIUM PO Take by 0 mouth. Active DOCOSAHEXANOIC ACID/EPA Take by 0 (FISH OIL PO) mouth. Active ERGOCALCIFEROL (VITAMIN Take by 0 D2) (VITAMIN D PO) mouth. Active FERROUS FUMARATE (IRON Take by 0 PO) mouth. Active glucosamine(+) 500 mg tab Take 500 mg 0 by mouth three times daily with meals. Active Problems Not on file Social History Date Tobacco Use Types Packs/Day Years Used Smoking Tobacco: Former Comments Alcohol Use Standard Drinks/Week Not Asked 0 (1 standard drink = 0.6 o z pure alcohol) Sex Assigned at Date Recorded Not on file Obstetrics History Last Filed Vital Signs Reading Time Taken Comments Vital Sign 135/78 04/28/2016 5:09 PM PRINCIPAL SECRETARY Blood Pressure 92 04/28/2016 5:09 PM PRINCIPAL SECRETARY Pulse 36.7 C (98 F) 04/28/2016 5:09 PM PRINCIPAL SECRETARY Temperature 16 04/28/2016 5:09 PM PRINCIPAL SECRETARY Respiratory Rate 95% 04/28/2016 5:09 PM PRINCIPAL SECRETARY Oxygen Saturation - - Inhaled Oxygen Concentration 66.7 kg (147 lb) 04/28/2016 5:09 PM PRINCIPAL SECRETARY Weight 157.5 cm (5' 2") 04/28/2016 5:09 PM PRINCIPAL SECRETARY Height 26.89 04/28/2016 5:09 PM PRINCIPAL SECRETARY Body Mass Index Plan of Treatment Health Maintenance Due Date Last Done Comments MEDICARE ANNUAL WELLNESS 1950 VISIT COVID-19 VACCINE (#1) 01[birth year]02/1951 DTAP/TDAP VACCINES (1 - 1966 Tdap) HEPATITIS C SCREENING 1966 PHYSICAL (COMPREHENSIVE) 1966 EXAM BREAST CANCER SCREENING 1988 COLORECTAL CANCER 1993 SCREENING SHINGLES RECOMBINANT 1998 VACCINE (1 of 2) OSTEOPOROSIS 2013 SCREENING/MONITORING PNEUMOCOCCAL VACCINE (1 - 2013 PCV) INFLUENZA VACCINE (#1) 2021 ADVANCED CARE PLANNING 04/11/2022 DISCUSSION AND DOCUMENTATION DEPRESSION SCREENING 04/11/2022 Results Not on filefrom Last 3 Months Insurance Type Payer Benefit Subscriber ID Effective Phone Address Plan / Dates Group Medicare MEDICARE MEDICARE [id number] 2013-P [phone] [address] [place] [id number] Care Teams Start Date End Date Shoe Sticks Repairer Relationship Specialty 04/28/16 Michele Fermin MD PCP - General Family [address] [address]
--- OUTSIDE RECORDS SUMMARY | 2022-06-14 10:58 | XMS REPORT | Clinical Summary ---
Author Author [facility] Organization [facility] Address Unknown Phone Unavailable Care Team Providers Care Cross Tie Cutter Name Role Phone Micheel Fermin MD PCP Allergies No known active allergies Medications End Date Status Medication Sig Dispensed Refills Start Date Active levothyroxine (SYNTHROID, Take 50 mcg 0 LEVOTHROID) 50 MCG tablet by mouth daily. Active simvastatin (ZOCOR) 20 MG Take 20 mg by 0 tablet mouth nightly. Active co-enzyme Q10 100 mg Take 100 mg 0 capsule by mouth daily. Active ferrous sulfate 325 (65 Take 325 mg 0 FE) MG tablet by mouth daily with breakfast. Active CHOLECALCIFEROL, VITAMIN Take 2,000 mg 0 D3, (VITAMIN D3 ORAL) by mouth daily. Active DOCOSAHEXANOIC ACID/EPA Take by mouth 0 (FISH OIL ORAL) 2 (two) times a day. Active CALCIUM CARBONATE Take by mouth 0 (CALCIUM 600 ORAL) 2 (two) times a day. Active AMITRIPTYLINE HCL Take 50 mg by 0 (AMITRIPTYLINE ORAL) mouth daily. Active diltiazem (CARDIZEM CD) Take 240 mg 0 240 MG 24 hr capsule by mouth daily. Active hydrochlorothiazide Take 25 mg by 0 (HYDRODIURIL) 25 MG mouth daily. tablet Active cefuroxime (CEFTIN) 500 0 MG tablet 6 Active CHERATUSSIN AC 10-100 0 mg/5 mL liquid 6 Active terbinafine HCl (LAMISIL) 1 250 mg tablet 6 Active Problems Problem Noted Date Malignant neoplasm of left breast 01/20/2015 Cancer Staging: Clinical: Unsigned Pathologic: Stage IA (T1c, N0, cM0) - S igned by Subhash Escobedo MD on 07/21/2015 Immunizations Name Administration Dates Next Due Influenza QIV (IM) 01/16/2015 Pneumococcal Conjugate 09/09/2010 13-Valent Family History Medical History Relation Name Comments Cancer Mother cervical Relation Name Status Comments Father Mother Social History Date Tobacco Use Types Packs/Day Years Used Quit: 04/11/2001 Smoking Tobacco: Former Cigarettes 0.5 20 Comments Alcohol Use Standard Drinks/Week occasional No 0 (1 standard drink = 0.6 o z pure alcohol) Sex Assigned at Date Recorded Not on file Last Filed Vital Signs Reading Time Taken Comments Vital Sign 122/66 07/21/2015 1:20 PM CDT Blood Pressure 76 07/21/2015 1:20 PM CDT Pulse 36.2 C (97.1 F) 07/21/2015 1:20 PM CDT Temperature - - Respiratory Rate 98% 07/21/2015 1:20 PM CDT Oxygen Saturation - - Inhaled Oxygen Concentration 66.6 kg (146 lb 12.8 oz) 07/21/2015 1:20 PM CDT Weight 157.5 cm (5' 2") 07/21/2015 1:20 PM CDT Height 26.85 07/21/2015 1:20 PM CDT Body Mass Index Plan of Treatment Health Maintenance Due Date Last Done Comments Colonoscopy 1950 Colorectal Cancer 1950 Screening FIT-DNA 1950 Fecal Occult Blood or FIT 1950 Hepatitis C Screen 1950 Sigmoidoscopy 1950 Td/Tdap# 1950 COVID-19 Vaccine (#1) 01[birth year]02/1951 Mammogram Screening 1998 Zoster Vaccine# (1 of 2) 1998 Depression Screening 2013 PHQ-9 # Fall Risk Assessment # 2013 Osteoporosis Screening 2013 Pneumococcal Vaccine: 65+ 2013 09/09/2010 Years (2 - PPSV23 if available, else PCV20) Influenza Vaccine (#1) 2022 01/16/2015 Advance Care Planning 04/11/2022 Conversation# Medicare Annual Wellness 04/11/2022 Social Determinants of 04/11/2022 Health# Results Not on filefrom Last 3 Months Insurance Type Payer Benefit Subscriber ID Effective Phone Address Plan / Dates Group Medicare MEDICARE MEDICARE [id number] 2013-P [phone] [employer] PART A B resent ATTN CLAIMS DEPT [address] [place] [address] OTHER GOVERNMENT [id number] [address] [place] [address] [address] Belen Patricio Personal/F Self [address] [place] (Home) [place], [place] [address] Belen Patricio Personal/F Self [address] [place] (Home) [place], [place] [address] Care Teams Start Date End Date Cross Tie Cutter Relationship Specialty 01/09/15 Michele Fermin MD PCP - General Family [address] [facility] [address] [place] [address]
[2022-06-14 11:00] VITALS: BP 108/59
--- NOTE | 2022-06-14 11:24 | PM&R Post Admission Assessment ---
PM&R HP Date of Visit: Jun 14, 2022 Time of Visit: 15:00 History of Present Illness CC: Debility following acute hypoxic respiratory failure HPI: This is a 71yoWF clinic patient of mine who presents to the ARU in need of recovery following a critical illness from right sided PNA from Group A Strep requiring 2 separate thoracentesis. Vapotherm and BiPAP required during lengthy ICU course due to high risk for intubation. IV abx maintained with good results. She remains very weak and hypoxic and desats with activity. PLOF independent. Med-surg DC summary: 71 year old female who presented to [facility] ER on 06/07 with a chief complaint of cough, right chest pain and SOB. Patient was found to have lactic acidosis (2.17, repeat 3.55), tachycardia, and a CXR showing RLL pneumonia. Patient was admitted with AHRF, RLL PNA, and Sepsis. Patient was also noted to have a UTI and a creatinine of 1.89. Patient was started on cefepime and doxycycline, breathing treatments, and BiPAP (12/8, 12, 80%). On 06/08 patient's BC grew out Group A Strep. On 06/[address] chest that showed 1. Right middle, right lower and left lower lobe consolidation with areas of mucus plugging in keeping with pneumonia. 2. Swjjvpmu-kg-[id number] right pleural effusions with pleural fluid loculated in the fissures. General surgery was consulted and performed a thoracentesis, draining 600cc of straw colored fluid. Repeat CXR did show improvement. On 06/10 CXR showed, 1. Large right lower lobe consolidation and right middle lobe consolidation with underlying large right pleural effusion similar to the previous study. 2. Central venous congestion shows slight improvement. There is also slight improvement in aeration left lung however this may be due to differences in technique. 3. Stable right sided PICC line. Patient's Cr had returned to <1. Patient was able to tolerate Vapotherm 25, 80% alternating with BiPAP. On 06/11, patient's cytology from thoracentesis was negative. Patient's vapotherm was decreased to 25, 40%. Patient's previously downward trending WBC jumped to 18.2 from 16.8. Patient had finished a cefepime and doxycyline regimen. Decision was made to start patient on Clindamycin and Ampicillin, which was shown to be sensitive on initial blood cultures. Patient underwent CXR and Chest US which showed stable vs increasing in sized pleural effusions. General Surgery was consulted, but because patient's respiratory status was improving, decision was made to wait on repeat thoracentesis or chest tube placement. On 06/12 and 06/13 patient's oxygen requirements continued to improve. Patient was down to 25, 30% by Tuesday Night. On 06/14 patient's CXR showed Extensive opacification of right lung with associated probable pleural fluid. There is also increasing edema and/or pneumonitis in the left perihilar region and clinical correlation would be useful. Decision was made to repeat thoracentesis with 300cc of straw colored fluid being drawn off. Repeat CXR showed: 1. No pneumothorax. 2. Decreased size right pleural effusion postthoracentesis. Patient had continued to improve and the decision was made to transfer the patient to inpatient rehab facility at [facility] in [place]. Patient w ill finish scheduled Abx and treatment there and begin the rehabilitation process. Past Quldnma-Akaytj-Njnshx Hx Past Med/Social Hx: Reviewed Nursing Past Med/Soc Hx, Reviewed and Corrections made Patient Social History Marrital Status: Employed/Student: employed Alcohol Use: Denies Use Smoking Status: Never a Smoker 2nd Hand Smoke Exposure: No Recent Hopitalizations: No Immunizations Up To Date Date of Influenza Vaccine: Feb 04, 2022 Seasonal Allergies Seasonal Allergies: No Past Medical History Surgeries: Breast, Hysterectomy, Nephrectomy, Orthopedic Cardiac: High Cholesterol, Hypertension Gastrointestinal: Gastroesophageal Reflux Endocrine: Hypothyroidsim Cancer: Breast Did You Recieve Any Treatments: Yes What Type of Treatment Did You: Surgical Intervention History of Blood Disorders: No Family History No Pertinent Family Hx Eatin PM&R Allergy/Meds/Data Review Allergies Coded Allergies: No Known Drug Allergies (Unverified , 06/07/22) Home Medications Scheduled Amitriptyline HCl (Amitriptyline HCl), 100 MG PO HS, (Reported) Calcium Carbonate (Calcium), 1,000 MG PO DAILY, (Reported) Cranberry Extract (Cranberry), 1,000 MG PO HS, (Reported) Cranberry Fruit (Cranberry), 500 MG PO DAILY, (Reported) Diltiazem HCl (Diltiazem 24Hr ER), 240 MG PO DAILY, (Reported) Ferrous Sulfate (Iron), 325 MG PO DAILY, (Reported) Fish Oil/Dha/Epa (Fish Oil 1,200 mg Fish Oil), 1 EACH PO HS, (Reported) Hydrochlorothiazide (Hydrochlorothiazide), 25 MG PO DAILY, (Reported) Levothyroxine Sodium (Levothyroxine Sodium), 75 MCG PO DAILY, (Reported) Loratadine (Loratadine), 10 MG PO DAILY, (Reported) Magnesium Oxide (Magnesium Oxide), 500 MG PO BID, (Reported) Multivitamin (Multi-Vitamin Daily), 1 EACH PO DAILY, (Reported) Naproxen Sodium (Aleve), 440 MG PO DAILY, (Reported) Oxybutynin Chloride (Oxybutynin Chloride ER), 10 MG PO DAILY, (Reported) Pantoprazole Sodium (Pantoprazole Sodium), 40 MG PO DAILY, (Reported) Simvastatin (Simvastatin), 20 MG PO HS, (Reported) Turmeric Root Extract (Turmeric), 500 MG PO DAILY, (Reported) Ubidecarenone (Coq-10), 100 MG PO DAILY, (Reported) Scheduled PRN Melatonin (Melatonin), 10 MG PO HS PRN for SLEEP, (Reported) Discontinued Medications Ascorbic Acid (Vitamin C), 1,000 MG PO DAILY, (Reported) Discontinued Reason: No Longer Taking Cholecalciferol (Vitamin D3) (Vitamin D3), 1,250 MCG PO DAILY, (Reported) Discontinued Reason: No Longer Taking Diltiazem HCl (Diltiazem ER), 240 MG PO DAILY, (Reported) Discontinued Reason: Duplicate Order Magnesium Oxide (Magnesium), 400 MG PO DAILY, (Reported) Discontinued Reason: Prescription changed Melatonin/Pyridoxine HCl (B6) (Melatonin 10 mg Tablet), 1 EACH PO HS, (Reported) Discontinued Reason: No Longer Taking Sucralfate (Sucralfate), 1 GM PO QID, (Reported) Discontinued Reason: No Longer Taking Current Medications Current Medications Reviewed Review of Systems Constitutional: see HPI, malaise, weakness EENTM: no symptoms reported Respiratory: dyspnea on exertion Cardiovascular: no symptoms reported Gastrointestinal: no symptoms reported Genitourinary: no symptoms reported Musculoskeletal: back pain, joint pain Skin: no symptoms reported Psychiatric/Neurological: No Symptoms Reported All Other Systems Reviewed Negative Unless Noted: Yes Physical Exam Physical Exam Vital Signs Vital Signs - First Documented 3/6/23 11:00 Temp 36.7 Pulse 104 Resp 20 B/P (MAP) 108/59 (75) Pulse Ox 91 O2 Delivery High Flow N/C O2 Flow Rate 6.00 Capillary Refill : Height, Weight, BMI Height: '" Weight: lbs. oz. kg; 31.64 BMI Method: General Appearance: WD/WN, Anxious, Chronically ill, Mild Distress Eyes: Bilateral Eye Normal Inspection, Bilateral Eye PERRL HEENT: PERRL/EOMI, Normal ENT Inspection, Pharynx Normal Neck: Full Range of Motion, Normal Inspection, Non Tender, Supple, Carotid Bruit Respiratory: Chest Non Tender, Lungs Clear, No Respiratory Distress, Accessory Muscle Use, Decreased Breath Sounds Cardiovascular: No Edema, No Gallop, No JVD, No Murmur, Normal Peripheral Pulses, Tachycardia Gastrointestinal: Normal Bowel Sounds, No Organomegaly, No Pulsatile Mass, Non Tender, Soft Back: Normal Inspection, No CVA Tenderness, No Vertebral Tenderness Extremity: Normal Capillary Refill, Normal Inspection, Normal Range of Motion, Non Tender, No Calf Tenderness, No Pedal Edema Neurologic/Psychiatric: Alert, Oriented x3, No Motor/Sensory Deficits, manager of environmental services II- XII Norm as Tested, Abnormal Gait, Depressed Affect, Motor Weakness (generalized) Skin: Normal Color, Warm/Dry Lymphatic: No Adenopathy PM&R Medical Assessment & Plan REHAB/MEDICAL ASSESSMENT AND PLAN: REHAB IMPAIRMENT GROUP: Debility from acute hypoxic respiratory failure ETIOLOGIC DIAGNOSIS: Debility from acute hypoxic respiratory failure The comorbidities that impact the patients function and/or functional outcome by: recent PNA with effusions requiring thoracentesis x 2, hypoxia, severe weakness REHAB PLAN: The patient is being admitted to our comprehensive inpatient rehabilitation facility and can tolerate the intensity of service consisting of at least: 180 minutes of therapy a day, 5 out of 7 days a week Rehab treatment will consist of: PT OT will focus on regaining function while weaning O2 and monitoring for desat and decompensation while increasing stamina The patient/family has a good understanding of our discharge process and will benefit from an interdisciplinary inpatient rehabilitation program. The patient has potential to make improvement and is in need of at least two of the following multidisciplinary therapies including but not limited to physical, occupational, speech, and prosthetics and orthotics. Additionally the patient will need services from respiratory, nutritional services, wound care, psychology, etc. (Customize this to each patient). Given the patients complex condition and risk of further medical complications, rehabilitation services cannot be safely or effectively provided at a lower level of care such as a residential facility. BARRIERS TO DISCHARGE: Severe weakness with hypoxia ESTIMATED LOS: 7 days DISPOSITION: Home RELEVANT CHANGES SINCE PREADMISSION SCREENING: I have compared the patients medical and functional status at the time of the preadmission screening and there are: no changes PROGNOSIS: Good REHABILITATION GOALS: 1. PT OT will focus on regaining function while weaning O2 and monitoring for desat and decompensation while increasing stamina All the above goals were reviewed with the patient and he/she is in agreement. By signing this document, I acknowledge that I have personally performed a full physical examination on this patient within 24 hours of admission to this inpatient rehabilitation facility and have determined the patient to be able to tolerate the above course of treatment at an intensive level for a reasonable period of time. I will be completing a detailed individualized Plan of Care for this patient by day #4 of the patients stay based upon the Preadmission Screen, the Post-Admission Evaluation, and the therapy evaluations. Admission Dx/Comorbidities: (1) Acute respiratory failure ICD Codes: J96.00 - Acute respiratory failure, unspecified whether with hypoxia or hypercapnia Assessment/Plan Assessment and Plan Assess & Plan/Chief Complaint Assessment: Acute Hypoxic Respiratory Failure s/p bipap and Vapotherm Sepsis severe type-resolved Right sided pleural effusion requiring [address] Stephens RLL Pneumonia Sinus Tachycardia Elevated creatinine vs FRAN Solo kidney HTN Hypothyroidism HLD Depression GI prophylaxis - PPI DVT prophylaxis - heparin Plan: PT OT WEan O2 Monitor labs RIAZ COTTER DO Jun 14, 2022 11:24
[2022-06-14] MEDS ORDERED: ONDANSETRON 4 MG/2 ML (SDV) Z0FRAN IV PRN (11:30)
[2022-06-14] MEDS ORDERED: ANTACID SUSP 30 ML UDC (MYLANTA) PO PRN (11:30)
[2022-06-14] MEDS ORDERED: polyethylene glycoL POWDER 17 GM (MIRALAX) PACK PO PRN (11:30)
[2022-06-14] MEDS ORDERED: CATHETER FLUSH 10 ML SYR IVP PRN (11:30)
[2022-06-14] MEDS ORDERED: diphenhydrAMINE 50 MG/ML INJ (BENADRYL) IVP PRN (11:30)
[2022-06-14] MEDS ORDERED: HYDROmorphone 2 MG/ML VIAL (DILAUDID) IV PRN (11:30)
[2022-06-14] MEDS ORDERED: MILK OF MAGNESIA 400 MG/5 ML 30 ML UDC PO PRN (11:30)
--- NOTE | 2022-06-14 11:58 | Occupational Ther Daily Note ---
OT Current Status-Daily Note Subjective Pt alert, lying in bed. Pt agrees to therapy. Took over care from OTR/L @ 10:15. Mental Status/Objective Patient Orientation: Person, Place, Time, Situation Attachments: Dominguez Catheter, IV, Telemetry ADL-Treatment Mod A for supine to EOB. Max A for footwear. SBA for transfer from bed to w/c using FWW. After session, pt in care of PT for eval. All needs met. Therapy Code Descriptions/Definitions Functional [place] Measure: 0=Not Assessed/NA 4=Minimal Assistance 1=Total Assistance 5=Supervision or Setup 2=Maximal Assistance 6=Modified [place] 3=Moderate Assistance 7=Complete IndependenceSCALE: Activities may be completed with or without assistive devices. 5-Nhtmsfccno-qliqqwr completes the activity by him/herself with no assistance from a helper. 5-Set-up or Clean-up Assistance-helper sets up or cleans up; patient completes activity. [place] assists only prior to or following the activity. 4-Supervision or Touching Assistance-helper provides verbal cues and/or touching/steadying and/or contact guard assistance as patient completes activity. Assistance may be provided throughout the activity or intermittently. 3-Partial/Moderate Assistance-helper does LESS THAN HALF the effort. [place] lifts, holds or supports trunk or limbs, but provides less than half the effort. 2-Substantial/Maximal Assistance-helper does MORE THAN HALF the effort. [place] lifts or holds trunk or limbs and provides more than half the effort. 0-Tijoavbex-eedxsw does ALL the effort. Patient does none of the effort to complete the activity. Or, the assistance of 2 or more helpers is required for the patient to complete the activity. If activity was not attempted, code reason: 7-Patient Refused. 9-Not Applicable-not attempted and the patient did not perform the activity b efore the current illness, exacerbation or injury. 10-Not Attempted due to Environmental Limitations-(lack of equipment, weather restraints, etc.). 88-Not Attempted due to Medical Conditions or Safety Concerns. On/Off Footwear: 2 OT Short Term Goals Short Term Goals Time Frame: Jun 30, 2022 Upper body dressin Lower body dressin Putting on/taking off footwear: 5 OT [employer] Advisor Goals Residential Goals Time Frame: Jul 09, 2022 Acute change in mental status: 0 Inattention: 0 Disorganized thinkin Altered level of consciousness: 0 Eating (QC): 6 Oral Hygiene (QC): 6 Toileting Hygiene (QC): 6 Shower/Bathe Self (QC): 6 Upper Body Dressing (QC): 6 Lower Body Dressing (QC): 6 On/Off Footwear (QC): 6 Additional Goals: 1-Demonstrate ADL Tasks, 2-Verbalize Understanding, 3- ImproveStrength/Jailyn 1=Demonstrate adherence to instructed precautions during ADL tasks. 2=Patient will verbalize/demonstrate understanding of assistive devices/modifications for ADL. 3=Patient will improve strength/tolerance for activity to enable patient to perform ADL's. OT Education/Plan Problem List/Assessment Assessment: Decreased Activ Tolerance, Decreased UE Strength, Impaired Self-C are Skills Discharge Recommendations Plan/Recommendations: Continue POC Treatment Plan/Plan of Care Patient would benefit from OT for education, treatment and training to promote independence in ADL's, mobility, safety and/or upper extremity function for ADL's. Plan of Care: ADL Retraining, Functional Mobility, Group Exercise/Act as Ind, UE Funct Exercise/Act Treatment Duration: Jul 09, 2022 Frequency: Modified Program (IRF) (23/10) Estimated Hrs Per Day: 1.5 hours per day Agreement: Yes Time Start Time: 10:15 Stop Time: 10:45 DATE: Jun 14, 2022 Total Time Billed (hr/min): 30 Billed Treatment Time 1 visit-FA 2 (30 min) ALONSO BADILLO Jun 14, 2022 11:58
--- NOTE | 2022-06-14 12:02 | Occupational Ther Daily Note ---
OT Current Status-Daily Note Subjective Pt alert, sitting in w/c. Pt agrees to therapy. Co-treat with PT, [id number]), skills of 2 clinicians required to decrease fall risk, increase stamina due to pt's decreased oxygen level and activity tolerance. PT focusing on ambulation, transfers and increasing overall mobility while OT focusing on ADLs, functional mobility and increasing activity tolerance. Mental Status/Objective Patient Orientation: Person, Place, Time, Situation ADL-Treatment Pt agrees to shower. CGA for shower transfer. Sitting on shower bench, 100% of the time, pt able to complete all areas except lower legs/feet for bathing and drying. Set up for upper body dressing. Max A for footwear. Mod A for lower body dressing, assist to thread feet due to SOA then pt able to hike pants over hips with SBA. Independent with oral care. Therapy Code Descriptions/Definitions Functional [place] Measure: 0=Not Assessed/NA 4=Minimal Assistance 1=Total Assistance 5=Supervision or Setup 2=Maximal Assistance 6=Modified [place] 3=Moderate Assistance 7=Complete IndependenceSCALE: Activities may be completed with or without assistive devices. 6-Hlpwkvxzjt-wdqaojh completes the activity by him/herself with no assistance from a helper. 5-Set-up or Clean-up Assistance-helper sets up or cleans up; patient completes activity. [place] assists only prior to or following the activity. 4-Supervision or Touching Assistance-helper provides verbal cues and/or touching/steadying and/or contact guard assistance as patient completes activity. Assistance may be provided throughout the activity or intermittently. 3-Partial/Moderate Assistance-helper does LESS THAN HALF the effort. [place] lifts, holds or supports trunk or limbs, but provides less than half the effort. 2-Substantial/Maximal Assistance-helper does MORE THAN HALF the effort. [place] lifts or holds trunk or limbs and provides more than half the effort. 2-Evttqvhso-zisnbv does ALL the effort. Patient does none of the effort to complete the activity. Or, the assistance of 2 or more helpers is required for the patient to complete the activity. If activity was not attempted, code reason: 7-Patient Refused. 9-Not Applicable-not attempted and the patient did not perform the activity before the current illness, exacerbation or injury. 10-Not Attempted due to Environmental Limitations-(lack of equipment, weather restraints, etc.). 88-Not Attempted due to Medical Conditions or Safety Concerns. Oral Hygiene (QC): 6 Shower/Bathe Self (QC): 3 Upper Body Dressing (QC): 5 Lower Body Dressing (QC): 3 (Mod A) On/Off Footwear: 2 Toileting Hygiene (QC): 4 (CGA for safety.) Other Treatment See PT notes for ambulation progress. Pt stood at parallel bars to work on increasing activity tolerance and work on B UE gross motor strength. Pt stood entire activity without breaks. At 6L of O2, pt stayed at 90% and above. After session, pt sitting in recliner with call light/phone in reach. All needs met in room. OT Short Term Goals Short Term Goals Time Frame: Jun 30, 2022 Upper body dressin Lower body dressin Putting on/taking off footwear: 5 OT Cna Per Diem Goals Cna Per Diem Goals Time Frame: Jul 09, 2022 Acute change in mental status: 0 Inattention: 0 Disorganized thinkin Altered level of consciousness: 0 Eating (QC): 6 Oral Hygiene (QC): 6 Toileting Hygiene (QC): 6 Shower/Bathe Self (QC): 6 Upper Body Dressing (QC): 6 Lower Body Dressing (QC): 6 On/Off Footwear (QC): 6 Additional Goals: 1-Demonstrate ADL Tasks, 2-Verbalize Understanding, 3- ImproveStrength/Jailyn 1=Demonstrate adherence to instructed precautions during ADL tasks. 2=Patient will verbalize/demonstrate understanding of assistive devices/modifications for ADL. 3=Patient will improve strength/tolerance for activity to enable patient to perform ADL's. OT Education/Plan Problem List/Assessment Assessment: Decreased Activ Tolerance, Decreased UE Strength, Impaired Self- Care Skills Discharge Recommendations Plan/Recommendations: Continue POC Treatment Plan/Plan of Care Patient would benefit from OT for education, treatment and training to promote independence in ADL's, mobility, safety and/or upper extremity function for ADL's. Plan of Care: ADL Retraining, Functional Mobility, Group Exercise/Act as Ind, UE Funct Exercise/Act Treatment Duration: Jul 09, 2022 Frequency: Modified Program (IRF) (23/10) Estimated Hrs Per Day: 1.5 hours per day Agreement: Yes Time Start Time: 10:55 Stop Time: 12:00 DATE: Jun 14, 2022 Total Time Billed (hr/min): 65 Billed Treatment Time 1 visit-ADL 4 (60 min) co-treat for 65 min with PT ALONSO BADILLO Jun 14, 2022 12:02
[2022-06-14] MEDS: LACTOBACILLUS ACIDOPHILUS (PROBIOTIC) CAPSULE PO SCH ×2 (12:10→17:38)
[2022-06-14] MEDS: AMOXICILLIN 500 MG (POLYMOX) CAP PO SCH ×2 (12:10→20:22)
[2022-06-14 12:13] VITALS: BP 109/65
--- NOTE | 2022-06-14 12:42 | Physical Therapy Evaluation ---
PT Evaluation-General Medical Diagnosis Admission Date Jun 14, 2022 at 10:30 Medical Diagnosis: debility; BANNERF Onset Date: Jun 07, 2022 Therapy Diagnosis Therapy Diagnosis: impaired mobility, strength, endurance Precautions Precautions/Isolations: Standard Precautions Referral Physician: Chapis Kennedy DO Reason for Referral: Evaluation/Treatment Medical History Pertinent Medical History: GERD, HTN, Hypothroidism Reviewed History: Yes Social History Home: Single Level Current Living Status: Spouse Entry Into Home: Stairs With Railing, Stairs Without Railing PT Steps Into Home: 3 Prior Prior Level of Function SCALE: Activities may be completed with or without assistive devices. 8-Yzxlmosdvw-wurqgdb completes the activity by him/herself with no assistance from a helper. 5-Set-up or Clean-up Assistance-helper sets up or cleans up; patient completes activity. Bagley assists only prior to or following the activity. 4-Supervision or Touching Assistance-helper provides verbal cues and/or touching/steadying and/or contact guard assistance as patient completes activity. Assistance may be provided throughout the activity or intermittently. 3-Partial/Moderate Assistance-helper does LESS THAN HALF the effort. Bagley lifts, holds or supports trunk or limbs, but provides less than half the effort. 2-Substantial/Maximal Assistance-helper does MORE THAN HALF the effort. Bagley lifts or holds trunk or limbs and provides more than half the effort. 2-Dqxhjnzvu-kpkrha does ALL the effort. Patient does none of the effort to complete the activity. Or, the assistance of 2 or more helpers is required for the patient to complete the activity. If activity was not attempted, code reason: 7-Patient Refused. 9-Not Applicable-not attempted and the patient did not perform the activity before the current illness, exacerbation or injury. 10-Not Attempted due to Environmental Limitations-(lack of equipment, weather restraints, etc.). 88-Not Attempted due to Medical Conditions or Safety Concerns. Bed Mobility: 6 Transfers (B,C,W/C): 6 Gait: 6 Stairs: 6 Indoor Mobility (Ambulation): Independent Stairs: Independent PT Evaluation-Current Subjective Patient in room pre tx, agrees to PT, has no complaints of pain. Will be co- treating with OT for part of tx due to poor patient mobility, strength, endurance, severe debility, coordinate UE and LE during activity, safety and reduce risk of falls. Pain Section J - Health Conditions 1. Rarely or not at all 2. Occasionally 3. Frequently 4. Almost constantly 8. Unable to answer Pain Effect on Sleep: 1 Pain Interference with Therapy: 1 Pain Interference w/Day-to-Day: 1 Pt/Family Goals to be independent at home Objective Patient Orientation: Person, Place, Situation ROM/Strength ROM Lower Extremities WNL Strength Lower Extremities LLE (hip flexion 3+/5, knee flexion 4/5, knee extension 4/5, dorsiflexion 5/5), RLE (hip flexion 3+/5, knee flexion 4/5, knee extension 4/5, dorsiflexion 5/5) Sensory Hearing: Functional Hand Dominance: Right Sensation Right Lower Extremit: Intact Sensation Left Lower Extremity: Intact Transfers Roll Left & Right (QC): 6 Sit to Lying (QC): 3 Lying to Sitting/Side of Bed(Q: 3 Sit to Stand (QC): 4 Chair/Isn-oq-Wordj Xfer(QC): 4 Toilet Transfer (QC): 4 Car Transfer (QC): 4 Patient performs rolling with independence, supine <-> sit min assist, sit <-> stand and transfers CGA, car transfer CGA. Patient needs frequent cues for positioning and safety. Gait Does the Patient Walk?: Yes Mode of Locomotion: Walk Anticipated Mode of Locomotion: Walk Walk 10 feet (QC): 4 Walk 50 ft with 2 Turns(QC): 4 Walk 150 ft (QC): 88 Walking 10ft/uneven surface-QC: 4 Distance: 100', 120' Gait Assistive Device: FWW Comments/Gait Description Patient can ambulate 120' with a rolling walker with CGA (including 50' with at least 2 turns of 90 degrees and 10' over an uneven surface), gait is slow, moments of unsteadiness but no mehran LOB, O2 was 91% after ambulation on 6L of O2 Wheelchair Training Wheel 50 ft with 2 turns (QC): 9 Wheel 150 ft (QC): 9 Stairs #of Steps: 1 1 Step (curb) (QC): 4 4 Steps (QC): 88 12 Steps (QC): 88 Walking Assistive Device: Walker Patient can go up and down 1 step using a rolling walker with CGA, cues for positioning and safety Balance Sitting Static: Normal Sitting Dynamic: Normal Standing Static: Fair Standing Dynamic: Fair Picking up an Object (QC): 4 (CGA using a medicare biller) Treatment Patient also performed bathing and dressing, and standing activity in parallel bars working on medicare biller and endurance. PT performed bed mobility and transfers, ambulation, stair training, standing and endurance training, OT worked on bathing, dressing, UE reaching activity, UE positioning and safety during activity. Assessment/Needs Patient in recliner post tx with nurse call, phone, tray, all needs met. Patient has impaired mobility, strength, endurance. Patient needs CGA for transfers and ambulation but min assist for supine <-> sit. Rehab Potential: Fair PT [facility] Network Consultant Goals Healthcare Network Consultant Goals [facility] Consultant Goals Time Frame: Jun 28, 2022 Roll Left to Right (QC): 6 Sit to Lying (QC): 6 Lying-Sitting on Side/Bed(QC): 6 Sit to Stand (QC): 6 Chair/Qaw-mf-Febur Xfer(QC): 6 Toilet/Commode Transfer (QC): 6 Car Transfer (QC): 6 Does the Patient Walk: Yes Walk 10 feet (QC): 6 Walk 10ft-Uneven Surface(QC): 6 Walk 50ft with 2 Turns (QC): 6 Walk 150 ft (QC): 6 Wheel 50 feet with 2 turns (QC: 9 Wheel 150 feet: 9 1 Step (curb) (QC): 4 (SBA) 4 Steps (QC): 4 (SBA) 12 Steps (QC): 88 Picking up an Object (QC): 6 PT Plan Problem List Problem List: Activity Tolerance, Functional Strength, Safety, Balance, Gait, Transfer, Bed Mobility, ROM Treatment/Plan Treatment Plan: Continue Plan of Care Treatment Plan: Bed Mobility, Education, Functional Activity Jailyn, Functional Strength, Group Therapy, Gait, Safety, Therapeutic Exercise, Transfers Treatment Duration: Jun 28, 2022 Frequency: At least 5 of 7 days/Wk (IRF) Estimated Hrs Per Day: 1.5 hours per day Patient and/or Family Agrees t: Yes Safety Risks/Education Patient Education: Gait Training, Transfer Techniques, Steps, Correct Positioning, Safety Issues Teaching Recipient: Patient Teaching Methods: Demonstration, Discussion Response to Teaching: Reinforcement Needed Discharge Recommendations Plan Patient will perform bed mobility and transfer training, balance and endurance training, functional strengthening, stair training, gait training, and educa tion, to improve functional mobility and independence at home. Therapy Discharge Recommendati: Home & Family, Post Acute PT Time Time In: 1045 Time Out: 1200 DATE: Jun 14, 2022 Total Billed Treatment Time: 75 Total Billed Treatment 1 visit EVM 10' FA 65' PT eval from [id number], co-treat from [id number] RANDALL ROSAS PT Jun 14, 2022 12:42
[2022-06-14 13:56] VITALS: BP 115/73
[2022-06-14] MEDS: RT-ALBUTEROL SULF 2.5 MG/3 ML PRE-MIX VIAL INH SCH ×2 (15:06→19:28)
[2022-06-14] MEDS: RT-IPRATROPIUM (ATROVENT) 0.5MG/2.5ML AMP IH SCH ×2 (15:06→19:28)
[2022-06-14] MEDS: MAGNESIUM OXIDE (MAG-OX)400 MG TAB PO SCH (17:38)
[2022-06-14] MEDS: OXYBUTYNIN (DITROPAN) 5 MG TAB PO SCH (20:20)
[2022-06-14] MEDS: AMITRIPTYLINE 25 MG (ELAVIL) TAB PO SCH (20:20)
[2022-06-14] MEDS: DOCUSATE SODIUM 100 MG (COLACE) CAP PO SCH (20:20)
[2022-06-14] MEDS: SENNOSIDES 8.6 MG (SENOKOT) TAB PO SCH (20:21)
[2022-06-14] MEDS: AtorvaSTATin TABLET 10 MG TABLET PO SCH (20:22)
[2022-06-14] MEDS: ACETAMINOPHEN 325 MG TABLET PO PRN (20:23)
[2022-06-14] MEDS: OMEGA 3 (FISH OIL) 1000 MG CAP PO SCH (20:25)
[2022-06-14] MEDS: polyethylene glycoL POWDER 17 GM (MIRALAX) PACK PO SCH (20:26)
[2022-06-14] MEDS: CATHETER FLUSH 10 ML SYR IVP SCH (20:26)
[2022-06-14 20:37] VITALS: BP 133/81
[2022-06-14] MEDS ORDERED: NON-FORMULARY MEDICATION 1 EA EA (Cranberry Extract (Cranberry) 1,000 MG) PO SCH (21:00)
[2022-06-14] MEDS ORDERED: NON-FORMULARY MEDICATION 1 EA EA (Magnesium Oxide 500 MG) PO SCH (21:00)
[2022-06-14] MEDS ORDERED: NON-FORMULARY MEDICATION 1 EA EA (Fish Oil/Dha/Epa (Fish Oil 1,200 mg Fish Oil) 1 EACH) PO SCH (21:00)
[2022-06-14] MEDS ORDERED: SENNA W/DOCUSATE (SENOKOT S) TABLET PO SCH (21:00)
[2022-06-14] MEDS ORDERED: NON-FORMULARY MEDICATION 1 EA EA (Simvastatin 20 MG) PO SCH (21:00)
[2022-06-14] MEDS ORDERED: DOCUSATE SODIUM 100 MG (COLACE) CAP PO SCH (21:00)
[2022-06-14 21:18] VITALS: BP 120/75
[2022-06-14] MEDS: guaiFENesin/DM (ROBITUSSIN DM) 10 ML UDC PO PRN (22:18)
[2022-06-15] MEDS: RT-IPRATROPIUM (ATROVENT) 0.5MG/2.5ML AMP IH SCH ×3 (02:42→21:14)
[2022-06-15] MEDS: RT-ALBUTEROL SULF 2.5 MG/3 ML PRE-MIX VIAL INH SCH ×3 (02:42→21:15)
[2022-06-15] MEDS: LEVOTHYROXINE 75 MCG (LEVOTHROID) TABLET PO SCH (05:38)
[2022-06-15] MEDS: CATHETER FLUSH 10 ML SYR IVP SCH ×3 (05:38→19:58)
[2022-06-15] MEDS: guaiFENesin/DM (ROBITUSSIN DM) 10 ML UDC PO PRN ×2 (05:47→19:57)
--- NOTE | 2022-06-15 06:17 | Individualized Plan of Care ---
Individualized Plan of Care Rehab Nursing IPOC Order Admission Date Jun 14, 2022 at 10:30 Current Orders Orders Admission Order(Inpt,Obs,Sdc) (06/14/22 09:40) Vital Signs: Per Unit Policy ( 08,16,00 (06/14/22 09:40) Sequential Compression Device (06/14/22 09:40) Utility System Repairer-Inpt Rehab Con (06/14/22 09:40) Rehab Nursing Orders-Ipoc (06/14/22 09:40) Physical Therapy Rehab Orders (06/14/22 09:40) Occupational Therapy Rehab Ord (06/14/22 09:40) Speech Therapy Rehab Orders (06/14/22 09:40) Cbc With Automated Diff (06/15/22 06:00) Comprehensive Metabolic Panel (06/15/22 06:00) Precautions (Aru) (06/14/22 09:40) Weekly Weight WEEK (06/14/22 09:40) Rehab-Intensity Of Therapy (06/14/22 09:40) Initiate Admission Nursing Pro .admission (06/14/22 09:40) Alprazolam Tablet (Xanax Tablet) (06/14/22 09:45) Calcium Carbonate Chew Tablet (Antacid C (06/14/22 09:45) Diphenhydramine Tablet (Benadryl Tablet) (06/14/22 09:45) Docusate Sodium Capsule (Colace Capsule) (06/14/22 21:00) Docusate Sodium Capsule (Colace Capsule) (06/14/22 09:45) Bisacodyl Suppository (Dulcolax Supposit (06/14/22 09:45) Lactulose Oral Solution (Enulose Oral So (06/14/22 09:45) Na Phos/Na Biphos Enema (Fleet Enema Richard (06/14/22 09:45) Guaifenesin/Codeine Syrup (Robitussin Ac (06/14/22 09:45) Loperamide Tablet (Imodium Tablet) (06/14/22 09:45) Melatonin Tablet (Melatonin Tablet) (06/14/22 09:45) Polyethylene Glycol Powder Pkt (Miralax (06/14/22 21:00) Ondansetron Oral Dissolve Tab (Zofran (3/6/23 09:45) Senna S Tablet (Senokot S Tablet) (06/14/22 21:00) Acetaminophen Tablet/Caplet (Tylenol T (06/14/22 09:45) Initiate Admission Nursing Pro .admission (06/14/22 09:40) Code/Resuscitation (06/14/22 09:40) Admission Arrival Bed Request (06/14/22 10:30) Incentive Spirometry (Nursing) Q2H (06/14/22 11:17) Initiate Admission Nursing Pro .admission (06/14/22 11:17) Picc Cap(S) Change Q7D (06/14/22 11:17) Picc Dressing/Securement Devic Q7D (06/14/22 11:17) Theodore Hose (06/14/22 11:17) General/Regular (06/14/22 Lunch) (Nf) Calcium Carbonate (Calcium) (06/15/22 09:00) (Nf) Cranberry Extract (Cranberry) (06/14/22 21:00) (Nf) Cranberry Fruit (Cranberry) (06/15/22 09:00) (Nf) Fish Oil/Dha/Epa (Fish Oil 1,200 Mg (06/14/22 21:00) (Nf) Magnesium Oxide (06/14/22 21:00) (Nf) Naproxen Sodium (Aleve) (06/15/22 09:00) (Nf) Simvastatin (06/14/22 21:00) (Nf) Turmeric Root Extract (Turmeric) (06/15/22 09:00) (Nf) Ubidecarenone (Coq-10) (06/15/22 09:00) Alprazolam Tablet (Xanax Tablet) (06/14/22 11:30) Albuterol Pre-Mix Nebs (Rt) (Proventil (06/14/22 15:00) Amitriptyline Tablet (Elavil Tablet) (06/14/22 21:00) Diphenhydramine Injection (Benadryl Inje (06/14/22 11:30) Diphenhydramine Tablet (Benadryl Tablet) (06/14/22 11:30) Docusate Sodium Capsule (Colace Capsule) (06/14/22 21:00) Bisacodyl Suppository (Dulcolax Supposit (06/14/22 11:30) Enoxaparin Injection (Lovenox Injection) (06/15/22 11:00) Lactulose Oral Solution (Enulose Oral So (06/14/22 11:30) Ferrous Sulfate Tablet (Feosol Tablet) (06/15/22 09:00) Hydromorphone Injection (Dilaudid Inject (06/14/22 11:30) Hydrochlorothiazide Cap/Tablet (Hctz Cap (06/15/22 09:00) Ipratropium 0.02% Neb Solution (Atrovent (06/14/22 15:00) Lactobacillus Acidophilus Cap (Acidophil (06/14/22 13:00) Levothyroxine Tablet (Synthroid Tablet) (06/15/22 06:30) Loratadine Tablet (Claritin Tablet) (06/15/22 09:00) Magnesium Hydroxide Oral Susp (Mom Oral (06/14/22 11:30) Polyethylene Glycol Powder Pkt (Miralax (06/14/22 11:30) Antacid Suspension (Mylanta Suspension (06/14/22 11:30) Oxybutynin Tablet (Ditropan Tablet) (06/14/22 21:00) Pantoprazole Tablet (Protonix Tablet) (06/15/22 09:00) Sennosides Tablet (Senokot Tablet) (06/14/22 21:00) Sodium Chloride Flush (Catheter Flush Sy (06/14/22 11:30) Therapeutic Multivitamin Tab (Vitamins, (06/15/22 08:00) Calcium Carbonate Chew Tablet (Antacid C (06/14/22 11:30) Acetaminophen Tablet/Caplet (Tylenol T (06/14/22 11:30) Ondansetron Injection (Zofran Injectio (06/14/22 11:30) Ondansetron Oral Dissolve Tab (Zofran (06/14/22 11:30) Diltiazem Cd 24 Hr Capsule (Cardizem Cd (06/15/22 09:00) Diltiazem Cd 24 Hr Capsule (Cardizem Cd (06/15/22 09:00) Guaifenesin/Codeine Syrup (Robitussin Ac (06/14/22 11:30) Guaifenesin/Dm Syrup (Robitussin Dm Syru (06/14/22 11:30) Oxycodone Immediate Rel Tablet (Oxyir Ta (06/14/22 11:30) Consult General Surgery (06/14/22 11:17) Incentive Spirometry Initial (06/14/22 11:17) Mat Initiate Protocol (06/14/22 11:17) Vapotherm - Admin Rt Rfs (06/14/22 11:17) Svn Small Volume Nebulizer (06/14/22 11:17) Svn Small Volume Nebulizer (06/14/22 11:17) Incentive Spirometry (Nursing) Q2H (06/14/22 11:17) Amoxicillin Capsule (Polymox Capsule) (06/14/22 13:00) Calcium Carbonate Tablet (Calcarb 600 Ta (06/15/22 08:00) [place] 3 Capsule (Fish Oil Capsule) (06/14/22 21:00) Magnesium Oxide Tablet (Mag Ox Tablet) (06/14/22 18:00) Naproxen Tablet (Naprosyn Tablet) (06/15/22 07:00) Atorvastatin Tablet (Lipitor Tablet) (06/14/22 21:00) Sodium Chloride Flush (Catheter Flush Sy (06/14/22 22:00) Patient Visit (06/14/22 ) Pt Eval Moderate Complexity (06/14/22 ) Functional Activities, Ea 15 (06/14/22 ) Catheter(Urinary) Discontinue (06/15/22 05:13) Albuterol Pre-Mix Nebs (Rt) (Proventil (06/15/22 21:00) Ipratropium 0.02% Neb Solution (Atrovent (06/15/22 21:00) Rehab Nursing Orders: Ongoing Assess. of Function Status, Bladder Management, Bladder Scan, Bladder Training, Bowel Management, Bowel Training, Disease Management & Educaiton, DVT Prophylaxis, Fall Prevention, Fluid/Elect rolyte/Nutrition Mgmt, Infection Prevention, Medication Management & Education, Management of Risks & Complications, Management of Skin Intergrity, Nutrition Management, Pain Management, Patient/Family Support, Safety Management Intensity of Therapy to be met Patient to be seen: Min.3h per day/5 of 7d PT IPOC Problem List: Activity Tolerance, Functional Strength, Safety, Balance, Gait, Transfer, Bed Mobility, ROM Treatment Plan: Continue Plan of Care Bed Mobility, Education, Functional Activity Jailyn, Functional Strength, Group Therapy, Gait, Safety, Therapeutic Exercise, Transfers Treatment Duration: Jun 28, 2022 Frequency: At least 5 of 7 days/Wk (IRF) Estimated Hrs Per Day: 1.5 hours per day OT IPOC Problems: Decreased Activ Tolerance, Decreased UE Strength, Impaired Self-Care Skills OT Treatment, Training and Edu: Yes Plan of Care: ADL Retraining, Functional Mobility, Group Exercise/Act as Ind, UE Funct Exercise/Act Treatment Duration: Jul 09, 2022 Frequency: Modified Program (IRF) (23/10) Estimated Hrs Per Day: 1.[address] IPOC Speech Therapy Treatment Plan: Discontinue ST Treatment Duration: Jun 15, 2022 Frequency: Modified Program (IRF) Estimated Hrs Per Day: Other Utility System Repairer/Case Mgmt Utility System Repairer/Case Managemen: Discharge Planning Dietitian/Artificial Flower Maker Dietitian/Artificial Flower Maker to monitor nutritional status and make changes and/or recommendations as needed and work with speech pathology on dietary upgrades as the occur. Physician IPOC Medical Issues being managed closely and that require the 24 hour availability of a physician: Recent critical illness from Group A Strep PNA s/p biPAP and Vapotherm s/p 2 thoracentesis will require close monitoring to assess for any signs of decompensation and recurrent respiratory failure Medical Issues: Bowel/Bladder Function, DVT Prophylaxis, Falls Precautions, Fluid/Electrolyte/Nutrition Balance, Infection Protection, Pain Management Brief Synthesis of Preadmission Screen, Post-Admission Evaluation, and Therapy Evaluations: PT OT will focus on regaining function while weaning O2 and increasing strength while improving ADL's independence in order to return home with spouse Medical Prognosis: Good Anticipated Length of Stay: 7 days RIAZ COTTER DO Jun 15, 2022 06:17
--- NOTE | 2022-06-15 06:17 | PM&R Progress Note ---
Subjective HPI/CC On Admission Date Seen by Provider: Jun 15, 2022 Time Seen by Provider: 09:00 Subjective/Events-last exam 06/15/2022: Much improved No pain reported Weaning down on O2 to 6L/min Walks well Weakness noted WBC remains elevated Review of Systems General: Fatigue, Malaise Pulmonary: Dyspnea Objective Exam Vital Signs Vital Signs Date Time Temp Pulse Resp B/P (MAP) Pulse Ox O2 Delivery O2 Flow Rate FiO2 06/15/22 21:17 90 High Flow N/C 6.00 06/15/22 19:34 36.9 103 20 134/87 (103) Capillary Refill : General Appearance: WD/WN, Anxious, Chronically ill, Mild Distress HEENT: PERRL/EOMI, Normal ENT Inspection, Pharynx Normal Neck: Full Range of Motion, Normal Inspection, Non Tender, Supple, Carotid Bruit Respiratory: Chest Non Tender, Lungs Clear, No Respiratory Distress, Accessory Muscle Use, Decreased Breath Sounds Cardiovascular: No Edema, No Gallop, No JVD, No Murmur, Normal Peripheral Pulses, Tachycardia Gastrointestinal: Normal Bowel Sounds, No Organomegaly, No Pulsatile Mass, Non Tender, Soft Back: Normal Inspection, No CVA Tenderness, No Vertebral Tenderness Extremity: Normal Capillary Refill, Normal Inspection, Normal Range of Motion, Non Tender, No Calf Tenderness, No Pedal Edema Neurologic/Psychiatric: Alert, Oriented x3, No Motor/Sensory Deficits, wire mesh knitter II- XII Norm as Tested, Abnormal Gait, Depressed Affect, Motor Weakness (generalized) Skin: Normal Color, Warm/Dry Lymphatic: No Adenopathy Results/Procedures Lab Laboratory Tests 06/15/22 06:10 Patient resulted labs reviewed. FIM Transfers Therapy Code Descriptions/Definitions Functional [place] Measure: 0=Not Assessed/NA 4=Minimal Assistance 1=Total Assistance 5=Supervision or Setup 2=Maximal Assistance 6=Modified [place] 3=Moderate Assistance 7=Complete IndependenceSCALE: Activities may be completed with or without assistive devices. 2-Oanrziubmf-ttqazlg completes the activity by him/herself with no assistance from a helper. 5-Set-up or Clean-up Assistance-helper sets up or cleans up; patient completes activity. [place] assists only prior to or following the activity. 4-Supervision or Touching Assistance-helper provides verbal cues and/or touching/steadying and/or contact guard assistance as patient completes activity. Assistance may be provided throughout the activity or intermittently. 3-Partial/Moderate Assistance-helper does LESS THAN HALF the effort. [place] lifts, holds or supports trunk or limbs, but provides less than half the effort. 2-Substantial/Maximal Assistance-helper does MORE THAN HALF the effort. [place] lifts or holds trunk or limbs and provides more than half the effort. 0-Cgngpqatt-ftutqa does ALL the effort. Patient does none of the effort to complete the activity. Or, the assistance of 2 or more helpers is required for the patient to complete the activity. If activity was not attempted, code reason: 7-Patient Refused. 9-Not Applicable-not attempted and the patient did not perform the activity before the current illness, exacerbation or injury. 10-Not Attempted due to Environmental Limitations-(lack of equipment, weather restraints, etc.). 88-Not Attempted due to Medical Conditions or Safety Concerns. Roll Left to Right (QC): 6 Sit to Lying (QC): 3 Sit to Stand (QC): 4 Chair/Kmw-hx-Qztth Xfer(QC): 4 Car Transfer (QC): 4 Gait Training Does the Patient Walk?: Yes Walk 10 feet (QC): 4 Walk 50 ft with 2 Turns(QC): 4 Walk 150 ft (QC): 88 Walking 10ft/uneven surface-QC: 4 Gait Assistive Device: FWW Wheelchair Training Wheel 50 ft with 2 turns (QC): 9 Wheel 150 ft (QC): 9 Stair Training #of Steps: 1 1 Step (curb) (QC): 4 4 Steps (QC): 88 12 Steps (QC): 88 Balance Picking up an Object (QC): 4 (CGA using a human resources temp) ADL-Treatment Eating (QC): 5 Oral Hygiene (QC): 6 Shower/Bathe Self (QC): 3 Upper Body Dressing (QC): 5 Lower Body Dressing (QC): 3 (Mod A) On/Off Footwear (QC): 2 Toileting Hygiene (QC): 4 (CGA for safety.) Assessment/Plan Assessment and Plan Assess & Plan/Chief Complaint Assessment: Acute Hypoxic Respiratory Failure s/p bipap and Vapotherm Sepsis severe type-resolved Right sided pleural effusion requiring [address] Stephens RLL Pneumonia Sinus Tachycardia Elevated creatinine vs FRAN Solo kidney HTN Hypothyroidism HLD Depression GI prophylaxis - PPI DVT prophylaxis - heparin Leukocytosis Plan: PT OT Wean O2 Monitor labs 06/15/2022: Much improved Monitor O2 (1) Acute respiratory failure RIAZ COTTER DO Jun 15, 2022 06:17
[2022-06-15 06:20] LABS: BASOPHILS # (AUTO) 0.1 10^3/uL (0.0-0.1); BASOPHILS % (AUTO) 0 % (0-10); EOSINOPHILS # (AUTO) 0.1 10^3/uL (0.0-0.3); EOSINOPHILS % (AUTO) 1 % (0-10); HEMATOCRIT 31 % (35-52); HEMOGLOBIN 10.5 g/dL (11.5-16.0); LYMPHOCYTES # (AUTO) 1.6 10^3/uL (1.0-4.0); LYMPHOCYTES % (AUTO) 7 % (12-44); MEAN CORPUSCULAR HEMOGLOBIN 30 pg (25-34); MEAN CORPUSCULAR HGB CONC 34 g/dL (32-36); MEAN CORPUSCULAR VOLUME 88 fL (80-99); MEAN PLATELET VOLUME 10.5 fL (9.0-12.2); MONOCYTES # (AUTO) 1.1 10^3/uL (0.0-1.0); MONOCYTES % (AUTO) 5 % (0-12); NEUTROPHILS # (AUTO) 17.8 10^3/uL (1.8-7.8); NEUTROPHILS % (AUTO) 83 % (42-75); PLATELET COUNT 252 10^3/uL (130-400); WHITE BLOOD COUNT 21.4 10^3/uL (4.3-11.0)
[2022-06-15 06:34] LABS: ALBUMIN 2.1 GM/DL (3.2-4.5); BILIRUBIN,TOTAL 0.3 MG/DL (0.1-1.0); CALCIUM 8.7 MG/DL (8.5-10.1); CREATININE SERUM 0.7 MG/DL (0.60-1.30); TOTAL PROTEIN 5.5 GM/DL (6.4-8.2)
[2022-06-15] MEDS: NAPROXEN 250 MG (NAPROSYN) TABLET PO SCH (06:36)
--- NOTE | 2022-06-15 06:52 | Progress Note - Surgery ---
BROOKLYN BROWN 06/15/22 0652: Subjective Date Seen by a Provider: Jun 15, 2022 Time Seen by a Provider: 06:47 Subjective/Events-last exam Belen Patricio was seen this morning resting in her chair. She reports continued improvement of her breathing and cough. No chest pain. Requiring 6L/min by nasal cannula this morning down from 8 yesterday. No issues overnight. Catheter will be DCed later this morning. Began working with PT/OT yesterday. Reports she is still much weaker than baseline but doing better. Tolerating normal diet without issue. Review of Systems General: No Chills, No Night Sweats HEENT: No Head Aches; Sore Throat Pulmonary: Dyspnea (improving), Cough Cardiovascular: No: Chest Pain, Palpitations, Lt Headedness Gastrointestinal: No: Nausea, Vomiting, Abdominal Pain Genitourinary: No Dysuria, No Hematuria Musculoskeletal: No: back pain, hand pain Neurological: Weakness (due to debility); No: Change in speech, Confusion Objective Exam Vital Signs Date Time Temp Pulse Resp B/P (MAP) Pulse Ox O2 Delivery O2 Flow Rate FiO2 06/15/22 02:43 94 High Flow N/C 6.00 06/14/22 21:18 37.7 100 20 120/75 (90) 94 High Flow N/C 6.00 06/14/22 20:37 37.7 113 20 133/81 (98) 93 High Flow N/C 6.00 06/14/22 20:15 94 High Flow N/C 6.00 06/14/22 19:28 96 High Flow N/C 6.00 06/14/22 15:07 95 High Flow N/C 6.00 06/14/22 14:03 High Flow N/C 6.00 06/14/22 13:56 36.8 100 18 115/73 (87) 93 High Flow N/C 6.00 06/14/22 12:13 36.8 104 18 109/65 (80) 97 High Flow N/C 6.00 06/14/22 11:00 36.7 104 20 108/59 (75) 91 High Flow N/C 6.00 I & O 06/15/22 07:00 Intake Total 640 ml Output Total 1075 ml Balance -435 ml Capillary Refill : General Appearance: No Apparent Distress, Other (nasal cannula in place) HEENT: PERRL/EOMI; No Scleral Icterus (L), No Scleral Icterus (R) Neck: Non Tender, Supple Respiratory: Chest Non Tender, No Accessory Muscle Use, Crackles (worse on R) Cardiovascular: Normal Peripheral Pulses, Tachycardia Gastrointestinal: non tender, soft Extremity: Normal Capillary Refill, No Pedal Edema Neurologic/Psychiatric: Alert, Oriented x3, Motor Weakness (generalized) Skin: Normal Color (pallor improved), Warm/Dry Lymphatic: No Adenopathy Results Lab Laboratory Tests 06/15/22 06:10: White Blood Count 21.4H, Red Blood Count 3.52L, Hemoglobin 10.5L, Hematocrit 31L , Mean Corpuscular Volume 88, Mean Corpuscular Hemoglobin 30, Mean Corpuscular Hemoglobin Concent 34, Red Cell Distribution Width 14.7H, Platelet Count 252, Mean Platelet Volume 10.5, Immature Granulocyte % (Auto) 4, Neutrophils (%) (Auto) 83H, Lymphocytes (%) (Auto) 7L, Monocytes (%) (Auto) 5, Eosinophils (%) (Auto) 1, Basophils (%) (Auto) 0, Neutrophils # (Auto) 17.8H, Lymphocytes # (Auto) 1.6, Monocytes # (Auto) 1.1H, Eosinophils # (Auto) 0.1, Basophils # (Auto) 0.1, Immature Granulocyte # (Auto) 0.8H, Sodium Level 136, Potassium Level 4.0, Chloride Level 103, Carbon Dioxide Level 24, Anion Gap 9, Blood Urea Nitrogen 11, Creatinine 0.70, Estimat Glomerular Filtration Rate 91, BUN/Creatinine Ratio 16, Glucose Level 105, Calcium Level 8.7, Corrected Calcium 10.2H, Total Bilirubin 0.3, Aspartate Amino Transf (AST/SGOT) 30, Alanine Aminotransferase (ALT/SGPT) 22, Alkaline Phosphatase 90, Total Protein 5.5L, Albumin 2.1L Assessment/Plan Assessment/Plan Assessment/Plan Acute on Chronic respiratory failure- now weaned to nasal cannula 6L/min Community acquired pneumonia Sepsis R Pleural effusion Sinus tachycardia Confusion- resolved Thoracentesis performed by Dr Stephens on 06/09 draining 600mL of fluid from R chest cavity Switched to lovenox for DVT prophylaxis from heparin Pleural fluid resulted in WBC 8.441, RBC 0.003, glucose 22, protein 2.5 Likely exudative process, consider parapneumonic effusion Pleural fluid cx resulted no growth Anaerobic cx and Gram stain no growth Continue oral ampicillin 500 TID Confusion resolved Now requiring 6L by nasal cannula Monitor vitals and WBC. Improved to 21.4 from 24.9 Continue serial imaging of the chest, most recent CXR 06/14 showed decreased effusion after repeat thoracentesis She is clinically improving with less O2 requirements and decreased effusion. Patient transferred to inpatient rehab on 06/14 OSITO STEPHENS DO 06/15/22 1654: Subjective Subjective/Events-last exam Patient breathing and feeling better. Continues to need less o2 per nc. Using IS No pain. Working with PT. Denies n/v fever sweats chills or chest pain. Objective Exam General Appearance: No Apparent Distress, Chronically ill, Other (nasal cannula in place, appears more comfortable) HEENT: PERRL/EOMI, Normal ENT Inspection Neck: Non Tender, Supple Respiratory: Chest Non Tender, No Accessory Muscle Use, No Respiratory Distress Cardiovascular: Regular Rate, Rhythm, No JVD Gastrointestinal: non tender, soft Extremity: Normal Capillary Refill, Non Tender Neurologic/Psychiatric: Alert, Oriented x3 Skin: Normal Color, Warm/Dry Lymphatic: No Adenopathy Assessment/Plan Assessment/Plan Assessment/Plan Acute on Chronic respiratory failure- Community acquired pneumonia Sepsis R Pleural effusion Sinus tachycardia Confusion- resolved Thoracentesis x 2 performed- fluid negative for malignancy lovenox for DVT prophylaxis Pleural fluid resulted in WBC 8.441, RBC 0.003, glucose 22, protein 2.5 Likely exudative process, consider parapneumonic effusion Pleural fluid cx resulted no growth Anaerobic cx and Gram stain no growth Continue oral ampicillin 500 TID Confusion resolved Decreasing o2 per nasal cannula wean as tolerates Monitor vitals and WBC. Improved to 21.4 from 24.9 She is clinically improving with less O2 requirements and decreased effusion. Patient transferred to inpatient rehab on 06/14 Supervisory-Addendum Brief Verification & Attestation Participated in pt care: history, MDM, physical Personally performed: exam, history, MDM, supervision of care Care discussed with: Medical Student Procedures: n/a Results interpretation: Verified all documentation Verification and Attestation of Medical Student E/M Service A medical student performed and documented this service in my presence. I reviewed and verified all information documented by the medical student and made modifications to such information, when appropriate. I personally performed the physical exam and medical decision making. Osito Stephens, Jun 15, 2022,16:54 BROOKLYN BROWN Jun 15, 2022 06:52 OSITO STEPHENS DO Jun 15, 2022 16:54
[2022-06-15 08:00] VITALS: BP 120/80
[2022-06-15] MEDS: LORATADINE (CLARITIN) 10 MG TAB PO SCH (08:57)
[2022-06-15] MEDS: FERROUS SULF 325 MG (IRON) TAB PO SCH (08:57)
[2022-06-15] MEDS: MULTIVIT W/MINERALS TAB (THERAGRAN M) PO SCH (08:57)
[2022-06-15] MEDS: AMOXICILLIN 500 MG (POLYMOX) CAP PO SCH ×3 (08:57→19:58)
[2022-06-15] MEDS: LACTOBACILLUS ACIDOPHILUS (PROBIOTIC) CAPSULE PO SCH ×3 (08:57→17:08)
[2022-06-15] MEDS: MAGNESIUM OXIDE (MAG-OX)400 MG TAB PO SCH ×2 (08:57→17:08)
[2022-06-15] MEDS: PANTOPRAZOLE 40 MG (PROTONIX) TAB PO SCH (08:58)
[2022-06-15] MEDS: OXYBUTYNIN (DITROPAN) 5 MG TAB PO SCH ×2 (08:58→19:57)
[2022-06-15] MEDS: CALCIUM CARBONATE 600 MG (CALCARB) TAB PO SCH (08:58)
[2022-06-15] MEDS: dilTIAZem120 MG (CARDIZEM CD) CAP PO SCH (08:58)
[2022-06-15] MEDS ORDERED: NON-FORMULARY MEDICATION 1 EA EA (Ubidecarenone (Coq-10) 100 MG) PO SCH (09:00)
[2022-06-15] MEDS ORDERED: TURMERIC ROOT EXTRACT 500 MG PO SCH (09:00)
[2022-06-15] MEDS ORDERED: CRANBERRY FRUIT 500 MG PO SCH (09:00)
[2022-06-15] MEDS ORDERED: NON-FORMULARY MEDICATION 1 EA EA (Calcium Carbonate (Calcium) 1,000 MG) PO SCH (09:00)
[2022-06-15] MEDS ORDERED: NON-FORMULARY MEDICATION 1 EA EA (Naproxen Sodium (Aleve) 440 MG) PO SCH (09:00)
[2022-06-15] MEDS: polyethylene glycoL POWDER 17 GM (MIRALAX) PACK PO SCH ×2 (09:02→20:06)
--- NOTE | 2022-06-15 09:02 | Occupational Ther Daily Note ---
OT Current Status-Daily Note Subjective Pt alert, lying in bed. Pt's in room. Pt agrees to therapy. No c/o pain. Mental Status/Objective Patient Orientation: Person, Place, Time, Situation Attachments: IV ADL-Treatment Supine to EOB, SBA with HOB raised. Verbal cues for hand placement during sit to stand. Ambulated using FWW to bathroom with SBA. Sitting at sink due to decreased activity tolerance, pt completes oral care independently. Therapy Code Descriptions/Definitions Functional [place] Measure: 0=Not Assessed/NA 4=Minimal Assistance 1=Total Assistance 5=Supervision or Setup 2=Maximal Assistance 6=Modified [place] 3=Moderate Assistance 7=Complete IndependenceSCALE: Activities may be completed with or without assistive devices. 3-Gvkzcavlbj-ipmdwji completes the activity by him/herself with no assistance from a helper. 5-Set-up or Clean-up Assistance-helper sets up or cleans up; patient completes activity. [place] assists only prior to or following the activity. 4-Supervision or Touching Assistance-helper provides verbal cues and/or touching/steadying and/or contact guard assistance as patient completes activity. Assistance may be provided throughout the activity or intermittently. 3-Partial/Moderate Assistance-helper does LESS THAN HALF the effort. [place] lifts, holds or supports trunk or limbs, but provides less than half the effort. 2-Substantial/Maximal Assistance-helper does MORE THAN HALF the effort. [place] lifts or holds trunk or limbs and provides more than half the effort. 0-Fsfdxfjnc-pwtegc does ALL the effort. Patient does none of the effort to complete the activity. Or, the assistance of 2 or more helpers is required for the patient to complete the activity. If activity was not attempted, code reason: 7-Patient Refused. 9-Not Applicable-not attempted and the patient did not perform the activity before the current illness, exacerbation or injury. 10-Not Attempted due to Environmental Limitations-(lack of equipment, weather restraints, etc.). 88-Not Attempted due to Medical Conditions or Safety Concerns. Oral Hygiene (QC): 6 Other Treatment Pt completes B UE exercises and breathing techniques to work on strengthening lungs and B UE's. Pt requires skilled instruction for correct technique and modifications when necessary. After session, pt sitting in recliner with call light/phone in reach. All needs met in room. OT Short Term Goals Short Term Goals Time Frame: Jun 30, 2022 Upper body dressin Lower body dressin Putting on/taking off footwear: 5 OT Alf Goals [employer] Former Goals Time Frame: Jul 09, 2022 Acute change in mental status: 0 Inattention: 0 Disorganized thinkin Altered level of consciousness: 0 Eating (QC): 6 Oral Hygiene (QC): 6 Toileting Hygiene (QC): 6 Shower/Bathe Self (QC): 6 Upper Body Dressing (QC): 6 Lower Body Dressing (QC): 6 On/Off Footwear (QC): 6 Additional Goals: 1-Demonstrate ADL Tasks, 2-Verbalize Understanding, 3- ImproveStrength/Jailyn 1=Demonstrate adherence to instructed precautions during ADL tasks. 2=Patient will verbalize/demonstrate understanding of assistive devices/modifications for ADL. 3=Patient will improve strength/tolerance for activity to enable patient to perform ADL's. OT Education/Plan Problem List/Assessment Assessment: Decreased Activ Tolerance, Decreased UE Strength, Impaired Self- Care Skills Discharge Recommendations Plan/Recommendations: Continue POC Treatment Plan/Plan of Care Patient would benefit from OT for education, treatment and training to promote independence in ADL's, mobility, safety and/or upper extremity function for ADL's. Plan of Care: ADL Retraining, Functional Mobility, Group Exercise/Act as Ind, UE Funct Exercise/Act Treatment Duration: Jul 09, 2022 Frequency: Modified Program (IRF) (23/10) Estimated Hrs Per Day: 1.5 hours per day Agreement: Yes Rehab Potential: Fair Time Start Time: 08:30 Stop Time: 09:00 DATE: Jun 15, 2022 Total Time Billed (hr/min): 30 Billed Treatment Time 1 visit-ADL 1 (20 min) EX 1 (10 min) ALONSO BADILLO Jun 15, 2022 09:02
[2022-06-15] MEDS: DOCUSATE SODIUM 100 MG (COLACE) CAP PO SCH ×2 (09:04→19:57)
[2022-06-15] MEDS: SENNOSIDES 8.6 MG (SENOKOT) TAB PO SCH ×2 (09:05→19:57)
--- NOTE | 2022-06-15 09:54 | Physical Therapy Daily Note ---
PT Daily Note-Current Subjective Patient in recliner pre tx, agrees to PT, has no complaints of pain other than a little when she coughs. Pain Section J - Health Conditions 1. Rarely or not at all 2. Occasionally 3. Frequently 4. Almost constantly 8. Unable to answer Pain Effect on Sleep: 1 Pain Interference with Therapy: 1 Pain Interference w/Day-to-Day: 1 Appearance Patient in recliner post tx with nurse call, phone, tray, all needs met. Mental Status Patient Orientation: Person, Place, Situation, Normal For Age Attachments: Oxygen Transfers SCALE: Activities may be completed with or without assistive devices. 0-Hczmrscyjp-qrtnwaj completes the activity by him/herself with no assistance from a helper. 5-Set-up or Clean-up Assistance-helper sets up or cleans up; patient completes activity. [place] assists only prior to or following the activity. 4-Supervision or Touching Assistance-helper provides verbal cues and/or touching/steadying and/or contact guard assistance as patient completes activity. Assistance may be provided throughout the activity or intermittently. 3-Partial/Moderate Assistance-helper does LESS THAN HALF the effort. [place] lift s, holds or supports trunk or limbs, but provides less than half the effort. 2-Substantial/Maximal Assistance-helper does MORE THAN HALF the effort. [place] lifts or holds trunk or limbs and provides more than half the effort. 6-Njbiphaqt-onctvh does ALL the effort. Patient does none of the effort to complete the activity. Or, the assistance of 2 or more helpers is required for the patient to complete the activity. If activity was not attempted, code reason: 7-Patient Refused. 9-Not Applicable-not attempted and the patient did not perform the activity before the current illness, exacerbation or injury. 10-Not Attempted due to Environmental Limitations-(lack of equipment, weather restraints, etc.). 88-Not Attempted due to Medical Conditions or Safety Concerns. Sit to Stand (QC): 4 Chair/Gdz-wl-Glqfc Xfer(QC): 4 SBA, occasional cues for hand placement or safety Gait Training Distance: 120'x2 Walk 10 feet (QC): 4 Walk 50 ft with 2 Turns(QC): 4 Walk 150 ft (QC): 4 Gait Persons Needed: 1 Gait Assistive Device: FWW SBA, slow but steady ambulation, decreased step length Exercises Standing: Hip Abduction, Heel/toe raises, Marching, Mini squats Standing Reps: 15 LAQ alternating for 5 min with 2# ankle weights NuStep Minutes: 15 NuStep Workload: 5 Treatments transfers, ambulation, strengthening Assessment Current Status: Fair Progress O2 was at 94% with activity PT Art Teacher Goals Art Teacher Goals PT Art Teacher Goals Time Frame: Jun 28, 2022 Roll Left & Right (QC): 6 Sit to Lying (QC): 6 Lying-Sitting on Side/Bed(QC): 6 Sit to Stand (QC): 6 Chair/Qtl-lp-Qdbbf Xfer(QC): 6 Toilet Transfer (QC): 6 Car Transfer (QC): 6 Does the Patient Walk: Yes Walk 10 feet (QC): 6 Walk 50ft with 2 Turns (QC): 6 Walk 150 ft (QC): 6 Walking 10ft on Uneven Surface: 6 1 Step (curb) (QC): 4 (SBA) 4 Steps (QC): 4 (SBA) 12 Steps (QC): 88 Picking up an Object (QC): 6 Wheel 50 feet with 2 turns (QC: 9 Wheel 150 feet: 9 PT Plan Problem List Problem List: Activity Tolerance, Functional Strength, Safety, Balance, Gait, Transfer, Bed Mobility, ROM Treatment/Plan Treatment Plan: Continue Plan of Care Treatment Plan: Bed Mobility, Education, Functional Activity [place], Functional Strength, Group Therapy, Gait, Safety, Therapeutic Exercise, Transfers Treatment Duration: Jun 28, 2022 Frequency: At least 5 of 7 days/Wk (IRF) Estimated Hrs Per Day: 1.5 hours per day Patient and/or Family Agrees t: Yes Safety Risks/Education Patient Education: Gait Training, Transfer Techniques, Correct Positioning, Safety Issues Teaching Recipient: Patient Teaching Methods: Demonstration, Discussion Response to Teaching: Reinforcement Needed Time Time In: 0900 Time Out: 1000 DATE: Jun 15, 2022 Total Billed Treatment Time: 60 Total Billed Treatment 1 visit EX 20' FA 40' RANDALL ROSAS PT Jun 15, 2022 09:54
[2022-06-15] MEDS: ENOXAPARIN 40 MG/0.4 ML (LOVENOX) SYR SC SCH (11:33)
--- NOTE | 2022-06-15 11:41 | Occupational Ther Daily Note ---
OT Current Status-Daily Note Subjective Pt alert, sitting in recliner. Pt agrees to therapy. No c/o pain. Mental Status/Objective Patient Orientation: Person, Place, Time, Situation Attachments: IV, Oxygen (6L) ADL-Treatment Pt agrees to shower. Pt ambulated using FWW to toilet, SBA with assistance to manipulate O2 tubing. Independent with toileting and toilet transfer using grabbars and FWW. Supervision for shower, sitting 100% of the time using grabbars, hand held shower, shower bench and LH sponge. Set up for upper body dressing. Pt used dressing stick to doff sock and no AE to don socks using figure 4 technique. SBA to complete LBD without AE. After session, pt lying in bed with call light/phone in reach. All needs met in room. Therapy Code Descriptions/Definitions Functional [place] Measure: 0=Not Assessed/NA 4=Minimal Assistance 1=Total Assistance 5=Supervision or Setup 2=Maximal Assistance 6=Modified [place] 3=Moderate Assistance 7=Complete IndependenceSCALE: Activities may be completed with or without assistive devices. 0-Ezadpsglsm-slsouok completes the activity by him/herself with no assistance from a helper. 5-Set-up or Clean-up Assistance-helper sets up or cleans up; patient completes activity. [place] assists only prior to or following the activity. 4-Supervision or Touching Assistance-helper provides verbal cues and/or touching/steadying and/or contact guard assistance as patient completes a ctivity. Assistance may be provided throughout the activity or intermittently. 3-Partial/Moderate Assistance-helper does LESS THAN HALF the effort. [place] lifts, holds or supports trunk or limbs, but provides less than half the effort. 2-Substantial/Maximal Assistance-helper does MORE THAN HALF the effort. [place] lifts or holds trunk or limbs and provides more than half the effort. 0-Uhcknlxtm-unkeos does ALL the effort. Patient does none of the effort to complete the activity. Or, the assistance of 2 or more helpers is required for the patient to complete the activity. If activity was not attempted, code reason: 7-Patient Refused. 9-Not Applicable-not attempted and the patient did not perform the activity before the current illness, exacerbation or injury. 10-Not Attempted due to Environmental Limitations-(lack of equipment, weather restraints, etc.). 88-Not Attempted due to Medical Conditions or Safety Concerns. Shower/Bathe Self (QC): 4 (supervision) Upper Body Dressing (QC): 5 Lower Body Dressing (QC): 4 On/Off Footwear: 5 Toileting Hygiene (QC): 6 Toilet Transfer (QC): 6 OT Short Term Goals Short Term Goals Time Frame: Jun 30, 2022 Upper body dressin Lower body dressin Putting on/taking off footwear: 5 OT Senior Living Goals Pacu Rn Goals Time Frame: Jul 09, 2022 Acute change in mental status: 0 Inattention: 0 Disorganized thinkin Altered level of consciousness: 0 Eating (QC): 6 Oral Hygiene (QC): 6 Toileting Hygiene (QC): 6 Shower/Bathe Self (QC): 6 Upper Body Dressing (QC): 6 Lower Body Dressing (QC): 6 On/Off Footwear (QC): 6 Additional Goals: 1-Demonstrate ADL Tasks, 2-Verbalize Understanding, 3- ImproveStrength/Jailyn 1=Demonstrate adherence to instructed precautions during ADL tasks. 2=Patient will verbalize/demonstrate understanding of assistive devices/modifications for ADL. 3=Patient will improve strength/tolerance for activity to enable patient to perform ADL's. OT Education/Plan Problem List/Assessment Assessment: Decreased Activ Tolerance, Impaired Self-Care Skills Discharge Recommendations Plan/Recommendations: Continue POC Treatment Plan/Plan of Care Patient would benefit from OT for education, treatment and training to promote independence in ADL's, mobility, safety and/or upper extremity function for ADL's. Plan of Care: ADL Retraining, Functional Mobility, Group Exercise/Act as Ind, UE Funct Exercise/Act Treatment Duration: Jul 09, 2022 Frequency: Modified Program (IRF) (23/10) Estimated Hrs Per Day: 1.5 hours per day Agreement: Yes Rehab Potential: Fair Time Start Time: 10:30 Stop Time: 11:30 DATE: Jun 15, 2022 Total Time Billed (hr/min): 60 Billed Treatment Time 1 visit-ADL 4 (60 min) ALONSO BADILLO Jun 15, 2022 11:40
--- NOTE | 2022-06-15 13:23 | Physical Therapy Daily Note ---
PT Daily Note-Current Subjective Patient in bed pre tx, agrees to PT, has no complaints of pain. Pain Section J - Health Conditions 1. Rarely or not at all 2. Occasionally 3. Frequently 4. Almost constantly 8. Unable to answer Pain Effect on Sleep: 1 Pain Interference with Therapy: 1 Pain Interference w/Day-to-Day: 1 Appearance Patient in bed post tx with nurse call, phone, tray, all needs met. Mental Status Patient Orientation: Normal For Age Attachments: Oxygen Transfers SCALE: Activities may be completed with or without assistive devices. 5-Ncygcxdyvu-feblmyv completes the activity by him/herself with no assistance from a helper. 5-Set-up or Clean-up Assistance-helper sets up or cleans up; patient completes activity. [place] assists only prior to or following the activity. 4-Supervision or Touching Assistance-helper provides verbal cues and/or touching/steadying and/or contact guard assistance as patient completes activity. Assistance may be provided throughout the activity or intermittently. 3-Partial/Moderate Assistance-helper does LESS THAN HALF the effort. [place] lifts, holds or supports trunk or limbs, but provides less than half the effort. 2-Substantial/Maximal Assistance-helper does MORE THAN HALF the effort. [place] lifts or holds trunk or limbs and provides more than half the effort. 5-Osrcocptp-vfgxtv does ALL the effort. Patient does none of the effort to complete the activity. Or, the assistance of 2 or more helpers is required for the patient to complete the activity. If activity was not attempted, code reason: 7-Patient Refused. 9-Not Applicable-not attempted and the patient did not perform the activity before the current illness, exacerbation or injury. 10-Not Attempted due to Environmental Limitations-(lack of equipment, weather restraints, etc.). 88-Not Attempted due to Medical Conditions or Safety Concerns. Roll Left & Right (QC): 6 Sit to Lying (QC): 6 Lying to Sitting/Side of Bed(Q: 6 Sit to Stand (QC): 4 Chair/Zgq-pz-Acprd Xfer(QC): 4 SBA for sit to stand and transfers Gait Training Distance: 150'x2 Walk 10 feet (QC): 4 Walk 50 ft with 2 Turns(QC): 4 Walk 150 ft (QC): 4 Gait Persons Needed: 1 Gait Assistive Device: FWW slow but steady ambulation, needed significant rest break between bouts of ambulation due to fatigue. Exercises Supine Ex: Ankle pumps, Quad Set, Glut sets Supine Reps: 20 Treatments LE strengthening, bed mobility and transfers, ambulation Assessment Current Status: Fair Progress improving endurance PT Group Home Goals Group Home Goals PT Napper Fixer Goals Time Frame: Jun 28, 2022 Roll Left & Right (QC): 6 Sit to Lying (QC): 6 Lying-Sitting on Side/Bed(QC): 6 Sit to Stand (QC): 6 Chair/Cfa-kn-Ydxnc Xfer(QC): 6 Toilet Transfer (QC): 6 Car Transfer (QC): 6 Does the Patient Walk: Yes Walk 10 feet (QC): 6 Walk 50ft with 2 Turns (QC): 6 Walk 150 ft (QC): 6 Walking 10ft on Uneven Surface: 6 1 Step (curb) (QC): 4 (SBA) 4 Steps (QC): 4 (SBA) 12 Steps (QC): 88 Picking up an Object (QC): 6 Wheel 50 feet with 2 turns (QC: 9 Wheel 150 feet: 9 PT Plan Problem List Problem List: Activity Tolerance, Functional Strength, Safety, Balance, Gait, Transfer, Bed Mobility, ROM Treatment/Plan Treatment Plan: Continue Plan of Care Treatment Plan: Bed Mobility, Education, Functional Activity Jailyn, Functional Strength, Group Therapy, Gait, Safety, Therapeutic Exercise, Transfers Treatment Duration: Jun 28, 2022 Frequency: At least 5 of 7 days/Wk (IRF) Estimated Hrs Per Day: 1.5 hours per day Patient and/or Family Agrees t: Yes Safety Risks/Education Patient Education: Gait Training, Transfer Techniques, Correct Positioning, Safety Issues Teaching Recipient: Patient Teaching Methods: Demonstration, Discussion Response to Teaching: Reinforcement Needed Time Time In: 1300 Time Out: 1330 DATE: Jun 15, 2022 Total Billed Treatment Time: 30 Total Billed Treatment 1 visit EX 10' FA 20' RANDALL ROSAS PT Jun 15, 2022 13:23
[2022-06-15 19:34] VITALS: BP 134/87
[2022-06-15] MEDS: OMEGA 3 (FISH OIL) 1000 MG CAP PO SCH (19:57)
[2022-06-15] MEDS: AtorvaSTATin TABLET 10 MG TABLET PO SCH (19:57)
[2022-06-15] MEDS: AMITRIPTYLINE 25 MG (ELAVIL) TAB PO SCH (19:58)
--- NOTE | 2022-06-16 05:17 | PM&R Progress Note ---
Subjective HPI/CC On Admission Date Seen by Provider: Jun 16, 2022 Time Seen by Provider: 09:00 Subjective/Events-last exam 06/16/2022: Much improved Wean down to 4 L No pain is reported Much improved 06/15/2022: Much improved No pain reported Weaning down on O2 to 6L/min Walks well Weakness noted WBC remains elevated Review of Systems General: Fatigue, Malaise Objective Exam Vital Signs Vital Signs Date Time Temp Pulse Resp B/P (MAP) Pulse Ox O2 Delivery O2 Flow Rate FiO2 06/16/22 08:00 36.4 105 18 128/80 (96) 93 4.00 06/15/22 21:17 High Flow N/C Capillary Refill : General Appearance: WD/WN, Anxious, Chronically ill, Mild Distress HEENT: PERRL/EOMI, Normal ENT Inspection, Pharynx Normal Neck: Full Range of Motion, Normal Inspection, Non Tender, Supple, Carotid Bruit Respiratory: Chest Non Tender, Lungs Clear, No Respiratory Distress, Accessory Muscle Use, Decreased Breath Sounds Cardiovascular: No Edema, No Gallop, No JVD, No Murmur, Normal Peripheral Pulses, Tachycardia Gastrointestinal: Normal Bowel Sounds, No Organomegaly, No Pulsatile Mass, Non Tender, Soft Back: Normal Inspection, No CVA Tenderness, No Vertebral Tenderness Extremity: Normal Capillary Refill, Normal Inspection, Normal Range of Motion, Non Tender, No Calf Tenderness, No Pedal Edema Neurologic/Psychiatric: Alert, Oriented x3, No Motor/Sensory Deficits, gang leader II- XII Norm as Tested, Abnormal Gait, Depressed Affect, Motor Weakness (generalized) Skin: Normal Color, Warm/Dry Lymphatic: No Adenopathy Results/Procedures Lab Patient resulted labs reviewed. FIM Transfers Therapy Code Descriptions/Definitions Functional [place] Measure: 0=Not Assessed/NA 4=Minimal Assistance 1=Total Assistance 5=Supervision or Setup 2=Maximal Assistance 6=Modified [place] 3=Moderate Assistance 7=Complete IndependenceSCALE: Activities may be completed with or without assistive devices. 0-Kfkmswjuct-zxtbruy completes the activity by him/herself with no assistance from a helper. 5-Set-up or Clean-up Assistance-helper sets up or cleans up; patient completes activity. [place] assists only prior to or following the activity. 4-Supervision or Touching Assistance-helper provides verbal cues and/or touching/steadying and/or contact guard assistance as patient completes activity. Assistance may be provided throughout the activity or intermittently. 3-Partial/Moderate Assistance-helper does LESS THAN HALF the effort. [place] lifts, holds or supports trunk or limbs, but provides less than half the effort. 2-Substantial/Maximal Assistance-helper does MORE THAN HALF the effort. [place] lifts or holds trunk or limbs and provides more than half the effort. 7-Iwxzctrjo-ymgcbz does ALL the effort. Patient does none of the effort to complete the activity. Or, the assistance of 2 or more helpers is required for the patient to complete the activity. If activity was not attempted, code reason: 7-Patient Refused. 9-Not Applicable-not attempted and the patient did not perform the activity before the current illness, exacerbation or injury. 10-Not Attempted due to Environmental Limitations-(lack of equipment, weather restraints, etc.). 88-Not Attempted due to Medical Conditions or Safety Concerns. Roll Left to Right (QC): 6 Sit to Lying (QC): 6 Sit to Stand (QC): 4 Chair/Lwg-jt-Rqbxg Xfer(QC): 4 Car Transfer (QC): 4 Gait Training Does the Patient Walk?: Yes Distance: 150'x2 Walk 10 feet (QC): 4 Walk 50 ft with 2 Turns(QC): 4 Walk 150 ft (QC): 4 Walking 10ft/uneven surface-QC: 4 Gait Persons Needed: 1 Gait Assistive Device: FWW Wheelchair Training Wheel 50 ft with 2 turns (QC): 9 Wheel 150 ft (QC): 9 Stair Training #of Steps: 1 1 Step (curb) (QC): 4 4 Steps (QC): 88 12 Steps (QC): 88 Balance Picking up an Object (QC): 4 (CGA using a needle board repairer) ADL-Treatment Eating (QC): 5 Oral Hygiene (QC): 6 Shower/Bathe Self (QC): 4 (supervision) Upper Body Dressing (QC): 5 Lower Body Dressing (QC): 4 On/Off Footwear (QC): 5 Toileting Hygiene (QC): 6 Toilet Transfer (QC): 6 Assessment/Plan Assessment and Plan Assess & Plan/Chief Complaint Assessment: Acute Hypoxic Respiratory Failure s/p bipap and Vapotherm Sepsis severe type-resolved Right sided pleural effusion requiring [address] Stephens RLL Pneumonia Sinus Tachycardia Elevated creatinine vs FRAN Solo kidney HTN Hypothyroidism HLD Depression GI prophylaxis - PPI DVT prophylaxis - heparin Leukocytosis Plan: PT OT Wean O2 Monitor labs 06/15/2022: Much improved Monitor O2 06/16/2022: Continue to wean oxygen Dramatic improvement (1) Acute respiratory failure RIAZ COTTER DO Jun 16, 2022 05:17
[2022-06-16] MEDS: CATHETER FLUSH 10 ML SYR IVP SCH ×3 (06:30→20:08)
[2022-06-16] MEDS: NAPROXEN 250 MG (NAPROSYN) TABLET PO SCH (06:30)
[2022-06-16] MEDS: LEVOTHYROXINE 75 MCG (LEVOTHROID) TABLET PO SCH (06:30)
--- NOTE | 2022-06-16 06:53 | Progress Note - Surgery ---
BROOKLYN BROWN 06/16/22 0652: Subjective Date Seen by a Provider: Jun 16, 2022 Time Seen by a Provider: 06:48 Subjective/Events-last exam Belen Patricio was seen at bedside this morning. She is resting in her chair. Reports her breathing continues to improve. Improvement in edema of hands bilaterally, back to baseline. Continues to work with PT/OT. Persistent cough remains and is beginning to cause her chest soreness when she has coughing fit. Worse with lying down. Cath out yesterday, no issues urinating. Pallor resolved. Review of Systems General: No Chills, No Night Sweats HEENT: No Head Aches; Sore Throat Pulmonary: No Dyspnea; Cough Cardiovascular: Chest Pain (due to cough); No: Palpitations Gastrointestinal: No: Nausea, Vomiting, Abdominal Pain Genitourinary: No Dysuria, No Hematuria Musculoskeletal: other (pain in R lower chest after cough) Neurological: Weakness; No: Confusion Objective Exam Vital Signs Date Time Temp Pulse Resp B/P (MAP) Pulse Ox O2 Delivery O2 Flow Rate FiO2 06/15/22 21:17 90 High Flow N/C 6.00 06/15/22 20:00 High Flow N/C 4.00 06/15/22 19:34 36.9 103 20 134/87 (103) 95 Nasal Cannula 4.00 06/15/22 15:00 97 High Flow N/C 6.00 06/15/22 09:00 96 High Flow N/C 6.00 06/15/22 08:00 36.7 91 18 120/80 (93) 96 High Flow N/C 6.00 I & O 06/16/22 07:00 Intake Total 850 ml Balance 850 ml Capillary Refill : General Appearance: No Apparent Distress, WD/WN, Anxious HEENT: PERRL/EOMI, Moist Mucous Membranes Neck: Non Tender, Supple Respiratory: Chest Non Tender, No Respiratory Distress, Other (much improved breath sounds on the R base) Cardiovascular: No JVD, Normal Peripheral Pulses, Tachycardia Gastrointestinal: non tender, soft Extremity: Normal Capillary Refill, Other (edema of hands resolved) Neurologic/Psychiatric: Alert, Oriented x3, Motor Weakness (generalized) Skin: Normal Color, Warm/Dry Lymphatic: No Adenopathy Assessment/Plan Assessment/Plan Assessment/Plan Acute on Chronic respiratory failure Community acquired pneumonia Sepsis R Pleural effusion Sinus tachycardia Confusion- resolved Thoracentesis x 2 performed- fluid negative for malignancy lovenox for DVT prophylaxis Pleural fluid resulted in WBC 8.441, RBC 0.003, glucose 22, protein 2.5 Likely exudative process, consider parapneumonic effusion, resolving Pleural fluid cx resulted no growth Anaerobic cx and Gram stain no growth Continue oral ampicillin 500 TID Confusion resolved Decreasing O2 per nasal cannula wean as tolerates, down to 4L by nasal cannula Monitor vitals and WBC. Improved to 21.4 from 24.9. No new labs today She is clinically improving with less O2 requirements and decreased effusion. Patient transferred to inpatient rehab on 06/14 OSITO STEPHENS DO 06/16/22 1305: Subjective Subjective/Events-last exam Breathing well. Using IS. Working with PT. Cough with slight chest discomfort. Denies n/v fever sweats chills. Objective Exam General Appearance: No Apparent Distress, WD/WN HEENT: PERRL/EOMI, Normal ENT Inspection Neck: Non Tender, Supple Respiratory: Chest Non Tender, No Accessory Muscle Use, No Respiratory Distress, Other (improving airmovement) Cardiovascular: No JVD Gastrointestinal: non tender, soft Extremity: Normal Capillary Refill, Non Tender Neurologic/Psychiatric: Alert, Oriented x3 Skin: Normal Color, Warm/Dry Lymphatic: No Adenopathy Assessment/Plan Assessment/Plan Assessment/Plan Acute on Chronic respiratory failure Community acquired pneumonia Sepsis R Pleural effusion Sinus tachycardia Confusion- resolved Thoracentesis x 2 performed- fluid negative for malignancy lovenox for DVT prophylaxis Pleural fluid resulted in WBC 8.441, RBC 0.003, glucose 22, protein 2.5 Likely exudative process, consider parapneumonic effusion, resolving Pleural fluid cx resulted no growth Anaerobic cx and Gram stain no growth Continue oral ampicillin 500 TID Confusion resolved Decreasing O2 per nasal cannula wean as tolerates, down to 4L by nasal cannula Monitor vitals and WBC. Improved to 21.4 from 24.9. No new labs today She is clinically improving with less O2 requirements and decreased effusion. Patient transferred to inpatient rehab on 06/14 Will sign off, call if needed. Supervisory-Addendum Brief Verification & Attestation Participated in pt care: history, MDM, physical Personally performed: exam, history, MDM, supervision of care Care discussed with: Medical Student Procedures: n/a Results interpretation: Verified all documentation Verification and Attestation of Medical Student E/M Service A medical student performed and documented this service in my presence. I reviewed and verified all information documented by the medical student and made modifications to such information, when appropriate. I personally performed the physical exam and medical decision making. Osito Stephens, Jun 16, 2022,13:05 BROOKLYN BROWN Jun 16, 2022 06:52 OSITO STEPHENS DO Jun 16, 2022 13:05
[2022-06-16] MEDS: RT-ALBUTEROL SULF 2.5 MG/3 ML PRE-MIX VIAL INH SCH ×3 (07:05→20:29)
[2022-06-16] MEDS: RT-IPRATROPIUM (ATROVENT) 0.5MG/2.5ML AMP IH SCH ×3 (07:05→20:29)
[2022-06-16] MEDS: MULTIVIT W/MINERALS TAB (THERAGRAN M) PO SCH (07:47)
[2022-06-16] MEDS: dilTIAZem120 MG (CARDIZEM CD) CAP PO SCH (07:48)
[2022-06-16] MEDS: SENNOSIDES 8.6 MG (SENOKOT) TAB PO SCH ×2 (07:48→20:02)
[2022-06-16] MEDS: LORATADINE (CLARITIN) 10 MG TAB PO SCH (07:48)
[2022-06-16] MEDS: OXYBUTYNIN (DITROPAN) 5 MG TAB PO SCH ×2 (07:48→20:08)
[2022-06-16] MEDS: MAGNESIUM OXIDE (MAG-OX)400 MG TAB PO SCH ×2 (07:48→17:39)
[2022-06-16] MEDS: DOCUSATE SODIUM 100 MG (COLACE) CAP PO SCH ×2 (07:48→20:01)
[2022-06-16] MEDS: AMOXICILLIN 500 MG (POLYMOX) CAP PO SCH ×3 (07:48→20:08)
[2022-06-16] MEDS: PANTOPRAZOLE 40 MG (PROTONIX) TAB PO SCH (07:49)
[2022-06-16] MEDS: FERROUS SULF 325 MG (IRON) TAB PO SCH (07:49)
[2022-06-16] MEDS: CALCIUM CARBONATE 600 MG (CALCARB) TAB PO SCH (07:49)
[2022-06-16] MEDS: LACTOBACILLUS ACIDOPHILUS (PROBIOTIC) CAPSULE PO SCH ×4 (07:49→17:39)
[2022-06-16] MEDS: polyethylene glycoL POWDER 17 GM (MIRALAX) PACK PO SCH ×2 (07:51→20:02)
[2022-06-16 08:00] VITALS: BP 128/80
--- NOTE | 2022-06-16 09:53 | Physical Therapy Daily Note ---
PT Daily Note-Current Subjective Patient in recliner pre tx, agrees to PT, has no complaints of pain. Pain Section J - Health Conditions 1. Rarely or not at all 2. Occasionally 3. Frequently 4. Almost constantly 8. Unable to answer Pain Effect on Sleep: 1 Pain Interference with Therapy: 1 Pain Interference w/Day-to-Day: 1 Appearance Patient in recliner post tx with nurse call, phone, tray, all needs met. Mental Status Patient Orientation: Normal For Age Attachments: Oxygen (4L) Transfers SCALE: Activities may be completed with or without assistive devices. 7-Resqlgfezt-qcluwjy completes the activity by him/herself with no assistance from a helper. 5-Set-up or Clean-up Assistance-helper sets up or cleans up; patient completes activity. [place] assists only prior to or following the activity. 4-Supervision or Touching Assistance-helper provides verbal cues and/or touching/steadying and/or contact guard assistance as patient completes activity. Assistance may be provided throughout the activity or intermittently. 3-Partial/Moderate Assistance-helper does LESS THAN HALF the effort. [place] lifts, holds or supports trunk or limbs, but provides less than half the effort. 2-Substantial/Maximal Assistance-helper does MORE THAN HALF the effort. [place] lifts or holds trunk or limbs and provides more than half the effort. 3-Xxfepqxrl-hbzfmp does ALL the effort. Patient does none of the effort to complete the activity. Or, the assistance of 2 or more helpers is required for the patient to complete the activity. If activity was not attempted, code reason: 7-Patient Refused. 9-Not Applicable-not attempted and the patient did not perform the activity before the current illness, exacerbation or injury. 10-Not Attempted due to Environmental Limitations-(lack of equipment, weather restraints, etc.). 88-Not Attempted due to Medical Conditions or Safety Concerns. Sit to Stand (QC): 4 Chair/Ipw-tq-Lqvtg Xfer(QC): 4 SBA Gait Training Distance: 150'x2, 120' Walk 10 feet (QC): 4 Walk 50 ft with 2 Turns(QC): 4 Walk 150 ft (QC): 4 Gait Persons Needed: 1 Gait Assistive Device: FWW SBA, slow but steady ambulation, O2 drops to 88% on 4L but comes back up to over 90% quickly after resting. Exercises Standing: Hamstring curls, Heel/toe raises, 3 way Ex=Flex, Abd, Ext (not flexion), Marching, Mini squats Standing Reps: 15 NuStep Minutes: 15 NuStep Workload: 5 Treatments transfers, ambulation, strengthening Assessment Current Status: Fair Progress improving strength and endurance, needed several rest breaks due to fatigue, O2 dropped a little with activity PT Telecommunications Analyst Goals Custodial Goals PT Telecommunications Analyst Goals Time Frame: Jun 28, 2022 Roll Left & Right (QC): 6 Sit to Lying (QC): 6 Lying-Sitting on Side/Bed(QC): 6 Sit to Stand (QC): 6 Chair/Wcw-mn-Rfbxg Xfer(QC): 6 Toilet Transfer (QC): 6 Car Transfer (QC): 6 Does the Patient Walk: Yes Walk 10 feet (QC): 6 Walk 50ft with 2 Turns (QC): 6 Walk 150 ft (QC): 6 Walking 10ft on Uneven Surface: 6 1 Step (curb) (QC): 4 (SBA) 4 Steps (QC): 4 (SBA) 12 Steps (QC): 88 Picking up an Object (QC): 6 Wheel 50 feet with 2 turns (QC: 9 Wheel 150 feet: 9 PT Plan Problem List Problem List: Activity Tolerance, Functional Strength, Safety, Balance, Gait, Transfer, ROM Treatment/Plan Treatment Plan: Continue Plan of Care Treatment Plan: Bed Mobility, Education, Functional Activity Jailyn, Functional Strength, Group Therapy, Gait, Safety, Therapeutic Exercise, Transfers Treatment Duration: Jun 28, 2022 Frequency: At least 5 of 7 days/Wk (IRF) Estimated Hrs Per Day: 1.5 hours per day Patient and/or Family Agrees t: Yes Safety Risks/Education Patient Education: Gait Training, Transfer Techniques, Correct Positioning, Safety Issues Teaching Recipient: Patient Teaching Methods: Demonstration, Discussion Response to Teaching: Reinforcement Needed Time Time In: 0900 Time Out: 1000 DATE: Jun 16, 2022 Total Billed Treatment Time: 60 Total Billed Treatment 1 visit EX 30' FA 30' RANDALL ROSAS PT Jun 16, 2022 09:53
--- NOTE | 2022-06-16 11:20 | Occupational Ther Daily Note ---
OT Current Status-Daily Note Subjective Pt sleeping in recliner, woke to name. Pt agrees to therapy. No c/o pain. Mental Status/Objective Patient Orientation: Person, Place, Time, Situation Attachments: IV, Oxygen (4L) ADL-Treatment Pt request to have shower. Pt chose clothing from bag then transported using FWW to bathroom. Independent with toilet transfer and toilet hygiene. Sitting 100% of the time, pt able to complete bathing using grabbars, hand held shower and LH sponge to complete shower independently. Pt able to doff/don all clothing by self, no AE needed. Pt stood at sink to complete oral care independently, stabilizing self by leaning on counter. Pt continues to require assist to manipulate tubing while ambulating and transferring. After therapy, pt sitting in recliner with call light/phone in reach. Therapy Code Descriptions/Definitions Functional [place] Measure: 0=Not Assessed/NA 4=Minimal Assistance 1=Total Assistance 5=Supervision or Setup 2=Maximal Assistance 6=Modified [place] 3=Moderate Assistance 7=Complete IndependenceSCALE: Activities may be completed with or without assistive devices. 1-Azaecjlugp-nzmgraq completes the activity by him/herself with no assistance from a helper. 5-Set-up or Clean-up Assistance-helper sets up or cleans up; patient completes activity. [place] assists only prior to or following the activity. 4-Supervision or Touching Assistance-helper provides verbal cues and/or touching/steadying and/or contact guard assistance as patient completes activity. Assistance may be provided throughout the activity or intermittently. 3-Partial/Moderate Assistance-helper does LESS THAN HALF the effort. [place] lifts, holds or supports trunk or limbs, but provides less than half the effort. 2-Substantial/Maximal Assistance-helper does MORE THAN HALF the effort. [place] lifts or holds trunk or limbs and provides more than half the effort. 3-Fuqgrntfh-kboqzv does ALL the effort. Patient does none of the effort to complete the activity. Or, the assistance of 2 or more helpers is required for the patient to complete the activity. If activity was not attempted, code reason: 7-Patient Refused. 9-Not Applicable-not attempted and the patient did not perform the activity before the current illness, exacerbation or injury. 10-Not Attempted due to Environmental Limitations-(lack of equipment, weather restraints, etc.). 88-Not Attempted due to Medical Conditions or Safety Concerns. Oral Hygiene (QC): 6 Shower/Bathe Self (QC): 6 Upper Body Dressing (QC): 6 Lower Body Dressing (QC): 6 On/Off Footwear: 6 Toileting Hygiene (QC): 6 Toilet Transfer (QC): 6 Pt is improving with stamina throughout her ADLs. Pt is able to stand and reach down to pick item off of floor without LOB or SOA. OT Short Term Goals Short Term Goals Time Frame: Jun 30, 2022 Upper body dressin Lower body dressin Putting on/taking off footwear: 5 OT Long-Term Goals Bulk Materials Handling Plant Operator Goals Time Frame: Jul 09, 2022 Acute change in mental status: 0 Inattention: 0 Disorganized thinkin Altered level of consciousness: 0 Eating (QC): 6 Oral Hygiene (QC): 6 Toileting Hygiene (QC): 6 Shower/Bathe Self (QC): 6 Upper Body Dressing (QC): 6 Lower Body Dressing (QC): 6 On/Off Footwear (QC): 6 Additional Goals: 1-Demonstrate ADL Tasks, 2-Verbalize Understanding, 3- ImproveStrength/[place]yn 1=Demonstrate adherence to instructed precautions during ADL tasks. 2=Patient will verbalize/demonstrate understanding of assistive devices/modifications for ADL. 3=Patient will improve strength/tolerance for activity to enable patient to perform ADL's. OT Education/Plan Problem List/Assessment Assessment: Decreased Activ Tolerance, Impaired Self-Care Skills Discharge Recommendations Plan/Recommendations: Continue POC Treatment Plan/Plan of Care Patient would benefit from OT for education, treatment and training to promote independence in ADL's, mobility, safety and/or upper extremity function for ADL's. Plan of Care: ADL Retraining, Functional Mobility, Group Exercise/Act as Ind, UE Funct Exercise/Act Treatment Duration: Jul 09, 2022 Frequency: Modified Program (IRF) (23/10) Estimated Hrs Per Day: 1.5 hours per day Agreement: Yes Rehab Potential: Fair Time Start Time: 11:00 Stop Time: 12:00 DATE: Jun 16, 2022 Total Time Billed (hr/min): 60 Billed Treatment Time 1 visit-ADL 4 (60 min) ALONSO BADILLO Jun 16, 2022 11:20
[2022-06-16] MEDS: ENOXAPARIN 40 MG/0.4 ML (LOVENOX) SYR SC SCH (12:32)
--- NOTE | 2022-06-16 13:26 | Physical Therapy Daily Note ---
PT Daily Note-Current Subjective Patient in recliner pre tx, agrees to PT, has no complaints of pain. Pain Section J - Health Conditions 1. Rarely or not at all 2. Occasionally 3. Frequently 4. Almost constantly 8. Unable to answer Pain Effect on Sleep: 1 Pain Interference with Therapy: 1 Pain Interference w/Day-to-Day: 1 Appearance Patient in recliner post tx with nurse call, phone, tray, all needs met. Mental Status Patient Orientation: Normal For Age Attachments: Oxygen Transfers SCALE: Activities may be completed with or without assistive devices. 2-Hixgzgamum-rtytctv completes the activity by him/herself with no assistance from a helper. 5-Set-up or Clean-up Assistance-helper sets up or cleans up; patient completes activity. [place] assists only prior to or following the activity. 4-Supervision or Touching Assistance-helper provides verbal cues and/or touching/steadying and/or contact guard assistance as patient completes activity. Assistance may be provided throughout the activity or intermittently. 3-Partial/Moderate Assistance-helper does LESS THAN HALF the effort. May lifts, holds or supports trunk or limbs, but provides less than half the effort. 2-Substantial/Maximal Assistance-helper does MORE THAN HALF the effort. May lifts or holds trunk or limbs and provides more than half the effort. 5-Vqefcnobt-hqlzsr does ALL the effort. Patient does none of the effort to complete the activity. Or, the assistance of 2 or more helpers is required for the patient to complete the activity. If activity was not attempted, code reason: 7-Patient Refused. 9-Not Applicable-not attempted and the patient did not perform the activity before the current illness, exacerbation or injury. 10-Not Attempted due to Environmental Limitations-(lack of equipment, weather restraints, etc.). 88-Not Attempted due to Medical Conditions or Safety Concerns. 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 Goals [employer] Mechanic Goals PT Mcc Goals Time Frame: Jun 28, 2022 Roll Left & Right (QC): 6 Sit to Lying (QC): 6 Lying-Sitting on Side/Bed(QC): 6 Sit to Stand (QC): 6 Chair/Xbl-iv-Ghoiv Xfer(QC): 6 Toilet Transfer (QC): 6 Car Transfer (QC): 6 Does the Patient Walk: Yes Walk 10 feet (QC): 6 Walk 50ft with 2 Turns (QC): 6 Walk 150 ft (QC): 6 Walking 10ft on Uneven Surface: 6 1 Step (curb) (QC): 4 (SBA) 4 Steps (QC): 4 (SBA) 12 Steps (QC): 88 Picking up an Object (QC): 6 Wheel 50 feet with 2 turns (QC: 9 Wheel 150 feet: 9 PT Plan Problem List Problem List: Activity Tolerance, Functional Strength, Safety, Balance, Gait, Transfer, ROM Treatment/Plan Treatment Plan: Continue Plan of Care Treatment Plan: Bed Mobility, Education, Functional Activity Jailyn, Functional Strength, Group Therapy, Gait, Safety, Therapeutic Exercise, Transfers Treatment Duration: Jun 28, 2022 Frequency: At least 5 of 7 days/Wk (IRF) Estimated Hrs Per Day: 1.5 hours per day Patient and/or Family Agrees t: Yes Safety Risks/Education Patient Education: Gait Training, Transfer Techniques, Correct Positioning, Safety Issues Teaching Recipient: Patient Teaching Methods: Demonstration, Discussion Response to Teaching: Reinforcement Needed Time Time In: 1300 Time Out: 1330 DATE: Jun 16, 2022 Total Billed Treatment Time: 30 Total Billed Treatment 1 visit EX 10' FA 20' RANDALL ROSAS PT Jun 16, 2022 13:26
--- NOTE | 2022-06-16 14:23 | Occupational Ther Daily Note ---
OT Current Status-Daily Note Subjective Pt alert, sitting in recliner. Pt agrees to therapy. Mental Status/Objective Patient Orientation: Person, Place, Time, Situation Attachments: IV ADL-Treatment Therapy Code Descriptions/Definitions Functional [place] Measure: 0=Not Assessed/NA 4=Minimal Assistance 1=Total Assistance 5=Supervision or Setup 2=Maximal Assistance 6=Modified [place] 3=Moderate Assistance 7=Complete IndependenceSCALE: Activities may be completed with or without assistive devices. 0-Kpsliroojv-mzyurbc completes the activity by him/herself with no assistance from a helper. 5-Set-up or Clean-up Assistance-helper sets up or cleans up; patient completes activity. [place] assists only prior to or following the activity. 4-Supervision or Touching Assistance-helper provides verbal cues and/or touching/steadying and/or contact guard assistance as patient completes activity. Assistance may be provided throughout the activity or intermittently. 3-Partial/Moderate Assistance-helper does LESS THAN HALF the effort. [place] lifts, holds or supports trunk or limbs, but provides less than half the effort. 2-Substantial/Maximal Assistance-helper does MORE THAN HALF the effort. [place] lifts or holds trunk or limbs and provides more than half the effort. 5-Xogflxwbs-nrrnqc does ALL the effort. Patient does none of the effort to complete the activity. Or, the assistance of 2 or more helpers is required for the patient to complete the activity. If activity was not attempted, code reason: 7-Patient Refused. 9-Not Applicable-not attempted and the patient did not perform the activity before the current illness, exacerbation or injury. 10-Not Attempted due to Environmental Limitations-(lack of equipment, weather restraints, etc.). 88-Not Attempted due to Medical Conditions or Safety Concerns. Other Treatment Pt ambulated to therapy gym using FWW with SBA. Pt completed arm bike for 8 min at varying resistance while rotating arm bike forward then backward every 2 min to increase strength and activity tolerance for daily functional tasks. Minimal recovery breaks taken. Pt then ambulated back to room using FWW with SBA. Independent with toileting then pt took over care of pt. All needs met in room. OT Short Term Goals Short Term Goals Time Frame: Jun 30, 2022 Upper body dressin Lower body dressin Putting on/taking off footwear: 5 OT Senior Living Goals Senior Living Goals Time Frame: Jul 09, 2022 Acute change in mental status: 0 Inattention: 0 Disorganized thinkin Altered level of consciousness: 0 Eating (QC): 6 Oral Hygiene (QC): 6 Toileting Hygiene (QC): 6 Shower/Bathe Self (QC): 6 Upper Body Dressing (QC): 6 Lower Body Dressing (QC): 6 On/Off Footwear (QC): 6 Additional Goals: 1-Demonstrate ADL Tasks, 2-Verbalize Understanding, 3-Impro veStrength/Jailyn 1=Demonstrate adherence to instructed precautions during ADL tasks. 2=Patient will verbalize/demonstrate understanding of assistive devices/modifications for ADL. 3=Patient will improve strength/tolerance for activity to enable patient to perform ADL's. OT Education/Plan Problem List/Assessment Assessment: Decreased Activ Tolerance, Decreased UE Strength Discharge Recommendations Plan/Recommendations: Continue POC Treatment Plan/Plan of Care Patient would benefit from OT for education, treatment and training to promote independence in ADL's, mobility, safety and/or upper extremity function for ADL's. Plan of Care: ADL Retraining, Functional Mobility, Group Exercise/Act as Ind, UE Funct Exercise/Act Treatment Duration: Jul 09, 2022 Frequency: Modified Program (IRF) (23/10) Estimated Hrs Per Day: 1.5 hours per day Agreement: Yes Rehab Potential: Fair Time Start Time: 13:30 Stop Time: 14:00 DATE: Jun 16, 2022 Total Time Billed (hr/min): 30 Billed Treatment Time 1 visit-ADL 1 (15 min) EX 1 (15 min) ALONSO BADILLO Jun 16, 2022 14:23
[2022-06-16] MEDS: guaiFENesin/DM (ROBITUSSIN DM) 10 ML UDC PO PRN (20:06)
[2022-06-16] MEDS: AMITRIPTYLINE 25 MG (ELAVIL) TAB PO SCH (20:07)
[2022-06-16] MEDS: AtorvaSTATin TABLET 10 MG TABLET PO SCH (20:07)
[2022-06-16] MEDS: ACETAMINOPHEN 325 MG TABLET PO PRN (20:07)
[2022-06-16] MEDS: OMEGA 3 (FISH OIL) 1000 MG CAP PO SCH (20:08)
[2022-06-16 20:22] VITALS: BP 123/59
[2022-06-17] MEDS: guaiFENesin/DM (ROBITUSSIN DM) 10 ML UDC PO PRN ×2 (03:23→20:48)
--- NOTE | 2022-06-17 05:04 | PM&R Progress Note ---
Subjective HPI/CC On Admission Date Seen by Provider: Jun 17, 2022 Time Seen by Provider: 12:00 Subjective/Events-last exam 06/17/2022: Dramatic improvement O2 decreased Labs reviewed Improved outlook No falls 06/16/2022: Much improved Wean down to 4 L No pain is reported Much improved 06/15/2022: Much improved No pain reported Weaning down on O2 to 6L/min Walks well Weakness noted WBC remains elevated Review of Systems General: Fatigue, Malaise Pulmonary: Dyspnea, Cough Objective Exam Vital Signs Vital Signs Date Time Temp Pulse Resp B/P (MAP) Pulse Ox O2 Delivery O2 Flow Rate FiO2 06/17/22 20:45 98 Nasal Cannula 4.00 06/17/22 20:27 37.1 99 20 121/58 (79) Capillary Refill : General Appearance: No Apparent Distress, WD/WN, Chronically ill HEENT: PERRL/EOMI, Normal ENT Inspection Neck: Non Tender, Supple Respiratory: Chest Non Tender, No Accessory Muscle Use, No Respiratory Distress, Decreased Breath Sounds (right), Other (improving airmovement) Cardiovascular: No JVD Gastrointestinal: Normal Bowel Sounds, No Organomegaly, No Pulsatile Mass, Non Tender, Soft Back: Normal Inspection, No CVA Tenderness, No Vertebral Tenderness Extremity: Normal Capillary Refill, Normal Inspection, Normal Range of Motion, Non Tender Neurologic/Psychiatric: Alert, Oriented x3, Normal Mood/Affect, balance clerk II-XII Norm as Tested, Abnormal Gait, Depressed Affect, Motor Weakness (generalized) Skin: Normal Color, Warm/Dry Lymphatic: No Adenopathy Results/Procedures Lab Laboratory Tests 06/17/22 05:40 Patient resulted labs reviewed. FIM Transfers Therapy Code Descriptions/Definitions Functional [place] Measure: 0=Not Assessed/NA 4=Minimal Assistance 1=Total Assistance 5=Supervision or Setup 2=Maximal Assistance 6=Modified [place] 3=Moderate Assistance 7=Complete IndependenceSCALE: Activities may be completed with or without assistive devices. 1-Kxjvmelkin-txwosiw completes the activity by him/herself with no assistance from a helper. 5-Set-up or Clean-up Assistance-helper sets up or cleans up; patient completes activity. [place] assists only prior to or following the activity. 4-Supervision or Touching Assistance-helper provides verbal cues and/or touchin g/steadying and/or contact guard assistance as patient completes activity. Assistance may be provided throughout the activity or intermittently. 3-Partial/Moderate Assistance-helper does LESS THAN HALF the effort. [place] lifts, holds or supports trunk or limbs, but provides less than half the effort. 2-Substantial/Maximal Assistance-helper does MORE THAN HALF the effort. [place] lifts or holds trunk or limbs and provides more than half the effort. 1-Tdrlinavv-ctjpdt does ALL the effort. Patient does none of the effort to complete the activity. Or, the assistance of 2 or more helpers is required for the patient to complete the activity. If activity was not attempted, code reason: 7-Patient Refused. 9-Not Applicable-not attempted and the patient did not perform the activity before the current illness, exacerbation or injury. 10-Not Attempted due to Environmental Limitations-(lack of equipment, weather restraints, etc.). 88-Not Attempted due to Medical Conditions or Safety Concerns. Roll Left to Right (QC): 6 Sit to Lying (QC): 6 Sit to Stand (QC): 4 Chair/Ygr-pu-Kssoj Xfer(QC): 4 Car Transfer (QC): 4 Gait Training Does the Patient Walk?: Yes Distance: 150'x2, 120' Walk 10 feet (QC): 4 Walk 50 ft with 2 Turns(QC): 4 Walk 150 ft (QC): 4 Walking 10ft/uneven surface-QC: 4 Gait Persons Needed: 1 Gait Assistive Device: FWW Wheelchair Training Wheel 50 ft with 2 turns (QC): 9 Wheel 150 ft (QC): 9 Stair Training #of Steps: 1 1 Step (curb) (QC): 4 4 Steps (QC): 88 12 Steps (QC): 88 Balance Picking up an Object (QC): 4 (CGA using a 911 operator) ADL-Treatment Eating (QC): 5 Oral Hygiene (QC): 6 Shower/Bathe Self (QC): 6 Upper Body Dressing (QC): 6 Lower Body Dressing (QC): 6 On/Off Footwear (QC): 6 Toileting Hygiene (QC): 6 Toilet Transfer (QC): 6 Assessment/Plan Assessment and Plan Assess & Plan/Chief Complaint Assessment: Acute Hypoxic Respiratory Failure s/p bipap and Vapotherm Sepsis severe type-resolved Right sided pleural effusion requiring [address] Stephens RLL Pneumonia Sinus Tachycardia Elevated creatinine vs FRAN Solo kidney HTN Hypothyroidism HLD Depression GI prophylaxis - PPI DVT prophylaxis - heparin Leukocytosis Plan: PT OT Wean O2 Monitor labs 06/15/2022: Much improved Monitor O2 06/16/2022: Continue to wean oxygen Dramatic improvement 06/17/2022: Improved Wean O2 (1) Acute respiratory failure RIAZ COTTER DO Jun 17, 2022 05:04
[2022-06-17] MEDS: LEVOTHYROXINE 75 MCG (LEVOTHROID) TABLET PO SCH (05:36)
[2022-06-17] MEDS: CATHETER FLUSH 10 ML SYR IVP SCH ×3 (05:36→20:50)
[2022-06-17 05:55] LABS: BASOPHILS # (AUTO) 0.1 10^3/uL (0.0-0.1); BASOPHILS % (AUTO) 1 % (0-10); EOSINOPHILS # (AUTO) 0.1 10^3/uL (0.0-0.3); EOSINOPHILS % (AUTO) 1 % (0-10); HEMATOCRIT 28 % (35-52); HEMOGLOBIN 9.1 g/dL (11.5-16.0); LYMPHOCYTES # (AUTO) 1.3 10^3/uL (1.0-4.0); LYMPHOCYTES % (AUTO) 9 % (12-44); MEAN CORPUSCULAR HEMOGLOBIN 30 pg (25-34); MEAN CORPUSCULAR HGB CONC 33 g/dL (32-36); MEAN CORPUSCULAR VOLUME 92 fL (80-99); MONOCYTES # (AUTO) 1.1 10^3/uL (0.0-1.0); MONOCYTES % (AUTO) 7 % (0-12); NEUTROPHILS # (AUTO) 11.4 10^3/uL (1.8-7.8); NEUTROPHILS % (AUTO) 81 % (42-75); PLATELET COUNT 542 10^3/uL (130-400); WHITE BLOOD COUNT 14.1 10^3/uL (4.3-11.0)
[2022-06-17 06:08] LABS: ALBUMIN 2.2 GM/DL (3.2-4.5); POTASSIUM 3.6 MMOL/L (3.6-5.0)
[2022-06-17 06:09] LABS: CALCIUM 8.7 MG/DL (8.5-10.1)
[2022-06-17 06:10] LABS: TOTAL PROTEIN 5.4 GM/DL (6.4-8.2)
[2022-06-17 06:12] LABS: BILIRUBIN,TOTAL 0.2 MG/DL (0.1-1.0)
[2022-06-17 06:14] LABS: CREATININE SERUM 0.68 MG/DL (0.60-1.30)
[2022-06-17] MEDS: NAPROXEN 250 MG (NAPROSYN) TABLET PO SCH (06:50)
[2022-06-17] MEDS: RT-IPRATROPIUM (ATROVENT) 0.5MG/2.5ML AMP IH SCH ×2 (07:35→14:38)
[2022-06-17] MEDS: RT-ALBUTEROL SULF 2.5 MG/3 ML PRE-MIX VIAL INH SCH ×3 (07:35→20:17)
[2022-06-17 07:59] VITALS: BP 131/84
--- NOTE | 2022-06-17 08:26 | Diagnostic Imaging Report ---
EXAMINATION: Chest 2 view HISTORY: Pneumonia COMPARISON: 06/14/2022 FINDINGS: There is a moderate pleural effusion with overlying pneumonia. Unchanged from prior exam. No pneumothorax. Left lung is clear. Heart size is normal. Right upper extremity peripherally inserted central venous catheter tip terminates in the superior vena cava. IMPRESSION: 1. Unchanged moderate right pleural effusion with overlying pneumonia. Dictated by: Dictated on workstation # [id number]
[2022-06-17] MEDS: LACTOBACILLUS ACIDOPHILUS (PROBIOTIC) CAPSULE PO SCH ×3 (09:45→17:40)
[2022-06-17] MEDS: OXYBUTYNIN (DITROPAN) 5 MG TAB PO SCH ×2 (09:45→20:47)
[2022-06-17] MEDS: SENNOSIDES 8.6 MG (SENOKOT) TAB PO SCH ×2 (09:45→20:49)
[2022-06-17] MEDS: MULTIVIT W/MINERALS TAB (THERAGRAN M) PO SCH (09:45)
[2022-06-17] MEDS: AMOXICILLIN 500 MG (POLYMOX) CAP PO SCH (09:45)
[2022-06-17] MEDS: CALCIUM CARBONATE 600 MG (CALCARB) TAB PO SCH (09:46)
[2022-06-17] MEDS: PANTOPRAZOLE 40 MG (PROTONIX) TAB PO SCH (09:47)
[2022-06-17] MEDS: FERROUS SULF 325 MG (IRON) TAB PO SCH (09:48)
[2022-06-17] MEDS: polyethylene glycoL POWDER 17 GM (MIRALAX) PACK PO SCH ×2 (09:48→20:49)
[2022-06-17] MEDS: DOCUSATE SODIUM 100 MG (COLACE) CAP PO SCH ×2 (09:50→20:49)
[2022-06-17] MEDS: LORATADINE (CLARITIN) 10 MG TAB PO SCH (09:50)
[2022-06-17] MEDS: MAGNESIUM OXIDE (MAG-OX)400 MG TAB PO SCH ×2 (09:51→17:40)
[2022-06-17] MEDS: dilTIAZem120 MG (CARDIZEM CD) CAP PO SCH (09:51)
--- NOTE | 2022-06-17 09:58 | Physical Therapy Daily Note ---
PT Daily Note-Current Subjective Agrees to Rx, no c/o SOB or pain. Pain Location: No Pain Reported Section J - Health Conditions 1. Rarely or not at all 2. Occasionally 3. Frequently 4. Almost constantly 8. Unable to answer Pain Effect on Sleep: 1 Pain Interference with Therapy: 1 Pain Interference w/Day-to-Day: 1 Mental Status Patient Orientation: Normal For Age Attachments: Oxygen (4.5 L) Transfers SCALE: Activities may be completed with or without assistive devices. 4-Etyjtiigow-zagxdap completes the activity by him/herself with no assistance from a helper. 5-Set-up or Clean-up Assistance-helper sets up or cleans up; patient completes activity. [place] assists only prior to or following the activity. 4-Supervision or Touching Assistance-helper provides verbal cues and/or touching/steadying and/or contact guard assistance as patient completes activity. Assistance may be provided throughout the activity or intermittently. 3-Partial/Moderate Assistance-helper does LESS THAN HALF the effort. [place] lifts, holds or supports trunk or limbs, but provides less than half the effort. 2-Substantial/Maximal Assistance-helper does MORE THAN HALF the effort. [place] lifts or holds trunk or limbs and provides more than half the effort. 1-Ukzxiaubu-ygazve does ALL the effort. Patient does none of the effort to complete the activity. Or, the assistance of 2 or more helpers is required for the patient to complete the activity. If activity was not attempted, code reason: 7-Patient Refused. 9-Not Applicable-not attempted and the patient did not perform the activity before the current illness, exacerbation or injury. 10-Not Attempted due to Environmental Limitations-(lack of equipment, weather restraints, etc.). 88-Not Attempted due to Medical Conditions or Safety Concerns. Roll Left & Right (QC): 6 Sit to Lying (QC): 6 Lying to Sitting/Side of Bed(Q: 6 Sit to Stand (QC): 6 Chair/Ppn-ym-Crvvx Xfer(QC): 6 Toilet Transfer (QC): 6 Gait Training Does the Patient Walk?: Yes Walk 10 feet (QC): 4 Walk 50 ft with 2 Turns(QC): 4 Walk 150 ft (QC): 4 Gait Persons Needed: 1 Gait Assistive Device: FWW needs assist only for portable O2 a4.5 L , O2 sats >96% throughout Rx Exercises Supine Ex: Bridging, Ankle pumps, Quad Set, Rolling, Glut sets, Lower trunk rotation, Heel Slides, Short Arc Quads, Scooting, Straight leg raise, Hip abd/add (sidelying and sup) Supine Reps: 15 Seated Therapy Exercises: Ankle pumps, Sit to stand, Long arc quads, Hip flexion, Hip abd/add Seated Reps: 15 Nustep leg presses x 12 NuStep Minutes: 8 NuStep Workload: 1 Treatments TRFs, gait, therex sup , side, sit , Nustep Assessment Current Status: Good Progress tolerates Rx, well, O2 sats > 95% throughout entire Rx, no c/o SOB PT Shelter Goals Yarn Conditioner Goals PT Yarn Conditioner Goals Time Frame: Jun 28, 2022 Roll Left & Right (QC): 6 Sit to Lying (QC): 6 Lying-Sitting on Side/Bed(QC): 6 Sit to Stand (QC): 6 Chair/Jdr-ca-Uuhav Xfer(QC): 6 Toilet Transfer (QC): 6 Car Transfer (QC): 6 Does the Patient Walk: Yes Walk 10 feet (QC): 6 Walk 50ft with 2 Turns (QC): 6 Walk 150 ft (QC): 6 Walking 10ft on Uneven Surface: 6 1 Step (curb) (QC): 4 (SBA) 4 Steps (QC): 4 (SBA) 12 Steps (QC): 88 Picking up an Object (QC): 6 Wheel 50 feet with 2 turns (QC: 9 Wheel 150 feet: 9 PT Plan Treatment/Plan Treatment Plan: Continue Plan of Care Treatment Plan: Bed Mobility, Education, Functional Activity Jailyn, Functional Strength, Group Therapy, Gait, Safety, Therapeutic Exercise, Transfers Treatment Duration: Jun 28, 2022 Frequency: At least 5 of 7 days/Wk (IRF) Estimated Hrs Per Day: 1.5 hours per day Patient and/or Family Agrees t: Yes Safety Risks/Education Patient Education: Gait Training, Transfer Techniques, Correct Positioning, Disease Process, Safety Issues Teaching Recipient: Patient Teaching Methods: Demonstration, Discussion Response to Teaching: Verbalize Understanding, Return Demonstration, Reinforcement Needed Time Time In: 900 Time Out: 1000 DATE: Jun 17, 2022 Total Billed Treatment Time: 60 Total Billed Treatment 1,GT19m, FA16m,EX25m PATRIA SLATER [facility] Jun 17, 2022 09:57
--- NOTE | 2022-06-17 11:29 | Occupational Ther Daily Note ---
OT Current Status-Daily Note Subjective Pt alert, sitting in recliner. Pt agrees to therapy. No c/o pain. Pt maintained O2 sats at 95% and above when completing functional tasks and ADLs on 4 L. Mental Status/Objective Patient Orientation: Person, Place, Time, Situation Attachments: IV, Oxygen (4L) ADL-Treatment Pt agrees to shower. Pt ambulated using FWW with reminders to be aware of O2 tubing when ambulating or transferring. Pt completes toileting independently. Pt able to stand at closet and retrieve clothing with good balance while utilizing B UE to reach and hold clothing items. Pt completed shower sitting 100% of the time on shower bench using grabbars and hand held shower. Pt completes upper body dressing independently. Pt used dressing stick to doff sock then is able to don socks by self. Pt completes LBD independently. Standing at sink, to complete oral care independently. Pt then ambulated back to recliner managing O2 tubing with more awareness. Pt is independent with eating. After therapy, pt sitting in recliner with call light/phone in reach. All needs met in room. Therapy Code Descriptions/Definitions Functional [place] Measure: 0=Not Assessed/NA 4=Minimal Assistance 1=Total Assistance 5=Supervision or Setup 2=Maximal Assistance 6=Modified [place] 3=Moderate Assistance 7=Complete IndependenceSCALE: Activities may be completed with or without assistive devices. 0-Utzyxwtdsv-etomtzt completes the activity by him/herself with no assistance from a helper. 5-Set-up or Clean-up Assistance-helper sets up or cleans up; patient completes activity. [place] assists only prior to or following the activity. 4-Supervision or Touching Assistance-helper provides verbal cues and/or touching/steadying and/or contact guard assistance as patient completes activity. Assistance may be provided throughout the activity or intermittently. 3-Partial/Moderate Assistance-helper does LESS THAN HALF the effort. [place] lifts, holds or supports trunk or limbs, but provides less than half the effort. 2-Substantial/Maximal Assistance-helper does MORE THAN HALF the effort. [place] lifts or holds trunk or limbs and provides more than half the effort. 6-Ujbtbjdrt-nkrttk does ALL the effort. Patient does none of the effort to complete the activity. Or, the assistance of 2 or more helpers is required for the patient to complete the activity. If activity was not attempted, code reason: 7-Patient Refused. 9-Not Applicable-not attempted and the patient did not perform the activity before the current illness, exacerbation or injury. 10-Not Attempted due to Environmental Limitations-(lack of equipment, weather restraints, etc.). 88-Not Attempted due to Medical Conditions or Safety Concerns. Eating (QC): 6 Oral Hygiene (QC): 6 Shower/Bathe Self (QC): 6 Upper Body Dressing (QC): 6 Lower Body Dressing (QC): 6 On/Off Footwear: 6 Toileting Hygiene (QC): 6 Toilet Transfer (QC): 6 Pt does have safety concerns at this time managing O2 tubing though is becoming more proficient with practice. OT Short Term Goals Short Term Goals Time Frame: Jun 30, 2022 Upper body dressin Lower body dressin Putting on/taking off footwear: 5 OT Assisted Goals Assisted Goals Time Frame: Jul 09, 2022 Acute change in mental status: 0 Inattention: 0 Disorganized thinkin Altered level of consciousness: 0 Eating (QC): 6 Oral Hygiene (QC): 6 Toileting Hygiene (QC): 6 Shower/Bathe Self (QC): 6 Upper Body Dressing (QC): 6 Lower Body Dressing (QC): 6 On/Off Footwear (QC): 6 Additional Goals: 1-Demonstrate ADL Tasks, 2-Verbalize Understanding, 3- ImproveStrength/Jailyn 1=Demonstrate adherence to instructed precautions during ADL tasks. 2=Patient will verbalize/demonstrate understanding of assistive devices/modifications for ADL. 3=Patient will improve strength/tolerance for activity to enable patient to perform ADL's. OT Education/Plan Problem List/Assessment Assessment: Decreased Activ Tolerance, Impaired Self-Care Skills Discharge Recommendations Plan/Recommendations: Continue POC Treatment Plan/Plan of Care Patient would benefit from OT for education, treatment and training to promote independence in ADL's, mobility, safety and/or upper extremity function for ADL's. Plan of Care: ADL Retraining, Functional Mobility, Group Exercise/Act as Ind, UE Funct Exercise/Act Treatment Duration: Jul 09, 2022 Frequency: Modified Program (IRF) (23/10) Estimated Hrs Per Day: 1.5 hours per day Agreement: Yes Rehab Potential: Fair Time Start Time: 11:00 Stop Time: 12:00 DATE: Jun 17, 2022 Total Time Billed (hr/min): 60 Billed Treatment Time 1 visit-ADL 4 (60 min) ALONSO BADILLO Jun 17, 2022 11:29
[2022-06-17] MEDS: ENOXAPARIN 40 MG/0.4 ML (LOVENOX) SYR SC SCH (11:51)
--- NOTE | 2022-06-17 13:10 | Physical Therapy Daily Note ---
PT Daily Note-Current Subjective Pt. agrees to Rx, no issues or c/o, no SOB. Pt. states she has one loose acrylic nail that she would like to remove so O2 sats could be obtained easier. Pt. independently removed the loose nail without aide of acetone remover. Pain Location: No Pain Reported Section J - Health Conditions 1. Rarely or not at all 2. Occasionally 3. Frequently 4. Almost constantly 8. Unable to answer Pain Effect on Sleep: 1 Pain Interference with Therapy: 1 Pain Interference w/Day-to-Day: 1 Mental Status Patient Orientation: Normal For Age Attachments: Oxygen (4L) Transfers SCALE: Activities may be completed with or without assistive devices. 1-Aobxctymsa-bdsauxa completes the activity by him/herself with no assistance from a helper. 5-Set-up or Clean-up Assistance-helper sets up or cleans up; patient completes activity. [place] assists only prior to or following the activity. 4-Supervision or Touching Assistance-helper provides verbal cues and/or touching/steadying and/or contact guard assistance as patient completes activity. Assistance may be provided throughout the activity or intermittently. 3-Partial/Moderate Assistance-helper does LESS THAN HALF the effort. [place] lifts, holds or supports trunk or limbs, but provides less than half the effort. 2-Substantial/Maximal Assistance-helper does MORE THAN HALF the effort. [place] lifts or holds trunk or limbs and provides more than half the effort. 4-Ajlrnrncw-zqtuko does ALL the effort. Patient does none of the effort to complete the activity. Or, the assistance of 2 or more helpers is required for the patient to complete the activity. If activity was not attempted, code reason: 7-Patient Refused. 9-Not Applicable-not attempted and the patient did not perform the activity before the current illness, exacerbation or injury. 10-Not Attempted due to Environmental Limitations-(lack of equipment, weather restraints, etc.). 88-Not Attempted due to Medical Conditions or Safety Concerns. all TRFs mod I Gait Training Does the Patient Walk?: Yes Gait Assistive Device: FWW 170 ft FWW indep but requires assist for portable O2 Exercises Standing: Hip Abduction, Hamstring curls, Heel/toe raises, Marching, Mini squats Standing Reps: 10 (x2) Treatments during entire Rx pts O2 sats on 4 L ranging 95 to 100% using left middle finger now free of dark acrylic nail Assessment Current Status: Good Progress indep with function, needs assist for O2 port only, no LOB, good strength and endurance for all with sats > 95% PT Mcc Goals Application Developer Manager Goals PT Mcc Goals Time Frame: Jun 28, 2022 Roll Left & Right (QC): 6 Sit to Lying (QC): 6 Lying-Sitting on Side/Bed(QC): 6 Sit to Stand (QC): 6 Chair/Zxw-os-Aopjs Xfer(QC): 6 Toilet Transfer (QC): 6 Car Transfer (QC): 6 Does the Patient Walk: Yes Walk 10 feet (QC): 6 Walk 50ft with 2 Turns (QC): 6 Walk 150 ft (QC): 6 Walking 10ft on Uneven Surface: 6 1 Step (curb) (QC): 4 (SBA) 4 Steps (QC): 4 (SBA) 12 Steps (QC): 88 Picking up an Object (QC): 6 Wheel 50 feet with 2 turns (QC: 9 Wheel 150 feet: 9 PT Plan Treatment/Plan Treatment Plan: Continue Plan of Care Treatment Plan: Bed Mobility, Education, Functional Activity Jailyn, Functional Strength, Group Therapy, Gait, Safety, Therapeutic Exercise, Transfers Treatment Duration: Jun 28, 2022 Frequency: At least 5 of 7 days/Wk (IRF) Estimated Hrs Per Day: 1.5 hours per day Patient and/or Family Agrees t: Yes Safety Risks/Education Patient Education: Gait Training, Correct Positioning, Safety Issues Teaching Recipient: Patient Teaching Methods: Demonstration, Discussion Response to Teaching: Verbalize Understanding, Return Demonstration, Reinforcement Needed Time Time In: 1230 Time Out: 1300 DATE: Jun 17, 2022 Total Billed Treatment Time: 30 Total Billed Treatment 1,GT12m,EX18m PATRIA SLATER OPERATIONS AND MAINTENANCE SPECIALIST Jun 17, 2022 13:10
--- NOTE | 2022-06-17 14:04 | Occupational Ther Daily Note ---
OT Current Status-Daily Note Subjective Took over care from MANAGER PROGRESSIVE CARE. Pt agrees to therapy. Mental Status/Objective Patient Orientation: Person, Place, Time, Situation Attachments: Oxygen (4L) ADL-Treatment Therapy Code Descriptions/Definitions Functional [place] Measure: 0=Not Assessed/NA 4=Minimal Assistance 1=Total Assistance 5=Supervision or Setup 2=Maximal Assistance 6=Modified [place] 3=Moderate Assistance 7=Complete IndependenceSCALE: Activities may be completed with or without assistive devices. 2-Scrvmlrtzv-pumdhpt completes the activity by him/herself with no assistance from a helper. 5-Set-up or Clean-up Assistance-helper sets up or cleans up; patient completes activity. [place] assists only prior to or following the activity. 4-Supervision or Touching Assistance-helper provides verbal cues and/or touching/steadying and/or contact guard assistance as patient completes activity. Assistance may be provided throughout the activity or intermittently. 3-Partial/Moderate Assistance-helper does LESS THAN HALF the effort. [place] lifts, holds or supports trunk or limbs, but provides less than half the effort. 2-Substantial/Maximal Assistance-helper does MORE THAN HALF the effort. [place] lifts or holds trunk or limbs and provides more than half the effort. 3-Tzocprzwo-ukjnky does ALL the effort. Patient does none of the effort to complete the activity. Or, the assistance of 2 or more helpers is required for the patient to complete the activity. If activity was not attempted, code reason: 7-Patient Refused. 9-Not Applicable-not attempted and the patient did not perform the activity before the current illness, exacerbation or injury. 10-Not Attempted due to Environmental Limitations-(lack of equipment, weather restraints, etc.). 88-Not Attempted due to Medical Conditions or Safety Concerns. Other Treatment Pt maintained 97% and above for O2 levels on 4 L during mobility. Pt completed kitchen mobility with gathering items and placing with sit to stands then ambulating with steadying balance with counter while transporting items to and from places. 1 slight LOB though pt able to right self independently. Pt then given medium resistance theraband exercise HEP for use in room and at home. Skilled instruction given for correct technique and modifications when necessary. Pt demonstrated understanding of all exercises, will continue to work on exercises until pt is independent. 1 set 10 reps of 6 exercises. After session, pt requested to use toilet. Pt educated on using call light when finished. Nrsg alerted to pt's position. OT Short Term Goals Short Term Goals Time Frame: Jun 30, 2022 Upper body dressin Lower body dressin Putting on/taking off footwear: 5 OT Nursing Home Goals Voip Engineer Goals Time Frame: Jul 09, 2022 Acute change in mental status: 0 Inattention: 0 Disorganized thinkin Altered level of consciousness: 0 Eating (QC): 6 Oral Hygiene (QC): 6 Toileting Hygiene (QC): 6 Shower/Bathe Self (QC): 6 Upper Body Dressing (QC): 6 Lower Body Dressing (QC): 6 On/Off Footwear (QC): 6 Additional Goals: 1-Demonstrate ADL Tasks, 2-Verbalize Understanding, 3- ImproveStrength/Jailyn 1=Demonstrate adherence to instructed precautions during ADL tasks. 2=Patient will verbalize/demonstrate understanding of assistive devices/modifications for ADL. 3=Patient will improve strength/tolerance for activity to enable patient to perform ADL's. OT Education/Plan Problem List/Assessment Assessment: Decreased Activ Tolerance, Decreased UE Strength, Impaired Funct Balance Discharge Recommendations Plan/Recommendations: Continue POC Treatment Plan/Plan of Care Patient would benefit from OT for education, treatment and training to promote independence in ADL's, mobility, safety and/or upper extremity function for ADL's. Plan of Care: ADL Retraining, Functional Mobility, Group Exercise/Act as Ind, UE Funct Exercise/Act Treatment Duration: Jul 09, 2022 Frequency: Modified Program (IRF) (23/10) Estimated Hrs Per Day: 1.5 hours per day Agreement: Yes Rehab Potential: Fair Time Start Time: 13:00 Stop Time: 13:30 DATE: Jun 17, 2022 Total Time Billed (hr/min): 30 Billed Treatment Time 1 visit-FA 1 (15 min) EX 1 (15 min) ALONSO BADILLO Jun 17, 2022 14:04
[2022-06-17 20:27] VITALS: BP 121/58
[2022-06-17] MEDS: AtorvaSTATin TABLET 10 MG TABLET PO SCH (20:47)
[2022-06-17] MEDS: AMITRIPTYLINE 25 MG (ELAVIL) TAB PO SCH (20:47)
[2022-06-17] MEDS: OMEGA 3 (FISH OIL) 1000 MG CAP PO SCH (20:47)
[2022-06-17] MEDS: ACETAMINOPHEN 325 MG TABLET PO PRN (20:48)
[2022-06-18] MEDS: guaiFENesin/DM (ROBITUSSIN DM) 10 ML UDC PO PRN (03:21)
[2022-06-18] MEDS: CATHETER FLUSH 10 ML SYR IVP SCH ×3 (06:20→21:03)
[2022-06-18] MEDS: LEVOTHYROXINE 75 MCG (LEVOTHROID) TABLET PO SCH (06:20)
--- NOTE | 2022-06-18 06:45 | PM&R Progress Note ---
Subjective HPI/CC On Admission Date Seen by Provider: Jun 18, 2022 Time Seen by Provider: 12:00 Subjective/Events-last exam 06/18/2022: Much improved 3 L/min now Eating well Dramatic improvement 06/17/2022: Dramatic improvement O2 decreased Labs reviewed Improved outlook No falls 06/16/2022: Much improved Wean down to 4 L No pain is reported Much improved 06/15/2022: Much improved No pain reported Weaning down on O2 to 6L/min Walks well Weakness noted WBC remains elevated Review of Systems General: Fatigue, Malaise Objective Exam Vital Signs Vital Signs Date Time Temp Pulse Resp B/P (MAP) Pulse Ox O2 Delivery O2 Flow Rate FiO2 06/18/22 20:09 95 Nasal Cannula 3.00 06/18/22 20:00 37.2 103 18 143/85 (104) Capillary Refill : General Appearance: No Apparent Distress, WD/WN, Chronically ill HEENT: PERRL/EOMI, Normal ENT Inspection Neck: Non Tender, Supple Respiratory: Chest Non Tender, No Accessory Muscle Use, No Respiratory Distress, Decreased Breath Sounds (right), Other (improving airmovement) Cardiovascular: No JVD Gastrointestinal: Normal Bowel Sounds, No Organomegaly, No Pulsatile Mass, Non Tender, Soft Back: Normal Inspection, No CVA Tenderness, No Vertebral Tenderness Extremity: Normal Capillary Refill, Normal Inspection, Normal Range of Motion, Non Tender Neurologic/Psychiatric: Alert, Oriented x3, Normal Mood/Affect, job molder II-XII Norm as Tested, Abnormal Gait, Depressed Affect, Motor Weakness (generalized) Skin: Normal Color, Warm/Dry Lymphatic: No Adenopathy Results/Procedures Lab Patient resulted labs reviewed. FIM Transfers Therapy Code Descriptions/Definitions Functional [place] Measure: 0=Not Assessed/NA 4=Minimal Assistance 1=Total Assistance 5=Supervision or Setup 2=Maximal Assistance 6=Modified [place] 3=Moderate Assistance 7=Complete IndependenceSCALE: Activities may be completed with or without assistive devices. 2-[place]-thprhmj completes the activity by him/herself with no assistance from a helper. 5-Set-up or Clean-up Assistance-helper sets up or cleans up; patient completes activity. [place] assists only prior to or following the activity. 4-Supervision or Touching Assistance-helper provides verbal cues and/or touching/steadying and/or contact guard assistance as patient completes activity. Assistance may be provided throughout the activity or intermittently. 3-Partial/Moderate Assistance-helper does LESS THAN HALF the effort. [place] lifts, holds or supports trunk or limbs, but provides less than half the effort. 2-Substantial/Maximal Assistance-helper does MORE THAN HALF the effort. [place] lifts or holds trunk or limbs and provides more than half the effort. 0-Msyctjbem-pcrsyd does ALL the effort. Patient does none of the effort to complete the activity. Or, the assistance of 2 or more helpers is required for the patient to complete the activity. If activity was not attempted, code reason: 7-Patient Refused. 9-Not Applicable-not attempted and the patient did not perform the activity be fore the current illness, exacerbation or injury. 10-Not Attempted due to Environmental Limitations-(lack of equipment, weather restraints, etc.). 88-Not Attempted due to Medical Conditions or Safety Concerns. Roll Left to Right (QC): 6 Sit to Lying (QC): 6 Sit to Stand (QC): 6 Chair/Udn-yb-Qttbg Xfer(QC): 6 Car Transfer (QC): 4 Gait Training Does the Patient Walk?: Yes Distance: 150'x2, 120' Walk 10 feet (QC): 4 Walk 50 ft with 2 Turns(QC): 4 Walk 150 ft (QC): 4 Walking 10ft/uneven surface-QC: 4 Gait Persons Needed: 1 Gait Assistive Device: FWW Wheelchair Training Wheel 50 ft with 2 turns (QC): 9 Wheel 150 ft (QC): 9 Stair Training #of Steps: 1 1 Step (curb) (QC): 4 4 Steps (QC): 88 12 Steps (QC): 88 Balance Picking up an Object (QC): 4 (CGA using a dairy technician) ADL-Treatment Eating (QC): 6 Oral Hygiene (QC): 6 Shower/Bathe Self (QC): 6 Upper Body Dressing (QC): 6 Lower Body Dressing (QC): 6 On/Off Footwear (QC): 6 Toileting Hygiene (QC): 6 Toilet Transfer (QC): 6 Assessment/Plan Assessment and Plan Assess & Plan/Chief Complaint Assessment: Acute Hypoxic Respiratory Failure s/p bipap and Vapotherm Sepsis severe type-resolved Right sided pleural effusion requiring [address] Stephens RLL Pneumonia Sinus Tachycardia Elevated creatinine vs FRAN Solo kidney HTN Hypothyroidism HLD Depression GI prophylaxis - PPI DVT prophylaxis - heparin Leukocytosis Plan: PT OT Wean O2 Monitor labs 06/15/2022: Much improved Monitor O2 06/16/2022: Continue to wean oxygen Dramatic improvement 06/17/2022: Improved Wean O2 06/18/2022: Improved overall Wean O2 (1) Acute respiratory failure RIAZ COTTER DO Jun 18, 2022 06:45
[2022-06-18] MEDS: NAPROXEN 250 MG (NAPROSYN) TABLET PO SCH (06:51)
[2022-06-18] MEDS: RT-ALBUTEROL SULF 2.5 MG/3 ML PRE-MIX VIAL INH SCH ×3 (07:10→20:09)
[2022-06-18] MEDS: RT-IPRATROPIUM (ATROVENT) 0.5MG/2.5ML AMP IH SCH ×3 (07:10→20:09)
[2022-06-18 08:00] VITALS: BP 135/77
[2022-06-18] MEDS: FERROUS SULF 325 MG (IRON) TAB PO SCH (09:14)
[2022-06-18] MEDS: LACTOBACILLUS ACIDOPHILUS (PROBIOTIC) CAPSULE PO SCH ×3 (09:15→17:46)
[2022-06-18] MEDS: CALCIUM CARBONATE 600 MG (CALCARB) TAB PO SCH (09:15)
[2022-06-18] MEDS: MULTIVIT W/MINERALS TAB (THERAGRAN M) PO SCH (09:15)
[2022-06-18] MEDS: dilTIAZem120 MG (CARDIZEM CD) CAP PO SCH (09:15)
[2022-06-18] MEDS: MAGNESIUM OXIDE (MAG-OX)400 MG TAB PO SCH ×2 (09:15→17:46)
[2022-06-18] MEDS: DOCUSATE SODIUM 100 MG (COLACE) CAP PO SCH ×2 (09:15→21:00)
[2022-06-18] MEDS: OXYBUTYNIN (DITROPAN) 5 MG TAB PO SCH ×2 (09:16→21:00)
[2022-06-18] MEDS: SENNOSIDES 8.6 MG (SENOKOT) TAB PO SCH ×2 (09:16→21:01)
[2022-06-18] MEDS: PANTOPRAZOLE 40 MG (PROTONIX) TAB PO SCH (09:16)
[2022-06-18] MEDS: LORATADINE (CLARITIN) 10 MG TAB PO SCH (09:16)
[2022-06-18] MEDS: polyethylene glycoL POWDER 17 GM (MIRALAX) PACK PO SCH ×2 (09:20→20:03)
--- NOTE | 2022-06-18 10:58 | Physical Therapy Daily Note ---
PT Daily Note-Current Subjective Pt. uo in recliner, agrees to Rx, states she is feeling stronger all along and no SOB Pain Location: No Pain Reported Section J - Health Conditions 1. Rarely or not at all 2. Occasionally 3. Frequently 4. Almost constantly 8. Unable to answer Pain Effect on Sleep: 1 Pain Interference with Therapy: 1 Pain Interference w/Day-to-Day: 1 Mental Status Patient Orientation: Normal For Age Attachments: Oxygen (3L) Transfers SCALE: Activities may be completed with or without assistive devices. 6-Ditchhxeyq-bresrxc completes the activity by him/herself with no assistance from a helper. 5-Set-up or Clean-up Assistance-helper sets up or cleans up; patient completes activity. [place] assists only prior to or following the activity. 4-Supervision or Touching Assistance-helper provides verbal cues and/or touching/steadying and/or contact guard assistance as patient completes acti vity. Assistance may be provided throughout the activity or intermittently. 3-Partial/Moderate Assistance-helper does LESS THAN HALF the effort. [place] lifts, holds or supports trunk or limbs, but provides less than half the effort. 2-Substantial/Maximal Assistance-helper does MORE THAN HALF the effort. [place] lifts or holds trunk or limbs and provides more than half the effort. 7-Ytgzffxzc-jlvgkk does ALL the effort. Patient does none of the effort to complete the activity. Or, the assistance of 2 or more helpers is required for the patient to complete the activity. If activity was not attempted, code reason: 7-Patient Refused. 9-Not Applicable-not attempted and the patient did not perform the activity before the current illness, exacerbation or injury. 10-Not Attempted due to Environmental Limitations-(lack of equipment, weather restraints, etc.). 88-Not Attempted due to Medical Conditions or Safety Concerns. Roll Left & Right (QC): 6 Sit to Lying (QC): 6 Lying to Sitting/Side of Bed(Q: 6 Sit to Stand (QC): 6 Chair/Yku-nr-Kcety Xfer(QC): 6 Toilet Transfer (QC): 6 Gait Training Does the Patient Walk?: Yes Walk 10 feet (QC): 4 Walk 50 ft with 2 Turns(QC): 4 Walk 150 ft (QC): 4 Gait Persons Needed: 1 (for O2 only) Gait Assistive Device: None no assist needed except for O2, 3 L sats >96% consistently during all phases of Rx gait in AM using FWW 450 ft x 2, gait in PM 500 ft x 2 , 150 ft x 1 no AD, has min dyspnea, sats > 95% on 3L. Exercises Supine Ex: Bridging, Ankle pumps, Quad Set, Rolling, Glut sets, Lower trunk rotation, Heel Slides, Short Arc Quads, Scooting, Straight leg raise, Hip abd/add (sidelying clams and abd) Supine Reps: 12 (x2) Seated Therapy Exercises: Ankle pumps, Sit to stand, Long arc quads, Hip flexion, Hip abd/add Seated Reps: 15 prone, ham curls, prone hip ext x 12 bilat NuStep Minutes: 10 NuStep Workload: 2 Treatments TRFs, gait, O2 sat monitoring, therex Assessment Current Status: Excellent Progress progressed to no AD in PM, sats steady > 95% all Rxs PT Brass Molder Goals Brass Molder Goals PT Group Home Goals Time Frame: Jun 28, 2022 Roll Left & Right (QC): 6 Sit to Lying (QC): 6 Lying-Sitting on Side/Bed(QC): 6 Sit to Stand (QC): 6 Chair/Tev-ov-Avbef Xfer(QC): 6 Toilet Transfer (QC): 6 Car Transfer (QC): 6 Does the Patient Walk: Yes Walk 10 feet (QC): 6 Walk 50ft with 2 Turns (QC): 6 Walk 150 ft (QC): 6 Walking 10ft on Uneven Surface: 6 1 Step (curb) (QC): 4 (SBA) 4 Steps (QC): 4 (SBA) 12 Steps (QC): 88 Picking up an Object (QC): 6 Wheel 50 feet with 2 turns (QC: 9 Wheel 150 feet: 9 PT Plan Treatment/Plan Treatment Plan: Continue Plan of Care Treatment Plan: Bed Mobility, Education, Functional Activity Jailyn, Functional Strength, Group Therapy, Gait, Safety, Therapeutic Exercise, Transfers Treatment Duration: Jun 28, 2022 Frequency: At least 5 of 7 days/Wk (IRF) Estimated Hrs Per Day: 1.5 hours per day Patient and/or Family Agrees t: Yes Safety Risks/Education Patient Education: Gait Training, Transfer Techniques, Correct Positioning, Disease Process, Safety Issues Teaching Recipient: Patient Teaching Methods: Demonstration, Discussion Response to Teaching: Verbalize Understanding, Return Demonstration, Reinforcement Needed Time Time In: 900 (pm) Time Out: 930 (1330pm) DATE: Jun 18, 2022 Total Billed Treatment Time: 90 Total Billed Treatment 1x2, GT45m,EX45m (am and pm Rx note combined) PATRIA SLATER TRANSPLANT WORKER Jun 18, 2022 10:58
--- NOTE | 2022-06-18 11:22 | Occupational Ther Daily Note ---
OT Current Status-Daily Note Subjective Pt alert, sitting in recliner. Pt agrees to therapy. No c/o pain. Pt maintained O2 levels at 94% and above through entire treatment session on 3L. Mental Status/Objective Patient Orientation: Person, Place, Time, Situation Attachments: IV, Oxygen (3L) ADL-Treatment Pt completed shower independently. Pt gathered clothing without AD with SBA for safety. Pt then completed all dressing independently. Standing at sink, pt able to complete oral care and grooming independently. Therapy Code Descriptions/Definitions Functional [place] Measure: 0=Not Assessed/NA 4=Minimal Assistance 1=Total Assistance 5=Supervision or Setup 2=Maximal Assistance 6=Modified [place] 3=Moderate Assistance 7=Complete IndependenceSCALE: Activities may be completed with or without assistive devices. 1-Zbkhtrbvsg-hylyyvm completes the activity by him/herself with no assistance from a helper. 5-Set-up or Clean-up Assistance-helper sets up or cleans up; patient completes activity. [place] assists only prior to or following the activity. 4-Supervision or Touching Assistance-helper provides verbal cues and/or touching/steadying and/or contact guard assistance as patient completes activity. Assistance may be provided throughout the activity or intermittently. 3-Partial/Moderate Assistance-helper does LESS THAN HALF the effort. [place] lifts, holds or supports trunk or limbs, but provides less than half the effort. 2-Substantial/Maximal Assistance-helper does MORE THAN HALF the effort. [place] lifts or holds trunk or limbs and provides more than half the effort. 7-Aixedxpjy-mxlhts does ALL the effort. Patient does none of the effort to complete the activity. Or, the assistance of 2 or more helpers is required for the patient to complete the activity. If activity was not attempted, code reason: 7-Patient Refused. 9-Not Applicable-not attempted and the patient did not perform the activity before the current illness, exacerbation or injury. 10-Not Attempted due to Environmental Limitations-(lack of equipment, weather restraints, etc.). 88-Not Attempted due to Medical Conditions or Safety Concerns. Oral Hygiene (QC): 6 Shower/Bathe Self (QC): 6 Upper Body Dressing (QC): 4 (Independent dressing, SBA when gathering clothing without AD.) Lower Body Dressing (QC): 4 (Independent dressing, SBA when gathering clothing without AD.) On/Off Footwear: 6 Toileting Hygiene (QC): 6 Toilet Transfer (QC): 6 Other Treatment Pt ambulated with CGA to close SBA around ARU and to therapy gym without AD. Pt completed standing activities that challenged balance and stamina to increase strength and activity tolerance for daily functional tasks. No recovery breaks during each activity. After session, pt sitting in recliner with call light/phone in reach. All needs met in room. OT Short Term Goals Short Term Goals Time Frame: Jun 30, 2022 Upper body dressin Lower body dressin Putting on/taking off footwear: 5 OT Product Marketing Manager Goals [facility] Goals Time Frame: Jul 09, 2022 Acute change in mental status: 0 Inattention: 0 Disorganized thinkin Altered level of consciousness: 0 Eating (QC): 6 Oral Hygiene (QC): 6 Toileting Hygiene (QC): 6 Shower/Bathe Self (QC): 6 Upper Body Dressing (QC): 6 Lower Body Dressing (QC): 6 On/Off Footwear (QC): 6 Additional Goals: 1-Demonstrate ADL Tasks, 2-Verbalize Understanding, 3- ImproveStrength/Jailyn 1=Demonstrate adherence to instructed precautions during ADL tasks. 2=Patient will verbalize/demonstrate understanding of assistive berto yuriy/modifications for ADL. 3=Patient will improve strength/tolerance for activity to enable patient to perform ADL's. OT Education/Plan Problem List/Assessment Assessment: Decreased Activ Tolerance, Impaired Funct Balance, Impaired Self- Care Skills Discharge Recommendations Plan/Recommendations: Continue POC Treatment Plan/Plan of Care Patient would benefit from OT for education, treatment and training to promote independence in ADL's, mobility, safety and/or upper extremity function for ADL's. Plan of Care: ADL Retraining, Functional Mobility, Group Exercise/Act as Ind, UE Funct Exercise/Act Treatment Duration: Jul 09, 2022 Frequency: Modified Program (IRF) (23/10) Estimated Hrs Per Day: 1.5 hours per day Agreement: Yes Rehab Potential: Fair Time Start Time: 10:00 Stop Time: 11:30 DATE: Jun 18, 2022 Total Time Billed (hr/min): 90 Billed Treatment Time 1 visit-ADL 4 (60 min) EX 2 (30 min) ALONSO BADILLO Jun 18, 2022 11:22
[2022-06-18] MEDS: ENOXAPARIN 40 MG/0.4 ML (LOVENOX) SYR SC SCH (12:22)
[2022-06-18] MEDS ORDERED: FUROSEMIDE 40 MG/4 ML INJ (LASIX) IVP NR (13:00)
[2022-06-18] MEDS: guaiFENesin/CODEINE (ROBITUSSIN AC) 10ML UDC PO PRN (14:50)
[2022-06-18 20:00] VITALS: BP 143/85
[2022-06-18] MEDS: AMITRIPTYLINE 25 MG (ELAVIL) TAB PO SCH (21:00)
[2022-06-18] MEDS: AtorvaSTATin TABLET 10 MG TABLET PO SCH (21:00)
[2022-06-18] MEDS: OMEGA 3 (FISH OIL) 1000 MG CAP PO SCH (21:00)
[2022-06-19] MEDS: guaiFENesin/CODEINE (ROBITUSSIN AC) 10ML UDC PO PRN ×2 (00:18→20:19)
[2022-06-19] MEDS: LEVOTHYROXINE 75 MCG (LEVOTHROID) TABLET PO SCH (06:26)
[2022-06-19] MEDS: NAPROXEN 250 MG (NAPROSYN) TABLET PO SCH (06:26)
[2022-06-19] MEDS: CATHETER FLUSH 10 ML SYR IVP SCH ×3 (06:27→20:22)
[2022-06-19 07:28] VITALS: BP 120/71
[2022-06-19] MEDS: RT-ALBUTEROL SULF 2.5 MG/3 ML PRE-MIX VIAL INH SCH ×3 (07:52→20:56)
[2022-06-19] MEDS: RT-IPRATROPIUM (ATROVENT) 0.5MG/2.5ML AMP IH SCH ×3 (07:52→20:56)
--- NOTE | 2022-06-19 08:55 | PM&R Progress Note ---
Subjective HPI/CC On Admission Date Seen by Provider: Jun 19, 2022 Time Seen by Provider: 12:00 Subjective/Events-last exam 06/19/2022: Improved overall Less dyspnea IS use reveals only 500 so will continue to work on that No pain 06/18/2022: Much improved 3 L/min now Eating well Dramatic improvement 06/17/2022: Dramatic improvement O2 decreased Labs reviewed Improved outlook No falls 06/16/2022: Much improved Wean down to 4 L No pain is reported Much improved 06/15/2022: Much improved No pain reported Weaning down on O2 to 6L/min Walks well Weakness noted WBC remains elevated Review of Systems General: Fatigue, Malaise Objective Exam Vital Signs Vital Signs Date Time Temp Pulse Resp B/P (MAP) Pulse Ox O2 Delivery O2 Flow Rate FiO2 06/20/22 06:44 94 Nasal Cannula 1.00 06/19/22 19:42 37.4 99 16 146/96 (113) Capillary Refill : General Appearance: No Apparent Distress, WD/WN, Chronically ill HEENT: PERRL/EOMI, Normal ENT Inspection Neck: Non Tender, Supple Respiratory: Chest Non Tender, No Accessory Muscle Use, No Respiratory Distress, Decreased Breath Sounds (right), Other (improving airmovement) Cardiovascular: No JVD Gastrointestinal: Normal Bowel Sounds, No Organomegaly, No Pulsatile Mass, Non Tender, Soft Back: Normal Inspection, No CVA Tenderness, No Vertebral Tenderness Extremity: Normal Capillary Refill, Normal Inspection, Normal Range of Motion, Non Tender Neurologic/Psychiatric: Alert, Oriented x3, Normal Mood/Affect, crab backer II-XII Norm as Tested, Abnormal Gait, Depressed Affect, Motor Weakness (generalized) Skin: Normal Color, Warm/Dry Lymphatic: No Adenopathy Results/Procedures Lab Patient resulted labs reviewed. FIM Transfers Therapy Code Descriptions/Definitions Functional [place] Measure: 0=Not Assessed/NA 4=Minimal Assistance 1=Total Assistance 5=Supervision or Setup 2=Maximal Assistance 6=Modified [place] 3=Moderate Assistance 7=Complete IndependenceSCALE: Activities may be completed with or without assistive devices. 2-Somkaqwxkq-tubvceb completes the activity by him/herself with no assistance from a helper. 5-Set-up or Clean-up Assistance-helper sets up or cleans up; patient completes activity. [place] assists only prior to or following the activity. 4-Supervision or Touching Assistance-helper provides verbal cues and/or touching/steadying and/or contact guard assistance as patient completes activity. Assistance may be provided throughout the activity or intermittently. 3-Partial/Moderate Assistance-helper does LESS THAN HALF the effort. [place] lifts, holds or supports trunk or limbs, but provides less than half the effort. 2-Substantial/Maximal Assistance-helper does MORE THAN HALF the effort. [place] lifts or holds trunk or limbs and provides more than half the effort. 0-Taesbkqkq-tlbyfx does ALL the effort. Patient does none of the effort to complete the activity. Or, the assistance of 2 or more helpers is required for the patient to complete the activity. If activity was not attempted, code reason: 7-Patient Refused. 9-Not Applicable-not attempted and the patient did not perform the activity before the current illness, exacerbation or injury. 10-Not Attempted due to Environmental Limitations-(lack of equipment, weather restraints, etc.). 88-Not Attempted due to Medical Conditions or Safety Concerns. Roll Left to Right (QC): 6 Sit to Lying (QC): 6 Sit to Stand (QC): 6 Chair/Bzi-ni-Femxe Xfer(QC): 6 Car Transfer (QC): 4 Gait Training Does the Patient Walk?: Yes Distance: 150'x2, 120' Walk 10 feet (QC): 4 Walk 50 ft with 2 Turns(QC): 4 Walk 150 ft (QC): 4 Walking 10ft/uneven surface-QC: 4 Gait Persons Needed: 1 (for O2 only) Gait Assistive Device: None Wheelchair Training Wheel 50 ft with 2 turns (QC): 9 Wheel 150 ft (QC): 9 Stair Training #of Steps: 1 1 Step (curb) (QC): 4 4 Steps (QC): 88 12 Steps (QC): 88 Balance Picking up an Object (QC): 4 (CGA using a laundry clerk) ADL-Treatment Eating (QC): 6 Oral Hygiene (QC): 6 Shower/Bathe Self (QC): 6 Upper Body Dressing (QC): 4 (Independent dressing, SBA when gathering clothing without AD.) Lower Body Dressing (QC): 4 (Independent dressing, SBA when gathering clothing without AD.) On/Off Footwear (QC): 6 Toileting Hygiene (QC): 6 Toilet Transfer (QC): 6 Assessment/Plan Assessment and Plan Assess & Plan/Chief Complaint Assessment: Acute Hypoxic Respiratory Failure s/p bipap and Vapotherm Sepsis severe type-resolved Right sided pleural effusion requiring [address] Stephens RLL Pneumonia Sinus Tachycardia Elevated creatinine vs FRAN Solo kidney HTN Hypothyroidism HLD Depression GI prophylaxis - PPI DVT prophylaxis - heparin Leukocytosis Plan: PT OT Wean O2 Monitor labs 06/15/2022: Much improved Monitor O2 06/16/2022: Continue to wean oxygen Dramatic improvement 06/17/2022: Improved Wean O2 06/18/2022: Improved overall Wean O2 06/19/2022: Monitor closely (1) Acute respiratory failure RIAZ COTTER DO Jun 19, 2022 08:55
[2022-06-19] MEDS: MULTIVIT W/MINERALS TAB (THERAGRAN M) PO SCH (08:59)
[2022-06-19] MEDS: CALCIUM CARBONATE 600 MG (CALCARB) TAB PO SCH (08:59)
[2022-06-19] MEDS: FERROUS SULF 325 MG (IRON) TAB PO SCH (08:59)
[2022-06-19] MEDS: PANTOPRAZOLE 40 MG (PROTONIX) TAB PO SCH (09:00)
[2022-06-19] MEDS: LACTOBACILLUS ACIDOPHILUS (PROBIOTIC) CAPSULE PO SCH ×3 (09:00→17:47)
[2022-06-19] MEDS: OXYBUTYNIN (DITROPAN) 5 MG TAB PO SCH ×2 (09:00→20:19)
[2022-06-19] MEDS: MAGNESIUM OXIDE (MAG-OX)400 MG TAB PO SCH ×2 (09:00→17:47)
[2022-06-19] MEDS: dilTIAZem120 MG (CARDIZEM CD) CAP PO SCH (09:00)
[2022-06-19] MEDS: LORATADINE (CLARITIN) 10 MG TAB PO SCH (09:00)
[2022-06-19] MEDS: SENNOSIDES 8.6 MG (SENOKOT) TAB PO SCH ×2 (09:02→20:38)
[2022-06-19] MEDS: polyethylene glycoL POWDER 17 GM (MIRALAX) PACK PO SCH ×2 (09:02→19:47)
[2022-06-19] MEDS: DOCUSATE SODIUM 100 MG (COLACE) CAP PO SCH ×2 (09:02→20:38)
[2022-06-19] MEDS: ENOXAPARIN 40 MG/0.4 ML (LOVENOX) SYR SC SCH (11:22)
--- NOTE | 2022-06-19 13:46 | Physical Therapy Daily Note ---
PT Daily Note-Current Subjective Pt found seated in recliner upon entry. Agreed to PT. Nurse reports pt was just recently dropped to 2L of O2. Pt reports no pain pre-treatment. Pain Section J - Health Conditions 1. Rarely or not at all 2. Occasionally 3. Frequently 4. Almost constantly 8. Unable to answer Pain Effect on Sleep: 1 Pain Interference with Therapy: 1 Pain Interference w/Day-to-Day: 1 Mental Status Patient Orientation: Person, Place, Time Attachments: Oxygen 2L Transfers SCALE: Activities may be completed with or without assistive devices. 8-Equkrxzpie-nzxwpjf completes the activity by him/herself with no assistance from a helper. 5-Set-up or Clean-up Assistance-helper sets up or cleans up; patient completes activity. [place] assists only prior to or following the activity. 4-Supervision or Touching Assistance-helper provides verbal cues and/or touching/steadying and/or contact guard assistance as patient completes activity. Assistance may be provided throughout the activity or intermittently. 3-Partial/Moderate Assistance-helper does LESS THAN HALF the effort. [place] lifts, holds or supports trunk or limbs, but provides less than half the effort. 2-Substantial/Maximal Assistance-helper does MORE THAN HALF the effort. [place] lifts or holds trunk or limbs and provides more than half the effort. 2-Oabdrhykp-ixqszc does ALL the effort. Patient does none of the effort to complete the activity. Or, the assistance of 2 or more helpers is required for the patient to complete the activity. If activity was not attempted, code reason: 7-Patient Refused. 9-Not Applicable-not attempted and the patient did not perform the activity before the current illness, exacerbation or injury. 10-Not Attempted due to Environmental Limitations-(lack of equipment, weather restraints, etc.). 88-Not Attempted due to Medical Conditions or Safety Concerns. Sit to Stand (QC): 6 Pt independent with sit to stand transfers. Uses UEs to push from armrests into standing position. Gait Training Does the Patient Walk?: Yes Distance: 100, 200. Walk 10 feet (QC): 4 Walk 50 ft with 2 Turns(QC): 4 Walk 150 ft (QC): 4 Gait Assistive Device: None Pt ambulated 250 feet with no assistive device and SBA for safety. Assessment Current Status: Good Progress Pt displays good muscle strength throughout treatment. Pt reports slight fatigue at end of visit. O2 sat 94% pre treatment, 93-97% after 100 feet of ambulation, 94-95% after 200 more feet of ambulation. Pt required short seated rest break during gait training due to muscle fatigue. Continue to progress pt as tolerated per POC to improve endurance, strength, and functional ability. PT Welding Pantograph Machine Operator Goals Snf Goals PT Welding Pantograph Machine Operator Goals Time Frame: Jun 28, 2022 Roll Left & Right (QC): 6 Sit to Lying (QC): 6 Lying-Sitting on Side/Bed(QC): 6 Sit to Stand (QC): 6 Chair/Pdi-bz-Fwwfp Xfer(QC): 6 Toilet Transfer (QC): 6 Car Transfer (QC): 6 Does the Patient Walk: Yes Walk 10 feet (QC): 6 Walk 50ft with 2 Turns (QC): 6 Walk 150 ft (QC): 6 Walking 10ft on Uneven Surface: 6 1 Step (curb) (QC): 4 (SBA) 4 Steps (QC): 4 (SBA) 12 Steps (QC): 88 Picking up an Object (QC): 6 Wheel 50 feet with 2 turns (QC: 9 Wheel 150 feet: 9 PT Plan Treatment/Plan Treatment Plan: Continue Plan of Care Treatment Plan: Bed Mobility, Education, Functional Activity Jailyn, Functional Strength, Group Therapy, Gait, Safety, Therapeutic Exercise, Transfers Treatment Duration: Jun 28, 2022 Frequency: At least 5 of 7 days/Wk (IRF) Estimated Hrs Per Day: 1.5 hours per day Patient and/or Family Agrees t: Yes Time Time In: 1024 Time Out: 1035 DATE: Jun 19, 2022 Total Billed Treatment Time: 11 Total Billed Treatment 1 visit GT 1x CYNTHIA DINERO SOFTWARE FIRMWARE ENGINEER Jun 19, 2022 13:46
[2022-06-19 19:42] VITALS: BP 146/96
[2022-06-19] MEDS: AtorvaSTATin TABLET 10 MG TABLET PO SCH (20:19)
[2022-06-19] MEDS: OMEGA 3 (FISH OIL) 1000 MG CAP PO SCH (20:19)
[2022-06-19] MEDS: AMITRIPTYLINE 25 MG (ELAVIL) TAB PO SCH (20:19)
[2022-06-19] MEDS ORDERED: RT-IPRATROPIUM (ATROVENT) 0.5MG/2.5ML AMP IH ONE (20:53)
[2022-06-19] MEDS ORDERED: RT-ALBUTEROL SULF 2.5 MG/3 ML PRE-MIX VIAL ONE (20:54)
[2022-06-20] MEDS: LEVOTHYROXINE 75 MCG (LEVOTHROID) TABLET PO SCH (06:17)
[2022-06-20] MEDS: NAPROXEN 250 MG (NAPROSYN) TABLET PO SCH (06:18)
[2022-06-20] MEDS: CATHETER FLUSH 10 ML SYR IVP SCH ×3 (06:18→21:09)
[2022-06-20] MEDS: RT-IPRATROPIUM (ATROVENT) 0.5MG/2.5ML AMP IH SCH ×2 (06:44→20:35)
[2022-06-20] MEDS: RT-ALBUTEROL SULF 2.5 MG/3 ML PRE-MIX VIAL INH SCH ×2 (06:44→20:35)
[2022-06-20 07:30] VITALS: BP 126/79
--- NOTE | 2022-06-20 07:40 | PM&R Progress Note ---
Subjective HPI/CC On Admission Date Seen by Provider: Jun 20, 2022 Time Seen by Provider: 12:00 Subjective/Events-last exam 06/20/2022: Much improved Lungs improved RLL improved 06/19/2022: Improved overall Less dyspnea IS use reveals only 500 so will continue to work on that No pain 06/18/2022: Much improved 3 L/min now Eating well Dramatic improvement 06/17/2022: Dramatic improvement O2 decreased Labs reviewed Improved outlook No falls 06/16/2022: Much improved Wean down to 4 L No pain is reported Much improved 06/15/2022: Much improved No pain reported Weaning down on O2 to 6L/min Walks well Weakness noted WBC remains elevated Review of Systems General: Fatigue, Malaise Objective Exam Vital Signs Vital Signs Date Time Temp Pulse Resp B/P (MAP) Pulse Ox O2 Delivery O2 Flow Rate FiO2 06/20/22 09:43 Nasal Cannula 2.00 06/20/22 07:30 36.8 96 18 126/79 (95) 92 Capillary Refill : General Appearance: No Apparent Distress, WD/WN, Chronically ill HEENT: PERRL/EOMI, Normal ENT Inspection Neck: Non Tender, Supple Respiratory: Chest Non Tender, No Accessory Muscle Use, No Respiratory Distress, Decreased Breath Sounds (right), Other (improving airmovement) Cardiovascular: No JVD Gastrointestinal: Normal Bowel Sounds, No Organomegaly, No Pulsatile Mass, Non Tender, Soft Back: Normal Inspection, No CVA Tenderness, No Vertebral Tenderness Extremity: Normal Capillary Refill, Normal Inspection, Normal Range of Motion, Non Tender Neurologic/Psychiatric: Alert, Oriented x3, Normal Mood/Affect, director of casework II-XII Norm as Tested, Abnormal Gait, Depressed Affect, Motor Weakness (generalized) Skin: Normal Color, Warm/Dry Lymphatic: No Adenopathy Results/Procedures Lab Patient resulted labs reviewed. FIM Transfers Therapy Code Descriptions/Definitions Functional [place] Measure: 0=Not Assessed/NA 4=Minimal Assistance 1=Total Assistance 5=Supervision or Setup 2=Maximal Assistance 6=Modified [place] 3=Moderate Assistance 7=Complete IndependenceSCALE: Activities may be completed with or without assistive devices. 1-Qngdezcats-ptrkxsl completes the activity by him/herself with no assistance from a helper. 5-Set-up or Clean-up Assistance-helper sets up or cleans up; patient completes activity. [place] assists only prior to or following the activity. 4-Supervision or Touching Assistance-helper provides verbal cues and/or kelvin jamie/steadying and/or contact guard assistance as patient completes activity. Assistance may be provided throughout the activity or intermittently. 3-Partial/Moderate Assistance-helper does LESS THAN HALF the effort. [place] lifts, holds or supports trunk or limbs, but provides less than half the effort. 2-Substantial/Maximal Assistance-helper does MORE THAN HALF the effort. [place] lifts or holds trunk or limbs and provides more than half the effort. 6-Gjsgqsmyw-uttxvi does ALL the effort. Patient does none of the effort to complete the activity. Or, the assistance of 2 or more helpers is required for the patient to complete the activity. If activity was not attempted, code reason: 7-Patient Refused. 9-Not Applicable-not attempted and the patient did not perform the activity before the current illness, exacerbation or injury. 10-Not Attempted due to Environmental Limitations-(lack of equipment, weather restraints, etc.). 88-Not Attempted due to Medical Conditions or Safety Concerns. Roll Left to Right (QC): 6 Sit to Lying (QC): 6 Sit to Stand (QC): 6 Chair/Wdi-vp-Vhgol Xfer(QC): 6 Car Transfer (QC): 4 Gait Training Does the Patient Walk?: Yes Distance: 100, 200. Walk 10 feet (QC): 4 Walk 50 ft with 2 Turns(QC): 4 Walk 150 ft (QC): 4 Walking 10ft/uneven surface-QC: 4 Gait Persons Needed: 1 (for O2 only) Gait Assistive Device: None Wheelchair Training Wheel 50 ft with 2 turns (QC): 9 Wheel 150 ft (QC): 9 Stair Training #of Steps: 1 1 Step (curb) (QC): 4 4 Steps (QC): 88 12 Steps (QC): 88 Balance Picking up an Object (QC): 4 (CGA using a free lance model) ADL-Treatment Eating (QC): 6 Oral Hygiene (QC): 6 Shower/Bathe Self (QC): 6 Upper Body Dressing (QC): 4 (Independent dressing, SBA when gathering clothing without AD.) Lower Body Dressing (QC): 4 (Independent dressing, SBA when gathering clothing without AD.) On/Off Footwear (QC): 6 Toileting Hygiene (QC): 6 Toilet Transfer (QC): 6 Assessment/Plan Assessment and Plan Assess & Plan/Chief Complaint Assessment: Acute Hypoxic Respiratory Failure s/p bipap and Vapotherm Sepsis severe type-resolved Right sided pleural effusion requiring [address] Stephens RLL Pneumonia Sinus Tachycardia Elevated creatinine vs FRAN Solo kidney HTN Hypothyroidism HLD Depression GI prophylaxis - PPI DVT prophylaxis - heparin Leukocytosis Plan: PT OT Wean O2 Monitor labs 06/15/2022: Much improved Monitor O2 06/16/2022: Continue to wean oxygen Dramatic improvement 06/17/2022: Improved Wean O2 06/18/2022: Improved overall Wean O2 06/19/2022: Monitor closely 06/20/2022: Monitor closely Wean O2 (1) Acute respiratory failure RIAZ COTTER DO Jun 20, 2022 07:40
[2022-06-20] MEDS: OXYBUTYNIN (DITROPAN) 5 MG TAB PO SCH ×2 (08:25→21:08)
[2022-06-20] MEDS: SENNOSIDES 8.6 MG (SENOKOT) TAB PO SCH ×2 (08:26→21:08)
[2022-06-20] MEDS: DOCUSATE SODIUM 100 MG (COLACE) CAP PO SCH ×2 (08:26→21:08)
[2022-06-20] MEDS: MULTIVIT W/MINERALS TAB (THERAGRAN M) PO SCH (08:26)
[2022-06-20] MEDS: LORATADINE (CLARITIN) 10 MG TAB PO SCH (08:26)
[2022-06-20] MEDS: PANTOPRAZOLE 40 MG (PROTONIX) TAB PO SCH (08:26)
[2022-06-20] MEDS: dilTIAZem120 MG (CARDIZEM CD) CAP PO SCH (08:26)
[2022-06-20] MEDS: LACTOBACILLUS ACIDOPHILUS (PROBIOTIC) CAPSULE PO SCH ×3 (08:26→18:05)
[2022-06-20] MEDS: MAGNESIUM OXIDE (MAG-OX)400 MG TAB PO SCH ×2 (08:26→18:05)
[2022-06-20] MEDS: CALCIUM CARBONATE 600 MG (CALCARB) TAB PO SCH (08:26)
[2022-06-20] MEDS: FERROUS SULF 325 MG (IRON) TAB PO SCH (08:26)
[2022-06-20] MEDS: polyethylene glycoL POWDER 17 GM (MIRALAX) PACK PO SCH ×2 (08:29→19:32)
[2022-06-20] MEDS: ENOXAPARIN 40 MG/0.4 ML (LOVENOX) SYR SC SCH (11:43)
[2022-06-20] MEDS ORDERED: CATHETER FLUSH 10 ML SYR IVP PRN (11:45)
[2022-06-20] MEDS ORDERED: CATHETER FLUSH 10 ML SYR IVP SCH (14:00)
[2022-06-20 19:48] VITALS: BP 142/78
[2022-06-20] MEDS: AtorvaSTATin TABLET 10 MG TABLET PO SCH (21:08)
[2022-06-20] MEDS: AMITRIPTYLINE 25 MG (ELAVIL) TAB PO SCH (21:08)
[2022-06-20] MEDS: OMEGA 3 (FISH OIL) 1000 MG CAP PO SCH (21:08)
[2022-06-20] MEDS: guaiFENesin/CODEINE (ROBITUSSIN AC) 10ML UDC PO PRN (21:13)
--- NOTE | 2022-06-21 06:15 | PM&R Progress Note ---
Subjective HPI/CC On Admission Date Seen by Provider: Jun 21, 2022 Time Seen by Provider: 09:00 Subjective/Events-last exam 06/21/2022: Improved status Still on 2L/min O2 No pain reported Eating well Thrombocytosis noted 06/20/2022: Much improved Lungs improved RLL improved 06/19/2022: Improved overall Less dyspnea IS use reveals only 500 so will continue to work on that No pain 06/18/2022: Much improved 3 L/min now Eating well Dramatic improvement 06/17/2022: Dramatic improvement O2 decreased Labs reviewed Improved outlook No falls 06/16/2022: Much improved Wean down to 4 L No pain is reported Much improved 06/15/2022: Much improved No pain reported Weaning down on O2 to 6L/min Walks well Weakness noted WBC remains elevated Review of Systems General: Fatigue, Malaise Objective Exam Vital Signs Vital Signs Date Time Temp Pulse Resp B/P (MAP) Pulse Ox O2 Delivery O2 Flow Rate FiO2 06/21/22 20:20 Nasal Cannula 1.00 06/21/22 19:54 96 06/21/22 19:32 36.6 94 16 118/82 (94) Capillary Refill : General Appearance: No Apparent Distress, WD/WN, Chronically ill HEENT: PERRL/EOMI, Normal ENT Inspection Neck: Non Tender, Supple Respiratory: Chest Non Tender, No Accessory Muscle Use, No Respiratory Distress, Decreased Breath Sounds (right), Other (improving airmovement) Cardiovascular: No JVD Gastrointestinal: Normal Bowel Sounds, No Organomegaly, No Pulsatile Mass, Non Tender, Soft Back: Normal Inspection, No CVA Tenderness, No Vertebral Tenderness Extremity: Normal Capillary Refill, Normal Inspection, Normal Range of Motion, Non Tender Neurologic/Psychiatric: Alert, Oriented x3, Normal Mood/Affect, safety supervisor II-XII Norm as Tested, Abnormal Gait, Depressed Affect, Motor Weakness (generalized) Skin: Normal Color, Warm/Dry Lymphatic: No Adenopathy Results/Procedures Lab Laboratory Tests 06/21/22 06:25 Patient resulted labs reviewed. FIM Transfers Therapy Code Descriptions/Definitions Functional [place] Measure: 0=Not Assessed/NA 4=Minimal Assistance 1=Total Assistance 5=Supervision or Setup 2=Maximal Assistance 6=Modified [place] 3=Moderate Assistance 7=Complete IndependenceSCALE: Activities may be completed with or without assistive devices. 2-Hgqmfrwwnu-bezcoqi completes the activity by him/herself with no assistance from a helper. 5-Set-up or Clean-up Assistance-helper sets up or cleans up; patient completes activity. [place] assists only prior to or following the activity. 4-Supervision or Touching Assistance-helper provides verbal cues and/or touching/steadying and/or contact guard assistance as patient completes activity. Assistance may be provided throughout the activity or intermittently. 3-Partial/Moderate Assistance-helper does LESS THAN HALF the effort. [place] lifts, holds or supports trunk or limbs, but provides less than half the effort. 2-Substantial/Maximal Assistance-helper does MORE THAN HALF the effort. [place] lifts or holds trunk or limbs and provides more than half the effort. 7-Emztvytrk-zkoyey does ALL the effort. Patient does none of the effort to complete the activity. Or, the assistance of 2 or more helpers is required for the patient to complete the activity. If activity was not attempted, code reason: 7-Patient Refused. 9-Not Applicable-not attempted and the patient did not perform the activity before the current illness, exacerbation or injury. 10-Not Attempted due to Environmental Limitations-(lack of equipment, weather restraints, etc.). 88-Not Attempted due to Medical Conditions or Safety Concerns. Roll Left to Right (QC): 6 Sit to Lying (QC): 6 Sit to Stand (QC): 6 Chair/Hhg-zx-Hxase Xfer(QC): 6 Car Transfer (QC): 4 Gait Training Does the Patient Walk?: Yes Distance: 100, 200. Walk 10 feet (QC): 4 Walk 50 ft with 2 Turns(QC): 4 Walk 150 ft (QC): 4 Walking 10ft/uneven surface-QC: 4 Gait Persons Needed: 1 (for O2 only) Gait Assistive Device: None Wheelchair Training Wheel 50 ft with 2 turns (QC): 9 Wheel 150 ft (QC): 9 Stair Training #of Steps: 1 1 Step (curb) (QC): 4 4 Steps (QC): 88 12 Steps (QC): 88 Balance Picking up an Object (QC): 4 (CGA using a whiskey proof reader) ADL-Treatment Eating (QC): 6 Oral Hygiene (QC): 6 Shower/Bathe Self (QC): 6 Upper Body Dressing (QC): 4 (Independent dressing, SBA when gathering clothing without AD.) Lower Body Dressing (QC): 4 (Independent dressing, SBA when gathering clothing without AD.) On/Off Footwear (QC): 6 Toileting Hygiene (QC): 6 Toilet Transfer (QC): 6 Assessment/Plan Assessment and Plan Assess & Plan/Chief Complaint Assessment: Acute Hypoxic Respiratory Failure s/p bipap and Vapotherm Sepsis severe type-resolved Right sided pleural effusion requiring [address] Stephens RLL Pneumonia Sinus Tachycardia Elevated creatinine vs FRAN Solo kidney HTN Hypothyroidism HLD Depression GI prophylaxis - PPI DVT prophylaxis - heparin Leukocytosis Thrombocytosis Plan: PT OT Wean O2 Monitor labs 06/15/2022: Much improved Monitor O2 06/16/2022: Continue to wean oxygen Dramatic improvement 06/17/2022: Improved Wean O2 06/18/2022: Improved overall Wean O2 06/19/2022: Monitor closely 06/20/2022: Monitor closely Wean O2 06/21/2022: Monitor closely (1) Acute respiratory failure RIAZ COTTER DO Jun 21, 2022 06:15
[2022-06-21] MEDS: LEVOTHYROXINE 75 MCG (LEVOTHROID) TABLET PO SCH (06:26)
[2022-06-21] MEDS: CATHETER FLUSH 10 ML SYR IVP SCH ×3 (06:26→21:18)
[2022-06-21] MEDS: NAPROXEN 250 MG (NAPROSYN) TABLET PO SCH (06:26)
[2022-06-21 06:39] LABS: BASOPHILS # (AUTO) 0.1 10^3/uL (0.0-0.1); BASOPHILS % (AUTO) 1 % (0-10); EOSINOPHILS # (AUTO) 0.1 10^3/uL (0.0-0.3); EOSINOPHILS % (AUTO) 1 % (0-10); HEMATOCRIT 28 % (35-52); LYMPHOCYTES # (AUTO) 1.9 10^3/uL (1.0-4.0); LYMPHOCYTES % (AUTO) 20 % (12-44); MEAN CORPUSCULAR HEMOGLOBIN 30 pg (25-34); MEAN CORPUSCULAR HGB CONC 32 g/dL (32-36); MEAN CORPUSCULAR VOLUME 92 fL (80-99); MEAN PLATELET VOLUME 8.6 fL (9.0-12.2); MONOCYTES % (AUTO) 11 % (0-12); NEUTROPHILS % (AUTO) 66 % (42-75); PLATELET COUNT 955 10^3/uL (130-400); WHITE BLOOD COUNT 9.2 10^3/uL (4.3-11.0)
[2022-06-21 06:52] LABS: ALBUMIN 2.4 GM/DL (3.2-4.5); POTASSIUM 3.9 MMOL/L (3.6-5.0)
[2022-06-21 06:53] LABS: CALCIUM 9.9 MG/DL (8.5-10.1)
[2022-06-21 06:54] LABS: TOTAL PROTEIN 6.7 GM/DL (6.4-8.2)
[2022-06-21 06:56] LABS: BILIRUBIN,TOTAL 0.1 MG/DL (0.1-1.0)
[2022-06-21 06:58] LABS: CREATININE SERUM 0.9 MG/DL (0.60-1.30)
[2022-06-21] MEDS: RT-IPRATROPIUM (ATROVENT) 0.5MG/2.5ML AMP IH SCH ×2 (07:18→19:53)
[2022-06-21] MEDS: RT-ALBUTEROL SULF 2.5 MG/3 ML PRE-MIX VIAL INH SCH ×2 (07:19→19:53)
[2022-06-21 08:00] VITALS: BP 122/86
--- NOTE | 2022-06-21 08:29 | Diagnostic Imaging Report ---
INDICATION: Pneumonia, followup.. TECHNIQUE: Single view chest 6:23 AM. CORRELATION STUDY: 06/17/2022 FINDINGS: The heart size, mediastinal configuration and pulmonary vascularity are within normal limits. Opacity of the right lung likely combination of effusion along with a infiltrate at the mid and lower lung field does persist. Overall generally stable. Left lung relatively clear at followup. Right-sided central line tip over the SVC. Surgical clips over the left axilla along with prior surgical changes left breast. IMPRESSION: 1. No appreciable change in the moderate right pleural effusion along with underlying consolidation. Dictated by: Dictated on workstation # [id number]
[2022-06-21] MEDS: LACTOBACILLUS ACIDOPHILUS (PROBIOTIC) CAPSULE PO SCH ×3 (08:40→17:53)
[2022-06-21] MEDS: LORATADINE (CLARITIN) 10 MG TAB PO SCH (08:42)
[2022-06-21] MEDS: FERROUS SULF 325 MG (IRON) TAB PO SCH (08:42)
[2022-06-21] MEDS: PANTOPRAZOLE 40 MG (PROTONIX) TAB PO SCH (08:42)
[2022-06-21] MEDS: dilTIAZem120 MG (CARDIZEM CD) CAP PO SCH (08:42)
[2022-06-21] MEDS: MULTIVIT W/MINERALS TAB (THERAGRAN M) PO SCH (08:42)
[2022-06-21] MEDS: OXYBUTYNIN (DITROPAN) 5 MG TAB PO SCH ×2 (08:42→21:15)
[2022-06-21] MEDS: CALCIUM CARBONATE 600 MG (CALCARB) TAB PO SCH (08:42)
[2022-06-21] MEDS: SENNOSIDES 8.6 MG (SENOKOT) TAB PO SCH ×2 (08:43→21:15)
[2022-06-21] MEDS: polyethylene glycoL POWDER 17 GM (MIRALAX) PACK PO SCH ×2 (08:43→21:18)
[2022-06-21] MEDS: DOCUSATE SODIUM 100 MG (COLACE) CAP PO SCH ×2 (08:43→21:15)
[2022-06-21] MEDS: MAGNESIUM OXIDE (MAG-OX)400 MG TAB PO SCH ×2 (08:43→17:53)
--- NOTE | 2022-06-21 11:06 | Physical Therapy Daily Note ---
PT Daily Note-Current Subjective Pt sitting in recliner upon arrival. Pt agrees to PT. Pain Location: No Pain Reported Section J - Health Conditions 1. Rarely or not at all 2. Occasionally 3. Frequently 4. Almost constantly 8. Unable to answer Pain Effect on Sleep: 1 Pain Interference with Therapy: 1 Pain Interference w/Day-to-Day: 1 Mental Status Patient Orientation: Person, Place Attachments: Oxygen (2L) Transfers SCALE: Activities may be completed with or without assistive devices. 3-Tqryithnua-yozeuxs completes the activity by him/herself with no assistance from a helper. 5-Set-up or Clean-up Assistance-helper sets up or cleans up; patient completes activity. [place] assists only prior to or following the activity. 4-Supervision or Touching Assistance-helper provides verbal cues and/or touching/steadying and/or contact guard assistance as patient completes activity. Assistance may be provided throughout the activity or intermittently. 3-Partial/Moderate Assistance-helper does LESS THAN HALF the effort. [place] l ifts, holds or supports trunk or limbs, but provides less than half the effort. 2-Substantial/Maximal Assistance-helper does MORE THAN HALF the effort. [place] lifts or holds trunk or limbs and provides more than half the effort. 2-Hukgzsuvq-klxymb does ALL the effort. Patient does none of the effort to complete the activity. Or, the assistance of 2 or more helpers is required for t he patient to complete the activity. If activity was not attempted, code reason: 7-Patient Refused. 9-Not Applicable-not attempted and the patient did not perform the activity before the current illness, exacerbation or injury. 10-Not Attempted due to Environmental Limitations-(lack of equipment, weather restraints, etc.). 88-Not Attempted due to Medical Conditions or Safety Concerns. Sit to Stand (QC): 4 Weight Bearing Full Weight Bearing Full Weight Bearing Gait Training Does the Patient Walk?: Yes Distance: 150' Walk 10 feet (QC): 5 Walk 50 ft with 2 Turns(QC): 5 Walk 150 ft (QC): 5 Gait Assistive Device: FWW Exercises Standing: Hip Abduction, Hamstring curls, 3 way Ex=Flex, Abd, Ext, Marching, Mini squats Standing Reps: 15 NuStep Minutes: 15 NuStep Workload: 5 Treatments Pt TF from recliner to standing then amb in hallway, declining need for BR. Pt uses NuStep, followed by short RB before completing Standing EX at //bars. Pt amb in hallway returning to room at end of tx w/all needs met, call light in hand. Assessment Current Status: Good Progress Pt needs occasional RB for fatigue but has improved w/strength and balance. PT Jail Goals Jail Goals PT Jail Goals Time Frame: Jun 28, 2022 Roll Left & Right (QC): 6 Sit to Lying (QC): 6 Lying-Sitting on Side/Bed(QC): 6 Sit to Stand (QC): 6 Chair/Mng-nu-Vzhpn Xfer(QC): 6 Toilet Transfer (QC): 6 Car Transfer (QC): 6 Does the Patient Walk: Yes Walk 10 feet (QC): 6 Walk 50ft with 2 Turns (QC): 6 Walk 150 ft (QC): 6 Walking 10ft on Uneven Surface: 6 1 Step (curb) (QC): 4 (SBA) 4 Steps (QC): 4 (SBA) 12 Steps (QC): 88 Picking up an Object (QC): 6 Wheel 50 feet with 2 turns (QC: 9 Wheel 150 feet: 9 PT Plan Problem List Problem List: Activity Tolerance Treatment/Plan Treatment Plan: Continue Plan of Care Treatment Plan: Bed Mobility, Education, Functional Activity Jailyn, Functional Strength, Group Therapy, Gait, Safety, Therapeutic Exercise, Transfers Treatment Duration: Jun 28, 2022 Frequency: At least 5 of 7 days/Wk (IRF) Estimated Hrs Per Day: 1.5 hours per day Patient and/or Family Agrees t: Yes Safety Risks/Education Patient Education: Gait Training, Correct Positioning, Safety Issues Teaching Recipient: Patient Teaching Methods: Discussion Response to Teaching: Verbalize Understanding Time Time In: 900 Time Out: 1000 DATE: Jun 21, 2022 Total Billed Treatment Time: 60 Total Billed Treatment 1, FA (10m), GT (20m) & EX x2 (30m) MORGAN STEPHEN MAINSPRING WINDER AND OILER Jun 21, 2022 11:06
--- NOTE | 2022-06-21 11:30 | Occupational Ther Daily Note ---
OT Current Status-Daily Note Subjective Pt alert, sitting in recliner. Pt agrees to therapy. No c/o pain. Mental Status/Objective Patient Orientation: Person, Place, Time, Situation Attachments: Oxygen (2L) ADL-Treatment Pt agrees to shower. Pt able to retrieve clothing and supplies independently without AD. Pt completes shower independently using shower bench, grabbars and hand held shower. Pt completes dressing independently. Standing at sink, pt completes oral care independently. Therapy Code Descriptions/Definitions Functional [place] Measure: 0=Not Assessed/NA 4=Minimal Assistance 1=Total Assistance 5=Supervision or Setup 2=Maximal Assistance 6=Modified [place] 3=Moderate Assistance 7=Complete IndependenceSCALE: Activities may be completed with or without assistive devices. 5-Vyelknjfzi-rostgxk completes the activity by him/herself with no assistance from a helper. 5-Set-up or Clean-up Assistance-helper sets up or cleans up; patient completes activity. [place] assists only prior to or following the activity. 4-Supervision or Touching Assistance-helper provides verbal cues and/or touching/steadying and/or contact guard assistance as patient completes act ivity. Assistance may be provided throughout the activity or intermittently. 3-Partial/Moderate Assistance-helper does LESS THAN HALF the effort. [place] lifts, holds or supports trunk or limbs, but provides less than half the effort. 2-Substantial/Maximal Assistance-helper does MORE THAN HALF the effort. [place] lifts or holds trunk or limbs and provides more than half the effort. 8-Huuhtdsme-oxdyzc does ALL the effort. Patient does none of the effort to complete the activity. Or, the assistance of 2 or more helpers is required for the patient to complete the activity. If activity was not attempted, code reason: 7-Patient Refused. 9-Not Applicable-not attempted and the patient did not perform the activity before the current illness, exacerbation or injury. 10-Not Attempted due to Environmental Limitations-(lack of equipment, weather restraints, etc.). 88-Not Attempted due to Medical Conditions or Safety Concerns. Eating (QC): 6 (Pt demonstrates ability to complete independently.) Oral Hygiene (QC): 6 Shower/Bathe Self (QC): 6 Upper Body Dressing (QC): 6 Lower Body Dressing (QC): 6 On/Off Footwear: 6 Pt has maintained O2 levels at 95% and above throughout session. Other Treatment Pt ambulated without AD to therapy gym with assistance only to manipulate O2 bottle. Pt is able to manipulate tubing independently. Arm bike at low resistance to work on stamina and strength for daily functional tasks. 10 min with switching rotation back/forward every 2 min with 3 recovery breaks. After session, pt sitting in recliner with call light/phone in reach. All needs met in room. OT Short Term Goals Short Term Goals Time Frame: Jun 30, 2022 Upper body dressin Lower body dressin Putting on/taking off footwear: 5 OT Penitentiary Goals Penitentiary Goals Time Frame: Jul 09, 2022 Acute change in mental status: 0 Inattention: 0 Disorganized thinkin Altered level of consciousness: 0 Eating (QC): 6 Oral Hygiene (QC): 6 Toileting Hygiene (QC): 6 Shower/Bathe Self (QC): 6 Upper Body Dressing (QC): 6 Lower Body Dressing (QC): 6 On/Off Footwear (QC): 6 Additional Goals: 1-Demonstrate ADL Tasks, 2-Verbalize Understanding, 3- ImproveStrength/Jailyn 1=Demonstrate adherence to instructed precautions during ADL tasks. 2=Patient will verbalize/demonstrate understanding of assistive devices/modifications for ADL. 3=Patient will improve strength/tolerance for activity to enable patient to perform ADL's. OT Education/Plan Problem List/Assessment Assessment: Decreased Activ Tolerance Discharge Recommendations Plan/Recommendations: Continue POC Treatment Plan/Plan of Care Patient would benefit from OT for education, treatment and training to promote independence in ADL's, mobility, safety and/or upper extremity function for ADL's. Plan of Care: ADL Retraining, Functional Mobility, Group Exercise/Act as Ind, UE Funct Exercise/Act Treatment Duration: Jul 09, 2022 Frequency: Modified Program (IRF) (23/10) Estimated Hrs Per Day: 1.5 hours per day Agreement: Yes Rehab Potential: Fair Time Start Time: 11:00 (1200) Stop Time: 12:00 DATE: Jun 21, 2022 Total Time Billed (hr/min): 60 Billed Treatment Time 1 visit-ADL 3 (45 min) EX 1 (15 min) ALONSO BADILLO Jun 21, 2022 11:30
[2022-06-21] MEDS: ENOXAPARIN 40 MG/0.4 ML (LOVENOX) SYR SC SCH (11:53)
--- NOTE | 2022-06-21 15:58 | Therapy Group Daily Note ---
Therapy Daily Group Note Patient Education Topic Other List Below (Memory/ARU Explanation & Expectations) Exercises LE Seated Exercise, UE Exercise Session Ratio (pt:therapist): 3:1 Goal of Session: Education on ARU Expectations, Memory Strategies, UE/LE Strengthing Goal Met for this Session: Yes Pt Benefit of Group: Contributions to Others, F/U Use of Strategies @Home, Increased Functional Safety, Increased Functional Strength, Improved Cognition, Recognition of Peers, Socialization Other/Notes Pt ambulated using FWW to OT/PT group. Group consisted of introductions (name, place living, memory task), socialization, B UE/LE seated exercises and education on memory. Pt introduced self appropriately and actively listened to peers. B UE/LE seated exercises tolerated. Pt actively participated in memory education and activity appropriately by giving own strategies. Pt able to participate in activity and was able to choose 2 out of 4 correctly. After session, pt lying in bed. Call light/phone in reach. All needs met in room. Start Time: 13:00 Stop Time: 14:30 Total Billed Treatment Time: 90 Total Billed Treatment 1,KEYON BALESMORGAN DE LA [facility]RE HIV PREVENTION SPECIALIST Jun 21, 2022 15:58
[2022-06-21 19:32] VITALS: BP 118/82
[2022-06-21] MEDS: AtorvaSTATin TABLET 10 MG TABLET PO SCH (21:14)
[2022-06-21] MEDS: OMEGA 3 (FISH OIL) 1000 MG CAP PO SCH (21:14)
[2022-06-21] MEDS: AMITRIPTYLINE 25 MG (ELAVIL) TAB PO SCH (21:15)
[2022-06-21] MEDS: guaiFENesin/CODEINE (ROBITUSSIN AC) 10ML UDC PO PRN (21:16)
--- NOTE | 2022-06-22 05:58 | PM&R Progress Note ---
Subjective HPI/CC On Admission Date Seen by Provider: Jun 22, 2022 Time Seen by Provider: 09:00 Subjective/Events-last exam 06/22/2022: No major issues DC tomorrow Will need close f/u with me CXR reviewed 06/21/2022: Improved status Still on 2L/min O2 No pain reported Eating well Thrombocytosis noted 06/20/2022: Much improved Lungs improved RLL improved 06/19/2022: Improved overall Less dyspnea IS use reveals only 500 so will continue to work on that No pain 06/18/2022: Much improved 3 L/min now Eating well Dramatic improvement 06/17/2022: Dramatic improvement O2 decreased Labs reviewed Improved outlook No falls 06/16/2022: Much improved Wean down to 4 L No pain is reported Much improved 06/15/2022: Much improved No pain reported Weaning down on O2 to 6L/min Walks well Weakness noted WBC remains elevated Review of Systems General: Fatigue, Malaise Objective Exam Vital Signs Vital Signs Date Time Temp Pulse Resp B/P (MAP) Pulse Ox O2 Delivery O2 Flow Rate FiO2 06/22/22 20:00 36.2 97 18 131/85 (100) 95 Room Air 06/22/22 19:58 1.00 Capillary Refill : General Appearance: No Apparent Distress, WD/WN, Chronically ill HEENT: PERRL/EOMI, Normal ENT Inspection Neck: Non Tender, Supple Respiratory: Chest Non Tender, No Accessory Muscle Use, No Respiratory Distress, Decreased Breath Sounds (right), Other (improving airmovement) Cardiovascular: No JVD Gastrointestinal: Normal Bowel Sounds, No Organomegaly, No Pulsatile Mass, Non Tender, Soft Back: Normal Inspection, No CVA Tenderness, No Vertebral Tenderness Extremity: Normal Capillary Refill, Normal Inspection, Normal Range of Motion, Non Tender Neurologic/Psychiatric: Alert, Oriented x3, Normal Mood/Affect, 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 FIM Transfers Therapy Code Descriptions/Definitions Functional [place] Measure: 0=Not Assessed/NA 4=Minimal Assistance 1=Total Assistance 5=Supervision or Setup 2=Maximal Assistance 6=Modified [place] 3=Moderate Assistance 7=Complete IndependenceSCALE: Activities may be completed with or without assistive devices. 5-Xwbonteimy-bygzpjr completes the activity by him/herself with no assistance from a helper. 5-Set-up or Clean-up Assistance-helper sets up or cleans up; patient completes activity. [place] assists only prior to or following the activity. 4-Supervision or Touching Assistance-helper provides verbal cues and/or touching/steadying and/or contact guard assistance as patient completes activity. Assistance may be provided throughout the activity or intermittently. 3-Partial/Moderate Assistance-helper does LESS THAN HALF the effort. [place] lifts, holds or supports trunk or limbs, but provides less than half the effort. 2-Substantial/Maximal Assistance-helper does MORE THAN HALF the effort. [place] lifts or holds trunk or limbs and provides more than half the effort. 5-Flyptnhvu-jtvbdp does ALL the effort. Patient does none of the effort to complete the activity. Or, the assistance of 2 or more helpers is required for the patient to complete the activity. If activity was not attempted, code reason: 7-Patient Refused. 9-Not Applicable-not attempted and the patient did not perform the activity before the current illness, exacerbation or injury. 10-Not Attempted due to Environmental Limitations-(lack of equipment, weather restraints, etc.). 88-Not Attempted due to Medical Conditions or Safety Concerns. Roll Left to Right (QC): 6 Sit to Lying (QC): 6 Sit to Stand (QC): 4 Chair/Qgz-bn-Wezql Xfer(QC): 6 Car Transfer (QC): 4 Gait Training Does the Patient Walk?: Yes Distance: 150' Walk 10 feet (QC): 5 Walk 50 ft with 2 Turns(QC): 5 Walk 150 ft (QC): 5 Walking 10ft/uneven surface-QC: 4 Gait Persons Needed: 1 (for O2 only) Gait Assistive Device: FWW Wheelchair Training Wheel 50 ft with 2 turns (QC): 9 Wheel 150 ft (QC): 9 Stair Training #of Steps: 1 1 Step (curb) (QC): 4 4 Steps (QC): 88 12 Steps (QC): 88 Balance Picking up an Object (QC): 4 (CGA using a process machine operator) ADL-Treatment Eating (QC): 6 (Pt demonstrates ability to complete independently.) Oral Hygiene (QC): 6 Shower/Bathe Self (QC): 6 Upper Body Dressing (QC): 6 Lower Body Dressing (QC): 6 On/Off Footwear (QC): 6 Toileting Hygiene (QC): 6 Toilet Transfer (QC): 6 Assessment/Plan Assessment and Plan Assess & Plan/Chief Complaint Assessment: Acute Hypoxic Respiratory Failure s/p bipap and Vapotherm Sepsis severe type-resolved Right sided pleural effusion requiring [address] Stephens RLL Pneumonia Sinus Tachycardia Elevated creatinine vs FRAN Solo kidney HTN Hypothyroidism HLD Depression GI prophylaxis - PPI DVT prophylaxis - heparin Leukocytosis Thrombocytosis Plan: PT OT Wean O2 Monitor labs 06/15/2022: Much improved Monitor O2 06/16/2022: Continue to wean oxygen Dramatic improvement 06/17/2022: Improved Wean O2 06/18/2022: Improved overall Wean O2 06/19/2022: Monitor closely 06/20/2022: Monitor closely Wean O2 06/21/2022: Monitor closely 06/22/2022: DC tomorrow (1) Acute respiratory failure RIAZ COTTER DO Jun 22, 2022 05:58
[2022-06-22] MEDS: LEVOTHYROXINE 75 MCG (LEVOTHROID) TABLET PO SCH (06:24)
[2022-06-22] MEDS: NAPROXEN 250 MG (NAPROSYN) TABLET PO SCH (06:25)
[2022-06-22] MEDS: CATHETER FLUSH 10 ML SYR IVP SCH ×3 (06:25→21:03)
[2022-06-22] MEDS: RT-IPRATROPIUM (ATROVENT) 0.5MG/2.5ML AMP IH SCH ×2 (07:10→19:57)
[2022-06-22] MEDS: RT-ALBUTEROL SULF 2.5 MG/3 ML PRE-MIX VIAL INH SCH ×2 (07:10→19:57)
[2022-06-22 08:00] VITALS: BP 119/79
[2022-06-22] MEDS: MULTIVIT W/MINERALS TAB (THERAGRAN M) PO SCH (08:04)
[2022-06-22] MEDS: OXYBUTYNIN (DITROPAN) 5 MG TAB PO SCH ×2 (08:04→21:03)
[2022-06-22] MEDS: PANTOPRAZOLE 40 MG (PROTONIX) TAB PO SCH (08:04)
[2022-06-22] MEDS: FERROUS SULF 325 MG (IRON) TAB PO SCH (08:04)
[2022-06-22] MEDS: LORATADINE (CLARITIN) 10 MG TAB PO SCH (08:04)
[2022-06-22] MEDS: polyethylene glycoL POWDER 17 GM (MIRALAX) PACK PO SCH ×2 (08:04→19:53)
[2022-06-22] MEDS: LACTOBACILLUS ACIDOPHILUS (PROBIOTIC) CAPSULE PO SCH ×3 (08:04→17:41)
[2022-06-22] MEDS: CALCIUM CARBONATE 600 MG (CALCARB) TAB PO SCH (08:04)
[2022-06-22] MEDS: DOCUSATE SODIUM 100 MG (COLACE) CAP PO SCH ×2 (08:04→21:02)
[2022-06-22] MEDS: MAGNESIUM OXIDE (MAG-OX)400 MG TAB PO SCH ×2 (08:04→17:41)
[2022-06-22] MEDS: SENNOSIDES 8.6 MG (SENOKOT) TAB PO SCH ×2 (08:09→21:03)
[2022-06-22] MEDS: dilTIAZem120 MG (CARDIZEM CD) CAP PO SCH (08:09)
--- NOTE | 2022-06-22 10:19 | Physical Therapy Daily Note ---
PT Daily Note-Current Subjective Pt sitting in recliner upon arrival. Pt agrees to PT. Pain Location: No Pain Reported Section J - Health Conditions 1. Rarely or not at all 2. Occasionally 3. Frequently 4. Almost constantly 8. Unable to answer Pain Effect on Sleep: 1 Pain Interference with Therapy: 1 Pain Interference w/Day-to-Day: 1 Mental Status Patient Orientation: Person, Place, Time, Situation Transfers SCALE: Activities may be completed with or without assistive devices. 4-Bjcwfqzkdn-ouvosvv completes the activity by him/herself with no assistance from a helper. 5-Set-up or Clean-up Assistance-helper sets up or cleans up; patient completes activity. [place] assists only prior to or following the activity. 4-Supervision or Touching Assistance-helper provides verbal cues and/or touching/steadying and/or contact guard assistance as patient completes activity. Assistance may be provided throughout the activity or intermittently. 3-Partial/Moderate Assistance-helper does LESS THAN HALF the effort. [place] lifts, holds or supports trunk or limbs, but provides less than half the effort. 2-Substantial/Maximal Assistance-helper does MORE THAN HALF the effort. [place] lifts or holds trunk or limbs and provides more than half the effort. 3-Sdvvsvahz-gcisss does ALL the effort. Patient does none of the effort to complete the activity. Or, the assistance of 2 or more helpers is required for the patient to complete the activity. If activity was not attempted, code reason: 7-Patient Refused. 9-Not Applicable-not attempted and the patient did not perform the activity before the current illness, exacerbation or injury. 10-Not Attempted due to Environmental Limitations-(lack of equipment, weather restraints, etc.). 88-Not Attempted due to Medical Conditions or Safety Concerns. Roll Left & Right (QC): 6 Sit to Lying (QC): 6 Lying to Sitting/Side of Bed(Q: 6 Sit to Stand (QC): 6 Chair/Nqg-zt-Veiqg Xfer(QC): 6 Toilet Transfer (QC): 6 Car Transfer (QC): 6 Weight Bearing Full Weight Bearing Full Weight Bearing Gait Training Does the Patient Walk?: Yes Distance: 150', 200' Walk 10 feet (QC): 6 Walk 50 ft with 2 Turns(QC): 6 Walk 150 ft (QC): 6 Walking 10ft/uneven surface-QC: 6 Gait Assistive Device: FWW Pt walks w/LINUX PROGRAMMER using FWW but pt reports has not been walking using any AD as well as O2 has been decreased and pt can walk w/o O2 according to RT. Wheelchair Training Does the Pt Use a Wheelchair?: No Stair Training Stair Training: Handrails/: 2 handrails #of Steps: 6 1 Step (curb) (QC): 5 4 Steps (QC): 5 12 Steps (QC): 88 Stairs: Pattern: Step to Balance Picking up an Object (QC): 6 Treatments Pt completes QC scoring items listed above before returning to room to rest in recliner. All needs met, call light in hand. Assessment Current Status: Excellent Progress Pt has progressed very well and has been able to walk w/o AD & O2 w/much s uccess. PT Shelter Goals Shelter Goals PT Shelter Goals Time Frame: Jun 28, 2022 Roll Left & Right (QC): 6 Sit to Lying (QC): 6 Lying-Sitting on Side/Bed(QC): 6 Sit to Stand (QC): 6 Chair/Hpp-pr-Ilphc Xfer(QC): 6 Toilet Transfer (QC): 6 Car Transfer (QC): 6 Does the Patient Walk: Yes Walk 10 feet (QC): 6 Walk 50ft with 2 Turns (QC): 6 Walk 150 ft (QC): 6 Walking 10ft on Uneven Surface: 6 1 Step (curb) (QC): 4 (SBA) 4 Steps (QC): 4 (SBA) 12 Steps (QC): 88 Picking up an Object (QC): 6 Wheel 50 feet with 2 turns (QC: 9 Wheel 150 feet: 9 PT Plan Treatment/Plan Treatment Plan: Continue Plan of Care Treatment Plan: Bed Mobility, Education, Functional Activity Jailyn, Functional Strength, Group Therapy, Gait, Safety, Therapeutic Exercise, Transfers Treatment Duration: Jun 28, 2022 Frequency: At least 5 of 7 days/Wk (IRF) Estimated Hrs Per Day: 1.5 hours per day Patient and/or Family Agrees t: Yes Time Time In: 800 Time Out: 845 DATE: Jun 22, 2022 Total Billed Treatment Time: 45 Total Billed Treatment 1, GT (15m) & FA x2 (30m) MORGAN STEPHEN LINUX PROGRAMMER Jun 22, 2022 10:19
--- NOTE | 2022-06-22 11:27 | Occupational Ther Daily Note ---
OT Current Status-Daily Note Subjective Pt alert, sitting in recliner. Pt agrees to therapy. No c/o pain. Mental Status/Objective Patient Orientation: Person, Place, Time, Situation Attachments: IV ADL-Treatment Pt is able to gather supplies for bathing and dressing independent without AD. Pt completed shower independent using grabbars, hand held shower and shower bench. Independent with UBD, LBD and footwear. Independent standing at sink for oral care. Independent with toileting and toilet transfer. Therapy Code Descriptions/Definitions Functional [place] Measure: 0=Not Assessed/NA 4=Minimal Assistance 1=Total Assistance 5=Supervision or Setup 2=Maximal Assistance 6=Modified [place] 3=Moderate Assistance 7=Complete IndependenceSCALE: Activities may be completed with or without assistive devices. 9-Aqdgtuyhbz-mvocqax completes the activity by him/herself with no assistance from a helper. 5-Set-up or Clean-up Assistance-helper sets up or cleans up; patient completes activity. [place] assists only prior to or following the activity. 4-Supervision or Touching Assistance-helper provides verbal cues and/or touching/steadying and/or contact guard assistance as patient completes activity. Assistance may be provided throughout the activity or intermittently. 3-Partial/Moderate Assistance-helper does LESS THAN HALF the effort. [place] lifts, holds or supports trunk or limbs, but provides less than half the effort. 2-Substantial/Maximal Assistance-helper does MORE THAN HALF the effort. [place] lifts or holds trunk or limbs and provides more than half the effort. 9-Dhxmqixbn-rckrfn does ALL the effort. Patient does none of the effort to complete the activity. Or, the assistance of 2 or more helpers is required for the patient to complete the activity. If activity was not attempted, code reason: 7-Patient Refused. 9-Not Applicable-not attempted and the patient did not perform the activity before the current illness, exacerbation or injury. 10-Not Attempted due to Environmental Limitations-(lack of equipment, weather restraints, etc.). 88-Not Attempted due to Medical Conditions or Safety Concerns. Eating (QC): 6 Oral Hygiene (QC): 6 Shower/Bathe Self (QC): 6 Upper Body Dressing (QC): 6 Lower Body Dressing (QC): 6 On/Off Footwear: 6 Toileting Hygiene (QC): 6 Toilet Transfer (QC): 6 Other Treatment Pt able to complete B UE tasks to increase strength and stamina while completed in standing. Pt then ambulated around 2nd floor without AD independently. After therapy, pt sitting in recliner with call light/phone in reach. All needs met in room. BIMS CAM BIMS Expression of Ideas and Wants: Without Difficulty Understanding Verbal Content: Understands Brief Interview/Mental Status: Yes IRF BART BIMS: IRF BART BIMS Response (Comments) Value Repitition of Three Words Three 3 Recalls Socks Yes, No Cue Required 2 Recalls Blue Yes, No Cue Required 2 Recalls Bed Yes, No Cue Required 2 Year Correct 3 Month Accurate Within 5 Days 2 Day Correct 1 Total 15 Patient Normally Able to Recal: Current Session, Location of own room, Staff Names and faces, That he/she in a hsp Should Staff Asses. Mental St.: No OT Short Term Goals Short Term Goals Time Frame: Jun 30, 2022 Upper body dressin Lower body dressin Putting on/taking off footwear: 5 OT Mutual Fund Sales Agent Goals Group Home Goals Time Frame: Jul 09, 2022 Acute change in mental status: 0 Inattention: 0 Disorganized thinkin Altered level of consciousness: 0 Eating (QC): 6 (met) Oral Hygiene (QC): 6 (met) Toileting Hygiene (QC): 6 (met) Shower/Bathe Self (QC): 6 (met) Upper Body Dressing (QC): 6 (met) Lower Body Dressing (QC): 6 (met) On/Off Footwear (QC): 6 (met) Additional Goals: 1-Demonstrate ADL Tasks, 2-Verbalize Understanding, 3- ImproveStrength/Jailyn 1=Demonstrate adherence to instructed precautions during ADL tasks. 2=Patient will verbalize/demonstrate understanding of assistive devices/modifications for ADL. 3=Patient will improve strength/tolerance for activity to enable patient to perform ADL's. OT Education/Plan Problem List/Assessment Assessment: Decreased Activ Tolerance, Impaired Self-Care Skills Discharge Recommendations Plan/Recommendations: Continue POC Treatment Plan/Plan of Care Patient would benefit from OT for education, treatment and training to promote independence in ADL's, mobility, safety and/or upper extremity function for ADL's. Plan of Care: ADL Retraining, Functional Mobility, Group Exercise/Act as Ind, UE Funct Exercise/Act Treatment Duration: Jul 09, 2022 Frequency: Modified Program (IRF) (23/10) Estimated Hrs Per Day: 1.5 hours per day Agreement: Yes Rehab Potential: Fair Time Start Time: 11:00 Stop Time: 12:00 DATE: Jun 22, 2022 Total Time Billed (hr/min): 60 Billed Treatment Time 1 visit-ADL 2 (35 min) EX 2 (25 min) ALONSO BADILLO Jun 22, 2022 11:27
[2022-06-22] MEDS: ENOXAPARIN 40 MG/0.4 ML (LOVENOX) SYR SC SCH (12:02)
--- NOTE | 2022-06-22 14:57 | Therapy Group Daily Note ---
Therapy Daily Group Note Patient Education Topic Other List Below (AE) Exercises LE Seated Exercise, UE Exercise Session Ratio (pt:therapist): 4:1 Goal of Session: Home Safety Strategies, UE/LE Strengthing, Use of Adaptive Equipment Goal Met for this Session: Yes Pt Benefit of Group: Contributions to Others, F/U Use of Strategies @Home, Increased Functional Safety, Increased Functional Strength, Improved Cognition, Recognition of Peers, Socialization Other/Notes Pt ambulated without AD to OT/PT group. Group consisted of introductions (name, favorite summer food), socialization, B UE/LE seated exercises and educational topic of AE for daily functional tasks. Pt introduced self appropriately and activity listened to peers. Pt tolerated B UE/LE movement activities well. Pt voiced own strategies and opinions about educational topic to acknowledge understanding. After therapy, pt sitting in recliner with call light/phone in reach. All needs met in room. Start Time: 13:00 Stop Time: 14:15 Total Billed Treatment Time: 75 Total Billed Treatment 1-[facility] ALONSO BADILLO Jun 22, 2022 14:57
[2022-06-22 20:00] VITALS: BP 131/85
[2022-06-22] MEDS ORDERED: DILT-27 PO (20:52)
--- NOTE | 2022-06-22 20:53 | D/C HH Face to Face Order ---
D/C Face to Face Orders Reconcile Patient Problems Problems Reviewed?: Yes Instructions for Patient Via [facility], Patient Instructions/FollowUp: Dr Kennedy in 1 week Physician to follow Patient: Brent Discharge Diet for Home: No Restrictions Patient Problems: PNA Patient Data-Allergies,Ht & Wt Patient Allergies: Coded Allergies: No Known Drug Allergies (Unverified , 06/07/22) Home Health Need/Face to Face Date of Face to Face: Jun 22, 2022 Clinical Findings: Generalized weakness and fatigue, Instability, Muscle weakness, Shortness of breath, Unsteady gait I have seen Pt ujtz-hx-resv: Yes Discharged To: Home Diagnosis/Conditions: Debility Patient is Homebound due to: Muscle weakness Homebound Status Due to the above stated illness, injury or surgical procedure (medical condition or diagnosis) and associated clinical findings, the patient is homebound because of his/her inability to leave home except with aid of a supportive device and/or person AND leaving the home requires a considerable and taxing effort or is medically contraindicated. Pt req the following assistanc: [facility] Nursing Orders Home Health Services Order: Nursing Services, Batch Or Continuous Still Operator-Evaluate & Treat, Physical Therapy-Evaluate & Treat Certify Stmt I certify that this patient is under my care and that I, a nurse practitioner or a physician; a chemistry research assistant working with me, had a face to face encounter that - meets the physician face to face encounter requirements with this patient as dated. RIAZ KENNEDY DO Jun 22, 2022 20:53
[2022-06-22] MEDS: guaiFENesin/CODEINE (ROBITUSSIN AC) 10ML UDC PO PRN (21:02)
[2022-06-22] MEDS: AMITRIPTYLINE 25 MG (ELAVIL) TAB PO SCH (21:02)
[2022-06-22] MEDS: OMEGA 3 (FISH OIL) 1000 MG CAP PO SCH (21:03)
[2022-06-22] MEDS: AtorvaSTATin TABLET 10 MG TABLET PO SCH (21:03)
[2022-06-23] MEDS: NAPROXEN 250 MG (NAPROSYN) TABLET PO SCH (06:05)
[2022-06-23] MEDS: CATHETER FLUSH 10 ML SYR IVP SCH (06:05)
[2022-06-23] MEDS: LEVOTHYROXINE 75 MCG (LEVOTHROID) TABLET PO SCH (06:05)
[2022-06-23] MEDS: RT-ALBUTEROL SULF 2.5 MG/3 ML PRE-MIX VIAL INH SCH (07:18)
[2022-06-23] MEDS: RT-IPRATROPIUM (ATROVENT) 0.5MG/2.5ML AMP IH SCH (07:18)
[2022-06-23 08:00] VITALS: BP 115/78
--- NOTE | 2022-06-23 08:48 | Discharge Summary ---
Diagnosis/Chief Complaint Date of Admission Jun 14, 2022 at 10:30 Date of Discharge Discharge Date: Jun 23, 2022 Discharge Diagnosis Assessment: Acute Hypoxic Respiratory Failure s/p bipap and Vapotherm Sepsis severe type-resolved Right sided pleural effusion requiring [address] Stephens RLL Pneumonia Sinus Tachycardia Elevated creatinine vs FRAN Solo kidney HTN Hypothyroidism HLD Depression GI prophylaxis - PPI DVT prophylaxis - heparin Leukocytosis Thrombocytosis Plan: PT OT Wean O2 Monitor labs 06/15/2022: Much improved Monitor O2 06/16/2022: Continue to wean oxygen Dramatic improvement 06/17/2022: Improved Wean O2 06/18/2022: Improved overall Wean O2 06/19/2022: Monitor closely 06/20/2022: Monitor closely Wean O2 06/21/2022: Monitor closely 06/22/2022: DC tomorrow (1) Acute respiratory failure Discharge Summary Discharge Physical Examination Allergies: Coded Allergies: No Known Drug Allergies (Unverified , 06/07/22) Vitals & I&Os Vital Signs Date Time Temp Pulse Resp B/P (MAP) Pulse Ox O2 Delivery O2 Flow Rate FiO2 06/23/22 09:00 92 Room Air 1.00 06/23/22 08:00 36.0 101 18 115/78 (90) General Appearance: Alert, Oriented X3, Cooperative Respiratory: Clear to Auscultation, Other (diminished RLL) Psych/Mental Status: Mental Status NL Hospital Course Was the Problem List Reviewed?: Yes Patient had an uneventful but successful rehab course after long ICU course following Group A Strep PNA with recurrent RLL pleural effusion which required [address] Stephens with improved results. She was ultimately weaned off O2 which took until the day before DC to be successful. Thrombocytosis was noted on labs as a result of the remaining pleural fluid. Use of IS was good effort but only resulted in 600. Overall she did well she was in good spirits and felt well enough to DC in much improved condition. Labs (last 24 hrs) Laboratory Tests 06/15/22 06:10: White Blood Count 21.4H, Red Blood Count 3.52L, Hemoglobin 10.5L, Hematocrit 31L , Mean Corpuscular Volume 88, Mean Corpuscular Hemoglobin 30, Mean Corpuscular Hemoglobin Concent 34, Red Cell Distribution Width 14.7H, Platelet Count 252, Mean Platelet Volume 10.5, Immature Granulocyte % (Auto) 4, Neutrophils (%) (Auto) 83H, Lymphocytes (%) (Auto) 7L, Monocytes (%) (Auto) 5, Eosinophils (%) (Auto) 1, Basophils (%) (Auto) 0, Neutrophils # (Auto) 17.8H, Lymphocytes # (Auto) 1.6, Monocytes # (Auto) 1.1H, Eosinophils # (Auto) 0.1, Basophils # (Auto) 0.1, Immature Granulocyte # (Auto) 0.8H, Sodium Level 136, Potassium L evel 4.0, Chloride Level 103, Carbon Dioxide Level 24, Anion Gap 9, Blood Urea Nitrogen 11, Creatinine 0.70, Estimat Glomerular Filtration Rate 91, BUN/Creatinine Ratio 16, Glucose Level 105, Calcium Level 8.7, Corrected Calcium 10.2H, Total Bilirubin 0.3, Aspartate Amino Transf (AST/SGOT) 30, Alanine Aminotransferase (ALT/SGPT) 22, Alkaline Phosphatase 90, Total Protein 5.5L, Albumin 2.1L 06/17/22 05:40: White Blood Count 14.1H, Red Blood Count 3.05L, Hemoglobin 9.1L, Hematocrit 28L, Mean Corpuscular Volume 92, Mean Corpuscular Hemoglobin 30, Mean Corpuscular Hemoglobin Concent 33, Red Cell Distribution Width 14.4, Platelet Count 542H, Mean Platelet Volume 9.0, Immature Granulocyte % (Auto) 2, Neutrophils (%) (Auto) 81H, Lymphocytes (%) (Auto) 9L, Monocytes (%) (Auto) 7, Eosinophils (%) (Auto) 1, Basophils (%) (Auto) 1, Neutrophils # (Auto) 11.4H, Lymphocytes # (Auto) 1.3, Monocytes # (Auto) 1.1H, Eosinophils # (Auto) 0.1, Basophils # (Auto) 0.1, Immature Granulocyte # (Auto) 0.2H, Sodium Level 139, Potassium Lev el 3.6, Chloride Level 99, Carbon Dioxide Level 31, Anion Gap 9, Blood Urea Nitrogen 8, Creatinine 0.68, Estimat Glomerular Filtration Rate 92, BUN/Creatinine Ratio 12, Glucose Level 99, Calcium Level 8.7, Corrected Calcium 10.1, Total Bilirubin 0.2, Aspartate Amino Transf (AST/SGOT) 29, Alanine Aminotransferase (ALT/SGPT) 27, Alkaline Phosphatase 84, Total Protein 5.4L, Albumin 2.2L 06/21/22 06:25: White Blood Count 9.2, Red Blood Count 3.03L, Hemoglobin 9.0L, Hematocrit 28L, Mean Corpuscular Volume 92, Mean Corpuscular Hemoglobin 30, Mean Corpuscular Hemoglobin Concent 32, Red Cell Distribution Width 14.3, Platelet Count 955H, Mean Platelet Volume 8.6L, Immature Granulocyte % (Auto) 1, Neutrophils (%) (Auto) 66, Lymphocytes (%) (Auto) 20, Monocytes (%) (Auto) 11, Eosinophils (%) (Auto) 1, Basophils (%) (Auto) 1, Neutrophils # (Auto) 6.0, Lymphocytes # (Auto) 1.9, Monocytes # (Auto) 1.0, Eosinophils # (Auto) 0.1, Basophils # (Auto) 0.1, Immature Granulocyte # (Auto) 0.1, Sodium Level 138, Potassium Level 3.9, Chloride Level 97L, Carbon Dioxide Level 31, Anion Gap 10, Blood Urea Nitrogen 12, Creatinine 0.90, Estimat Glomerular Filtration Rate 68, BUN/Creatinine Ratio 13, Glucose Level 95, Calcium Level 9.9, Corrected Calcium 11.2H, Total Bilirubin 0.1, Aspartate Amino Transf (AST/SGOT) 30, Alanine Aminotransferase (ALT/SGPT) 25, Alkaline Phosphatase 87, Total Protein 6.7, Albumin 2.4L Pending Labs Laboratory Tests 06/15/22 06:10: White Blood Count 21.4, Red Blood Count 3.52, Hemoglobin 10.5, Hematocrit 31, Mean Corpuscular Volume 88, Mean Corpuscular Hemoglobin 30, Mean Corpuscular Hemoglobin Concent 34, Red Cell Distribution Width 14.7, Platelet Count 252, Mean Platelet Volume 10.5, Immature Granulocyte % (Auto) 4, Neutrophils (%) (Auto) 83, Lymphocytes (%) (Auto) 7, Monocytes (%) (Auto) 5, Eosinophils (%) (Auto) 1, Basophils (%) (Auto) 0, Neutrophils # (Auto) 17.8, Lymphocytes # (Auto) 1.6, Monocytes # (Auto) 1.1, Eosinophils # (Auto) 0.1, Basophils # (Auto) 0.1, Immature Granulocyte # (Auto) 0.8, Sodium Level 136, Potassium Level 4.0, Chloride Level 103, Carbon Dioxide Level 24, Anion Gap 9, Blood Urea Nitrogen 11, Creatinine 0.70, Estimat Glomerular Filtration Rate 91, BUN/Creatinine Ratio 16, Glucose Level 105, Calcium Level 8.7, Corrected Calcium 10.2, Total Leland irubin 0.3, Aspartate Amino Transf (AST/SGOT) 30, Alanine Aminotransferase (ALT/SGPT) 22, Alkaline Phosphatase 90, Total Protein 5.5, Albumin 2.1 06/17/22 05:40: White Blood Count 14.1, Red Blood Count 3.05, Hemoglobin 9.1, Hematocrit 28, Mean Corpuscular Volume 92, Mean Corpuscular Hemoglobin 30, Mean Corpuscular Hemoglobin Concent 33, Red Cell Distribution Width 14.4, Platelet Count 542, Mean Platelet Volume 9.0, Immature Granulocyte % (Auto) 2, Neutrophils (%) (Auto) 81, Lymphocytes (%) (Auto) 9, Monocytes (%) (Auto) 7, Eosinophils (%) (Auto) 1, Basophils (%) (Auto) 1, Neutrophils # (Auto) 11.4, Lymphocytes # (Auto) 1.3, Monocytes # (Auto) 1.1, Eosinophils # (Auto) 0.1, Basophils # (Auto) 0.1, Immature Granulocyte # (Auto) 0.2, Sodium Level 139, Potassium Level 3.6, Chloride Level 99, Carbon Dioxide Level 31, Anion Gap 9, Blood Urea Nitrogen 8, Creatinine 0.68, Estimat Glomerular Filtration Rate 92, BUN/Creatinine Ratio 12, Glucose Level 99, Calcium Level 8.7, Corrected Calcium 10.1, Total Bilirubin 0.2, Aspartate Amino Transf (AST/SGOT) 29, Alanine Aminotransferase (ALT/SGPT) 27, Alkaline Phosphatase 84, Total Protein 5.4, Albumin 2.2 06/21/22 06:25: White Blood Count 9.2, Red Blood Count 3.03, Hemoglobin 9.0, Hematocrit 28, Mean Corpuscular Volume 92, Mean Corpuscular Hemoglobin 30, Mean Corpuscular Hemoglobin Concent 32, Red Cell Distribution Width 14.3, Platelet Count 955, Mean Platelet Volume 8.6, Immature Granulocyte % (Auto) 1, Neutrophils (%) (Auto) 66, Lymphocytes (%) (Auto) 20, Monocytes (%) (Auto) 11, Eosinophils (%) (Auto) 1, Basophils (%) (Auto) 1, Neutrophils # (Auto) 6.0, Lymphocytes # (Auto) 1.9, Monocytes # (Auto) 1.0, Eosinophils # (Auto) 0.1, Basophils # (Auto) 0.1, Immature Granulocyte # (Auto) 0.1, Sodium Level 138, Potassium Level 3.9, Chloride Level 97, Carbon Dioxide Level 31, Anion Gap 10, Blood Urea Nitrogen 12, Creatinine 0.90, Estimat Glomerular Filtration Rate 68, BUN/Creatinine Ratio 13, Glucose Level 95, Calcium Level 9.9, Corrected Calcium 11.2, Total Bilirubin 0.1, Aspartate Amino Transf (AST/SGOT) 30, Alanine Aminotransferase (ALT/SGPT) 25, Alkaline Phosphatase 87, Total Protein 6.7, Albumin 2.4 Discharge Home Medications: Active Scripts Active Diltiazem 24Hr ER (Diltiazem HCl) 120 Mg Cap.er.24h 120 Mg PO DAILY Reported Fish Oil 1,200 mg Fish Oil (Fish Oil/Dha/Epa) 1,200 Mg-144 Mg-216 Mg Capsule 1 Each PO HS Melatonin 10 Mg Tablet 10 Mg PO HS PRN Cranberry (Cranberry Fruit) 500 Mg Tab.chew 500 Mg PO DAILY Coq-10 (Ubidecarenone) 100 Mg Capsule 100 Mg PO DAILY Loratadine 10 Mg Tablet 10 Mg PO DAILY Magnesium Oxide 250 Mg Tablet 500 Mg PO BID TAKES 2 (250MG) TABS Levothyroxine Sodium 75 Mcg Tablet 75 Mcg PO DAILY Hydrochlorothiazide 25 Mg Tablet 25 Mg PO DAILY Amitriptyline HCl 100 Mg Tablet 100 Mg PO HS Simvastatin 20 Mg Tablet 20 Mg PO HS Oxybutynin Chloride ER (Oxybutynin Chloride) 10 Mg Tab.er.24 10 Mg PO DAILY Turmeric (Turmeric Root Extract) 500 Mg Tablet 500 Mg PO DAILY Iron (Ferrous Sulfate) 325 Mg (65 Mg Iron) Tablet 325 Mg PO DAILY Aleve (Naproxen Sodium) 220 Mg Tablet 440 Mg PO DAILY TAKES 2 (220MG) TABS Pantoprazole Sodium 40 Mg Tablet.dr 40 Mg PO DAILY Multi-Vitamin Daily (Multivitamin) 1 Each Tablet 1 Each PO DAILY Cranberry (Cranberry Extract) 500 Mg Tablet 1,000 Mg PO HS TAKES 2 (500MG) TABS Calcium (Calcium Carbonate) 500 Mg Calcium (1250 Mg) Tablet 1,000 Mg PO DAILY TAKES 2 (500MG) TABS Instructions to patient/family Please see electronic discharge instructions given to patient. Diagnosis/Problems Diagnosis/Problems (1) Acute respiratory failure RIAZ COTTER DO Jun 23, 2022 08:48
[2022-06-23] MEDS: LORATADINE (CLARITIN) 10 MG TAB PO SCH (09:25)
[2022-06-23] MEDS: SENNOSIDES 8.6 MG (SENOKOT) TAB PO SCH (09:25)
[2022-06-23] MEDS: MAGNESIUM OXIDE (MAG-OX)400 MG TAB PO SCH (09:25)
[2022-06-23] MEDS: MULTIVIT W/MINERALS TAB (THERAGRAN M) PO SCH (09:25)
[2022-06-23] MEDS: FERROUS SULF 325 MG (IRON) TAB PO SCH (09:25)
[2022-06-23] MEDS: dilTIAZem120 MG (CARDIZEM CD) CAP PO SCH (09:25)
[2022-06-23] MEDS: OXYBUTYNIN (DITROPAN) 5 MG TAB PO SCH (09:25)
[2022-06-23] MEDS: PANTOPRAZOLE 40 MG (PROTONIX) TAB PO SCH (09:25)
[2022-06-23] MEDS: DOCUSATE SODIUM 100 MG (COLACE) CAP PO SCH (09:26)
[2022-06-23] MEDS: CALCIUM CARBONATE 600 MG (CALCARB) TAB PO SCH (09:26)
[2022-06-23] MEDS: polyethylene glycoL POWDER 17 GM (MIRALAX) PACK PO SCH (09:26)
[2022-06-23] MEDS: LACTOBACILLUS ACIDOPHILUS (PROBIOTIC) CAPSULE PO SCH (09:26)
--- NOTE | 2022-06-23 11:00 | Therapy Team Discharge Summary ---
Therapy Discharge Summary Discharge Recommendations Date of Discharge Physical Therapy Patient came to rehab with debility; AHRF. Upon evaluation patient performs rolling with independence, supine <-> sit min assist, sit <-> stand and transfers CGA, car transfer CGA, ambulate 120' with a rolling walker with CGA (including 50' with at least 2 turns of 90 degrees and 10' over an uneven surface), up and down 1 step using a rolling walker with CGA, and can pharmacy picking tech an object from the floor using a runstitching machine operator with CGA. Patient has been performing bed mobility and transfer training, balance and endurance training, functional strengthening, stair training, gait training, and education. 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 Now, patient performs rolling and supine <-> sit with independence, sit <-> stand and transfers independent, car transfer independent, ambulates at least 150' with a rolling walker with independence (including 50' with at least 2 turns of 90 degrees and 10' over an uneven surface), can go up and down 6 steps using 2 handrails with SBA, and can pharmacy picking tech an object from the floor with independence. Patient is being discharged from this facility today and will be discharged from PT at this time. Roll Left to Right (QC): 6 Sit to Lying (QC): 6 Lying to Sitting/Side of Bed(Q: 6 Sit to Stand (QC): 6 Chair/Ghb-nw-Xnzwt Xfer(QC): 6 Toilet Transfer (QC): 6 Car Transfer (QC): 6 Does the Patient Walk: Yes Mode of Locomotion: Walk Anticipated Mode of Locomotion: Walk Walk 10 feet (QC): 6 Walk 50 ft with 2 Turns(QC): 6 Walk 150 ft (QC): 6 Walking 10ft on uneven surface: 6 Distance: 100', 120' Gait Assistive Device: FWW Does the Pt Use a Wheelchair: No Wheel 50 ft with 2 turns (QC): 9 Wheel 150 ft (QC): 9 #of Steps: 6 1 Step (curb) (QC): 5 4 Steps (QC): 5 12 Steps (QC): 88 Walking Assistive Device: Walker Balance Sitting Static: Normal Balance Sitting Dynamic: Normal Balance-Standing Static: Fair Picking up an Object (QC): 6 Occupational Therapy Decreased Activ Tolerance, Impaired Self-Care Skills Eating (QC): 6 Oral Hygiene (QC): 6 Shower/Bathe Self (QC): 6 Upper Body Dressing (QC): 6 Lower Body Dressing (QC): 6 On/Off Footwear (QC): 6 Toileting Hygiene (QC): 6 PT Alf Goals Allergy And Immunology Chief Goals PT Allergy And Immunology Chief Goals Time Frame: Jun 28, 2022 Roll Left to Right (QC): 6 Sit to Lying (QC): 6 Lying-Sitting on Side/Bed(QC): 6 Sit to Stand (QC): 6 Chair/Mdz-hm-Nsuhy Xfer(QC): 6 Toilet/Commode Transfer (QC): 6 Car Transfer (QC): 6 Does the Patient Walk: Yes Walk 10 feet (QC): 6 Walk 10ft-Uneven Surface(QC): 6 Walk 50ft with 2 Turns (QC): 6 Walk 150 ft (QC): 6 Wheel 50 feet with 2 turns (QC: 9 Wheel 150 feet: 9 1 Step (curb) (QC): 4 (SBA) 4 Steps (QC): 4 (SBA) 12 Steps (QC): 88 Picking up an Object (QC): 6 OT Allergy And Immunology Chief Goals Allergy And Immunology Chief Goals Time Frame: Jul 09, 2022 Acute change in mental status: 0 Inattention: 0 Disorganized thinkin Altered level of consciousness: 0 Eating (QC): 6 (met) Oral Hygiene (QC): 6 (met) Toileting Hygiene (QC): 6 (met) Shower/Bathe Self (QC): 6 (met) Upper Body Dressing (QC): 6 (met) Lower Body Dressing (QC): 6 (met) On/Off Footwear (QC): 6 (met) Additional Goals: 1-Demonstrate ADL Tasks, 2-Verbalize Understanding, 3- ImproveStrength/Jailyn 1=Demonstrate adherence to instructed precautions during ADL tasks. 2=Patient will verbalize/demonstrate understanding of assistive de vices/modifications for ADL. 3=Patient will improve strength/tolerance for activity to enable patient to perform ADL's. RANDALL ROSAS PT Jun 23, 2022 11:00
--- NOTE | 2022-06-23 14:37 | Therapy Team Discharge Summary ---
Therapy Discharge Summary Discharge Recommendations Date of Discharge Jun 23, 2022 at 10:55 Physical Therapy Roll Left to Right (QC): 6 Sit to Lying (QC): 6 Lying to Sitting/Side of Bed(Q: 6 Sit to Stand (QC): 6 Chair/Wuy-fj-Iqagt Xfer(QC): 6 Toilet Transfer (QC): 6 Car Transfer (QC): 6 Does the Patient Walk: Yes Mode of Locomotion: Walk Anticipated Mode of Locomotion: Walk Walk 10 feet (QC): 6 Walk 50 ft with 2 Turns(QC): 6 Walk 150 ft (QC): 6 Walking 10ft on uneven surface: 6 Distance: 100', 120' Gait Assistive Device: FWW Does the Pt Use a Wheelchair: No Wheel 50 ft with 2 turns (QC): 9 Wheel 150 ft (QC): 9 #of Steps: 6 1 Step (curb) (QC): 5 4 Steps (QC): 5 12 Steps (QC): 88 Walking Assistive Device: Walker Balance Sitting Static: Normal Balance Sitting Dynamic: Normal Balance-Standing Static: Fair Picking up an Object (QC): 6 Occupational Therapy Pt admitted to ARU with acute respiratory failure. At [facility], pt was independent with ADLS and functional mobility, no AD. Upon initial evaluation, pt required set up with eating and UE dressing, independent oral care, mod A LE dressing, max A footwear, SBA toileting, and min A showering. OT tx focused on increasing BUE Strength and activity tolerance, and increasing safety and independence with ADLS and functional mobility. Pt made good progress towards goals, attaining IND level with all ADLS. Pt discharged from hospital, d/c from OT. Decreased Activ Tolerance, Impaired Self-Care Skills Eating (QC): 6 Oral Hygiene (QC): 6 Shower/Bathe Self (QC): 6 Upper Body Dressing (QC): 6 Lower Body Dressing (QC): 6 On/Off Footwear (QC): 6 Toileting Hygiene (QC): 6 PT Senior Care Goals Certified Social Workers In Health Care Goals PT Certified Social Workers In Health Care Goals Time Frame: Jun 28, 2022 Roll Left to Right (QC): 6 Sit to Lying (QC): 6 Lying-Sitting on Side/Bed(QC): 6 Sit to Stand (QC): 6 Chair/Amm-nx-Jwyot Xfer(QC): 6 Toilet/Commode Transfer (QC): 6 Car Transfer (QC): 6 Does the Patient Walk: Yes Walk 10 feet (QC): 6 Walk 10ft-Uneven Surface(QC): 6 Walk 50ft with 2 Turns (QC): 6 Walk 150 ft (QC): 6 Wheel 50 feet with 2 turns (QC: 9 Wheel 150 feet: 9 1 Step (curb) (QC): 4 (SBA) 4 Steps (QC): 4 (SBA) 12 Steps (QC): 88 Picking up an Object (QC): 6 OT Senior Care Goals Senior Care Goals Time Frame: Jul 09, 2022 Acute change in mental status: 0 Inattention: 0 Disorganized thinkin Altered level of consciousness: 0 Eating (QC): 6 (met) Oral Hygiene (QC): 6 (met) Toileting Hygiene (QC): 6 (met) Shower/Bathe Self (QC): 6 (met) Upper Body Dressing (QC): 6 (met) Lower Body Dressing (QC): 6 (met) On/Off Footwear (QC): 6 (met) Additional Goals: 1-Demonstrate ADL Tasks, 2-Verbalize Understanding, 3-Impro veStrength/Jailyn 1=Demonstrate adherence to instructed precautions during ADL tasks. 2=Patient will verbalize/demonstrate understanding of assistive devices/modifications for ADL. 3=Patient will improve strength/tolerance for activity to enable patient to perform ADL's. REED OH OT Jun 23, 2022 14:37
== END 2022-06-23 10:55 | disposition home health service (06) | DRG 947 ==
PROVIDERS: ADMIT Internal Medicine; ATTEND Internal Medicine
PROC: 5A0935A Assistance with Respiratory Ventilation, Less than 24 Consecutive Hours, High Flow/Velocity Cannula (ICD-10-PCS; principal; 2022-06-14)
DX: R53.81 Other malaise (principal); J15.4 Pneumonia due to other streptococci; J96.21 Acute and chronic respiratory failure with hypoxia; Q60.0 Renal agenesis, unilateral; J90 Pleural effusion, not elsewhere classified; R53.1 Weakness; R26.9 Unspecified abnormalities of gait and mobility; D75.838 Other thrombocytosis; F32.A Depression, unspecified; E78.00 Pure hypercholesterolemia, unspecified; I10 Essential (primary) hypertension; K21.9 Gastro-esophageal reflux disease without esophagitis; E03.9 Hypothyroidism, unspecified; Z85.3 Personal history of malignant neoplasm of breast; Z79.1 Long term (current) use of non-steroidal anti-inflammatories (NSAID); Z79.899 Other long term (current) drug therapy
CPT/HCPCS: 36415; 71045; 71046; 80053; 85025; 94640; 94760; 94761

== ENCOUNTER → 2022-07-01 | Outpatient (CLI) | payer MEDICARE, OTHER ==
[~2022-07-01] MED LIST changes: +DILT-27 PO
--- NOTE | 2022-07-01 11:54 | Diagnostic Imaging Report ---
INDICATION: Pleural effusion. COMPARISON is made with prior exam of 06/17/2022. FINDINGS: The heart size is normal. There is right basilar atelectasis and/or pneumonitis and a trace right pleural effusion. There is no pneumothorax. The mediastinum is unremarkable IMPRESSION: Right basilar atelectasis and/or pneumonitis and trace right pleural effusion. Both of these are improved when compared to the prior examination. The previously seen right upper extremity PICC line has been removed. Dictated by: Dictated on workstation # [id number]
== END ==
LOC: RAD 11:11
PROVIDERS: ATTEND Internal Medicine
DX: J90 Pleural effusion, not elsewhere classified (principal)
CPT/HCPCS: 71047